=== PATIENT | male | born 1955 | race Caucasian/White ===

== ENCOUNTER 2018-02-06 21:30 | Inpatient (IN) | payer BC ==
[2018-02-06] MEDS ORDERED: DILTIAZEM 125 MG in SODIUM CHLORIDE 0.9% 100 ML IV ONE (21:57)
[2018-02-06] MEDS ORDERED: DILTIAZEM 5 MG/1 ML (25ML VIAL) IV STA (21:57)
[2018-02-06] MEDS ORDERED: SODIUM CHLORIDE 0.9% 500 ML IV ONE (21:58)
[2018-02-06] MEDS ORDERED: DILTIAZEM 50 MG in SODIUM CHLORIDE 0.9% 40 ML IV ONE (22:15)
[2018-02-06 22:17] LABS: Basophils # (A) 0.1 k/uL (0-0.2); Basophils % (A) 1 %; Eosinophils # (A) 0.1 k/uL (0-0.7); Eosinophils % (A) 2 %; HGB 15.5 gm/dL (13.0-17.5); Lymphocytes # (A) 2.7 k/uL (1.0-4.8); Lymphocytes % (A) 34 %; MCH 27.1 pg (25.0-35.0); MCHC 34.5 g/dL (31.0-37.0); MCV 78.5 fL (80.0-100.0); Mean Platelet Volume 7.6; Monocytes # (A) 0.4 k/uL (0-1.0); Monocytes % (A) 5 %; Neutrophils # (A) 4.6 k/uL (1.3-7.7); Neutrophils % (A) 57 %; Platelet Count 187 k/uL (150-450); RBC 5.73 m/uL (4.30-5.90); RDW 14.1 % (11.5-15.5); WBC 8.1 k/uL (3.8-10.6)
[2018-02-06 22:24] LABS: INR 0.9 (<1.2); Partial Thromboplastin Time 23.7 sec (22.0-30.0); Prothrombin Time 9.5 sec (9.0-12.0)
--- NOTE | 2018-02-06 22:25 | ED ---
General Adult HPI - General Chief complaint: Chest Pain Stated complaint: Chest pain Time Seen by Provider: 02/06/18 21:45 Source: patient, RN notes reviewed Mode of arrival: ambulatory Limitations: no limitations - History of Present Illness Initial comments: 62-year-old male presenting for evaluation of chest pain and palpitation. Patient states approximately one hour prior to arrival he was walking up the stairs to go to bed, he developed palpitations and checked his pulse, stated his heart was racing. At that time he had some upper chest tightness and right- sided neck and jaw pain. This was associated with some mild nausea. No vomiting. Symptoms have been persistent since that time. He has no history of coronary artery disease, no history of arrhythmia. Patient takes a daily aspirin, no other medications. Denies abdominal pain. Denies fever or chills. Denies cough or dyspnea. Denies rectal bleeding or melena. - Related Data Home Medications Medication Instructions Recorded Confirmed Aspirin [Adult Low Dose Aspirin EC] 81 mg PO DAILY 10/17/16 02/06/18 Allergies Allergy/AdvReac Type Severity Reaction Status Date / Time No Known Allergies Allergy Verified 02/06/18 22:11 Review of Systems ROS Statement: Those systems with pertinent positive or pertinent negative responses have been documented in the HPI. ROS Other: All systems not noted in ROS Statement are negative. Past Medical History Past Medical History: No Reported History Additional Past Medical History / Comment(s): HAS HAD THE HERNIA FOR ABOUT 2 YEARS. History of Any Multi-Drug Resistant Organisms: None Reported Past Surgical History: Hernia Repair, Tonsillectomy Additional Past Surgical History / Comment(s): DETACHED RETINAS, RIGHT EYE WORSE. VASECTOMY. Past Anesthesia/Blood Transfusion Reactions: No Reported Reaction Past Psychological History: No Psychological Hx Reported Smoking Status: Never smoker Past Alcohol Use History: Rare Past Drug Use History: None Reported - Past Family History Mother Family Medical History: Cancer Additional Family Medical History / Comment(s): BREAST General Exam Limitations: no limitations General appearance: alert, in no apparent distress Head exam: Present: atraumatic, normocephalic Eye exam: Present: normal appearance, PERRL, EOMI ENT exam: Present: normal exam Neck exam: Present: normal inspection. Absent: tenderness, meningismus Respiratory exam: Present: normal lung sounds bilaterally. Absent: respiratory distress, wheezes Cardiovascular Exam: Present: tachycardia, irregular rhythm, normal heart sounds GI/Abdominal exam: Present: soft. Absent: distended, tenderness, guarding Extremities exam: Present: normal inspection, normal capillary refill. Absent: pedal edema Neurological exam: Present: alert, oriented X3, CN II-XII intact. Absent: motor sensory deficit Psychiatric exam: Present: normal affect, normal mood Skin exam: Present: warm, dry, intact. Absent: cyanosis, diaphoretic Course Vital Signs 02/06/18 02/06/18 02/06/18 21:35 22:06 22:31 Temperature 98.5 F Pulse Rate 91 135 H Pulse Rate [ 135 H [employer] ] Respiratory 18 18 Rate Blood Pressure 167/93 123/90 O2 Sat by Pulse 98 96 Oximetry 02/06/18 23:14 Temperature Pulse Rate 62 Pulse Rate [ [employer] ] Respiratory 18 Rate Blood Pressure 147/81 O2 Sat by Pulse 97 Oximetry EKG Findings - EKG Comments: EKG Findings:: EKG obtained at 2147, A. fib with RVR, left axis deviation, nonspecific ST segment abnormality including ST segment depression in lead 2, no ST segment elevation rate of 140, QRS duration 100, QTC 506. EKG obtained at 20 30 to normal sinus rhythm, left axis deviation, ST segment elevation, ventricular rate 61, VA interval 178, QRS duration 90, due to see 394 Medical Decision Making - Medical Decision Making 62-year-old male presenting with chest pain and palpitations. Patient is found to be in A. fib with RVR, no history of A. fib. No significant past medical history. Patient is given Cardizem and converts to sinus rhythm. He does have nonspecific changes on EKG as well as he experienced chest pain with his palpitations. This is likely secondary to demand. Laboratory studies reveal normal hemoglobin, normal electrolytes including magnesium. Troponin is negative. Chest x-ray negative. Patient will be maintained on Cardizem and heparin. He will be admitted for cardiology consult, and telemetry. - Lab Data Result diagrams: 02/06/18 21:56 02/06/18 21:56 Lab Results 02/06/18 02/06/18 02/06/18 Range/Units 21:56 21:56 21:56 WBC 8.1 (3.8-10.6) k/uL RBC 5.73 (4.30-5.90) m/uL Hgb 15.5 (13.0-17.5) gm/dL Hct 45.0 (39.0-53.0) % MCV 78.5 L (80.0-100.0) fL MCH 27.1 (25.0-35.0) pg MCHC 34.5 (31.0-37.0) g/dL RDW 14.1 (11.5-15.5) % Plt Count 187 (150-450) k/uL Neutrophils % 57 % Lymphocytes % 34 % Monocytes % 5 % Eosinophils % 2 % Basophils % 1 % Neutrophils # 4.6 (1.3-7.7) k/uL Lymphocytes # 2.7 (1.0-4.8) k/uL Monocytes # 0.4 (0-1.0) k/uL Eosinophils # 0.1 (0-0.7) k/uL Basophils # 0.1 (0-0.2) k/uL PT (9.0-12.0) sec INR (<1.2) APTT (22.0-30.0) sec Sodium 145 (137-145) mmol/L Potassium 4.0 (3.5-5.1) mmol/L Chloride 105 (98-107) mmol/L Carbon Dioxide 25 (22-30) mmol/L Anion Gap 15 mmol/L BUN 19 (9-20) mg/dL Creatinine 0.90 (0.66-1.25) mg/dL Est GFR (CKD-EPI)AfAm >90 (>60 ml/min/1.73 sqM) Est GFR (CKD-EPI)NonAf 90 (>60 ml/min/1.73 sqM) Glucose 178 H (74-99) mg/dL Calcium 9.8 (8.4-10.2) mg/dL Magnesium 2.1 (1.6-2.3) mg/dL Total Bilirubin 0.4 (0.2-1.3) mg/dL AST 32 (17-59) U/L ALT 45 (21-72) U/L Alkaline Phosphatase 81 (38-126) U/L Total Creatine Kinase 156 (55-170) U/L CK-MB (CK-2) 2.0 (0.0-2.4) ng/mL CK-MB (CK-2) Rel Index 1.3 Troponin I <0.012 (0.000-0.034) ng/mL NT-Pro-B Natriuret Pep pg/mL Total Protein 7.2 (6.3-8.2) g/dL Albumin 4.4 (3.5-5.0) g/dL 02/06/18 02/06/18 Range/Units 21:56 21:56 WBC (3.8-10.6) k/uL RBC (4.30-5.90) m/uL Hgb (13.0-17.5) gm/dL Hct (39.0-53.0) % MCV (80.0-100.0) fL MCH (25.0-35.0) pg MCHC (31.0-37.0) g/dL RDW (11.5-15.5) % Plt Count (150-450) k/uL Neutrophils % % Lymphocytes % % Monocytes % % Eosinophils % % Basophils % % Neutrophils # (1.3-7.7) k/uL Lymphocytes # (1.0-4.8) k/uL Monocytes # (0-1.0) k/uL Eosinophils # (0-0.7) k/uL Basophils # (0-0.2) k/uL PT 9.5 (9.0-12.0) sec INR 0.9 (<1.2) APTT 23.7 (22.0-30.0) sec Sodium (137-145) mmol/L Potassium (3.5-5.1) mmol/L Chloride (98-107) mmol/L Carbon Dioxide (22-30) mmol/L Anion Gap mmol/L BUN (9-20) mg/dL Creatinine (0.66-1.25) mg/dL Est GFR (CKD-EPI)AfAm (>60 ml/min/1.73 sqM) Est GFR (CKD-EPI)NonAf (>60 ml/min/1.73 sqM) Glucose (74-99) mg/dL Calcium (8.4-10.2) mg/dL Magnesium (1.6-2.3) mg/dL Total Bilirubin (0.2-1.3) mg/dL AST (17-59) U/L ALT (21-72) U/L Alkaline Phosphatase (38-126) U/L Total Creatine Kinase (55-170) U/L CK-MB (CK-2) (0.0-2.4) ng/mL CK-MB (CK-2) Rel Index Troponin I (0.000-0.034) ng/mL NT-Pro-B Natriuret Pep 86 pg/mL Total Protein (6.3-8.2) g/dL Albumin (3.5-5.0) g/dL Critical Care Time Critical Care Time: Yes Total Critical Care Time: 35 Disposition Clinical Impression: Unstable angina pectoris, Atrial fibrillation with RVR Disposition: ADMITTED IP TO THIS [facility] Condition: Stable Referrals: Jonny Iglesias MD [Primary Care Provider] - 1-2 days Decision to Admit Reason: Admit from EC Decision Date: 02/06/18 Decision Time: 23:37
[2018-02-06 22:28] LABS: ALT 45 U/L (21-72); AST 32 U/L (17-59); Albumin 4.4 g/dL (3.5-5.0); Alkaline Phosphatase 81 U/L (38-126); Anion Gap 15 mmol/L; Blood Urea Nitrogen 19 mg/dL (9-20); Calcium 9.8 mg/dL (8.4-10.2); Carbon Dioxide 25 mmol/L (22-30); Chloride 105 mmol/L (98-107); Glucose 178 mg/dL (74-99); Magnesium 2.1 mg/dL (1.6-2.3); Sodium 145 mmol/L (137-145); Total Bilirubin 0.4 mg/dL (0.2-1.3); Total Protein 7.2 g/dL (6.3-8.2)
[2018-02-06 22:36] LABS: Creatine Kinase 156 U/L (55-170)
[2018-02-06 22:48] LABS: Troponin I <0.012 ng/mL (0.000-0.034)
--- NOTE | 2018-02-06 22:53 | XR ---
EXAMINATION: XR chest 2V DATE AND TIME: 02/06/2018 10:26 PM ORDERING PROVIDER: Chuck Martins MD CLINICAL INDICATION: Chest Pain TECHNIQUE: PA and lateral COMPARISON: None. DESCRIPTION: The lungs are clear. The pleural spaces are negative. The cardiac silhouette is not enlarged. The mediastinal and pleural silhouettes are unremarkable. The skeletal structures are intact without focal findings. The soft tissues are unremarkable. IMPRESSION: NO ACUTE PROCESS.
[2018-02-06] MEDS ORDERED: ASPIRIN 325 MG TAB PO STA (23:06)
[2018-02-06] MEDS ORDERED: NALOXONE 0.4 MG/ML 1 ML VIAL IV PRN (23:32)
[2018-02-06] MEDS ORDERED: HEPARIN SODIUM,PORCINE 5,000 UNIT/ML 1 ML VIAL IV PRN (23:34)
[2018-02-06] MEDS ORDERED: HEPARIN SODIUM,PORCINE 5,000 UNIT/ML 1 ML VIAL IV ONE (23:34)
[2018-02-06] MEDS ORDERED: HEPARIN SOD,PORK IN 0.45% NACL 25,000 UNIT in 0.45% NACL 1 500ML.BAG IV SCH (23:45)
[2018-02-07 01:08] VITALS: BMI 28.1
[2018-02-07 04:41] LABS: Creatine Kinase MB 1.8 ng/mL (0.0-2.4)
[2018-02-07 04:52] LABS: Troponin I 0.05 ng/mL (0.000-0.034)
[2018-02-07 07:28] LABS: Basophils % (A) 1 %; Eosinophils # (A) 0.1 k/uL (0-0.7); Eosinophils % (A) 1 %; HCT 41.7 % (39.0-53.0); HGB 13.7 gm/dL (13.0-17.5); Lymphocytes # (A) 2.1 k/uL (1.0-4.8); Lymphocytes % (A) 30 %; MCH 25.8 pg (25.0-35.0); MCHC 32.7 g/dL (31.0-37.0); MCV 78.8 fL (80.0-100.0); Mean Platelet Volume 7.8; Monocytes # (A) 0.4 k/uL (0-1.0); Monocytes % (A) 5 %; Neutrophils # (A) 4.4 k/uL (1.3-7.7); Neutrophils % (A) 61 %; Platelet Count 170 k/uL (150-450); RDW 14.3 % (11.5-15.5); WBC 7.2 k/uL (3.8-10.6)
[2018-02-07] MEDS: ASPIRIN 325 MG TAB PO SCH (08:15)
[2018-02-07] MEDS ORDERED: ASPIRIN 325 MG TAB PO STA (08:55)
[2018-02-07] MEDS ORDERED: ALPRAZolam 0.25 MG TAB PO PRN (08:55)
[2018-02-07] MEDS ORDERED: ALPRAZolam 0.5 MG TAB PO PRN (08:55)
[2018-02-07] MEDS ORDERED: SODIUM CHLORIDE 0.9% 1,000 ML in EMPTY BAG 1 BAG IV ONE (08:55)
[2018-02-07] MEDS ORDERED: ATORVASTATIN 80 MG TAB PO STA (08:55)
[2018-02-07] MEDS ORDERED: NITROGLYCERIN SL TABS 0.4 MG TAB SUBLINGUAL PRN (08:55)
--- NOTE | 2018-02-07 09:37 | CONS ---
CONSULTATION CHIEF COMPLAINT: Chest pain. Christian is a 62-year-old gentleman with no significant past medical history, who around 9 o'clock yesterday felt somewhat fatigued and tired and went to bed early, then started having sustained palpitations. There are moderate to severe intensity came on at rest without clear-cut relieving or exacerbating factors. Then he says that he developed chest discomfort that was 5 to 10/10 intensity that radiated to him in his neck and jaw area. He was concerned, came to the ER where he was found to be in atrial fibrillation with poorly with controlled ventricular rate. Subsequently, he converted back to sinus rhythm on his own. The patient was in atrial fibrillation for about 2 hours before he converted on his own. He is on IV heparin and remained symptom free through night. His 1st set of troponin was normal, but the 2nd one came back elevated at 0.050. The rest of his lab workup is normal. EKG does not reveal acute ischemic changes. Given his symptomatology and elevated troponin, I advised the patient to undergo cardiac catheterization to evaluate his coronary anatomy and streamline his management. I will obtain a 2D echo to evaluate his LV function. If the coronaries are normal, we can treat him with aspirin and start him on a beta lizbeth and discharge him home. He does not need an anticoagulant at this time. If he has coronary artery disease, then he will undergo revascularization. PAST MEDICAL HISTORY: Negative for hypertension, diabetes, dyslipidemia. MEDICATIONS: Aspirin. ALLERGIES: No known drug allergies. FAMILY HISTORY: Negative for premature coronary artery disease. SOCIAL HISTORY: Negative for current smoking, EtOH abuse, or drug abuse. REVIEW OF SYSTEMS: HEENT is unremarkable. Cardiac as described above. Respiratory negative. GI negative. Genitourinary negative. Allergy none. Skin negative. Musculoskeletal negative. Endocrine negative. Constitutional negative. Oncological negative. Rest of the system review is not relevant. PHYSICAL EXAM: Comfortable at rest. Vital signs are stable. There is no jugular venous distention. Carotid upstroke is normal. There is no bruit. Chest exam reveals good air entry bilaterally. Heart exam reveals first and second heart sounds. No gallop. No murmur. No rub. Abdomen is soft, nontender. Exam of extremities did not reveal edema. Peripheral pulses are felt. LABS: Show that the hemoglobin is 13.7, potassium is 4. Creatinine is 0.9. Troponin is elevated. ASSESSMENT: 1. Non ST-segment elevation myocardial infarction. 2. Paroxysmal atrial fibrillation. PLAN: I advised the patient to undergo cardiac catheterization. We will decide on further course of action based on his angiographic data. ALEX / BARRY: [id number] /
[2018-02-07] MEDS ORDERED: IV FLUID CONTINUATION 150 ML IV ONE (11:30)
[2018-02-07 11:33] LABS: Creatine Kinase MB 1.5 ng/mL (0.0-2.4); Troponin I 0.021 ng/mL (0.000-0.034)
[2018-02-07] MEDS ORDERED: MIDAZOLAM 2 MG/2 ML VIAL ONE (11:41)
[2018-02-07] MEDS ORDERED: fentaNYL (PF) 50 MCG/ML 2 ML AMP ONE (11:41)
--- NOTE | 2018-02-07 11:43 | ECHOF ---
Referral Reason:chest pain. afib MEASUREMENTS -------- HEIGHT: 185.4 cm WEIGHT: 104.8 kg BP: 163/72 IVSd: 1.2 cm (0.6 - 1.1) LVIDd: 4.2 cm (3.9 - 5.3) LVPWd: 1.4 cm (0.6 - 1.1) IVSs: 1.8 cm LVIDs: 2.2 cm LVPWs: 2.3 cm LAESV Index (A-L): 20.50 ml/m Ao Diam: 3.8 cm (2.0 - 3.7) AV Cusp: 2.0 cm (1.5 - 2.6) LA Diam: 3.3 cm (2.7 - 3.8) MV EXCURSION: 8.330 mm (> 18.000) MV EF SLOPE: 51 mm/s (70 - 150) EPSS: 2.3 cm MV E Carter: 1.05 m/s MV DecT: 271 ms MV A Carter: 0.83 m/s MV E/A Ratio: 1.27 AR PHT: 731 ms RAP: 5.00 mmHg RVSP: 15.39 mmHg FINDINGS -------- Sinus rhythm. This was a technically good study. The left ventricular size is normal. There is mild concentric left ventricular hypertrophy. Overa ll left ventricular systolic function is normal with, an EF between 55 - 60 %. The right ventricle is normal in size and function. The left atrium is normal in size. The right atrium is normal in size. There is mild aortic regurgitation. There is trace mitral regurgitation. Trace tricuspid regurgitation present. The right ventricular systolic pressure, as measured by Dopp ler, is 15.39mmHg. Pulmonic valve appears structurally normal. The aortic root is mildy dilated measuring 3.8 cm The pericardium is normal. CONCLUSIONS -------- 1. Sinus rhythm. 2. This was a technically good study. 3. The left ventricular size is normal. 4. There is mild concentric left ventricular hypertrophy. 5. Overall left ventricular systolic function is normal with, an EF between 55 - 60 %. 6. The right ventricle is normal in size and function. 7. The left atrium is normal in size. 8. The right atrium is normal in size. 9. There is mild aortic regurgitation. 10. There is trace mitral regurgitation. 11. Trace tricuspid regurgitation present. 12. The right ventricular systolic pressure, as measured by Doppler, is 15.39mmHg. 13. Pulmonic valve appears structurally normal. 14. The aortic root is mildy dilated measuring 3.8 cm 15. The pericardium is normal. HOME SUPERVISOR: Cecile Maidson RDCS
[2018-02-07] MEDS ORDERED: SODIUM CHLORIDE 0.9% 500 ML IV ONE (11:49)
[2018-02-07] MEDS ORDERED: MIDAZOLAM 2 MG/2 ML VIAL IV ONE (11:49)
[2018-02-07] MEDS ORDERED: LIDOCAINE 2% INJ 20 MG/ML SQ ONE (11:53)
[2018-02-07] MEDS ORDERED: fentaNYL (PF) 50 MCG/ML 2 ML AMP IV ONE (11:54)
[2018-02-07] MEDS ORDERED: IOPAMIDOL-370 125ML BTL INJ ONE (12:05)
[2018-02-07] MEDS ORDERED: RX INFO: IV CONTRAST WAS GIVEN 1 EACH MISC MISCELLANE PRN (12:14)
--- NOTE | 2018-02-07 12:28 | CC ---
CARDIAC CATHETERIZATION REPORT INDICATION: Non ST-segment elevation WI. PROCEDURE NOTE: After obtaining informed consent, left heart catheterization and coronary angiogram are performed via the right femoral artery using standard Dick catheters. The patient tolerated the procedure well without any obvious immediate complications. A femoral angiogram was performed and Angio-Seal was deployed for hemostasis. Patient received moderate conscious sedation. Total sedation time was 13 minutes. FINDINGS: 1. HEMODYNAMICS: Left ventricular end-diastolic pressure is 12 mm. There is no significant gradient across aortic valve. 2. LEFT VENTRICULOGRAM: Left ventriculogram is not performed. 3. ANGIOGRAPHIC DATA: 4. Left main coronary artery: Left main coronary artery is a normal-sized vessel and is free of stenosis. Divides into left anterior descending coronary artery and circumflex coronary artery. LAD and its branches, circumflex coronary artery and its branches are free of significant stenosis. Right coronary artery is a large dominant vessel and is free of significant disease. CONCLUSIONS: 1. Normal coronary arteries. 2. Normal left ventricular end-diastolic pressure. PLAN: The exact etiology for elevated troponin is unclear, could be related to supply-demand mismatch from the new onset atrial fibrillation. I certainly would like to rule out pulmonary embolism. I am going to obtain a D-dimer on him and if this is elevated, we will obtain a CT scan of the chest. MMODL / IJN: [id number] /
--- NOTE | 2018-02-07 14:04 | HP ---
HISTORY AND PHYSICAL DATE OF ADMISSION: 02/06/2018 PRESENTING COMPLAINT: Chest pain. HISTORY OF PRESENTING COMPLAINT: This is a very pleasant 62-year-old patient of Dr. Iglesias. Rather in good shape and health. 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 Patient has to climb quite a few stairs. Yesterday when he was climbing stairs, his legs really felt tired, he felt really fatigued. When he came home, he told his he just wants to lie down and get some rest, felt exhausted, felt also his heart racing, then developed a pressure across the chest, going up to the neck. Patient started sweating, started feeling more run down. This lasted for quite a while and decided to come down to the ER. Patient is found to be in atrial fibrillation rapid ventricular rate, put on IV Cardizem. Patient subsequently converted to sinus rhythm. Patient's troponin did bump up to 0.050 and seen by Cardiology this morning. Patient is now scheduled for a cardiac catheterization. Otherwise, patient is in great health. REVIEW OF SYSTEMS: CONSTITUTIONAL: Tired. HEENT: None. RESPIRATORY: As above. CARDIOVASCULAR: As above. GASTROINTESTINAL: None. GENITOURINARY: None. MUSCULOSKELETAL: None. DERMATOLOGICAL: None. HEMATOLOGICAL: None. LYMPHATIC: None. PSYCHIATRY: None. NEUROLOGICAL: None. PAST MEDICAL HISTORY: Hernia. PAST SURGICAL HISTORY: Hernia repair, tonsillectomy, detached retina on the right eye, vasectomy. SOCIAL HISTORY: Never smoked. Alcohol rarely. . 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 FAMILY HISTORY: Breast cancer. HOME MEDICATIONS: Aspirin 81 mg a day. ALLERGIES: None. PHYSICAL EXAMINATION: Vital signs on presentation, temperature 98.5, pulse up to 135, respiratory rate 18, blood pressure 167/93, pulse ox 98% on room air, repeat blood pressure down to 123/90. GENERAL APPEARANCE: Average build, lying in bed, comfortable. EYES: Pupils equal, conjunctivae normal. HEENT: External appearance of nose and ears oral, oral cavity normal. NECK: JVD not raised. Mass not palpable. Respiratory effort normal. Lungs are clear. CARDIOVASCULAR: First and second sounds are normal. No edema. ABDOMEN: Soft, nontender. Liver and spleen not palpable. LYMPHATIC: No lymph nodes palpable in neck or axillae. PSYCHIATRY: Alert and oriented x3. Mood and affect normal. NEUROLOGICAL: Pupils equal, cranial nerves grossly intact. Power and sensation grossly intact. INVESTIGATIONS: White count 8.1, hemoglobin 15.5 potassium 4.0, BUN and creatinine is normal, troponin less than 0.012, 0.050, 0.021. EKG shows atrial fib with rapid ventricular rate. Repeat EKG normal. LDL 104. ASSESSMENT: 1. Possible acute non-Q-wave myocardial infarction. 2. Paroxysmal atrial fibrillation, probably manifesting as a sign of cardiac ischemia. 3. IV heparin monitoring. PLAN: Patient will be going for a cardiac catheterization, already on aspirin, beta lizbeth, and IV heparin. Dr. Gunn from Cardiology saw the patient. Care was discussed with the patient and . Questions were answered. ALEX / LEONORN: [id number] /
[2018-02-07] MEDS: SODIUM CHLORIDE 0.9% 1,000 ML IV SCH (15:26)
[2018-02-07] MEDS: METOPROLOL TARTRATE 25 MG TAB PO SCH (16:50)
[2018-02-08] MEDS: SODIUM CHLORIDE 0.9% 1,000 ML IV SCH ×2 (01:32→16:09)
[2018-02-08] MEDS: METOPROLOL TARTRATE 25 MG TAB PO SCH (04:20)
[2018-02-08 06:40] LABS: Basophils % (A) 1 %; Eosinophils # (A) 0.1 k/uL (0-0.7); Eosinophils % (A) 1 %; HCT 40.3 % (39.0-53.0); HGB 13.6 gm/dL (13.0-17.5); Lymphocytes # (A) 1.7 k/uL (1.0-4.8); Lymphocytes % (A) 25 %; MCH 26.6 pg (25.0-35.0); MCHC 33.8 g/dL (31.0-37.0); MCV 78.6 fL (80.0-100.0); Mean Platelet Volume 7.5; Monocytes # (A) 0.4 k/uL (0-1.0); Monocytes % (A) 6 %; Neutrophils # (A) 4.5 k/uL (1.3-7.7); Neutrophils % (A) 66 %; Platelet Count 160 k/uL (150-450); RBC 5.12 m/uL (4.30-5.90); RDW 14.1 % (11.5-15.5); WBC 6.8 k/uL (3.8-10.6)
[2018-02-08] MEDS: ASPIRIN 325 MG TAB PO SCH (08:46)
[2018-02-08] MEDS ORDERED: METOPROLOL TARTRATE 25 MG TAB PO SCH (09:00)
[2018-02-08 10:31] VITALS: TEMP 96.7
--- NOTE | 2018-02-08 11:19 | P.PN ---
Subjective Progress Note Date: 02/08/18 Principal diagnosis: Atrial fibrillation His is a pleasant 62-year-old gentleman with no significant past medical history who presented to the hospital with new onset atrial fibrillation. He subsequently converted to normal sinus rhythm within a two-hour period and has remained in normal sinus rhythm. He was also noted to have abnormality in his troponin and for this reason was taken to the cardiac catheterization lab by Dr. Gunn. Cardiac catheterization revealed normal coronary arteries. Patient was seen and examined this morning, denied any palpitations, no dizziness or lightheadedness, no chest discomfort. Blood pressure 140/70 with a heart rate in the 50s. Objective - Vital Signs Vital signs: Vital Signs Temp 96.7 F L 02/08/18 08:40 Pulse 59 L 02/08/18 08:40 Resp 16 02/08/18 08:40 BP 145/74 02/08/18 08:40 Pulse Ox 97 02/08/18 08:40 Intake & Output 02/07/18 02/08/18 02/08/18 18:59 06:59 18:59 Intake Total 718.573 2962 240 Output Total 700 350 Balance -435.333 725 240 Weight 103.1 kg Intake: IV 100 Intake, IV Titration 164.667 675 Amount Heparin Sod,Pork in 0.45% 164.667 NaCl 25,000 unit In 0.45 % NaCl 1 500ml.bag @ 9.8 UNITS/KG/HR 20 mls/hr IV .Q24H LING Rx#:[id number] Sodium Chloride 0.9% 1, 675 000 ml @ 75 mls/hr IV . [id number] LING Rx#:[id number] Oral 0 400 240 Output: Urine 700 350 Other: Voiding Method Urinal Urinal # Voids 1 - Exam PHYSICAL EXAMINATION: HEENT: Head is atraumatic, normocephalic. Pupils equal, round. Neck is supple. There is no elevated jugular venous pressure. HEART EXAMINATION: Heart S1, S2 normal. No murmur or gallop heard. CHEST EXAMINATION: Lungs are clear to auscultation and precussion. No chest wall tenderness is noted on palpation or with deep breathing. ABDOMEN: Soft, nontender. Bowel sounds are heard. No organomegaly noted. Right groin soft, no evidence of any hematoma. EXTREMITIES: 2+ peripheral pulses with no evidence of peripheral edema and no calf tenderness noted. NEUROLOGIC patient is awake, alert and oriented -3. . - Labs CBC & Chem 7: 02/08/18 06:07 02/06/18 21:56 Labs: Abnormal Lab Results - Last 24 Hours (Table) 02/07/18 02/08/18 Range/Units 10:18 06:07 MCV 78.6 L (80.0-100.0) fL LDL Cholesterol, Calc 104 H (0-99) mg/dL Assessment and Plan Plan: Assessment and plan #1 paroxysmal atrial fibrillation, duration of approximately 2 hours. Patient remaining in normal sinus rhythm. #2 abnormality in troponin, likely secondary to atrial fibrillation, status post cardiac catheterization which revealed normal coronary arteries Plan From cardiology's perspective, patient may be able to be discharged home today on Lopressor along with a full aspirin 325 mg, CHADS VASC score 0. follow-up appointment with Dr. Gunn in the office post discharge. DNP note has been reviewed, I agree with a documented findings and plan of care. Patient was seen and examined.
[2018-02-08 16:11] VITALS: RESP 18
[2018-02-08 16:13] VITALS: BP 127/72; PULSE 54
--- NOTE | 2018-02-08 21:31 | DS ---
DISCHARGE SUMMARY DATE OF ADMISSION: 02/06/2018. DATE OF DISCHARGE: 02/08/2018 FINAL DIAGNOSES: 1. Paroxysmal atrial fibrillation. 2. Acute troponin leak due to atrial fibrillation, not acute myocardial infarction. 3. IV heparin monitoring. 4. Essential hypertension. HOSPITAL COURSE: This patient presented with atrial fibrillation, reverted to sinus rhythm. There is some troponin leak initially suspected to be ND, now felt to be a troponin leak due to atrial fibrillation stress. Did have a cardiac catheterization that came back to be normal. The patient is having no more symptoms. 2D echo was unremarkable. CONSULTATION: Dr. Frederic Gunn. PROCEDURE: Cardiac catheterization. DISCHARGE MEDICATIONS: 1. Aspirin 325 mg a day. 2. Zestoretic uretic 30/10.5 one tab p.o. daily. Follow up with Dr. Iglesias in [address] Frederic Gunn in 1 week. EXAM: Lungs are clear. CARDIOVASCULAR: First and second sounds are normal. MMODL / IJN: [id number] /
--- NOTE | 2018-02-08 21:31 | DS ---
DISCHARGE SUMMARY ADDENDUM: The patient is being discharged home on atenolol 25 mg a day, and not the Zestoretic. MMODL / IJN: [id number] /
== END 2018-02-08 17:34 | disposition home or self-care (01) | DRG 287 ==
LOC: EC 21:30 → 6SEL 23:32
PROVIDERS: ADMIT Hospitalist; ATTEND Hospitalist
PROC: B2111ZZ Fluoroscopy of Multiple Coronary Arteries using Low Osmolar Contrast (ICD-10-PCS; principal; 2018-02-06)
PROC: 4A023N7 Measurement of Cardiac Sampling and Pressure, Left Heart, Percutaneous Approach (ICD-10-PCS; principal; 2018-02-06)
DX: I48.0 Paroxysmal atrial fibrillation (principal); I10 Essential (primary) hypertension; R89.0 Abnormal level of enzymes in specimens from other organs, systems and tissues; Z79.82 Long term (current) use of aspirin; Z98.890 Other specified postprocedural states; Z80.3 Family history of malignant neoplasm of breast
CPT/HCPCS: 36415; 71046; 80053; 80061; 82550; 82553; 83735; 83880; 84443; 84484; 85025; 85379; 85610; 85730; 93005; 93306; 93458; 96365; 96366; 96368; 96376; 99291

== ENCOUNTER 2024-07-07 07:06 | Day surgery (SDC) | payer MEDICARE ==
[~2024-07-07 07:06] MED LIST: ALPRAZolam 0.25 MG TAB PO PRN; ALPRAZolam 0.5 MG TAB PO PRN; HEPARIN SODIUM,PORCINE (1 ML) 2,500 UNIT in SODIUM CHLORIDE 0.9% 250 ML IRRIGATION PRN; HEPARIN SODIUM,PORCINE 10,000 UNIT in SODIUM CHLORIDE 0.9% 1,000 ML IRRIGATION PRN; NITROGLYCERIN SL TABS 0.4 MG TAB SUBLINGUAL PRN
[2024-07-07] MEDS: SODIUM CHLORIDE 0.9% 1,000 ML IV ONE (07:24)
[2024-07-07] MEDS: SODIUM CHLORIDE 0.9% 1,000 ML in EMPTY BAG 1 BAG IV SCH (07:29)
[2024-07-07 07:33] LABS: Basophils # (A) 0.1 k/uL (0-0.2); Basophils % (A) 1 %; Eosinophils # (A) 0.2 k/uL (0-0.7); Eosinophils % (A) 3 %; HCT 44.2 % (39.0-53.0); HGB 14.7 gm/dL (13.0-17.5); Lymphocytes % (A) 25 %; MCH 27.2 pg (25.0-35.0); MCHC 33.3 g/dL (31.0-37.0); MCV 81.7 fL (80.0-100.0); Mean Platelet Volume 7.9; Monocytes # (A) 0.4 k/uL (0-1.0); Monocytes % (A) 5 %; Neutrophils # (A) 4.9 k/uL (1.3-7.7); Neutrophils % (A) 64 %; Platelet Count 185 k/uL (150-450); RBC 5.41 m/uL (4.30-5.90); RDW 14.1 % (11.5-15.5); WBC 7.7 k/uL (3.8-10.6)
[2024-07-07 07:50] LABS: Sodium 133 mmol/L (137-145)
[2024-07-07 07:52] LABS: African American GFR (CKD) 75 (>60 ml/min/1.73 sqM); Anion Gap 0 mmol/L; Blood Urea Nitrogen 18 mg/dL (9-20); Calcium 9.3 mg/dL (8.4-10.2); Carbon Dioxide 25 mmol/L (22-30); Chloride 108 mmol/L (98-107); Glucose 118 mg/dL (74-99); Non-African American GFR(CKD) 65 (>60 ml/min/1.73 sqM); Potassium 3.9 mmol/L (3.5-5.1)
[2024-07-07] MEDS ORDERED: VERAPAMIL 2.5 MG/ML 2 ML AMP ONE (08:11)
[2024-07-07] MEDS ORDERED: LIDOCAINE 1% INJ 10MG/ML (20 ML MDV) ONE (08:11)
[2024-07-07] MEDS ORDERED: fentaNYL (PF) 50 MCG/ML 2 ML AMP ONE (08:54)
[2024-07-07] MEDS ORDERED: HEPARIN SODIUM 1,000 UN/ML (10ML VL) ONE (08:54)
[2024-07-07] MEDS: BENZOCAINE SPRAY 1 CAN TOPICAL ONE (09:00)
[2024-07-07] MEDS: MIDAZOLAM 2 MG/2 ML VIAL IVP ONE (09:04)
[2024-07-07] MEDS: fentaNYL (PF) 50 MCG/ML 2 ML AMP IVP ONE ×2 (09:05)
[2024-07-07] MEDS: IV FLUID CONTINUATION 1,000 ML IV ONE (09:05)
--- NOTE | 2024-07-07 09:19 | P.TEE ---
Date of Procedure: 07/07/24 Preoperative Diagnosis: Aortic regurgitation Postoperative Diagnosis: Aortic regurgitation Description of Procedure(s): Transesophageal echocardiogram was performed in left lateral position using an Omni plane from. Local and IV sedation were obtained using Xylocaine spray Versed and fentanyl. Tolerated the procedure well without any obvious immediate complications. Total sedation time was 10 minutes. Findings: Aortic valve is a 3 leaflet valve. There is poor coaptation of the aortic valve leaflets with severe eccentric jet of aortic regurgitation. Aortic root appears mildly dilated measuring 3.9 cm. Mitral valve is anatomically normal there is mild mitral regurgitation noted tricuspid valve shows mild tricuspid regurgitation. Left atrium appears mildly enlarged right atrium right ventricle send within normal limits. Left ventricular is mildly dilated with mild global hypokinesis with an ejection fraction of 50%. Interatrial septum there is no evidence of [id number] shunt by color-flow Doppler right [id number] shunt by agitated saline contrast study Conclusions: Severe aortic regurgitation involving 3 leaflet aortic valve. Dilated aortic root Plan patient will undergo cardiac catheterization and I will refer him to her cardiac thoracic surgery for evaluation for aortic valve replacement.
[2024-07-07] MEDS: LIDOCAINE 1% INJ 10MG/ML (20 ML MDV) SQ ONE (09:22)
[2024-07-07] MEDS: VERAPAMIL SYRINGE (5 MG/10 ML) INTRAARTER ONE (09:24)
[2024-07-07] MEDS: HEPARIN SODIUM 1,000 UN/ML (10ML VL) IVP ONE (09:26)
[2024-07-07] MEDS: IOPAMIDOL-370 200ML BTL INJ ONE (09:45)
[2024-07-07 10:18] LABS: ALT 18 U/L (4-49); AST 24 U/L (17-59)
[2024-07-07] MEDS ORDERED: RX INFO: IV CONTRAST WAS GIVEN 1 EACH MISC MISCELLANE PRN (10:59)
--- NOTE | 2024-07-07 14:24 | XR ---
EXAMINATION TYPE: XR chest 2V DATE OF EXAM: 07/07/2024 2:18 PM COMPARISON: Chest radiographs from 02/06/2018, CT chest 07/07/2024 TECHNIQUE: XR chest 2V Frontal and lateral views of the chest. CLINICAL INDICATION:Male, 68 years old with history of PreOp Cardiac Surgery; FINDINGS: Lungs/Pleura: There is no evidence of pleural effusion, focal consolidation, or pneumothorax. Pulmonary vascularity: Unremarkable. Heart/mediastinum: Cardiomediastinal silhouette is unremarkable. Musculoskeletal: No acute osseous pathology. IMPRESSION: No acute cardiopulmonary disease/process.
--- NOTE | 2024-07-07 14:32 | CT ---
EXAMINATION TYPE: CT chest wo con CT DLP: 729 mGycm, Automated exposure control for dose reduction was used. DATE OF EXAM: 07/07/2024 2:18 PM COMPARISON: Chest radiograph from same day. CLINICAL INDICATION:Male, 68 years old with history of preop Cardiac surgery, evaluate aorta; [facility], [place] EOP CARDIAC SURGERY, EVALUATE AORTA TECHNIQUE: Multiple axial images were obtained through the chest without IV contrast. Lack of IV or o ral contrast limits evaluation of solid and hollow organ viscera. . Coronal and sagittal reformats re viewed. FINDINGS: LUNGS/ PLEURA: No pleural effusion, pneumothorax, focal consolidation. Peripheral right lower lobe 5 mm pulmonary nodule (series 4, image 40). Posterior left lower lobe peripheral tree-in-bud nodular op acities (series 4, image 52). AIRWAY: Patent and unremarkable.. HEART: Size within normal limits. Trace pericardial effusion. Small coronary artery calcifications. MEDIASTINUM: No gross evidence of adenopathy greater than 1 cm short axis. VASCULATURE: No aortic aneurysm. Conventional three-vessel aortic arch. No calcified plaque involvin g the thoracic aorta identified. MUSCULOSKELETAL: No acute osseous abnormalities SOFT TISSUES/LYMPH NODES: Unremarkable. LOWER NECK: No significant findings. UPPER ABDOMEN: Left hepatic lobe 3.5 cm cyst. Bilateral nonobstructive renal calculi versus recent co ntrast administration. Partial visualization of left lateral renal 2.7 cm lesion are not consistent w ith a simple cyst. IMPRESSION: 1. Left lower lobe tree-in-bud opacities likely representing an infectious/inflammatory bronchiolitis . Additional right lower lobe 5 mm pulmonary nodule. In a low risk patient, no follow-up is recommend ed. In a high-risk patient consider optional CT chest in 12 months. 2. Indeterminate left renal 2.7 cm lesion not consistent with a simple cyst. Further evaluation with CT abdomen and pelvis renal mass protocol is recommended. 3. Bilateral nonobstructive renal calculi versus recent contrast administration. 4. Trace pericardial effusion.
[2024-07-07] MEDS: ASPIRIN 325 MG TAB PO ONE (14:33)
[2024-07-07] MEDS: SODIUM CHLORIDE 0.9% 1,000 ML IV SCH (14:33)
--- NOTE | 2024-07-07 15:00 | P.GSCN ---
History of Present Illness Consult date: 07/07/24 Reason for Consult: Aortic valve insufficiency and coronary artery disease Requesting physician: Speedy Gunn History of present illness: This is a 68-year-old gentleman who follows on an outpatient basis with Dr. Olaf Iglesias for his primary care and with Dr. Frederic Gunn for his cardiology care. He has a past medical history significant for aortic valve insufficiency followed by Dr. Gunn with serial echocardiograms, hypertension, paroxysmal atrial fibrillation, bradycardia with current heart rate 52 bpm, is a lifetime non-smoker, and frequent constipation. Recently, the patient has had episodes of shortness of breath with activity, feeling dizzy, slow heart rate in the 30s to 50s and episodes of chest discomfort. He denies any recent fever, chills, nausea, vomiting, headache, visual disturbances, palpitations, presyncope or syncope. The patient reports that due to the symptoms of shortness of breath he underwent a Lexiscan Cardiolite myocardial perfusion scan and rest study on June 01, 2024, and showed a negative stress test by EKG criteria and normal myocardial perfusion and function. For further evaluation the patient underwent a transthoracic 2D echocardiogram on June 29, 2024 which demonstrated a left ventricular ejection fraction of 50 to 55%, mild concentric left ventricular h ypertrophy, mild mitral valve regurgitation, mild mitral annular calcification, a trileaflet aortic valve with severe aortic valve regurgitation, mild tricuspid valve regurgitation and pulmonic valve regurgitation. Subsequently, due to the patient's symptoms and findings on the transthoracic 2D echocardiogram he was recommended to undergo a transesophageal echocardiogram and cardiac catheterization which were completed today by Dr. Gunn. The cardiac catheterization revealed a 90% stenosis to his proximal left anterior descending coronary artery and aortic valve regurgitation. The transesophageal echocardiogram revealed severe aortic valve regurgitation involving a 3 leaflet aortic valve, and a dilated aortic root measuring 3.9 cm. It also demonstrated mild mitral valve regurgitation, mild tricuspid valve regurgitation and mild global hypokinesis with an ejection fraction of 50%. Due to the findings on the cardiac catheterization, transesophageal echocardiogram and the patient's sy mptoms a consult was placed to Dr. Art Shafer from cardiothoracic surgery for further evaluation and treatment recommendations including my cardiovascular disease and surgery and aortic valve replacement. Review of Systems A review of systems was completed was negative except as mentioned in the HPI. Past Medical History Past Medical History: Atrial Fibrillation (Paroxysmal), Hypertension Additional Past Medical History / Comment(s): History of umbilical hernia which was repaired in 2017. History of Any Multi-Drug Resistant Organisms: None Reported Past Surgical History: Hernia Repair (Umbilical), Tonsillectomy Additional Past Surgical History / Comment(s): Bilateral DETACHED RETINAS, RIGHT EYE WORSE. VASECTOMY. Past Anesthesia/Blood Transfusion Reactions: No Reported Reaction Past Psychological History: No Psychological Hx Reported Smoking Status: Never smoker Past Alcohol Use History: Rare Past Drug Use History: None Reported - Past Family History Mother Family Medical History: Cancer, Congestive Heart Failure (CHF) Additional Family Medical History / Comment(s): BREAST Father Family Medical History: Congestive Heart Failure (CHF) Medications and Allergies Home Medications Medication Instructions Recorded Confirmed Type Aspirin 325 mg PO DAILY tab 02/08/18 07/07/24 Rx amLODIPine [Norvasc] 5 mg PO DAILY 07/07/24 07/07/24 History Allergies Allergy/AdvReac Type Severity Reaction Status Date / Time No Known Allergies Allergy Verified 07/07/24 07:17 Surgical - Exam Vital Signs Pulse Resp BP Pulse Ox 52 L 18 135/74 97 07/07/24 07:20 07/07/24 07:20 07/07/24 07:20 07/07/24 07:20 - General well developed, well nourished, no distress, no pain - Eyes PERRL, normal ocular movement, no pale, no icteric - ENT normal pinna, normal nares, normal mucosa, no hearing loss, no congestion - Neck Neck is supple, no lymphadenopathy. no masses, no bruits, trachea midline, no venous distension - Respiratory Lung sounds essentially clear throughout. Respirations are symmetrical and nonlabored. No wheezes, rhonchi or crackles. - Cardiovascular Regular rhythm and bradycardic rate. Bedside telemetry is showing sinus bradycardia heart rate 52 bpm. S1 and S2 present, negative for S3, gallop or murmur. - Abdomen Abdomen is soft, nontender and nondistended. Active bowel sounds present all 4 abdominal quadrants. No guarding or rigidity. No organomegaly appreciated. - Genitourinary Deferred - Rectum Deferred - Integumentary Skin is warm and dry. No clubbing or cyanosis is present. no rash, no growths, no abnormal pigmentation - Neurologic Cranial nerves II through XII intact. No focal deficits. normal coordination, normal sensation - Musculoskeletal Moves all 4 extremities with equal strength bilateral. normal gait, normal posture - Psychiatric oriented to time, oriented to person, oriented to place, speech is normal, memory intact Results - Labs 07/07/24 07:20 07/07/24 07:20 Abnormal Lab Results - Last 24 Hours (Table) 07/07/24 Range/Units 07:20 Sodium 133 L (137-145) mmol/L Chloride 108 H (98-107) mmol/L Glucose 118 H (74-99) mg/dL Diabetes panel 07/07/24 07/07/24 Range/Units 07:20 07:20 Sodium 133 L (137-145) mmol/L Potassium 3.9 (3.5-5.1) mmol/L Chloride 108 H (98-107) mmol/L Carbon Dioxide 25 (22-30) mmol/L BUN 18 (9-20) mg/dL Creatinine 1.14 (0.66-1.25) mg/dL Glucose 118 H (74-99) mg/dL Calcium 9.3 (8.4-10.2) mg/dL AST 24 (17-59) U/L ALT 18 (4-49) U/L Calcium panel 07/07/24 Range/Units 07:20 Calcium 9.3 (8.4-10.2) mg/dL Pituitary panel 07/07/24 Range/Units 07:20 Sodium 133 L (137-145) mmol/L Potassium 3.9 (3.5-5.1) mmol/L Chloride 108 H (98-107) mmol/L Carbon Dioxide 25 (22-30) mmol/L BUN 18 (9-20) mg/dL Creatinine 1.14 (0.66-1.25) mg/dL Glucose 118 H (74-99) mg/dL Calcium 9.3 (8.4-10.2) mg/dL Adrenal panel 07/07/24 07/07/24 Range/Units 07:20 07:20 Sodium 133 L (137-145) mmol/L Potassium 3.9 (3.5-5.1) mmol/L Chloride 108 H (98-107) mmol/L Carbon Dioxide 25 (22-30) mmol/L BUN 18 (9-20) mg/dL Creatinine 1.14 (0.66-1.25) mg/dL Glucose 118 H (74-99) mg/dL Calcium 9.3 (8.4-10.2) mg/dL AST 24 (17-59) U/L ALT 18 (4-49) U/L - Imaging Additional studies: Dr. Shafer reviewed the cardiac catheterization films and transesophageal echocardiogram films Assessment and Plan Assessment: Severe aortic valve insufficiency, trileaflet aortic valve Coronary artery disease Hypertension Bradycardia, heart rate currently 52 bpm Paroxysmal atrial fibrillation diagnosed in 2018 Episodes of constipation Lifetime non-smoker Plan: The patient was seen and examined at his bedside in the extended stay unit in conjunction with Dr. Art Shafer. His chart and diagnostics reviewed. Dr. Shafer discussed the findings on the cardiac catheterization films and FARA with the patient and the patient's present at his bedside. Treatment options were discussed including aortic valve replacement and myocardial revascularization surgery. Risks and benefits of surgery were discussed with the patient in detail by Dr. Shafer. Knowing and understanding the risks the patient wishes to proceed with the surgical option. Preoperative teaching and preoperative testing has been initiated. The patient will scheduled for a carotid duplex study in Dr. Gunn's office as an outpatient as part of his preoperative workup. A clinical frailty score was calculated which equals 2. A 5 m walk test was completed with the patient time 1: 2.93 seconds, time 2: 2.80 seconds, and time 3: 3.03 seconds. Once the patients preoperative testing has been completed an STS risk score will be calculated and discussed with the patient. He will be tentatively scheduled for myocardial revascularization surgery with left internal mammary artery, possible endoscopic vein harvest, possible left radial artery harvest, aortic valve replacement, exclusion of left atrial appendage, and intraoperative transesophageal echocardiogram on August 05, 2024 to be completed by Dr. Art Shafer. Continue to maximize medical management with aspirin, and statin. Medical management and other comorbidities per primary care service and cardiology service. More recommendations to follow based on patient's clinical course. Thank you Dr Gunn for this consult and we look forward to working with you in the care of this patient. I have personally seen and examined the patient, performed the documentation and the assessment and plan as written. Number of minutes spent on the visit: 30. SARBJIT Mendez
--- NOTE | 2024-07-07 15:18 | US ---
EXAMINATION TYPE: Pre-Operative Non-Invasive Evaluation of the hand for Potential Radial Artery Nigel , Measurements only DATE OF EXAM: 07/07/2024 3:09 PM CLINICAL INDICATION: Male, 68 years old with history of Pre-Op Cardiac Surgery; SIDE PERFORMED: Left TECHNIQUE: Radial artery is measured utilizing real time linear array sonography. Dominant hand: Right Duplex Findings: Radial Artery: Color flow seen Measurements in mm, transverse view: Left Radial: 3.7 x 3.6 mm Proximal: 3.2 x 3.7 mm Mid: 3.1 x 3.8 mm Distal: 3.4 x 4.3 mm IMPRESSION: 1. Left radial artery measurements listed above. 2. Performing surgeon to determine viability as conduit.
--- NOTE | 2024-07-07 15:18 | US ---
EXAMINATION TYPE: US arterial LE single level DATE OF EXAM: 07/07/2024 3:11 PM CLINICAL INDICATION: Male, 68 years old with history of Ankle Brachial Index (NELSON) ; PreOP History of: Smoker: No Hypertension: Yes Diabetic: No Previous Vascular Surgery: No CAD: Yes Vascular Ulcers: No Claudication: no Gangrene: no Doppler Waveforms: Right: Biphasic waveforms involving the right femoral, popliteal, posterior to arteries. Monophasic w aveforms involving the dorsalis pedis. Left: Biphasic Right Brachial Pressure: deferred due to same day heart cath Left Brachial Pressure: 172 Ankle-Brachial Indices: Right: 1.3 Left: 1.4 (Vessel hardening > 1.4; Normal 0.9 - 1.4, Moderate 0.7 - 0.9, Severe 0.5-0.7) IMPRESSION: Normal ankle-brachial indices bilaterally.
--- NOTE | 2024-07-07 15:19 | US ---
EXAMINATION TYPE: US vein mapping BIL DATE OF EXAM: 07/07/2024 3:09 PM COMPARISON: NONE CLINICAL INDICATION: Male, 68 years old with history of PreOp Cardiac Surgery; SIDE PERFORMED: Left TECHNIQUE: Lower extremity saphenous vein is examined and measured utilizing real time linear array sonography. Patient History: Smoker: No Heart Disease: 90% Blockage Previous DVT: No Vascular Surgery: No Discoloration: No Hypertension: Yes Diabetes: No Paralysis: No Varicosities: No Edema: No DUPLEX FINDINGS: Greater Saphenous: Color flow seen Lesser Saphenous: Color flow seen Measurements in mm: Right Greater Saphenous: Groin: 7.3 x 7.4 mm High Thigh: 5.6 x 6.7 mm Mid Thigh: 4.3 x 3.9 mm Above Knee: 5.3 x 5.8 mm Knee: 4.3 x 4.2 mm Below Knee: 3.9 x 4.8 mm Mid Calf: 2.0 x 2.8 mm At Ankle: 1.7 x 1.7 mm Left Greater Saphenous: Groin: 7.9 x 8.2 mm High Thigh: 4.8 x 6.7 mm Mid Thigh: 3.7 x 4.3 mm Above Knee: 3.2 x 4.2 mm Knee: 2.6 x 3.6 mm Below Knee: 2.5 x 2.8 mm Mid Calf: 1.9 x 2.0 mm At Ankle: 1.5 x 1.0 mm IMPRESSION: 1. Bilateral GSV measurements listed above. 2. Performing surgeon to determine viability as conduit.
[2024-07-07 19:15] LABS: Appearance,Urine Clear (Clear); Bilirubin,Urine Negative (Negative); Blood,Urine Negative (Negative); Color,Urine Light Yellow; Glucose,Urine (UA) Negative (Negative); Ketones,Urine Negative (Negative); Leukocyte Esterase,Urine Negative (Negative); Nitrite,Urine Negative (Negative); Protein,Urine Negative (Negative); Specific Gravity,Urine 1.033 (1.001-1.035)
[2024-07-07] MEDS: ATORVASTATIN 40 MG TAB PO SCH (20:49)
[2024-07-07 22:27] LABS: Chol/HDL Ratio 5.63 Ratio; LDL Cholesterol,Calculated 142.2 mg/dL (0.0-131.0)
[2024-07-08 08:09] VITALS: BP 133/57; PULSE 50; RESP 17; TEMP 98.2
[2024-07-08] MEDS: amLODIPine 5 MG TAB PO SCH (08:55)
[2024-07-08] MEDS: ASPIRIN 325 MG TAB PO SCH (08:55)
[2024-07-08] MEDS: ISOSORBIDE MONONITRATE ER 30 MG TAB.ER.24H PO SCH (08:55)
[2024-07-08 10:04] LABS: Basophils # (A) 0.1 k/uL (0-0.2); Basophils % (A) 1 %; Eosinophils # (A) 0.2 k/uL (0-0.7); Eosinophils % (A) 2 %; HCT 44.7 % (39.0-53.0); HGB 14.4 gm/dL (13.0-17.5); Lymphocytes # (A) 1.2 k/uL (1.0-4.8); Lymphocytes % (A) 17 %; MCH 26.5 pg (25.0-35.0); MCHC 32.3 g/dL (31.0-37.0); MCV 82.2 fL (80.0-100.0); Mean Platelet Volume 8.2; Monocytes # (A) 0.3 k/uL (0-1.0); Monocytes % (A) 4 %; Neutrophils # (A) 5.4 k/uL (1.3-7.7); Neutrophils % (A) 76 %; Platelet Count 167 k/uL (150-450); RBC 5.43 m/uL (4.30-5.90); WBC 7.2 k/uL (3.8-10.6)
[2024-07-08 10:20] LABS: ALT 16 U/L (4-49); AST 21 U/L (17-59); African American GFR (CKD) 82 (>60 ml/min/1.73 sqM); Albumin 3.9 g/dL (3.5-5.0); Alkaline Phosphatase 74 U/L (38-126); Anion Gap 1 mmol/L; Blood Urea Nitrogen 19 mg/dL (9-20); Calcium 9.3 mg/dL (8.4-10.2); Carbon Dioxide 25 mmol/L (22-30); Chloride 108 mmol/L (98-107); Glucose 134 mg/dL (74-99); Magnesium 2.1 mg/dL (1.6-2.3); Non-African American GFR(CKD) 71 (>60 ml/min/1.73 sqM); Potassium 4.1 mmol/L (3.5-5.1); Sodium 134 mmol/L (137-145); Total Protein 6.3 g/dL (6.3-8.2)
[2024-07-08 10:25] LABS: INR 0.9 (<1.2); Partial Thromboplastin Time 25.4 sec (22.0-30.0); Prothrombin Time 10.5 sec (10.0-12.5)
--- NOTE | 2024-07-08 10:34 | P.GSCN ---
History of Present Illness Consult date: 07/08/24 Reason for Consult: Left renal mass Requesting physician: Allan Hugo History of present illness: The patient is a 68-year-old white male hospitalized with severe aortic valve insufficiency and coronary artery disease. He has been advised to undergo aortic valve replacement with coronary artery revascularization. CT scan of the chest that showed a 2.7 cm left upper pole indeterminate renal lesion. I am consulted for this reason. The patient denies any prior history of UTIs or urolithiasis. He denies hematuria and flank pain. Review of Systems - Cardiovascular Reports high blood pressure - Genitourinary Reports as per HPI Past Medical History Past Medical History: Atrial Fibrillation (Paroxysmal), Hypertension Additional Past Medical History / Comment(s): History of umbilical hernia which was repaired in 2017. History of Any Multi-Drug Resistant Organisms: None Reported Past Surgical History: Hernia Repair (Umbilical), Tonsillectomy Additional Past Surgical History / Comment(s): Bilateral DETACHED RETINAS, RIGHT EYE WORSE. VASECTOMY. Past Anesthesia/Blood Transfusion Reactions: No Reported Reaction Past Psychological History: No Psychological Hx Reported Smoking Status: Never smoker Past Alcohol Use History: Rare Past Drug Use History: None Reported - Past Family History Mother Family Medical History: Cancer, Congestive Heart Failure (CHF) Additional Family Medical History / Comment(s): BREAST Father Family Medical History: Congestive Heart Failure (CHF) Medications and Allergies Home Medications Medication Instructions Recorded Confirmed Type amLODIPine [Norvasc] 5 mg PO DAILY 07/07/24 07/07/24 History Aspirin EC [Ecotrin Low Dose] 81 mg PO DAILY #90 tab 07/08/24 Rx Atorvastatin [Lipitor] 40 mg PO HS #90 tab 07/08/24 Rx Isosorbide Mononitrate ER [Imdur] 30 mg PO DAILY #90 tab 07/08/24 Rx Nitroglycerin Sl Tabs [Nitrostat] 0.4 mg SUBLINGUAL Q5M PRN #25 tab 07/08/24 Rx Allergies Allergy/AdvReac Type Severity Reaction Status Date / Time No Known Allergies Allergy Verified 07/07/24 07:17 Surgical - Exam Vital Signs Pulse Resp BP Pulse Ox 52 L 18 135/74 97 07/07/24 07:20 07/07/24 07:20 07/07/24 07:20 07/07/24 07:20 - General well developed, well nourished, no distress - Respiratory normal respiratory effort - Abdomen Abdomen: soft, non tender, no guarding, no rigid, no rebound - Psychiatric oriented to time, oriented to person, oriented to place, speech is normal, memory intact Results - Labs 07/08/24 09:18 07/08/24 09:18 Abnormal Lab Results - Last 24 Hours (Table) 07/07/24 07/07/24 Range/Units 07:20 07:20 Sodium 133 L (137-145) mmol/L Chloride 108 H (98-107) mmol/L Glucose 118 H (74-99) mg/dL Cholesterol 205.00 H (0.00-200.00) mg/dL LDL Cholesterol, Calc 142.2 H (0.0-131.0) mg/dL HDL Cholesterol 36.40 L (40.00-60.00) mg/dL Diabetes panel 07/07/24 07/07/24 Range/Units 07:20 07:20 Sodium 133 L (137-145) mmol/L Potassium 3.9 (3.5-5.1) mmol/L Chloride 108 H (98-107) mmol/L Carbon Dioxide 25 (22-30) mmol/L BUN 18 (9-20) mg/dL Creatinine 1.14 (0.66-1.25) mg/dL Glucose 118 H (74-99) mg/dL Calcium 9.3 (8.4-10.2) mg/dL AST 24 (17-59) U/L ALT 18 (4-49) U/L Triglycerides 132.00 (0.00-149.00) mg/dL HDL Cholesterol 36.40 L (40.00-60.00) mg/dL Calcium panel 07/07/24 Range/Units 07:20 Calcium 9.3 (8.4-10.2) mg/dL Pituitary panel 07/07/24 Range/Units 07:20 Sodium 133 L (137-145) mmol/L Potassium 3.9 (3.5-5.1) mmol/L Chloride 108 H (98-107) mmol/L Carbon Dioxide 25 (22-30) mmol/L BUN 18 (9-20) mg/dL Creatinine 1.14 (0.66-1.25) mg/dL Glucose 118 H (74-99) mg/dL Calcium 9.3 (8.4-10.2) mg/dL Adrenal panel 07/07/24 07/07/24 Range/Units 07:20 07:20 Sodium 133 L (137-145) mmol/L Potassium 3.9 (3.5-5.1) mmol/L Chloride 108 H (98-107) mmol/L Carbon Dioxide 25 (22-30) mmol/L BUN 18 (9-20) mg/dL Creatinine 1.14 (0.66-1.25) mg/dL Glucose 118 H (74-99) mg/dL Calcium 9.3 (8.4-10.2) mg/dL AST 24 (17-59) U/L ALT 18 (4-49) U/L - Imaging CT scan - chest: report reviewed, image reviewed Assessment and Plan Assessment: The CT scan of the chest does allow the upper pole of the kidneys to be visualized. A 2.7 cm left upper pole indeterminate lesion is seen. There also appear to be renal calculi. 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 Burgos regarding his incidentally detected 2.7 cm left upper pole renal lesion. I explained to him that this is clearly not a simple cyst, and that it may be a small malignant tumor. The neck step in his evaluation would consist of a CT scan of the abdomen without and with IV contrast. Pending the results, next steps could be observation, needle biopsy, or partial nephrectomy if the lesion is highly suspicious for malignancy. However, the lesion is small and he is asymptomatic. I have advised him to proceed with the planned cardiac surgery and follow-up with me as an outpatient once he has sufficiently recovered, at which time the CT scan will be scheduled. The patient expressed an understanding to all of this. Please notify me if I can be of any further assistance. Time with Patient: Greater than 30
--- NOTE | 2024-07-08 11:10 | P.DS ---
Providers Date of admission: 07/07/2024 Expected date of discharge: 07/08/24 Attending physician: Speedy Gunn Consults: 07/07/24 10:57 Consult Physician Routine Consulting Provider: Art Shafer Consult Reason/Comments: CABG Do you want consulting provider notified?: Already Contacted 07/07/24 15:16 Consult Physician Routine Consulting Provider: Philip Villavicencio Consult Reason/Comments: left renal lesion 2.7 cm Do you want consulting provider notified?: Yes Primary care physician: [facility] Course: Patient underwent transesophageal echo and cardiac catheterization. He has severe aortic regurgitation and severe stenosis involving proximal LAD. He was evaluated by Dr. Shafer the cardiothoracic surgeon who is going to perform aortic valve replacement with single-vessel bypass surgery. The CAT scan that was done following the CT surgery evaluation showed a nodule within the kidney and he had been evaluated by the urologist. Patient will undergo biopsy and if necessary resection after his cardiac issues have resolved. He is going to undergo a carotid duplex study through my office Condition at the time of discharge patient is hemodynamically stable and is free of symptoms on exam vital signs are stable there is no jugular venous distention carotid upstroke is normal there is no bruit there is an early diastolic murmur in the right parasternal border abdomen is soft exam extremities did not reveal any edema peripheral pulses are felt right radial artery access site appears normal Patient had been seen by cardiothoracic surgery and they have scheduled him for an elective surgery. He will follow-up with me in 2 weeks time. Patient will see a dentist and his oral issues will be addressed prior to surgery Pertinent Studies: Patient underwent left heart catheterization and transesophageal echo along with CT scan of the chest Patient Condition at Discharge: Good Plan - Discharge Summary Discharge Rx Participant: No New Discharge Prescriptions: New Aspirin EC [Ecotrin Low Dose] 81 mg PO DAILY #90 tab Atorvastatin [Lipitor] 40 mg PO HS #90 tab Isosorbide Mononitrate ER [Imdur] 30 mg PO DAILY #90 tab Nitroglycerin Sl Tabs [Nitrostat] 0.4 mg SUBLINGUAL Q5M PRN #25 tab PRN Reason: Chest Pain Continue amLODIPine [Norvasc] 5 mg PO DAILY Discontinued Aspirin 325 mg PO DAILY tab Discharge Medication List amLODIPine [Norvasc] 5 mg PO DAILY 07/07/24 [History] Aspirin EC [Ecotrin Low Dose] 81 mg PO DAILY #90 tab 07/08/24 [Rx] Atorvastatin [Lipitor] 40 mg PO HS #90 tab 07/08/24 [Rx] Isosorbide Mononitrate ER [Imdur] 30 mg PO DAILY #90 tab 07/08/24 [Rx] Nitroglycerin Sl Tabs [Nitrostat] 0.4 mg SUBLINGUAL Q5M PRN #25 tab 07/08/24 [Rx] Follow up Appointment(s)/Referral(s): Speedy Gunn MD [STAFF PHYSICIAN] - 07/22/24 8:15 am (Saturday) Patient Instructions/Handouts: After Radial Heart Catheterization (GEN) Activity/Diet/Wound Care/Special Instructions: *NO LIFTING, PUSHING, OR PULLING ANYTHING OVER 5 POUNDS FOR 5 DAYS *NO DRIVING FOR 3 DAYS *YOU CAN REMOVE YOUR DRESSING TOMORROW BUT DO NOT SUBMERSE YOUR PUNCTURE SITE IN WATER FOR A FEW DAYS TO PREVENT INFECTION - SO NO TUB BATHS, POOLS, HOT TUBS, DISHES...ETC *ANY SIGNS OF BLEEDING (HARDNESS, SWELLING OR EXCESSIVE BRUISING) HOLD DIRECT PRESSURE ON YOUR PUNCTURE SITE AND COME TO THE NEAREST EMERGENCY ROOM - DO NOT DRIVE YOURSELF! EITHER CALL EMS OR HAVE SOMEONE DRIVE YOU! Discharge Disposition: HOME SELF-CARE
[2024-07-08 16:13] LABS: Hepatitis A Antibody IgM Nonreactive (Nonreactive); Hepatitis B Core IgM Nonreactive (Nonreactive); Hepatitis B Surface Antigen Nonreactive (Nonreactive); Hepatitis C IgG Antibody Nonreactive (Nonreactive)
== END 2024-07-08 10:34 | disposition home or self-care (01) ==
LOC: CATHCVL 07:06 → 3SCARD 09:39 → CATHCVL 07-08 10:34
PROVIDERS: ATTEND Internal Medicine Cardiovascular Disease
DX: I35.1 Nonrheumatic aortic (valve) insufficiency (principal); I10 Essential (primary) hypertension; I25.10 Atherosclerotic heart disease of native coronary artery without angina pectoris; I48.0 Paroxysmal atrial fibrillation; Z79.82 Long term (current) use of aspirin; Z82.49 Family history of ischemic heart disease and other diseases of the circulatory system

== ENCOUNTER 2024-07-21 23:15 | Inpatient (IN) | payer MEDICARE ==
--- NOTE | 2024-07-21 23:24 | ED ---
General Adult HPI - General Stated complaint: Chest Pain Time Seen by Provider: 07/21/24 23:20 - History of Present Illness Initial comments: This patient is a 69-year-old man who presents to have evaluation for chest pain. The patient notes that he has not been feeling like his usual self since the evening of the . He started having a little bit of congestion and sore throat. He states that he was feeling a little worse this morning, having mild cough and he took a home COVID test that was positive. Tonight the patient had an episode of chest pain that did resolve. He later had a second episode that did not resolve until after taking third nitroglycerin. He states that he is now not having any pain. No associated dyspnea, diaphoresis, nausea or vomiting. Patient does relate that he had a heart catheterization showing a 90% blockage and states that the firewall security engineer recommended he have bypass as he was going to be having valvuloplasty in the near future anyways. He states he is scheduled for surgery on August 19. -: hour(s) Location: chest Radiation: non-radiation Quality: other (Tightness) Consistency: now resolved Improves with: none Worsens with: none Associated Symptoms: denies other symptoms Treatments Prior to Arrival: Aspirin, other (Nitroglycerin) - Related Data Previous Rx's Medication Instructions Recorded Aspirin EC [Ecotrin Low Dose] 81 mg PO DAILY #90 tab 07/08/24 Isosorbide Mononitrate ER [Imdur] 30 mg PO DAILY #90 tab 07/08/24 Nitroglycerin Sl Tabs [Nitrostat] 0.4 mg SUBLINGUAL Q5M PRN #25 tab 07/08/24 Atorvastatin [Lipitor] 80 mg PO HS 60 Days #60 tab 07/25/24 Ticagrelor [Brilinta] 90 mg PO BID 60 Days #120 tab 07/25/24 amLODIPine [Norvasc] 10 mg PO DAILY 60 Days #60 tab 07/25/24 Allergies Allergy/AdvReac Type Severity Reaction Status Date / Time No Known Allergies Allergy Verified 07/22/24 07:40 Review of Systems ROS Statement: Those systems with pertinent positive or pertinent negative responses have been documented in the HPI. ROS Other: All systems not noted in ROS Statement are negative. Constitutional: Reports: fever, weakness. Denies: chills ENT: Reports: congestion Respiratory: Reports: cough. Denies: dyspnea Cardiovascular: Reports: chest pain. Denies: palpitations, orthopnea, edema, sy ncope Gastrointestinal: Denies: abdominal pain, nausea, vomiting, diarrhea Genitourinary: Denies: dysuria, hematuria Musculoskeletal: Denies: back pain Skin: Denies: rash Neurological: Denies: headache, weakness Past Medical History Past Medical History: Atrial Fibrillation (Paroxysmal), Hypertension Additional Past Medical History / Comment(s): History of umbilical hernia which was repaired in 2017. History of Any Multi-Drug Resistant Organisms: None Reported Past Surgical History: Hernia Repair (Umbilical), Tonsillectomy Additional Past Surgical History / Comment(s): Bilateral DETACHED RETINAS, RIGHT EYE WORSE. VASECTOMY. Past Anesthesia/Blood Transfusion Reactions: No Reported Reaction Past Psychological History: No Psychological Hx Reported Smoking Status: Never smoker Past Alcohol Use History: Rare Past Drug Use History: None Reported - Past Family History Mother Family Medical History: Cancer, Congestive Heart Failure (CHF) Additional Family Medical History / Comment(s): BREAST Father Family Medical History: Congestive Heart Failure (CHF) General Exam General appearance: alert, in no apparent distress Head exam: Present: atraumatic, normocephalic Eye exam: Present: normal appearance. Absent: scleral icterus, conjunctival injection Neck exam: Present: normal inspection Respiratory exam: Present: normal lung sounds bilaterally. Absent: respiratory distress, wheezes, rales, rhonchi, stridor, accessory muscle use Cardiovascular Exam: Present: regular rate, normal rhythm, systolic murmur. Absent: diastolic murmur, rubs, gallop GI/Abdominal exam: Present: soft. Absent: distended, tenderness, guarding, rebound, mass Extremities exam: Present: normal inspection, normal capillary refill. Absent: pedal edema, calf tenderness Back exam: Present: normal inspection Neurological exam: Present: alert Skin exam: Present: warm, dry, intact, normal color. Absent: rash Course Vital Signs 07/21/24 07/22/24 07/22/24 23:20 00:05 01:17 Temperature 100.1 F H 99.6 F 99.3 F Pulse Rate 72 66 63 Pulse Rate [ Historiographer ] Respiratory 18 18 18 Rate Blood Pressure 178/78 138/70 146/69 Blood Pressure [Left Arm] O2 Sat by Pulse 98 95 96 Oximetry 07/22/24 07/22/24 07/22/24 02:39 04:00 04:14 Temperature 100.0 F H 100.4 F H Pulse Rate 64 72 62 Pulse Rate [ Historiographer ] Respiratory 18 17 18 Rate Blood Pressure 147/75 125/57 138/82 Blood Pressure [Left Arm] O2 Sat by Pulse 99 95 96 Oximetry 07/22/24 07/22/24 07/22/24 06:00 07:21 07:49 Temperature 99.2 F Pulse Rate 68 63 Pulse Rate [ Historiographer ] Respiratory 16 18 Rate Blood Pressure 145/62 158/71 Blood Pressure [Left Arm] O2 Sat by Pulse 96 98 Oximetry 07/22/24 07/22/24 07/22/24 07:58 10:05 14:00 Temperature Pulse Rate 76 55 L Pulse Rate [ 68 52 L Historiographer ] Respiratory 18 18 18 Rate Blood Pressure 166/76 166/89 Blood Pressure [Left Arm] O2 Sat by Pulse 97 97 Oximetry 07/22/24 07/22/24 07/22/24 17:00 20:27 20:45 Temperature 100.0 F H Pulse Rate 60 66 Pulse Rate [ 65 Historiographer ] Respiratory 18 18 18 Rate Blood Pressure 156/69 156/69 Blood Pressure 155/71 [Left Arm] O2 Sat by Pulse 97 96 97 Oximetry EKG Findings - EKG Results: EKG: interpreted by NICHOLAS, sinus rhythm (With occasional supraventricular complex, rate 77 bpm), normal axis, normal QRS, normal ST/T Medical Decision Making - Medical Decision Making Was pt. sent in by a medical professional or institution (, PA, PAINTER AND PAPERHANGER APPRENTICE, urgent care, hospital, or usp...) When possible be specific @ -[No] Did you speak to anyone other than the patient for history (EMS, parent, family, police, friend...)? What history was obtained from this source @ -[No] Did you review nursing and triage notes (agree or disagree)? Why? @ -[I reviewed and agree with nursing and triage notes] Were old charts reviewed (outside hosp., previous admission, EMS record, old EKG, old radiological studies, urgent care reports/EKG's, usp records)? Report findings @ -[No old charts were reviewed] Differential Diagnosis (chest pain, altered mental status, abdominal pain women, abdominal pain men, vaginal bleeding, weakness, fever, dyspnea, syncope, headache, dizziness, GI bleed, back pain, seizure, CVA, palpatations, mental health, musculoskeletal)? @ -[Differential Chest Pain: Stable Angina, Unstable Angina, STEMI, NSTEMI Aortic Dissection, Pneumothorax, Musculoskeletal, Esophageal Spasm GERD, Cholecystitis, Pancreatitis, Zoster, this is not meant to be an all-inclusive list. EKG interpreted by me (3pts min.). @ -[I interpreted as above] X-rays interpreted by me (1pt min.). @ -[None done] CT interpreted by me (1pt min.). @ -[None done] U/S interpreted by me (1pt. min.). @ -[None done] What testing was considered but not performed or refused? (CT, X-rays, U/S, labs)? Why? @ -[None] What meds were considered but not given or refused? Why? @ -[None] Did you discuss the management of the patient with other professionals (professionals i.e. , PA, PAINTER AND PAPERHANGER APPRENTICE, lab, RT, psych nurse, elementary school social worker, hospital administrator, teacher, earth science technical officer, correctional casework specialist)? Give summary @ -[No] Was smoking cessation discussed for >3mins.? @ -[No] Was critical care preformed (if so, how long)? @ -[Yes, 30 minutes Were there social determinants of health that impacted care today? How? (Homelessness, low income, unemployed, alcoholism, drug addiction, transportation, low edu. Level, literacy, decrease access to med. care, custodial, rehab)? @ -[No] Was there de-escalation of care discussed even if they declined (Discuss DNR or withdrawal of care, Hospice)? DNR status @ -[No] What co-morbidities impacted this encounter? (DM, HTN, Smoking, COPD, CAD, Cancer, CVA, ARF, Chemo, Hep., AIDS, mental health diagnosis, sleep apnea, morbid obesity)? @ -[Underlying CAD Was patient admitted / discharged? Hospital course, mention meds given and route, prescriptions, significant lab abnormalities, going to OR and other pertinent info. @ -[Patient is a 69-year-old man here with chest pain that did resolve with nitroglycerin. He does have mild elevation in troponin will be admitted to have cardiology consultation. Patient also had recently tested COVID-positive. The patient does have adequate pulse oximetry numbers Undiagnosed new problem with uncertain prognosis? @ -[No] Drug Therapy requiring intensive monitoring for toxicity (Heparin, Nitro, Insulin, Cardizem)? @ -[Heparin Were any procedures done? @ -[No] Diagnosis/symptom? @ -[COVID-19 infection Acute angina Acute, or Chronic, or Acute on Chronic? @ -[Acute Uncomplicated (without systemic symptoms) or Complicated (systemic symptoms)? @ -[Complicated by chest pain Side effects of treatment? @ -[No] Exacerbation, Progression, or Severe Exacerbation? @ -[No] Poses a threat to life or bodily function? How? (Chest pain, [place], OR, pneumonia, PE, COPD, DKA, ARF, appy, cholecystitis, CVA, Diverticulitis, Homicidal, Suicidal, threat to staff... and all critical care pts) @ -Yes - Lab Data Result diagrams: 07/23/24 04:39 07/25/24 06:44 Lab Results 07/21/24 07/21/24 07/21/24 Range/Units 23:41 23:41 23:41 WBC 8.1 (3.8-10.6) k/uL RBC 5.03 (4.30-5.90) m/uL Hgb 13.4 (13.0-17.5) gm/dL Hct 41.0 (39.0-53.0) % MCV 81.6 (80.0-100.0) fL MCH 26.6 (25.0-35.0) pg MCHC 32.6 (31.0-37.0) g/dL RDW 14.0 (11.5-15.5) % Plt Count 149 L (150-450) k/uL MPV 8.2 Neutrophils % 83 % Lymphocytes % 7 % Monocytes % 7 % Eosinophils % 2 % Basophils % 0 % Neutrophils # 6.8 (1.3-7.7) k/uL Lymphocytes # 0.5 L (1.0-4.8) k/uL Monocytes # 0.5 (0-1.0) k/uL Eosinophils # 0.2 (0-0.7) k/uL Basophils # 0.0 (0-0.2) k/uL PT 10.6 (10.0-12.5) sec INR 1.0 (<1.2) APTT 25.4 (22.0-30.0) sec Sodium 137 (137-145) mmol/L Potassium 4.0 (3.5-5.1) mmol/L Chloride 106 (98-107) mmol/L Carbon Dioxide 25 (22-30) mmol/L Anion Gap 6 mmol/L BUN 17 (9-20) mg/dL Creatinine 1.18 (0.66-1.25) mg/dL Est GFR (CKD-EPI)AfAm 71 (>60 ml/min/1.73 sqM) Est GFR (CKD-EPI)NonAf 62 (>60 ml/min/1.73 sqM) Glucose 120 H (74-99) mg/dL Calcium 8.9 (8.4-10.2) mg/dL Magnesium 2.0 (1.6-2.3) mg/dL Total Bilirubin 0.8 (0.2-1.3) mg/dL AST 23 (17-59) U/L ALT 17 (4-49) U/L Alkaline Phosphatase 78 (38-126) U/L Troponin I (0.000-0.034) ng/mL Total Protein 6.2 L (6.3-8.2) g/dL Albumin 3.8 (3.5-5.0) g/dL Triglycerides (0.00-149.00) mg/dL Cholesterol (0.00-200.00) mg/dL LDL Cholesterol, Calc (0.0-131.0) mg/dL VLDL Cholesterol, Calc (5.00-40.00) mg/dL HDL Cholesterol (40.00-60.00) mg/dL Cholesterol/HDL Ratio Ratio 07/21/24 07/22/24 07/22/24 Range/Units 23:41 01:13 05:48 WBC (3.8-10.6) k/uL RBC (4.30-5.90) m/uL Hgb (13.0-17.5) gm/dL Hct (39.0-53.0) % MCV (80.0-100.0) fL MCH (25.0-35.0) pg MCHC (31.0-37.0) g/dL RDW (11.5-15.5) % Plt Count (150-450) k/uL MPV Neutrophils % % Lymphocytes % % Monocytes % % Eosinophils % % Basophils % % Neutrophils # (1.3-7.7) k/uL Lymphocytes # (1.0-4.8) k/uL Monocytes # (0-1.0) k/uL Eosinophils # (0-0.7) k/uL Basophils # (0-0.2) k/uL PT (10.0-12.5) sec INR (<1.2) APTT 60.3 H (22.0-30.0) sec Sodium (137-145) mmol/L Potassium (3.5-5.1) mmol/L Chloride (98-107) mmol/L Carbon Dioxide (22-30) mmol/L Anion Gap mmol/L BUN (9-20) mg/dL Creatinine (0.66-1.25) mg/dL Est GFR (CKD-EPI)AfAm (>60 ml/min/1.73 sqM) Est GFR (CKD-EPI)NonAf (>60 ml/min/1.73 sqM) Glucose (74-99) mg/dL Calcium (8.4-10.2) mg/dL Magnesium (1.6-2.3) mg/dL Total Bilirubin (0.2-1.3) mg/dL AST (17-59) U/L ALT (4-49) U/L Alkaline Phosphatase (38-126) U/L Troponin I 0.083 H* 0.233 H* (0.000-0.034) ng/mL Total Protein (6.3-8.2) g/dL Albumin (3.5-5.0) g/dL Triglycerides (0.00-149.00) mg/dL Cholesterol (0.00-200.00) mg/dL LDL Cholesterol, Calc (0.0-131.0) mg/dL VLDL Cholesterol, Calc (5.00-40.00) mg/dL HDL Cholesterol (40.00-60.00) mg/dL Cholesterol/HDL Ratio Ratio 07/22/24 07/22/24 07/22/24 Range/Units 05:48 08:56 08:56 WBC 5.6 (3.8-10.6) k/uL RBC 5.00 (4.30-5.90) m/uL Hgb 13.7 (13.0-17.5) gm/dL Hct 40.4 (39.0-53.0) % MCV 80.9 (80.0-100.0) fL MCH 27.4 (25.0-35.0) pg MCHC 33.9 (31.0-37.0) g/dL RDW 14.3 (11.5-15.5) % Plt Count 137 L (150-450) k/uL MPV 8.8 Neutrophils % 78 % Lymphocytes % 10 % Monocytes % 9 % Eosinophils % 2 % Basophils % 1 % Neutrophils # 4.3 (1.3-7.7) k/uL Lymphocytes # 0.6 L (1.0-4.8) k/uL Monocytes # 0.5 (0-1.0) k/uL Eosinophils # 0.1 (0-0.7) k/uL Basophils # 0.0 (0-0.2) k/uL PT (10.0-12.5) sec INR (<1.2) APTT (22.0-30.0) sec Sodium (137-145) mmol/L Potassium (3.5-5.1) mmol/L Chloride (98-107) mmol/L Carbon Dioxide (22-30) mmol/L Anion Gap mmol/L BUN (9-20) mg/dL Creatinine (0.66-1.25) mg/dL Est GFR (CKD-EPI)AfAm (>60 ml/min/1.73 sqM) Est GFR (CKD-EPI)NonAf (>60 ml/min/1.73 sqM) Glucose (74-99) mg/dL Calcium (8.4-10.2) mg/dL Magnesium (1.6-2.3) mg/dL Total Bilirubin (0.2-1.3) mg/dL AST (17-59) U/L ALT (4-49) U/L Alkaline Phosphatase (38-126) U/L Troponin I 0.305 H* (0.000-0.034) ng/mL Total Protein (6.3-8.2) g/dL Albumin (3.5-5.0) g/dL Triglycerides 60.90 (0.00-149.00) mg/dL Cholesterol 101.00 (0.00-200.00) mg/dL LDL Cholesterol, Calc 50.0 (0.0-131.0) mg/dL VLDL Cholesterol, Calc 12.18 (5.00-40.00) mg/dL HDL Cholesterol 38.80 L (40.00-60.00) mg/dL Cholesterol/HDL Ratio 2.60 Ratio Disposition Clinical Impression: Chest pain, COVID-19 Disposition: ADMITTED IP TO THIS HOSP Condition: Fair Is patient prescribed a controlled substance at d/c from ED?: No
[2024-07-21 23:47] LABS: Basophils % (A) 0 %; Eosinophils # (A) 0.2 k/uL (0-0.7); Eosinophils % (A) 2 %; HGB 13.4 gm/dL (13.0-17.5); Lymphocytes # (A) 0.5 k/uL (1.0-4.8); Lymphocytes % (A) 7 %; MCH 26.6 pg (25.0-35.0); MCHC 32.6 g/dL (31.0-37.0); MCV 81.6 fL (80.0-100.0); Mean Platelet Volume 8.2; Monocytes # (A) 0.5 k/uL (0-1.0); Monocytes % (A) 7 %; Neutrophils # (A) 6.8 k/uL (1.3-7.7); Neutrophils % (A) 83 %; Platelet Count 149 k/uL (150-450); RBC 5.03 m/uL (4.30-5.90); WBC 8.1 k/uL (3.8-10.6)
[2024-07-22 00:01] LABS: ALT 17 U/L (4-49); AST 23 U/L (17-59); African American GFR (CKD) 71 (>60 ml/min/1.73 sqM); Albumin 3.8 g/dL (3.5-5.0); Alkaline Phosphatase 78 U/L (38-126); Anion Gap 6 mmol/L; Blood Urea Nitrogen 17 mg/dL (9-20); Calcium 8.9 mg/dL (8.4-10.2); Carbon Dioxide 25 mmol/L (22-30); Chloride 106 mmol/L (98-107); Glucose 120 mg/dL (74-99); Non-African American GFR(CKD) 62 (>60 ml/min/1.73 sqM); Sodium 137 mmol/L (137-145); Total Bilirubin 0.8 mg/dL (0.2-1.3); Total Protein 6.2 g/dL (6.3-8.2)
[2024-07-22 00:05] LABS: Partial Thromboplastin Time 25.4 sec (22.0-30.0); Prothrombin Time 10.6 sec (10.0-12.5)
[2024-07-22] MEDS ORDERED: HEPARIN SODIUM 1,000 UN/ML (10ML VL) IV PRN (01:00)
[2024-07-22] MEDS ORDERED: NITROGLYCERIN SL TABS 0.4 MG TAB SUBLINGUAL PRN (01:01)
[2024-07-22] MEDS: HEPARIN SODIUM 1,000 UN/ML (10ML VL) IV ONE (01:20)
[2024-07-22] MEDS: HEPARIN SOD,PORK IN 0.45% NACL 25,000 UNIT in 0.45% NACL 1 250ML.BAG IV SCH (01:22)
[2024-07-22] MEDS: NITROGLYCERIN OINT 1 INCH/GM PACKET TOPICAL STA (01:24)
[2024-07-22] MEDS: ASPIRIN 81 MG PO STA (01:25)
[2024-07-22] MEDS: ACETAMINOPHEN TAB 325 MG TAB PO PRN (03:11)
--- NOTE | 2024-07-22 03:11 | P.HPIM ---
History of Present Illness H&P Date: 07/22/24 Patient is a 69-year-old male with a PMH of paroxysmal atrial fibrillation (not on anticoagulation), CAD, hypertension, severe aortic regurgitation presents to the ED with chest pain. He states chest pain started this afternoon around 4 pm while he was sitting and watching TV. He describes as a heavy pressure that radiates to the back. Patient took nitroglycerin and said the pain went away, but came back 45 minutes later and took another nitroglycerin tab and decided to call EMS. The patient was given aspirin en-route to the hospital and the pain resolved upon arrival to the ED. Patient admits he had a fever, chills, and diffuse body aches along with a dry cough that he noticed this morning. Patient reports he used a home COVID-19 test and tested positive for it. Patient also notes he felt nauseous and short of breath, but denies any vomiting, abdominal pain. Patient states he is scheduled for aortic valve replacement along with coronary bypass for Aug 19, 2024. He is awaiting a dental clearance prior to undergoing valvular replacement. Reports being chest pain free at the time of interview. EKG independently interpreted shows a sinus rhythm with dropped p-waves with an apparent inconsistent pattern concerning for Second Degree Mobitz Type 1 vs 2 heart block at 77 bpm with QTc 399 ms. CXR independently interpreted showed no acute intrapulmonary process Troponin 0.083, 0.233, INR 1.0, glucose 120, BUN 17, creatinine 1.18 T90 9.3 F, UT 63, BP 146/69, O2 sat 96% on room air ED documentation reviewed. Review of systems: Pertinent positives and negatives as discussed in HPI, a complete review of systems was performed and all other systems are negative. Social history: Tobacco: Never smoker Alcohol: Occasional alcohol use Recreational drugs: Denies illicit drug use Travel: No recent travel Occupation: Retired Physical examination: Vital signs reviewed General: non toxic, no distress, appears at stated age, normal weight Derm: no unusual rashes/lesions, warm Head: atraumatic, normocephalic, symmetric Eyes: EOMI, no lid lag, anicteric sclera, pupils equal round reactive to light ENT: Nose and ears atraumatic Neck: No cervical lymphadenopathy, trachea midline, supple Mouth: no lip lesion, mucus membranes moist Cardiovascular: S1S2 reg, grade 3 diastolic murmur, positive dorsalis pedis pulse bilateral, no edema Lungs: CTA bilateral, no rhonchi, no rales, no accessory muscle use Abdominal: soft, nontender to palpation, no guarding Ext: muscle strength 5 out of 5 in all 4 extremities grossly, no gross muscle atrophy, no contractures, Neuro: CN II-XI grossly intact, no gross focal neuro deficits Psych: Alert, oriented, appropriate affect Assessment/Plan: Patient is a 69-year-old male with a PMH of paroxysmal atrial fibrillation, severe aortic regurg, hypertension, CAD, presents to the ED with chest pain. #. N-STEMI #. Second degree heart-block Troponin 0.083 --> 0.233 EKG independently interpreted shows a sinus rhythm with dropped p-waves with an apparent inconsistent pattern concerning for Second Degree Mobitz Type 1 vs 2 heart block at 77 bpm with QTc 399 ms. Continue to trend troponin Continue with aspirin 81 mg p.o. daily Continue with atorvastatin 80 mg p.o. at bedtime Currently on IV heparin infusion low dose Nitroglycerin 0.4 mg sublingual Q5M PRN and Nitro-Bid Patient NPO Cardiac monitoring Cardiology consulted #. Severe aortic regurgitation, scheduled for replacement 08/19/24 - Patient awaiting dental clearance for procedure - Cardiology consulted #. COVID-19 positive (at home) - Patient not currently requiring supplemental oxygen - Supportive measures with lozenges for now #. Paroxysmal atrial fibrillation, not on anticoagulation (unknown reason) Keep K > 4.0, Mg > 2.0 Cardiac monitoring Cardiology consulted #. Thrombocytopenia - Monitor CBC #. Hypertension Hold current home anti-hypertensive medication #. Hyperglycemia Elevated glucose most likely reactive A1c 6.4% Continue to monitor glucose DVT prophylaxis: IV heparin drip The patient is admitted with an anticipated greater than 2 midnight stay for evaluation of chest pain secondary to NSTEMI. CODE STATUS: Full code Discussed with: Patient Anticipated discharge place: Home Past Medical History Past Medical History: Atrial Fibrillation (Paroxysmal), Hypertension Additional Past Medical History / Comment(s): History of umbilical hernia which was repaired in 2017. History of Any Multi-Drug Resistant Organisms: None Reported Past Surgical History: Hernia Repair (Umbilical), Tonsillectomy Additional Past Surgical History / Comment(s): Bilateral DETACHED RETINAS, RIGHT EYE WORSE. VASECTOMY. Past Anesthesia/Blood Transfusion Reactions: No Reported Reaction Past Psychological History: No Psychological Hx Reported Smoking Status: Never smoker Past Alcohol Use History: Rare Past Drug Use History: None Reported - Past Family History Mother Family Medical History: Cancer, Congestive Heart Failure (CHF) Additional Family Medical History / Comment(s): BREAST Father Family Medical History: Congestive Heart Failure (CHF) Medications and Allergies Home Medications Medication Instructions Recorded Confirmed Type amLODIPine [Norvasc] 5 mg PO DAILY 07/07/24 07/07/24 History Aspirin EC [Ecotrin Low Dose] 81 mg PO DAILY #90 tab 07/08/24 Rx Atorvastatin [Lipitor] 40 mg PO HS #90 tab 07/08/24 Rx Isosorbide Mononitrate ER [Imdur] 30 mg PO DAILY #90 tab 07/08/24 Rx Nitroglycerin Sl Tabs [Nitrostat] 0.4 mg SUBLINGUAL Q5M PRN #25 tab 07/08/24 Rx Allergies Allergy/AdvReac Type Severity Reaction Status Date / Time No Known Allergies Allergy Verified 07/07/24 07:17 Physical Exam Vitals: Vital Signs Temp Pulse Resp BP Pulse Ox 07/22/24 01:17 99.3 F 63 18 146/69 96 07/22/24 00:05 99.6 F 66 18 138/70 95 07/21/24 23:20 100.1 F H 72 18 178/78 98 Intake and Output 07/21/24 07/21/24 07/22/24 14:59 22:59 06:59 Other: Weight 99.79 kg Results CBC & Chem 7: 07/21/24 23:41 07/21/24 23:41 Labs: Abnormal Lab Results - Last 24 Hours (Table) 07/21/24 07/21/24 07/21/24 Range/Units 23:41 23:41 23:41 Plt Count 149 L (150-450) k/uL Lymphocytes # 0.5 L (1.0-4.8) k/uL Glucose 120 H (74-99) mg/dL Troponin I 0.083 H* (0.000-0.034) ng/mL Total Protein 6.2 L (6.3-8.2) g/dL 07/22/24 Range/Units 01:13 Plt Count (150-450) k/uL Lymphocytes # (1.0-4.8) k/uL Glucose (74-99) mg/dL Troponin I 0.233 H* (0.000-0.034) ng/mL Total Protein (6.3-8.2) g/dL
--- NOTE | 2024-07-22 04:01 | XR ---
EXAM: XR Chest, 1 View CLINICAL HISTORY: ITS.REASON XR Reason: chest pain TECHNIQUE: Frontal view of the chest. COMPARISON: No relevant prior studies available. FINDINGS: Lungs: No consolidation or mass. Pleural space: No acute findings. Heart: Mild cardiomegaly. Bones/joints: No acute findings. IMPRESSION: No acute cardiopulmonary process.
[2024-07-22] MEDS: ATORVASTATIN 80 MG TAB PO STA (04:11)
[2024-07-22] MEDS: ASPIRIN 81 MG PO SCH (08:34)
[2024-07-22 09:26] LABS: Basophils % (A) 1 %; Eosinophils # (A) 0.1 k/uL (0-0.7); Eosinophils % (A) 2 %; HCT 40.4 % (39.0-53.0); HGB 13.7 gm/dL (13.0-17.5); Lymphocytes # (A) 0.6 k/uL (1.0-4.8); Lymphocytes % (A) 10 %; MCH 27.4 pg (25.0-35.0); MCHC 33.9 g/dL (31.0-37.0); MCV 80.9 fL (80.0-100.0); Mean Platelet Volume 8.8; Monocytes # (A) 0.5 k/uL (0-1.0); Monocytes % (A) 9 %; Neutrophils # (A) 4.3 k/uL (1.3-7.7); Neutrophils % (A) 78 %; Platelet Count 137 k/uL (150-450); RDW 14.3 % (11.5-15.5); WBC 5.6 k/uL (3.8-10.6)
--- NOTE | 2024-07-22 09:41 | P.CRDCN ---
History of Present Illness Consult date: 07/22/24 Consult reason: chest pain History of present illness: This is a 69-year-old male patient of Dr. Frederic Gunn with past medical history of known coronary artery disease, aortic regurgitation, hypertension, bradycardia. We have been asked to evaluate the patient for chest pain. Patient gives history that he developed chest tightness that felt very uncomfortable and he took 1 nitroglycerin which seemed to help. The pain came back and about 45 mi nutes and he took a second nitroglycerin he told his he needed to go to the hospital. Yesterday evening, he also developed sore throat, lack of energy, fever and chills and decided to take a COVID test which came back positive. Patient has been started on a heparin drip. Patient is scheduled for CABG 1 vessel LAD and AV replacement on 08/[address] Shafer. This was initially scheduled and July but was delayed due to dental work that needed to be done which patient states has been completed. Patient does have a follow-up appointment with the dentist on 08/17. Blood pressure 158/71, heart rate 68, pulse ox 90% on room air. EKG: Sinus rhythm no acute ST-T wave changes Chest x-ray: No acute process Laboratory studies: Platelet count 149. BUN 17, creatinine 1.18. Troponins 0.083, 0.233, 0.305. Home cardiac medications: Amlodipine 5 mg daily, aspirin 81 mg daily, atorvastatin 40 mg at bedtime, Imdur 30 mg daily, Nitrostat as needed Cardiac catheterization 07/07/2024 revealed severe focal stenosis involving the LAD, 3+ aortic regurgitation. FARA performed 07/07/2024 revealed severe aortic regurgitation involving 3 leaflet aortic valve, dilated aortic root. Echocardiogram performed in the office on 06/29/2024 revealed EF of 50 to 55%, mild concentric left ventricular hypertrophy, severe aortic regurgitation, mild mitral regurgitation, mild tricuspid regurgitation, normal PASP. Trace to mild pulmonary regurgitation. Review Of Systems: At the time of my exam: CONSTITUTIONAL: Denies fever or chills. HEENT: Denies blurred vision, vision changes, or eye pain. Denies hemoptysis CARDIOVASCULAR: Denies chest pain. Denies orthopnea. Denies PND. Denies palpitations RESPIRATORY: Denies shortness of breath. GASTROINTESTINAL: Denies abdominal pain. Denies nausea or vomiting. HEMATOLOGIC: Denies bleeding disorders. GENITOURINARY: Denies any blood in urine. SKIN: Denies puritis. Denies rash. Physical examination: Gen: This is a 69-year-old male resting in bed and appears to be in no acute distress VS: reviewed HEENT: Head is atraumatic, normocephalic. Pupils equal, round. Sclerae is anicteric. Physical exam deferred due to COVID-19 Assessment: Non-ST elevated myocardial infarction COVID-19 Known coronary artery disease of the LAD Severe aortic valve regurgitation Hypertension Bradycardia Plan: Resume patient's home cardiac medications Continue heparin drip Add consult for Dr. Shafer regarding moving up surgical intervention scheduled for 08/19 Further recommendations to follow based upon clinical course Thank you kindly for this consultation. Nurse practitioner note has been reviewed, I agree with documented findings and plan of care. Patient was seen and examined. Past Medical History Past Medical History: Atrial Fibrillation (Paroxysmal), Hypertension Additional Past Medical History / Comment(s): History of umbilical hernia which was repaired in 2017. History of Any Multi-Drug Resistant Organisms: None Reported Past Surgical History: Hernia Repair (Umbilical), Tonsillectomy Additional Past Surgical History / Comment(s): Bilateral DETACHED RETINAS, RIGHT EYE WORSE. VASECTOMY. Past Anesthesia/Blood Transfusion Reactions: No Reported Reaction Past Psychological History: No Psychological Hx Reported Smoking Status: Never smoker Past Alcohol Use History: Rare Past Drug Use History: None Reported - Past Family History Mother Family Medical History: Cancer, Congestive Heart Failure (CHF) Additional Family Medical History / Comment(s): BREAST Father Family Medical History: Congestive Heart Failure (CHF) Medications and Allergies Home Medications Medication Instructions Recorded Confirmed Type amLODIPine [Norvasc] 5 mg PO DAILY 07/07/24 07/22/24 History Aspirin EC [Ecotrin Low Dose] 81 mg PO DAILY #90 tab 07/08/24 07/22/24 Rx Atorvastatin [Lipitor] 40 mg PO HS #90 tab 07/08/24 07/22/24 Rx Isosorbide Mononitrate ER [Imdur] 30 mg PO DAILY #90 tab 07/08/24 07/22/24 Rx Nitroglycerin Sl Tabs [Nitrostat] 0.4 mg SUBLINGUAL Q5M PRN #25 tab 07/08/24 07/22/24 Rx Allergies Allergy/AdvReac Type Severity Reaction Status Date / Time No Known Allergies Allergy Verified 07/22/24 07:40 Physical Exam Vitals: Vital Signs Temp Pulse Pulse Resp BP Pulse Ox 07/22/24 07:58 68 18 07/22/24 07:49 99.2 F 07/22/24 07:21 63 18 158/71 98 07/22/24 06:00 68 16 145/62 96 07/22/24 04:14 100.4 F H 62 18 138/82 96 07/22/24 04:00 72 17 125/57 95 07/22/24 02:39 100.0 F H 64 18 147/75 99 07/22/24 01:17 99.3 F 63 18 146/69 96 07/22/24 00:05 99.6 F 66 18 138/70 95 07/21/24 23:20 100.1 F H 72 18 178/78 98 Intake and Output 07/21/24 07/22/24 07/22/24 22:59 06:59 14:59 Intake Total 58.876 Balance 58.876 Intake: Intake, IV Titration 58.876 Amount Heparin Sod,Pork in 0.45% 58.876 NaCl 25,000 unit In 0.45 % NaCl 1 250ml.bag @ 10 UNITS/KG/HR 9.979 mls/hr IV .Q24H [facility] Rx#: [id number] Other: Voiding Method Toilet Weight 99.79 kg Results 07/22/24 08:56 07/21/24 23:41 Cardiac Enzymes 07/21/24 07/21/24 07/22/24 Range/Units 23:41 23:41 01:13 AST 23 (17-59) U/L Troponin I 0.083 H* 0.233 H* (0.000-0.034) ng/mL 07/22/24 Range/Units 05:48 AST (17-59) U/L Troponin I 0.305 H* (0.000-0.034) ng/mL Coagulation 07/21/24 07/22/24 Range/Units 23:41 05:48 PT 10.6 (10.0-12.5) sec APTT 25.4 60.3 H (22.0-30.0) sec CBC 07/21/24 Range/Units 23:41 WBC 8.1 (3.8-10.6) k/uL RBC 5.03 (4.30-5.90) m/uL Hgb 13.4 (13.0-17.5) gm/dL Hct 41.0 (39.0-53.0) % Plt Count 149 L (150-450) k/uL Comprehensive Metabolic Panel 07/21/24 Range/Units 23:41 Sodium 137 (137-145) mmol/L Potassium 4.0 (3.5-5.1) mmol/L Chloride 106 (98-107) mmol/L Carbon Dioxide 25 (22-30) mmol/L BUN 17 (9-20) mg/dL Creatinine 1.18 (0.66-1.25) mg/dL Glucose 120 H (74-99) mg/dL Calcium 8.9 (8.4-10.2) mg/dL AST 23 (17-59) U/L ALT 17 (4-49) U/L Alkaline Phosphatase 78 (38-126) U/L Total Protein 6.2 L (6.3-8.2) g/dL Albumin 3.8 (3.5-5.0) g/dL Current Medications Generic Name Dose Route Start Last Admin Trade Name Freq PRN Reason Stop Dose Admin Acetaminophen 650 mg 07/22/24 02:43 07/22/24 03:11 Acetaminophen Tab 325 Mg Tab PO 650 mg Q4H PRN Administration Fever Aspirin 81 mg 07/22/24 09:00 Aspirin 81 Mg PO DAILY [facility] Atorvastatin Calcium 80 mg 07/22/24 21:00 Atorvastatin 80 Mg Tab PO HS [facility] Benzocaine/Menthol 1 each 07/22/24 03:54 Benzocaine/Menthol Lozeng 1 Each Lozenge MUCOUS MEM Q6HR PRN Sore Throat Heparin Sodium (Porcine) 0 unit 07/22/24 01:00 Heparin Sodium 1,000 Un/Ml (10ml Vl) IV PER PROTOCOL PRN Low PTT Protocol Heparin Sodium/Sodium Chloride 250 mls @ 9.979 mls/hr 07/22/24 01:00 07/22/24 07:16 25,000 unit/ Sodium Chloride IV 10 units/kg/hr .Q24H [facility] 9.979 mls/hr Titration Protocol 10 UNITS/KG/HR Nitroglycerin 0.4 mg 07/22/24 01:01 Nitroglycerin Sl Tabs 0.4 Mg Tab SUBLINGUAL Q5M PRN Chest Pain Intake and Output 07/21/24 07/22/24 07/22/24 22:59 06:59 14:59 Intake Total 58.876 Balance 58.876 Intake: Intake, IV Titration 58.876 Amount Heparin Sod,Pork in 0.45% 58.876 NaCl 25,000 unit In 0.45 % NaCl 1 250ml.bag @ 10 UNITS/KG/HR 9.979 mls/hr IV .Q24H [facility] Rx#: [id number] Other: Voiding Method Toilet Weight 99.79 kg 07/21/24 23:41 07/21/24 23:41
[2024-07-22] MEDS: amLODIPine 5 MG TAB PO SCH (09:59)
[2024-07-22] MEDS: ISOSORBIDE MONONITRATE ER 30 MG TAB.ER.24H PO SCH (09:59)
--- NOTE | 2024-07-22 12:42 | P.PN ---
Subjective Progress Note Date: 07/22/24 Hospital course: Patient is a very pleasant 69-year-old male with a past medical history of known coronary artery disease scheduled to undergo CABG x 1 vessel of LAD and AV replacement on 08/19/2024, paroxysmal atrial fibrillation (not on anticoagulation), CAD, hypertension, and severe aortic regurgitation. He presented to the emergency department overnight with a chief complaint of chest pain. Upon arrival to our facility, patient underwent evaluation in the emergency department. Vital signs upon arrival show blood pressure 178/78, heart rate 72, respiratory rate 18, temp 100.1 F, and SpO2 of 98% on room air. EKG showing sinus mechanism with occasional PACs at 77 bpm, no significant T wave or ST abnormalities showing no signs of acute ischemia upon personal review and interpretation. Chest x-ray was negative for acute cardiopulmonary process. Labs completed and reviewed. CBC showing thrombocytopenia with platelet count of 149 otherwise normal findings. Coagulation profile normal findings. BMP unremarkable. Blood glucose 120. Magnesium 2.0. Liver profile normal findings. Troponin was elevated at 0.083. Patient was admitted under our services for NSTEMI and consult was placed to cardiology for evaluation. Troponins trended overnight resulting at 0.083, 0.233, and 0.305. Patient did report a positive home COVID test yesterday and repeat this morning was also positive. Patient was evaluated by insulation applicator recommending continuation of low intensity heparin infusion with consult to Dr. Shafer to evaluate and possibly move up scheduled CABG and aortic valve replacement. Physical exam: Patient seen and fully evaluated at bedside this morning. He reports initial strong pressure-like sensation to his chest improved with nitro but continues to have a feeling of tightness across to his back. He denies currently experiencing any headache, lightheadedness, dizziness, nausea, vomiting, palpitations, shortness of breath, or experiencing any numbness/tingling/weakness in his extremities. Vital signs reviewed and stable. General: Nontoxic, no distress and appears stated age. Derm: Skin warm and dry, normal coloration for ethnicity. Head: Atraumatic, normocephalic and symmetric. Eyes: EOM's intact, no lid lag, and anicteric sclera Mouth: no lip lesions, mucus membranes moist Cardiovascular: regular rate and rhythm with normal S1S2, systolic murmur, positive posterior tibial pulses bilaterally, and cap refill < 2 seconds. Lungs: Respirations even, regular, and unlabored on room air. Lungs CTA bilaterally, no rhonchi, no rales, no wheezing, and no accessory muscle usage. Abdominal: soft, nontender to palpation, no guarding, no appreciable organomegaly Ext: ROM intact. No gross muscle atrophy, no edema, no contractures Neuro: Speech clear, face symmetrical and CN II-XII grossly intact with no noted focal neuro deficits Psych: Alert and oriented to person, place, time, and situation. Appropriate and pleasant affect. Assessment and Plan of Care: NSTEMI Known coronary artery disease with reported blockage of 90% to LAD awaiting scheduled CABG x 1 and AV placement on 08/19/2024 Paroxysmal atrial fibrillation Hypertension Severe aortic regurgitation Thrombocytopenia -Cardiology consulted, discussed plan of care with cardiac DIESEL SERVICE TECHNICIAN consult placed to Dr. Shafer for evaluation and possibly moving up scheduling of CABG and aortic valve replacement. -Patient to remain on continuous telemetry monitoring -Continue low intensity heparin infusion with close monitoring of PTT to obtain therapeutic range of 44-79 seconds. PTT currently therapeutic at 60.3. -Continue aspirin 81 mg daily, amlodipine 5 mg daily, atorvastatin 80 mg nightly, isosorbide mononitrate 30 mg daily, and sublingual nitro 0.4 mg tablets every 5 minutes as needed for reports of chest pain. -Cardiothoracic surgery team was consulted, appreciate recommendations. COVID-19 positive -Patient not currently requiring supplemental oxygen -Supportive measures with lozenges for now Data and imaging reviewed: Labs completed and reviewed. COVID PCR positive.Troponins trended overnight resulting at 0.083, 0.233, and 0.305. PTT therapeutic at 60.3. CBC showing slightly worsening thrombocytopenia with platelet count of 137. Vital signs reviewed and stable. Blood pressure 158/71, heart rate 63, respiratory rate 18, temp 99.2 F, and SpO2 of 98% on room air. CODE STATUS: Full code DVT prophylaxis: Heparin Anticipated discharge date: Pending clinical course Anticipated discharge place: Home Patient was seen independently by Nurse Pracitioner. This document was prepared using [employer] dictation software. Please allow for errors in route process administrator, while rare they do occur. .I reviewed the documentation as provided by the SUNNY above, who is the original author of this note. I agree with the documented assessment and plan, with the following changes: none Objective - Vital Signs Vital signs: Vital Signs Temp 99.2 F 07/22/24 07:49 Pulse 68 07/22/24 07:58 Resp 18 07/22/24 07:58 BP 158/71 07/22/24 07:21 Pulse Ox 98 07/22/24 07:21 FiO2 Intake & Output 07/21/24 07/22/24 07/22/24 18:59 06:59 18:59 Intake Total 58.876 Balance 58.876 Weight 99.79 kg Intake: Intake, IV Titration 58.876 Amount Heparin Sod,Pork in 0.45% 58.876 NaCl 25,000 unit In 0.45 % NaCl 1 250ml.bag @ 10 UNITS/KG/HR 9.979 mls/hr IV .Q24H [facility] Rx#: [id number] Other: Voiding Method Toilet - Labs CBC & Chem 7: 07/23/24 04:39 07/25/24 06:44 Labs: Abnormal Lab Results - Last 24 Hours (Table) 07/21/24 07/21/24 07/21/24 Range/Units 23:41 23:41 23:41 Plt Count 149 L (150-450) k/uL Lymphocytes # 0.5 L (1.0-4.8) k/uL APTT (22.0-30.0) sec Glucose 120 H (74-99) mg/dL Troponin I 0.083 H* (0.000-0.034) ng/mL Total Protein 6.2 L (6.3-8.2) g/dL 07/22/24 07/22/24 07/22/24 Range/Units 01:13 05:48 05:48 Plt Count (150-450) k/uL Lymphocytes # (1.0-4.8) k/uL APTT 60.3 H (22.0-30.0) sec Glucose (74-99) mg/dL Troponin I 0.233 H* 0.305 H* (0.000-0.034) ng/mL Total Protein (6.3-8.2) g/dL
[2024-07-22 17:26] LABS: VLDL Calculation 12.18 mg/dL (5.00-40.00)
--- NOTE | 2024-07-22 17:49 | P.GSCN ---
History of Present Illness Consult date: 07/22/24 Reason for Consult: Known coronary artery disease in aortic insufficiency scheduled for aortic valve replacement and my cardiovascular station on August 19, 2024 to be completed by Dr. Art Shafer. Requesting physician: Onelia Calderon History of present illness: This is a 69-year-old gentleman who follows on an outpatient basis with Dr. Karthikeyan Iglesias for his primary care and with Dr. Frederic Gunn for his cardiolog y care. He has a past medical history significant for aortic valve insufficiency followed by Dr. Jones with serial echocardiograms, hypertension, paroxysmal atrial fibrillation, bradycardia with current heart rate 55 bpm, is a lifetime non-smoker, and has frequent constipation. The patient presented to the emergency department here at [facility] last evening with complaints of chest pressure which was relieved with nitroglycerin x 2 and he also had some complaints of nausea during the chest pressure. He denies any recent headache, emesis, visual disturbances, hemoptysis, orthopnea, palpitations, abdominal pain, presyncope or syncope. The patient does report that he has been having fevers, a sore throat and chills for the last 24 to 48 hours prior to his presentation to the emergency department and tested positive at home for COVID. The COVID test was confirmed here which showed detected. The patient also underwent a recent cardiac catheterization which revealed a 90% stenosis to his proximal left anterior descending coronary artery and severe aortic valve regurgitation. The patient also underwent a recent transesophageal echocardiogram which revealed severe aortic valve regurgitation involving a 3 leaflet aortic valve, and a dilated aortic root measuring 3.9 cm. The FARA also demonstrated mild mitral valve regurgitation, mild tricuspid valve regurgitation and mild global hypokinesis with an ejection fraction of 50%. Due to the findings on the cardiac catheterization and transesophageal echocardiogram he was seen by Dr. Art Shafer from cardiothoracic surgery who discussed the findings with the patient and treatment options including aortic valve rep lacement and coronary artery bypass grafting surgery. The patient has been recently undergoing dental treatment to obtain dental clearance for his surgery which is currently scheduled for August 19, 2024. In the emergency department a twelve-lead EKG was completed which showed normal sinus rhythm with no acute STT wave changes, his chest x-ray showed no acute process, and his laboratory results showed a platelet count of 149, BUN 17, creatinine 1.18, and positive serial troponins as high as 0.305 ruling him in for a non-ST elevated myocardial infarction. Subsequently due to the patient's presenting symptoms and known history of coronary artery disease and severe aortic valve insufficiency a consult was placed to Dr. Art Shafer from cardiothoracic surgery for further evaluation and treatment recommendations. Review of Systems A review of systems was completed and was negative except as mentioned in the HPI. 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 History of Any Multi-Drug Resistant Organisms: None Reported Past Surgical History: Hernia Repair (Umbilical), Tonsillectomy Additional Past Surgical History / Comment(s): Bilateral DETACHED RETINAS, RIGHT EYE WORSE. VASECTOMY. Past Anesthesia/Blood Transfusion Reactions: No Reported Reaction Past Psychological History: No Psychological Hx Reported Smoking Status: Never smoker Past Alcohol Use History: Rare Past Drug Use History: None Reported - Past Family History Mother Family Medical History: Cancer, Congestive Heart Failure (CHF) Additional Family Medical History / Comment(s): BREAST Father Family Medical History: Congestive Heart Failure (CHF) Medications and Allergies Home Medications Medication Instructions Recorded Confirmed Type amLODIPine [Norvasc] 5 mg PO DAILY 07/07/24 07/22/24 History Aspirin EC [Ecotrin Low Dose] 81 mg PO DAILY #90 tab 07/08/24 07/22/24 Rx Atorvastatin [Lipitor] 40 mg PO HS #90 tab 07/08/24 07/22/24 Rx Isosorbide Mononitrate ER [Imdur] 30 mg PO DAILY #90 tab 07/08/24 07/22/24 Rx Nitroglycerin Sl Tabs [Nitrostat] 0.4 mg SUBLINGUAL Q5M PRN #25 tab 07/08/24 07/22/24 Rx Allergies Allergy/AdvReac Type Severity Reaction Status Date / Time No Known Allergies Allergy Verified 07/22/24 07:40 Surgical - Exam Vital Signs Temp Pulse Resp BP Pulse Ox 100.1 F H 72 18 178/78 98 07/21/24 23:20 07/21/24 23:20 07/21/24 23:20 07/21/24 23:20 07/21/24 23:20 - General 69-year-old gentleman resting in bed in the emergency department, is cooperative, and is in no acute apparent distress. Full physical exam was deferred due to positive COVID-19 Results - Labs 07/22/24 08:56 07/21/24 23:41 Abnormal Lab Results - Last 24 Hours (Table) 07/21/24 07/21/24 07/21/24 Range/Units 23:41 23:41 23:41 Plt Count 149 L (150-450) k/uL Lymphocytes # 0.5 L (1.0-4.8) k/uL APTT (22.0-30.0) sec Glucose 120 H (74-99) mg/dL Troponin I 0.083 H* (0.000-0.034) ng/mL Total Protein 6.2 L (6.3-8.2) g/dL SARS-CoV-2 (PCR) (Not Detectd) 07/22/24 07/22/24 07/22/24 Range/Units 01:13 05:48 05:48 Plt Count (150-450) k/uL Lymphocytes # (1.0-4.8) k/uL APTT 60.3 H (22.0-30.0) sec Glucose (74-99) mg/dL Troponin I 0.233 H* 0.305 H* (0.000-0.034) ng/mL Total Protein (6.3-8.2) g/dL SARS-CoV-2 (PCR) (Not Detectd) 07/22/24 07/22/24 Range/Units 08:56 10:09 Plt Count 137 L (150-450) k/uL Lymphocytes # 0.6 L (1.0-4.8) k/uL APTT (22.0-30.0) sec Glucose (74-99) mg/dL Troponin I (0.000-0.034) ng/mL Total Protein (6.3-8.2) g/dL SARS-CoV-2 (PCR) Detected A (Not Detectd) Diabetes panel 07/21/24 Range/Units 23:41 Sodium 137 (137-145) mmol/L Potassium 4.0 (3.5-5.1) mmol/L Chloride 106 (98-107) mmol/L Carbon Dioxide 25 (22-30) mmol/L BUN 17 (9-20) mg/dL Creatinine 1.18 (0.66-1.25) mg/dL Glucose 120 H (74-99) mg/dL Calcium 8.9 (8.4-10.2) mg/dL AST 23 (17-59) U/L ALT 17 (4-49) U/L Alkaline Phosphatase 78 (38-126) U/L Total Protein 6.2 L (6.3-8.2) g/dL Albumin 3.8 (3.5-5.0) g/dL Calcium panel 07/21/24 Range/Units 23:41 Calcium 8.9 (8.4-10.2) mg/dL Albumin 3.8 (3.5-5.0) g/dL Pituitary panel 07/21/24 Range/Units 23:41 Sodium 137 (137-145) mmol/L Potassium 4.0 (3.5-5.1) mmol/L Chloride 106 (98-107) mmol/L Carbon Dioxide 25 (22-30) mmol/L BUN 17 (9-20) mg/dL Creatinine 1.18 (0.66-1.25) mg/dL Glucose 120 H (74-99) mg/dL Calcium 8.9 (8.4-10.2) mg/dL Adrenal panel 07/21/24 Range/Units 23:41 Sodium 137 (137-145) mmol/L Potassium 4.0 (3.5-5.1) mmol/L Chloride 106 (98-107) mmol/L Carbon Dioxide 25 (22-30) mmol/L BUN 17 (9-20) mg/dL Creatinine 1.18 (0.66-1.25) mg/dL Glucose 120 H (74-99) mg/dL Calcium 8.9 (8.4-10.2) mg/dL Total Bilirubin 0.8 (0.2-1.3) mg/dL AST 23 (17-59) U/L ALT 17 (4-49) U/L Alkaline Phosphatase 78 (38-126) U/L Total Protein 6.2 L (6.3-8.2) g/dL Albumin 3.8 (3.5-5.0) g/dL - Imaging Chest x-ray: report reviewed, image reviewed EKG: image reviewed Assessment and Plan Assessment: Non-ST elevated myocardial infarction this admission, elevated troponins as high as 0.305 Severe aortic valve insufficiency, trileaflet aortic valve Coronary artery disease Positive COVID 19 infection 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 His chart and diagnostics reviewed. His case was discussed with Dr. Christian Silva from cardiothoracic surgery. The patient is pending dental clearance prior to his myocardial revascularization surgery and aortic valve replacement surgery currently scheduled for August 19, 2024. The patient reports he should be cleared by the dentist on August 17, 2024. Dr. Silva discussed with Dr. Marley from cardiology that if the patient's symptoms are persistent that he may need to proceed with PCI and once he has recovered from his COVID-19 infection and has obtained dental clearance undergo a surgical aortic valve replacement versus TAVR. At this time the patient denies any chest pain/chest pressure. Continue to maximize medical management with aspirin, and statin. Heparin drip recommendations per cardiology. More recommendations to follow based on patient's clinical course. Thank you for this consult and we look forward to working with you in the care of this patient. I have personally seen and examined the patient, performed the documentation and the assessment and plan as written. Number of minutes spent on the visit: 30. SARBJIT Mendez
[2024-07-22] MEDS: ATORVASTATIN 80 MG TAB PO SCH (20:25)
[2024-07-22] MEDS: BENZOCAINE/MENTHOL LOZENG 1 EACH LOZENGE MUCOUS MEM PRN (21:22)
[2024-07-23 04:54] LABS: HCT 37.1 % (39.0-53.0); HGB 13.1 gm/dL (13.0-17.5); MCH 28.2 pg (25.0-35.0); MCHC 35.2 g/dL (31.0-37.0); MCV 80.1 fL (80.0-100.0); Mean Platelet Volume 8.5; Platelet Count 127 k/uL (150-450); RBC 4.63 m/uL (4.30-5.90); RDW 14.3 % (11.5-15.5); WBC 5.3 k/uL (3.8-10.6)
[2024-07-23 05:50] LABS: ALT 16 U/L (4-49); AST 25 U/L (17-59); African American GFR (CKD) 83 (>60 ml/min/1.73 sqM); Albumin 3.4 g/dL (3.5-5.0); Alkaline Phosphatase 66 U/L (38-126); Anion Gap 6 mmol/L; Blood Urea Nitrogen 16 mg/dL (9-20); Calcium 8.5 mg/dL (8.4-10.2); Carbon Dioxide 25 mmol/L (22-30); Chloride 105 mmol/L (98-107); Glucose 117 mg/dL (74-99); Non-African American GFR(CKD) 72 (>60 ml/min/1.73 sqM); Potassium 4.2 mmol/L (3.5-5.1); Sodium 136 mmol/L (137-145); Total Protein 5.8 g/dL (6.3-8.2)
--- NOTE | 2024-07-23 11:23 | P.PN ---
Subjective Progress Note Date: 07/23/24 Hospital course: Patient is a very pleasant 69-year-old male with a past medical history of known coronary artery disease scheduled to undergo CABG x 1 vessel of LAD and AV replacement on 08/19/2024, paroxysmal atrial fibrillation (not on anticoagulation), CAD, hypertension, and severe aortic regurgitation. He presented to the emergency department overnight with a chief complaint of chest pain. Upon arrival to our facility, patient underwent evaluation in the emergency department. Vital signs upon arrival show blood pressure 178/78, heart rate 72, respiratory rate 18, temp 100.1 F, and SpO2 of 98% on room air. EKG showing sinus mechanism with occasional PACs at 77 bpm, no significant T wave or ST abnormalities showing no signs of acute ischemia upon personal review and interpretation. Chest x-ray was negative for acute cardiopulmonary process. Labs completed and reviewed. CBC showing thrombocytopenia with platelet count of 149 otherwise normal findings. Coagulation profile normal findings. BMP unremarkable. Blood glucose 120. Magnesium 2.0. Liver profile normal findings. Troponin was elevated at 0.083. Patient was admitted under our services for NSTEMI and consult was placed to cardiology for evaluation. Troponins trended overnight resulting at 0.083, 0.233, and 0.305. Patient did report a positive home COVID test yesterday and repeat this morning was also positive. Patient was evaluated by accelerator operator recommending continuation of low intensity heparin infusion with consult to Dr. Shafer to evaluate and possibly move up scheduled CABG and aortic valve replacement.Cardiothoracic surgery evaluated stating that if patient symptoms of chest and back tightness continue, He recommends proceeding with PCI and once he has recovered from COVID-19 infection and obtain dental clearance to undergo a surgical aortic valve replacement vs TAVR Physical exam: Patient seen and fully evaluated at bedside this morning. He reports resolution of chest pressure but continues to have tightness across his back this morning. Nitro patch in place and patient remains on heparin infusion. Patient denies having any other complaints at this time including headache, lightheadedness, dizziness, palpitations, shortness of breath, nausea, vomiting, or experiencing any numbness/tingling/weakness/swelling in his extremities. Vital signs reviewed and stable. General: Nontoxic, no distress and appears stated age. Derm: Skin warm and dry, normal coloration for ethnicity. Head: Atraumatic, normocephalic and symmetric. Eyes: EOM's intact, no lid lag, and anicteric sclera Mouth: no lip lesions, mucus membranes moist Cardiovascular: regular rate and rhythm with normal S1S2, systolic murmur, positive posterior tibial pulses bilaterally, and cap refill < 2 seconds. Lungs: Respirations even, regular, and unlabored on room air. Lungs CTA bilaterally, no rhonchi, no rales, no wheezing, and no accessory muscle usage. Abdominal: soft, nontender to palpation, no guarding, no appreciable organomegaly Ext: ROM intact. No gross muscle atrophy, no edema, no contractures Neuro: Speech clear, face symmetrical and CN II-XII grossly intact with no noted focal neuro deficits Psych: Alert and oriented to person, place, time, and situation. Appropriate and pleasant affect. Assessment and Plan of Care: NSTEMI Known coronary artery disease with reported blockage of 90% to LAD awaiting scheduled CABG x 1 and AV placement on 08/19/2024 Paroxysmal atrial fibrillation Hypertension Severe aortic regurgitation Thrombocytopenia -Cardiology consulted, Recommended consult to cardiothoracic surgery, Dr. Shafer, for evaluation and possibly moving up scheduling of CABG and aortic valve replacement. -Cardiothoracic surgery evaluated, stating that if patient symptoms of chest and back tightness continue, He recommends proceeding with PCI and once he has recovered from COVID-19 infection and obtain dental clearance to undergo a manuel gical aortic valve replacement vs TAVR -Patient to remain on continuous telemetry monitoring -Continue low intensity heparin infusion with close monitoring of PTT to obtain therapeutic range of 44-79 seconds. PTT currently therapeutic at 68.0 -Continue aspirin 81 mg daily, amlodipine 5 mg daily, atorvastatin 80 mg nightly, isosorbide mononitrate 30 mg daily, and sublingual nitro 0.4 mg tablets every 5 minutes as needed for reports of chest pain. COVID-19 positive -Patient not currently requiring supplemental oxygen -Continue supportive measures with lozenges for now Data and imaging reviewed: Labs completed and reviewed. CBC showing thrombocytopenia with platelet count of 127 otherwise normal findings. Coagulation profile showing therapeutic PTT 68.0. BMP unremarkable with sodium 136, potassium 4.2, chloride 105, bicarb 25, anion gap of 6, BUN of 16, creatinine 1.05, GFR 72. Blood glucose 117. Magnesium 2.0. Liver profile unremarkable with the exception of hypoalbuminemia with albumin of 3.4. Lipid profile unremarkable with the exception of low HDL of 38.80. Vital signs reviewed and stable. Blood pressure 148/69, heart rate 60, respiratory rate 16, temp 98.5F, SpO2 of 96% on room air. CODE STATUS: Full code DVT prophylaxis: Heparin infusion Anticipated discharge date: Pending clinical course Anticipated discharge place: Home Patient was seen independently by Nurse Pracitioner. This document was prepared using [email or web address] dictation software. Please allow for errors in picked edge sewing machine operator, while rare they do occur. .I reviewed the documentation as provided by the SUNNY above, who is the original author of this note. I agree with the documented assessment and plan, with the following changes: none Objective - Vital Signs Vital signs: Vital Signs Temp 99.6 F 07/23/24 04:00 Pulse 66 07/23/24 04:00 Resp 16 07/23/24 04:00 BP 139/67 07/23/24 04:00 Pulse Ox 97 07/23/24 04:00 FiO2 Intake & Output 07/22/24 07/23/24 07/23/24 18:59 06:59 18:59 Intake Total 58.876 191.124 Output Total 700 Balance 58.876 -508.876 Weight 103.5 kg Intake: Intake, IV Titration 58.876 191.124 Amount Heparin Sod,Pork in 0.45% 58.876 191.124 NaCl 25,000 unit In 0.45 % NaCl 1 250ml.bag @ 10 UNITS/KG/HR 9.979 mls/hr IV .Q24H [facility] Rx#: [id number] Output: Urine 700 Other: Voiding Method Toilet Urinal - Labs CBC & Chem 7: 07/23/24 04:39 07/25/24 06:44 Labs: Abnormal Lab Results - Last 24 Hours (Table) 07/22/24 07/22/24 07/22/24 Range/Units 08:56 08:56 10:09 Hct (39.0-53.0) % Plt Count 137 L (150-450) k/uL Lymphocytes # 0.6 L (1.0-4.8) k/uL APTT (22.0-30.0) sec Sodium (137-145) mmol/L Glucose (74-99) mg/dL Total Protein (6.3-8.2) g/dL Albumin (3.5-5.0) g/dL HDL Cholesterol 38.80 L (40.00-60.00) mg/dL SARS-CoV-2 (PCR) Detected A (Not Detectd) 07/23/24 07/23/24 07/23/24 Range/Units 04:39 04:39 04:39 Hct 37.1 L (39.0-53.0) % Plt Count 127 L (150-450) k/uL Lymphocytes # (1.0-4.8) k/uL APTT 68.0 H (22.0-30.0) sec Sodium 136 L (137-145) mmol/L Glucose 117 H (74-99) mg/dL Total Protein 5.8 L (6.3-8.2) g/dL Albumin 3.4 L (3.5-5.0) g/dL HDL Cholesterol (40.00-60.00) mg/dL SARS-CoV-2 (PCR) (Not Detectd)
[2024-07-23] MEDS ORDERED: ALPRAZolam 0.5 MG TAB PO PRN (12:11)
[2024-07-23] MEDS ORDERED: NITROGLYCERIN SL TABS 0.4 MG TAB SUBLINGUAL PRN (12:11)
[2024-07-23] MEDS ORDERED: ALPRAZolam 0.25 MG TAB PO PRN (12:11)
--- NOTE | 2024-07-23 17:46 | P.PN ---
Subjective Progress Note Date: 07/23/24 Consult reason: chest pain History of present illness: This is a 69-year-old male patient of Dr. Frederic Gunn with past medical history of known coronary artery disease, aortic regurgitation, hypertension, bradycardia. We have been asked to evaluate the patient for chest pain. Patient gives history that he developed chest tightness that felt very uncomfortable and he took 1 nitroglycerin which seemed to help. The pain came back and about 45 minutes and he took a second nitroglycerin he told his he needed to go to the hospital. Yesterday evening, he also developed sore throat, lack of energy, fever and chills and decided to take a COVID test which came back positive. Patient has been started on a heparin drip. Patient is scheduled for CABG 1 vessel LAD and AV replacement on 08/[address] Shafer. This was initially scheduled and July but was delayed due to dental work that needed to be done which patient states has been completed. Patient does have a follow-up appointment with the dentist on 08/17. Blood pressure 158/71, heart rate 68, pulse ox 90% on room air. EKG: Sinus rhythm no acute ST-T wave changes Chest x-ray: No acute process Laboratory studies: Platelet count 149. BUN 17, creatinine 1.18. Troponins 0.083, 0.233, 0.305. Home cardiac medications: Amlodipine 5 mg daily, aspirin 81 mg daily, atorvastatin 40 mg at bedtime, Imdur 30 mg daily, Nitrostat as needed Cardiac catheterization 07/07/2024 revealed severe focal stenosis involving the LAD, 3+ aortic regurgitation. FARA performed 07/07/2024 revealed severe aortic regurgitation involving 3 leaflet aortic valve, dilated aortic root. Echocardiogram performed in the office on 06/29/2024 revealed EF of 50 to 55%, mild concentric left ventricular hypertrophy, severe aortic regurgitation, mild mitral regurgitation, mild tricuspid regurgitation, normal PASP. Trace to mild pulmonary regurgitation. 07/23 Patient is seen today on the cardiac stepdown unit. Case discussed with cardiothoracic surgery. No CABG for at least 2 weeks after COVID. Next plan is for cardiac catheterization and intervention and later patient can have valve done. Blood pressure 148/69, heart rate is in the 60s, pulse ox 95% on room air. Hemoglobin 13.1. Sodium 136, potassium 4.2, BUN 16 creatinine 1.05. Physical examination: Gen: This is a 69-year-old male resting in bed and appears to be in no acute distress VS: reviewed HEENT: Head is atraumatic, normocephalic. Pupils equal, round. Sclerae is anicteric. LUNGS: Clear to auscultation. No wheezes or rhonchi. No intercostal retractions. HEART: Regular rate and rhythm. No murmur. ABDOMEN: Soft. Bowel sounds are present. No masses. No tenderness. EXTREMITIES: No pedal edema. No calf tenderness. NEUROLOGICAL: Patient is awake, alert and oriented x3. Cranial nerves 2 through 12 are grossly intact. Assessment: Non-ST elevated myocardial infarction COVID-19 Known coronary artery disease of the LAD Severe aortic valve regurgitation Hypertension Bradycardia Plan: Continue patient's home cardiac medications Continue heparin drip Consult with cardiothoracic surgery appreciated Schedule patient for cardiac catheterization/PCI tomorrow Nurse practitioner note has been reviewed, I agree with documented findings and plan of care. Patient was seen and examined. Objective - Vital Signs Vital signs: Vital Signs Temp 99.6 F 07/23/24 04:00 Pulse 66 07/23/24 04:00 Resp 16 07/23/24 04:00 BP 139/67 07/23/24 04:00 Pulse Ox 97 07/23/24 04:00 FiO2 Intake & Output 07/22/24 07/23/24 07/23/24 18:59 06:59 18:59 Intake Total 58.876 191.124 658 Output Total 700 Balance 58.876 -508.876 658 Weight 103.5 kg Intake: Intake, IV Titration 58.876 191.124 Amount Heparin Sod,Pork in 0.45% 58.876 191.124 NaCl 25,000 unit In 0.45 % NaCl 1 250ml.bag @ 10 UNITS/KG/HR 9.979 mls/hr IV .Q24H [facility] Rx#: [id number] Oral 658 Output: Urine 700 Other: Voiding Method Toilet Urinal - Labs CBC & Chem 7: 07/23/24 04:39 07/23/24 04:39 Labs: Abnormal Lab Results - Last 24 Hours (Table) 07/22/24 07/22/24 07/23/24 Range/Units 08:56 10:09 04:39 Hct (39.0-53.0) % Plt Count (150-450) k/uL APTT 68.0 H (22.0-30.0) sec Sodium (137-145) mmol/L Glucose (74-99) mg/dL Total Protein (6.3-8.2) g/dL Albumin (3.5-5.0) g/dL HDL Cholesterol 38.80 L (40.00-60.00) mg/dL SARS-CoV-2 (PCR) Detected A (Not Detectd) 07/23/24 07/23/24 Range/Units 04:39 04:39 Hct 37.1 L (39.0-53.0) % Plt Count 127 L (150-450) k/uL APTT (22.0-30.0) sec Sodium 136 L (137-145) mmol/L Glucose 117 H (74-99) mg/dL Total Protein 5.8 L (6.3-8.2) g/dL Albumin 3.4 L (3.5-5.0) g/dL HDL Cholesterol (40.00-60.00) mg/dL SARS-CoV-2 (PCR) (Not Detectd)
[2024-07-24] MEDS ORDERED: HEPARIN SODIUM,PORCINE (1 ML) 2,500 UNIT in SODIUM CHLORIDE 0.9% 250 ML IRRIGATION PRN (07:00)
[2024-07-24] MEDS ORDERED: HEPARIN SODIUM,PORCINE 10,000 UNIT in SODIUM CHLORIDE 0.9% 1,000 ML IRRIGATION PRN (07:00)
[2024-07-24] MEDS: ATORVASTATIN 80 MG TAB PO STA (10:04)
[2024-07-24] MEDS: ASPIRIN 81 MG PO STA (10:04)
[2024-07-24] MEDS: IV FLUID CONTINUATION 200 ML IV ONE (10:45)
[2024-07-24] MEDS: MIDAZOLAM 2 MG/2 ML VIAL IVP ONE (10:47)
[2024-07-24] MEDS: LIDOCAINE 1% INJ 10MG/ML (20 ML MDV) SQ ONE (10:48)
[2024-07-24] MEDS: VERAPAMIL SYRINGE (5 MG/10 ML) INTRAARTER ONE (10:50)
[2024-07-24] MEDS: HEPARIN SODIUM 1,000 UN/ML (10ML VL) IVP ONE (10:53)
[2024-07-24] MEDS: TICAGRELOR 90 MG TAB PO ONE (10:56)
[2024-07-24] MEDS: SODIUM CHLORIDE 0.9% 1,000 ML IV ONE (10:59)
[2024-07-24] MEDS: IOPAMIDOL-370 200ML BTL INJ ONE (11:18)
[2024-07-24] MEDS ORDERED: ZOLPIDEM 5 MG TAB PO PRN (11:24)
[2024-07-24] MEDS ORDERED: ATROPINE SULFATE 0.1 MG/ML 10ML SYRINGE IV PRN (11:24)
[2024-07-24] MEDS ORDERED: RX INFO: IV CONTRAST WAS GIVEN 1 EACH MISC MISCELLANE PRN (11:24)
[2024-07-24] MEDS ORDERED: MAG HYDROX/AL HYDROX/SIMETH 30 ML CUP PO PRN (11:24)
[2024-07-24] MEDS ORDERED: NITROGLYCERIN SL TABS 0.4 MG TAB SUBLINGUAL PRN (11:24)
--- NOTE | 2024-07-24 11:28 | P.PCN ---
Date of Procedure: 07/24/24 Operative Findings: CARDIAC CATHETERIZATION AND PERCUTANEOUS CORONARY INTERVENTION PERFORMING PHYSICIAN: Martin Marley MD, RPVI PROCEDURE PERFORMED: 1. Selective right and left coronary angiogram 2. Successful stenting of proximal LAD using 4.0 x 15 mm Xience LAURA with an excellent angiographic results with adjunctive use of IVUS 3. Ultrasound-guided access of the right radial artery INDICATION: Acute non-ST elevation myocardial infarction. Please refer to prior heart catheterization was performed before COMPLICATION: None APPROACH: Right radial artery LEVEL OF SEDATION: Moderate with the sedation time off 30 minutes PROCEDURE DESCRIPTION: After obtaining informed consent the patient was brought to the cardiac Activated Sludge Attendant. The right radial artery was cannulated using micropuncture technique under ultrasound guidance a micropuncture wire passed easily and placed a 6 Kosovan 11 cm sheath at the right radial artery and subsequently the patient was given 2 mg of verapamil intra-arterial and anticoagulation was initiated with heparin with continuous ACT monitoring. Subsequently I did selective right coronary angiogram using JR4 diagnostic catheter and selective left coronary angiogram using JL 4 guiding catheter. After that I decided to intervene on the LAD. The LAD was wired using a whisper wire. Subsequently I did intravascular ultrasound which showed a diameter around 4 mm. Predilatation was performed using 3.5 mm score flex balloon before I deployed 4.0 x 15 mm stent where the stent was positioned under fluoroscopy guidance and deployed under fluoroscopy guidance. Postdilatation was performed using 4.5 mm noncompliant balloon after IVUS was performed. The procedure was completed with no complication SELECTIVE CORONARY ANGIOGRAM: The right coronary artery: Large-caliber vessel and a dominant vessel with mild disease only. Left main: Is angiographically normal. The left circumflex: Large-caliber vessel nondominant vessel with mild disease only The left anterior descending artery: Has critical lesion in the proximal portion appears to be in the range of 99.9%. The mid LAD has only mild disease only POSTPROCEDURE MANAGEMENT: 1. Dual antiplatelet therapy using aspirin and Brilinta for 12 month 2. Aggressive cholesterol control 3. Follow-up with the patient
--- NOTE | 2024-07-24 13:10 | P.PN ---
Subjective Progress Note Date: 07/24/24 Consult reason: chest pain History of present illness: This is a 69-year-old male patient of Dr. Frederic Gunn with past medical history of known coronary artery disease, aortic regurgitation, hypertension, bradycardia. We have been asked to evaluate the patient for chest pain. Patient gives history that he developed chest tightness that felt very uncomfortable and he took 1 nitroglycerin which seemed to help. The pain came back and about 45 minutes and he took a second nitroglycerin he told his he needed to go to the hospital. Yesterday evening, he also developed sore throat, lack of energy, fever and chills and decided to take a COVID test which came back positive. Patient has been started on a heparin drip. Patient is scheduled for CABG 1 vessel LAD and AV replacement on 08/[address] Shafer. This was initially scheduled and July but was delayed due to dental work that needed to be done which patient states has been completed. Patient does have a follow-up appointment with the dentist on 08/17. Blood pressure 158/71, heart rate 68, pulse ox 90% on room air. EKG: Sinus rhythm no acute ST-T wave changes Chest x-ray: No acute process Laboratory studies: Platelet count 149. BUN 17, creatinine 1.18. Troponins 0.083, 0.233, 0.305. Home cardiac medications: Amlodipine 5 mg daily, aspirin 81 mg daily, atorvastatin 40 mg at bedtime, Imdur 30 mg daily, Nitrostat as needed Cardiac catheterization 07/07/2024 revealed severe focal stenosis involving the LAD, 3+ aortic regurgitation. FARA performed 07/07/2024 revealed severe aortic regurgitation involving 3 leaflet aortic valve, dilated aortic root. Echocardiogram performed in the office on 06/29/2024 revealed EF of 50 to 55%, mild concentric left ventricular hypertrophy, severe aortic regurgitation, mild mitral regurgitation, mild tricuspid regurgitation, normal PASP. Trace to mild pulmonary regurgitation. 07/23 Patient is seen today on the cardiac stepdown unit. Case discussed with cardiothoracic surgery. No CABG for at least 2 weeks after COVID. Next plan is for cardiac catheterization and intervention and later patient can have valve done. Blood pressure 148/69, heart rate is in the 60s, pulse ox 95% on room air. Hemoglobin 13.1. Sodium 136, potassium 4.2, BUN 16 creatinine 1.05. 07/24 Patient is scheduled for cardiac catheterization/PCI today with Dr. Marley. Patient denies any chest pain at this time. Blood pressure 134/63, heart rate 54, pulse ox 96% on room air. Patient has been continued on heparin drip. Physical examination: Gen: This is a 69-year-old male resting in bed and appears to be in no acute distress VS: reviewed HEENT: Head is atraumatic, normocephalic. Pupils equal, round. Sclerae is anicteric. LUNGS: Clear to auscultation. No wheezes or rhonchi. No intercostal retractions. HEART: Regular rate and rhythm. No murmur. ABDOMEN: Soft. Bowel sounds are present. No masses. No tenderness. EXTREMITIES: No pedal edema. No calf tenderness. NEUROLOGICAL: Patient is awake, alert and oriented x3. Cranial nerves 2 through 12 are grossly intact. Assessment: Non-ST elevated myocardial infarction COVID-19 Known coronary artery disease of the LAD Severe aortic valve regurgitation Hypertension Bradycardia Plan: Continue patient's home cardiac medications Continue heparin drip Consult with cardiothoracic surgery appreciated Schedule patient for cardiac catheterization/PCI today Nurse practitioner note has been reviewed, I agree with documented findings and plan of care. Patient was seen and examined. Objective - Vital Signs Vital signs: Vital Signs Temp 98.0 F 07/24/24 04:00 Pulse 60 07/24/24 04:00 Resp 15 07/24/24 04:00 BP 154/72 07/24/24 04:00 Pulse Ox 96 07/24/24 04:00 FiO2 Intake & Output 07/23/24 07/24/24 07/24/24 18:59 06:59 18:59 Intake Total 894 250 Balance 894 250 Weight 97.3 kg Intake: Intake, IV Titration 250 Amount Heparin Sod,Pork in 0.45% 250 NaCl 25,000 unit In 0.45 % NaCl 1 250ml.bag @ 10 UNITS/KG/HR 9.979 mls/hr IV .Q24H [facility] Rx#: [id number] Oral 894 Other: Voiding Method Toilet # Voids 2 - Labs CBC & Chem 7: 07/23/24 04:39 07/23/24 04:39 Labs: Abnormal Lab Results - Last 24 Hours (Table) 07/24/24 Range/Units 05:31 APTT 66.4 H (22.0-30.0) sec
--- NOTE | 2024-07-24 14:53 | P.PN ---
Subjective Progress Note Date: 07/24/24 Principal diagnosis: chest pain 69-year-old male with a past medical history of known coronary artery disease scheduled to undergo CABG x 1 vessel of LAD and AV replacement on 08/19/2024, paroxysmal atrial fibrillation (not on anticoagulation), CAD, hypertension, and severe aortic regurgitation. He presented to the emergency department overnight with a chief complaint of chest pain. Upon arrival to our facility, patient underwent evaluation in the emergency department. Vital signs upon arrival show blood pressure 178/78, heart rate 72, respiratory rate 18, temp 100.1 F, and SpO2 of 98% on room air. EKG showing sinus mechanism with occasional PACs at 77 bpm, no significant T wave or ST abnormalities showing no signs of acute ischemia upon personal review and interpretation. Chest x-ray was negative for acute cardiopulmonary process. Labs completed and reviewed. CBC showing thrombocytopenia with platelet count of 149 otherwise normal findings. Coagulation profile normal findings. BMP unremarkable. Blood glucose 120. Magnesium 2.0. Liver profile normal findings. Troponin was elevated at 0.083. Patient was admitted under our services for NSTEMI and consult was placed to cardiology for evaluation. Troponins trended overnight resulting at 0.083, 0.23 3, and 0.305. Patient did report a positive home COVID test yesterday and repeat this morning was also positive. Patient was evaluated by product applications scientist recommending continuation of low intensity heparin infusion with consult to Dr. Shafer to evaluate and possibly move up scheduled CABG and aortic valve replacement. Cardiothoracic surgery evaluated stating that if patient symptoms of chest and back tightness continue, He recommends proceeding with PCI and once he has recovered from COVID-19 infection and obtain dental clearance to undergo a surgical aortic valve replacement vs TAVR 07/24 Denies chest pain or sob. No dizziness. No fevers or chills. Objective - Vital Signs Vital signs: Vital Signs Temp 98.2 F 07/24/24 08:00 Pulse 54 L 07/24/24 14:00 Resp 16 07/24/24 14:00 BP 138/64 07/24/24 12:10 Pulse Ox 96 07/24/24 08:00 FiO2 Intake & Output 07/23/24 07/24/24 07/24/24 18:59 06:59 18:59 Intake Total 894 250 170 Balance 894 250 170 Weight 97.3 kg Intake: IV 50 Intake, IV Titration 250 Amount Heparin Sod,Pork in 0.45% 250 NaCl 25,000 unit In 0.45 % NaCl 1 250ml.bag @ 10 UNITS/KG/HR 9.979 mls/hr IV .Q24H [facility] Rx#: [id number] Oral 894 120 Other: Voiding Method Toilet # Voids 2 - Exam Constitutional: No acute distress, conversant, pleasant Eyes:Anicteric sclerae, moist conjunctiva, no lid-lag, PERRLA, ENMT: Oropharynx clear, no erythema, exudates Neck: Supple, FROM, no masses, or JVD, No carotid bruits, No thyromegaly Lungs: Clear to auscultation, Clear to percussion, Normal respiratory effort, no accessory muscle use Cardiovascular: Heart regular in rate and rhythm, No murmurs, gallops, or rubs, No peripheral edema Abdominal: Soft, Nontender, no guarding, rebound or rigidity, Normoactive bowel sounds, No hepatomegaly, No splenomegaly, No palpable mass Skin: Normal temperature, tone, texture, turgor, no induration, No subcutaneous nodules, No rash, lesions, No ulcers Extremities: No digital cyanosis, No clubbing, Pedal pulses intact and symmetrical, Radial pulses intact and symmetrical, No calf tenderness Psychiatric: Alert and oriented to person, place and time, appropriate affect, intact judgement Neuro: Muscles Strength 5/5 in all 4 extremities, Sensation to light touch grossly present throughout, Cranial nerves II-XII grossly intact, no focal sensory deficits - Labs CBC & Chem 7: 07/23/24 04:39 07/23/24 04:39 Labs: Abnormal Lab Results - Last 24 Hours (Table) 07/24/24 Range/Units 05:31 APTT 66.4 H (22.0-30.0) sec Assessment and Plan Plan: NSTEMI Known coronary artery disease with reported blockage of 90% to LAD awaiting scheduled CABG x 1 and AV placement on 08/19/2024 Paroxysmal atrial fibrillation Hypertension Severe aortic regurgitation Thrombocytopenia -Cardiology consulted, Recommended consult to cardiothoracic surgery, Dr. Shafer, for evaluation and possibly moving up scheduling of CABG and aortic valve replacement. -Cardiothoracic surgery evaluated, stating that if patient symptoms of chest and back tightness continue, He recommends proceeding with PCI and once he has recovered from COVID-19 infection and obtain dental clearance to undergo a surgical aortic valve replacement vs TAVR -Cath today with LAD stenting. Continue low intensity heparin infusion with close monitoring of PTT to obtain therapeutic range of 44-79 seconds. PTT curre ntly therapeutic at 68.0 -Continue aspirin 81 mg daily, amlodipine 5 mg daily, atorvastatin 80 mg ni ghtly, isosorbide mononitrate 30 mg daily, and sublingual nitro 0.4 mg tablets every 5 minutes as needed for reports of chest pain. COVID-19 positive -Patient not currently requiring supplemental oxygen -Continue supportive measures with lozenges for now Data and imaging reviewed: CODE STATUS: Full code DVT prophylaxis: Heparin infusion Anticipated discharge date: Pending clinical course Anticipated discharge place: Home
[2024-07-24] MEDS: SODIUM CHLORIDE 0.9% 1,000 ML in EMPTY BAG 1 BAG IV SCH (18:36)
[2024-07-24 19:45] VITALS: RESP 16
[2024-07-24] MEDS: TICAGRELOR 90 MG TAB PO SCH (20:18)
[2024-07-25 08:08] LABS: African American GFR (CKD) >90 (>60 ml/min/1.73 sqM); Non-African American GFR(CKD) 87 (>60 ml/min/1.73 sqM)
--- NOTE | 2024-07-25 08:54 | P.PN ---
Subjective Progress Note Date: 07/25/24 The patient was seen and evaluated this morning with he is asymptomatic with he still having some cough secondary to COVID. Otherwise the chest discomfort has resolved completely. No dizziness or lightheadedness and no heart racing or fluttering. He is on dual antiplatelet therapy along with a statin. The pressure is elevated and with that being said I am going to increase the dose of amlodipine. The physical examination is remarkable for regular rhythm with diminished breathing sounds bilaterally and no edema was noted in the lower extremities Assessment Critical LAD disease status post PCI with an excellent angiographic results Aortic stenosis severe patient need TAVR down the line COVID-19 infection Hypertension Plan Increase the dose of amlodipine Continue dual antiplatelet therapy The patient potentially can be discharged home later on today Objective - Vital Signs Vital signs: Vital Signs Temp 97.8 F 07/25/24 04:25 Pulse 53 L 07/25/24 04:25 Resp 16 07/25/24 04:25 BP 160/69 07/25/24 04:25 Pulse Ox 97 07/25/24 04:25 FiO2 Intake & Output 07/24/24 07/25/24 07/25/24 18:59 06:59 18:59 Intake Total 195.779 Balance 195.779 Weight 99.7 kg Intake: IV 50 Intake, IV Titration 25.779 Amount Heparin Sod,Pork in 0.45% 25.779 NaCl 25,000 unit In 0.45 % NaCl 1 250ml.bag @ 10 UNITS/KG/HR 9.979 mls/hr IV .Q24H [facility]ING Rx#: [id number] Oral 120 Other: # Voids 0 1 # Bowel Movements 0 - Labs CBC & Chem 7: 07/23/24 04:39 07/25/24 06:44
[2024-07-25 09:39] VITALS: BP 152/70; PULSE 58; TEMP 97.6
[2024-07-25] MEDS: amLODIPine 10 MG TAB PO SCH (09:40)
[2024-07-25 10:52] VITALS: BMI 27.4
--- NOTE | 2024-07-25 12:12 | P.DS ---
Providers Date of admission: 07/22/24 09:18 Expected date of discharge: 07/25/24 Attending physician: Jerica Christianson MD Consults: 07/22/24 01:01 Consult Physician Routine Consulting Provider: Martin Marley Consult Reason/Comments: chest pain Do you want consulting provider notified?: Yes 07/22/24 08:22 Consult Physician Routine Consulting Provider: Art Shafer Consult Reason/Comments: scheduled for CABG and AVR 08/19, eval to move gaurav ner, +COVID Do you want consulting provider notified?: Yes 07/24/24 11:25 Consult Physician Routine Consulting Provider: [facility] Consult Reason/Comments: Post Interventional Patient Do you want consulting provider notified?: Already Contacted [facility] Course: 69-year-old male with a PMH of paroxysmal atrial fibrillation (not on anticoagulation), CAD, hypertension, severe aortic regurgitation presents to the ED with chest pain. He states chest pain started this afternoon around 4 pm while he was sitting and watching TV. He describes as a heavy pressure that radiates to the back. Patient took nitroglycerin and said the pain went away, but came back 45 minutes later and took another nitroglycerin tab and decided to call EMS. The patient was given aspirin en-route to the hospital and the pain resolved upon arrival to the ED. Patient admits he had a fever, chills, and d iffuse body aches along with a dry cough that he noticed this morning. Patient reports he used a home COVID-19 test and tested positive for it. Patient also notes he felt nauseous and short of breath, but denies any vomiting, abdominal pain. Patient states he is scheduled for aortic valve replacement along with coronary bypass for Aug 19, 2024. He is awaiting a dental clearance prior to undergoing valvular replacement. Reports being chest pain free at the time of interview. EKG independently interpreted shows a sinus rhythm with dropped p-waves with an apparent inconsistent pattern concerning for Second Degree Mobitz Type 1 vs 2 heart block at 77 bpm with QTc 399 ms. CXR independently interpreted showed no acute intrapulmonary process. Troponin 0.083, 0.233, INR 1.0, glucose 120, BUN 17, creatinine 1.18 Patient was found to have NSTEMI, trops peaked at 0.3. He is Known to have coronary artery disease with reported blockage of 90% to LAD awaiting scheduled CABG x 1 and AV placement on 08/19/2024. He was seen by CT surgery here in the hospital. Recommedned to have a cath by cardio. Cardio did a heart cath which resulted in LAD stenting. Norvasc was increased to 10mg daily. Brilinta was added. Post cath he is doing well. No chest pain or sob. Tested positive for covid but was not very symptomatic from that. cleared today by cardio to discharge. Will be discharged in a stable condition. Time for discharge 35 min He was seen and examined on the day of discharge 07/25 Plan - Discharge Summary Discharge Rx Participant: No New Discharge Prescriptions: New Atorvastatin [Lipitor] 80 mg PO HS 60 Days #60 tab Ticagrelor [Brilinta] 90 mg PO BID 60 Days #120 tab amLODIPine [Norvasc] 10 mg PO DAILY 60 Days #60 tab Continue Aspirin EC [Ecotrin Low Dose] 81 mg PO DAILY #90 tab Isosorbide Mononitrate ER [Imdur] 30 mg PO DAILY #90 tab Nitroglycerin Sl Tabs [Nitrostat] 0.4 mg SUBLINGUAL Q5M PRN #25 tab PRN Reason: Chest Pain Discontinued Atorvastatin [Lipitor] 40 mg PO HS #90 tab amLODIPine [Norvasc] 5 mg PO DAILY Discharge Medication List Aspirin EC [Ecotrin Low Dose] 81 mg PO DAILY #90 tab 07/08/24 [Rx] Isosorbide Mononitrate ER [Imdur] 30 mg PO DAILY #90 tab 07/08/24 [Rx] Nitroglycerin Sl Tabs [Nitrostat] 0.4 mg SUBLINGUAL Q5M PRN #25 tab 07/08/24 [Rx] Atorvastatin [Lipitor] 80 mg PO HS 60 Days #60 tab 07/25/24 [Rx] Ticagrelor [Brilinta] 90 mg PO BID 60 Days #120 tab 07/25/24 [Rx] amLODIPine [Norvasc] 10 mg PO DAILY 60 Days #60 tab 07/25/24 [Rx] Follow up Appointment(s)/Referral(s): Jonny Iglesias MD [Primary Care Provider] - 1-2 days
== END 2024-07-25 13:46 | disposition home or self-care (01) | DRG 321 ==
LOC: EC 23:15 → 3SCARD 07-22 01:03 → OBSVTOIN 07-22 09:18 → 3SCARD 07-22 19:40
PROVIDERS: ADMIT Internal Medicine; ATTEND Internal Medicine
PROC: 8E0ZXY6 Isolation (ICD-10-PCS; 2024-07-21)
PROC: 027034Z Dilation of Coronary Artery, One Artery with Drug-eluting Intraluminal Device, Percutaneous Approach (ICD-10-PCS; principal; 2024-07-24 07:30)
PROC: B2111ZZ Fluoroscopy of Multiple Coronary Arteries using Low Osmolar Contrast (ICD-10-PCS; principal; 2024-07-24 07:30)
PROC: B240ZZ3 Ultrasonography of Single Coronary Artery, Intravascular (ICD-10-PCS; principal; 2024-07-24 07:30)
PROC: 4A023N7 Measurement of Cardiac Sampling and Pressure, Left Heart, Percutaneous Approach (ICD-10-PCS; principal; 2024-07-24 07:30)
DX: I21.4 Non-ST elevation (NSTEMI) myocardial infarction (principal); U07.1 COVID-19; I48.0 Paroxysmal atrial fibrillation; I10 Essential (primary) hypertension; K59.00 Constipation, unspecified; I35.2 Nonrheumatic aortic (valve) stenosis with insufficiency; I25.10 Atherosclerotic heart disease of native coronary artery without angina pectoris; D69.6 Thrombocytopenia, unspecified; D41.02 Neoplasm of uncertain behavior of left kidney; I44.1 Atrioventricular block, second degree; R00.1 Bradycardia, unspecified; R73.9 Hyperglycemia, unspecified; Z71.3 Dietary counseling and surveillance; Z79.899 Other long term (current) drug therapy; Z79.82 Long term (current) use of aspirin; Z79.02 Long term (current) use of antithrombotics/antiplatelets; Z82.49 Family history of ischemic heart disease and other diseases of the circulatory system
CPT/HCPCS: 36415; 37252; 71045; 80053; 80061; 82565; 83735; 84484; 85025; 85027; 85610; 85730; 87636; 93005; 93454; 96365; 96366; 99291

== ENCOUNTER → 2024-08-06 | Outpatient (CLI) | payer MEDICARE ==
[2024-08-06 09:43] LABS: Appearance,Urine Clear (Clear); Bilirubin,Urine Negative (Negative); Blood,Urine Negative (Negative); Color,Urine Yellow; Glucose,Urine (UA) Negative (Negative); Ketones,Urine Negative (Negative); Leukocyte Esterase,Urine Negative (Negative); Nitrite,Urine Negative (Negative); Protein,Urine Trace (Negative); Specific Gravity,Urine 1.023 (1.001-1.035)
[2024-08-06 09:47] LABS: Prothrombin Time 11.1 sec (10.0-12.5)
[2024-08-06 10:06] LABS: ALT 22 U/L (4-49); AST 28 U/L (17-59); African American GFR (CKD) 87 (>60 ml/min/1.73 sqM); Albumin 4.1 g/dL (3.5-5.0); Albumin/Globulin Ratio 1.4; Alkaline Phosphatase 77 U/L (38-126); Anion Gap 8 mmol/L; Blood Urea Nitrogen 18 mg/dL (9-20); Calcium 9.4 mg/dL (8.4-10.2); Carbon Dioxide 26 mmol/L (22-30); Chloride 107 mmol/L (98-107); Globulin 2.9 g/dL; Glucose 122 mg/dL (74-99); Non-African American GFR(CKD) 75 (>60 ml/min/1.73 sqM); Potassium 4.1 mmol/L (3.5-5.1); Sodium 141 mmol/L (137-145); Total Bilirubin 0.9 mg/dL (0.2-1.3)
--- NOTE | 2024-08-06 11:49 | CT ---
EXAMINATION TYPE: CT TAVR Planning include CT neck, chest, abdomen and pelvis. DATE OF EXAM: 08/06/2024 HISTORY: pre op CT DLP: 1841.8 mGycm Automated Exposure Control for Dose Reduction was Utilized. CONTRAST: CT scan of the chest, abdomen and pelvis is performed with IV Contrast, patient injected with 125 mL of Isovue 370. COMPARISON: 07/07/2024 TECHNIQUE: Helical imaging obtained through the chest, abdomen and pelvis during arterial phase anaid arian administration of radiographic contrast intravenously. FINDINGS: See report from [employer] regarding preprocedural planning CT chest: As on the prior study, there is a focal area of tree-in-bud density in the left lower lobe posteriorl y. There is a 7.3 mm nodule in the subpleural parenchymal right lower lobe laterally. There is no airspace consolidation. There is no pleural effusion or pneumothorax. The great vessels the chest are normal and no pulmonary embolism or thoracic aortic aneurysm. There i s no atherosclerotic calcification of the thoracic aorta. Heart size is normal. There is a small pericardial effusion. There is a mildly enlarged subcarinal lymph node which measures 1.6 cm and there is a 1.8 cm enlarged right hilar lymph node. CT abdomen and pelvis: There is a 3.6 cm well-circumscribed low-density mass in the left liver consistent with a simple hepa tic cyst. The gallbladder is unremarkable. There is no focal mass or organomegaly involving the pancreas, spleen or adrenal glands. As noted on the prior study there is a 2.4 cm mass in the anterolateral left kidney with heterogeneou s enhancement. It is highly suspicious for neoplasm and further workup is warranted. The bowel loops are normal in caliber and is no obstruction or inflammation. There is no free intraperitoneal air-fluid There is no pelvic mass or adenopathy. No focal osseous lesions are seen. CT NECK: There is no air-fluid level in the right maxillary sinus consistent with acute sinusitis. There are no supraclavicular lymph nodes. There is no thyroid mass or gross enlargement. The larynx including the cricoid, arytenoid and thyroid cartilages as well as the vocal cords are nor mal and symmetric. The tongue base, epiglottis, aryepiglottic folds, piriform sinuses and vallecula are normal and symme tric. The parotid and submandibular glands are normal and symmetric without focal mass or gross enlargement . There is no pharyngeal or parapharyngeal soft tissue mass or enhancement The great vessels of the neck are normal. There is no soft tissue swelling, inflammation or abscess. IMPRESSION: 1. CT chest: Stable tree-in-bud density in the left lower lobe, mediastinal and right hilar lymphade nopathy as described above, small pericardial effusion, unremarkable thoracic aorta. 2. CT abdomen and pelvis: 2.5 cm left renal mass suspicious for neoplasm and further workup is all tsai, 3.6 cm hepatic cyst. 3. CT neck: Acute inflammation right maxillary sinus otherwise no significant abnormality within the neck.. [facility], , 08/06/2024 11:47 AM
[2024-08-06 15:33] LABS: NT-Pro-B-Type Natriuretic Pept 70 pg/mL (0-125)
[2024-08-06 15:47] LABS: Blood Urea Nitrogen 17.8 mg/dL (9.0-27.0); Carbon Dioxide 22.7 mmol/L (21.6-31.8); Chloride 106 mmol/L (96-109); Glucose 124 mg/dL (70-110); Magnesium 2.4 mg/dL (1.5-2.4); Potassium 4.3 mmol/L (3.5-5.5); Sodium 142 mmol/L (135-145)
[2024-08-06 15:48] LABS: ALT 24 U/L (10-49); AST 18 U/L (14-35); Albumin 4.2 g/dL (3.8-4.9); Albumin/Globulin Ratio 1.83 Ratio (1.60-3.17); Alkaline Phosphatase 99 U/L (41-126); Calcium 9.3 mg/dL (8.7-10.3); Globulin 2.3 g/dL (1.6-3.3); Total Bilirubin 0.6 mg/dL (0.3-1.2); Total Protein 6.5 g/dL (6.2-8.2)
[2024-08-06 16:38] LABS: Basophils # (A) 0.05 X 10*3/uL (0.00-0.10); Basophils % (A) 0.5 %; Eosinophils # (A) 0.16 X 10*3/uL (0.04-0.35); Eosinophils % (A) 1.6 %; HCT 42.4 % (39.6-50.0); HGB 13.8 g/dL (13.0-17.0); Lymphocytes # (A) 1.49 X 10*3/uL (0.90-5.00); Lymphocytes % (A) 15.3 %; MCH 26.7 pg (27.0-32.0); MCHC 32.5 g/dL (32.0-37.0); MCV 82.2 FL (80.0-97.0); Mean Platelet Volume 11.2 FL (9.5-12.2); Monocytes # (A) 0.52 X 10*3/uL (0.20-1.00); Monocytes % (A) 5.3 %; NRBC Per 100 WBC 0 X 10*3/uL (0.00-0.01); Neutrophils # (A) 7.49 X 10*3/uL (1.80-7.70); Neutrophils % (A) 76.9 %; Platelet Count 256 X 10*3/uL (140-440); RBC 5.16 X 10*6/uL (4.40-5.60); RDW 13.9 % (11.5-14.5); WBC 9.75 X 10*3/uL (4.50-10.00)
== END | disposition home or self-care (01) ==
LOC: LABWHC1 08:49
PROVIDERS: ATTEND Thoracic Surgery (Cardiothoracic Vascular Surgery)
DX: Z01.818 Encounter for other preprocedural examination (principal); I35.0 Nonrheumatic aortic (valve) stenosis; E87.8 Other disorders of electrolyte and fluid balance, not elsewhere classified; R58 Hemorrhage, not elsewhere classified; E07.9 Disorder of thyroid, unspecified; R35.0 Frequency of micturition; E11.9 Type 2 diabetes mellitus without complications; N28.9 Disorder of kidney and ureter, unspecified; E78.5 Hyperlipidemia, unspecified; H59.0 Disorders of the eye following cataract surgery; Z79.01 Long term (current) use of anticoagulants; Z79.899 Other long term (current) drug therapy
CPT/HCPCS: 83880; 80053; 84443; 83735; 85025; 85610; 85730; 81003; 87086; 83036; 71275; 36415 ×2; 74174; Q9967

== ENCOUNTER → 2024-08-27 | Outpatient (CLI) | payer MEDICARE ==
--- NOTE | 2024-08-29 18:13 | PE ---
EXAMINATION TYPE: PET CT fusion skull to thigh DATE OF EXAM: 08/27/2024 CLINICAL INDICATION:Male, 69 years old with history of R59.0 LYMPHADENOPATHY; left renal mass. TECHNIQUE: Following the intravenous administration of 9.06 mCi of F-18 FDG, whole body images are performed from the skull base to the midthigh. Images are reviewed on the computer in the coronal, a xial, and sagittal planes. Reconstructed rotating images are created on independent workstation and reviewed on the computer. A non-contrast CT is performed in conjunction with the PET scan. Glucose level 103 mg/dL CT DLP: 887 mGycm, Automated exposure control for dose reduction was used. COMPARISON: CT 08/06/2024, PET/CT None, MRI: None FINDINGS: Mediastinal SUV mean is 2.3. Hepatic parenchyma SUV mean is 3.2 . SKULL BASE AND NECK: * FDG avid lymph node in the right deep parotid gland measuring 7 mm in short axis max SUV 15.1. * Left deep parotid gland FDG avid lesion measuring 6 mm Max SUV 7.2. * Base of the tongue demonstrates increased FDG activity max SUV on the left 6.7 and on the right 4. 8. CHEST, MEDIASTINUM, AND HILAR REGION: * No suspicious radiotracer activity. * Subcarinal soft tissue possibly lymph node max SUV 2.3. ABDOMEN AND PELVIS: * 3.2 cm left renal mass max SUV 6.2. * Patchy uptake within the left prostate gland peripheral zone posteriorly max SUV 4.1. MUSCULOSKELETAL STRUCTURES: No suspicious radiotracer activity. OTHER CT: Postsurgical changes to the globes bilaterally. Bilaterally aphakia. Atherosclerosis of the coronary arteries. Trace pericardial effusion. Left hepatic lobe simple appearing cyst. Right renal exophytic cyst.r IMPRESSION: 1. Left renal mass most compatible with renal cell carcinoma with mild uptake. No evidence for metas tatic disease at this time. 2. Bilateral deep parotid gland lesions with increased metabolic activity correlate for Warthin glan d tumors versus pleomorphic adenomas. 3. Patchy uptake within the prostate gland on the left. Correlate with serum PSA. Consider MRI prost ate gland. [facility], Workstation: [id number], 08/29/2024 6:11 PM
== END ==
LOC: RADPETMAIN 13:29
PROVIDERS: ATTEND Internal Medicine
CPT/HCPCS: 78815

== ENCOUNTER → 2025-02-04 | Day surgery (SDC) | payer MEDICARE, OTHER ==
[2025-02-01 12:10] VITALS: BMI 28.7
[~2025-02-04] MED LIST changes: +ASPIRIN 325 MG TAB PO ONE; +ATORVASTATIN 80 MG TAB PO ONE; -HEPARIN SODIUM,PORCINE (1 ML) 2,500 UNIT in SODIUM CHLORIDE 0.9% 250 ML IRRIGATION PRN; -HEPARIN SODIUM,PORCINE 10,000 UNIT in SODIUM CHLORIDE 0.9% 1,000 ML IRRIGATION PRN
[2025-02-04] MEDS: SODIUM CHLORIDE 0.9% 1,000 ML in EMPTY BAG 1 BAG IV SCH (10:50)
[2025-02-04] MEDS: HEPARIN SODIUM,PORCINE 10,000 UNIT in SODIUM CHLORIDE 0.9% 1,000 ML IRRIGATION PRN (10:55)
[2025-02-04] MEDS: HEPARIN SODIUM,PORCINE (1 ML) 2,500 UNIT in SODIUM CHLORIDE 0.9% 250 ML IRRIGATION PRN (10:55)
[2025-02-04] MEDS: IV FLUID CONTINUATION 1,000 ML IV ONE (11:03)
[2025-02-04 11:08] VITALS: RESP 14; TEMP 97.1
[2025-02-04] MEDS: fentaNYL (PF) 50 MCG/1 ML VIAL IVP ONE (11:15)
[2025-02-04] MEDS: MIDAZOLAM 2 MG/2 ML VIAL IVP ONE (11:15)
[2025-02-04] MEDS: LIDOCAINE 1% INJ 10MG/ML (20 ML MDV) SQ ONE (11:16)
[2025-02-04] MEDS: VERAPAMIL SYRINGE (5 MG/10 ML) INTRAARTER ONE (11:18)
[2025-02-04] MEDS: HEPARIN SODIUM 1,000 UN/ML (10ML VL) IVP ONE (11:22)
[2025-02-04 11:25] LABS: Basophils % (A) 0 %; Eosinophils # (A) 0.1 k/uL (0-0.7); Eosinophils % (A) 2 %; HCT 42.9 % (39.0-53.0); HGB 13.5 gm/dL (13.0-17.5); Lymphocytes # (A) 1.6 k/uL (1.0-4.8); Lymphocytes % (A) 22 %; MCH 25.4 pg (25.0-35.0); MCHC 31.3 g/dL (31.0-37.0); Mean Platelet Volume 8.5; Monocytes # (A) 0.4 k/uL (0-1.0); Monocytes % (A) 5 %; Neutrophils % (A) 69 %; Platelet Count 172 k/uL (150-450); RDW 14.6 % (11.5-15.5); WBC 7.2 k/uL (3.8-10.6)
[2025-02-04] MEDS: IOPAMIDOL-370 100ML BTL INJ ONE (11:29)
[2025-02-04 11:31] LABS: African American GFR (CKD) >90 (>60 ml/min/1.73 sqM); Anion Gap 8 mmol/L; Blood Urea Nitrogen 20 mg/dL (9-20); Calcium 9.1 mg/dL (8.4-10.2); Carbon Dioxide 27 mmol/L (22-30); Chloride 102 mmol/L (98-107); Glucose 121 mg/dL (74-99); Non-African American GFR(CKD) 81 (>60 ml/min/1.73 sqM); Potassium 4.2 mmol/L (3.5-5.1); Sodium 137 mmol/L (137-145)
--- NOTE | 2025-02-04 12:00 | CC ---
CARDIAC CATHETERIZATION REPORT INDICATION: Aortic regurgitation. PROCEDURE NOTE: After obtaining informed consent, left heart catheterization and coronary angiogram were performed via the right radial artery using standard Dick catheters. The patient tolerated the procedure well without any obvious immediate complications. A TR band will be used for hemostasis. Right radial artery access was obtained using Seldinger technique, 6-Nepali sheath was placed. Catheters and wires were floated in the ascending aorta under fluoroscopic guidance. The patient received verapamil and heparin per protocol. FINDINGS: 1. HEMODYNAMICS: Left ventricular end-diastolic pressure is 8 to 10 mm. There is no significant gradient across the aortic valve. 2. LEFT VENTRICULOGRAM: Left ventriculogram is not performed. 3. ANGIOGRAPHIC DATA: a.Right coronary artery: Right coronary artery is a large dominant vessel and is free of significant stenosis. b.Left coronary artery appears normal-sized vessel and is free of disease. Proximal LAD which was previously stented, the stent appears patent. Diagonal branches are normal. c.Circumflex coronary artery and its branches are free of stenosis. CONCLUSIONS: 1. Patent stent within the left anterior descending coronary artery. 2. Severe aortic regurgitation based on 2D echo done recently. PLAN: The patient will undergo aortic valve replacement by Dr. Shafer and does not need any surgical revascularization as the LAD stent appears patent. MMODL / IJN: [id number] /
[2025-02-04 19:48] VITALS: PULSE 44
[2025-02-04 19:50] VITALS: BP 124/57
== END ==
LOC: CATHCVL 09:55
PROVIDERS: ATTEND Internal Medicine Cardiovascular Disease
DX: I25.10 Atherosclerotic heart disease of native coronary artery without angina pectoris (principal); I35.1 Nonrheumatic aortic (valve) insufficiency; I48.0 Paroxysmal atrial fibrillation; I10 Essential (primary) hypertension; Z95.5 Presence of coronary angioplasty implant and graft; Z79.82 Long term (current) use of aspirin; Z79.02 Long term (current) use of antithrombotics/antiplatelets; Z79.899 Other long term (current) drug therapy
CPT/HCPCS: 93458; 80048; 85025; C1894; J2250; J1644 ×3; J2003; Q9967; J3010

== ENCOUNTER → 2025-02-15 | Outpatient (CLI) | payer MEDICARE, OTHER ==
--- NOTE | 2025-02-15 11:58 | XR ---
EXAMINATION TYPE: XR chest 2V DATE OF EXAM: 02/15/2025 11:55 AM COMPARISON: 07/21/2024 CLINICAL INDICATION: Male, 69 years old with history of OPEN HEART, TECHNIQUE: XR chest 2V view(s) obtained. FINDINGS: The heart size is normal. The pulmonary vasculature is normal. The lungs are clear. IMPRESSION: 1. No acute pulmonary process. [facility], , 02/15/2025 11:56 AM
[2025-02-15 12:44] LABS: Partial Thromboplastin Time 23.9 sec (22.0-30.0); Prothrombin Time 10.7 sec (10.0-12.5)
[2025-02-15 15:13] LABS: Appearance,Urine Clear (Clear); Bilirubin,Urine Negative (Negative); Blood,Urine Negative (Negative); Color,Urine Dark Yellow (Yellow); Ketones,Urine Trace (Negative); Nitrite,Urine Negative (Negative); PH, Urine 6.5; Specific Gravity,Urine 1.022 (1.001-1.030)
[2025-02-15 15:24] LABS: HCT 43.5 % (39.6-50.0); HGB 14.1 g/dL (13.0-17.0); MCH 26.3 pg (27.0-32.0); MCHC 32.4 g/dL (32.0-37.0); Mean Platelet Volume 11.6 FL (9.5-12.2); NRBC Per 100 WBC 0 X 10*3/uL (0.00-0.01); Platelet Count 198 X 10*3/uL (140-440); RBC 5.37 X 10*6/uL (4.40-5.60); RDW 14.5 % (11.5-14.5); WBC 7.06 X 10*3/uL (4.50-10.00)
[2025-02-15 15:28] LABS: ALT 33 U/L (10-49); AST 26 U/L (14-35); Albumin 4.2 g/dL (3.8-4.9); Albumin/Globulin Ratio 1.83 Ratio (1.60-3.17); Alkaline Phosphatase 113 U/L (41-126); Blood Urea Nitrogen 15.7 mg/dL (9.0-27.0); Calcium 9.3 mg/dL (8.7-10.3); Carbon Dioxide 24.1 mmol/L (21.6-31.8); Chloride 106 mmol/L (96-109); Chol/HDL Ratio 3.06 Ratio; Globulin 2.3 g/dL (1.6-3.3); Glucose 119 mg/dL (70-110); Magnesium 2.2 mg/dL (1.5-2.4); Potassium 4.5 mmol/L (3.5-5.5); Sodium 142 mmol/L (135-145); Total Bilirubin 0.6 mg/dL (0.3-1.2); Total Protein 6.5 g/dL (6.2-8.2)
[2025-02-15 15:57] LABS: Bacteria,Urine None Seen (None Seen); Calcium Oxalate Crystals,Urine Present (None Seen)
[2025-02-17 09:34] LABS: Hepatitis A Antibody IgM Nonreactive (Nonreactive); Hepatitis B Core IgM Nonreactive (Nonreactive); Hepatitis B Surface Antigen Nonreactive (Nonreactive); Hepatitis C IgG Antibody Nonreactive (Nonreactive)
== END ==
LOC: LABWHC1 10:14
PROVIDERS: ATTEND Surgery
DX: Z01.810 Encounter for preprocedural cardiovascular examination (principal); I49.1 Atrial premature depolarization; R00.1 Bradycardia, unspecified
CPT/HCPCS: 36415; 71046; 80053; 80061; 80074; 81001; 83036; 83735; 84443; 85027; 85610; 85730; 86850; 86900; 86901; 86920; 87070; 87086; 93005

== ENCOUNTER 2025-02-18 05:34 | Inpatient (IN) | payer MEDICARE, OTHER ==
--- NOTE | 2025-02-15 11:48 | P.PN ---
Progress Note - Text Progress Note Date: 02/15/25 Updated 5 meter walk test: #1 4.25 sec #2 4.35 sec #3 4.33 sec Patient tolerated well, CFS=3
[~2025-02-18 05:34] MED LIST changes: +ALBUMIN HUMAN 25% 50 ML IV ONE; +ALBUMIN HUMAN 5% 500 ML IVPB ONE; -ALPRAZolam 0.25 MG TAB PO PRN; -ALPRAZolam 0.5 MG TAB PO PRN; -ATORVASTATIN 80 MG TAB PO ONE; +CALCIUM CHLORIDE 100 MG/ML 10 ML SYRINGE IV ONE; +CHLORHEXIDINE GLUCONATE 15 ML CUP MUCOUS MEM ONE; +CLEVIDIPINE BUTYRATE 25 MG in EMPTY BAG 1 BAG IV ONE; +ELECTROLYTE-A SOLUTION 1,000 ML with POTASSIUM CHLORIDE 100 MEQ, MAGNESIUM SULFATE 16 M... IV ONE; +ELECTROLYTE-A SOLUTION 1,000 ML with POTASSIUM CHLORIDE 40 MEQ, MAGNESIUM SULFATE 16 ME... IV ONE; +HEPARIN SODIUM 1,000 UN/ML (10ML VL) IV ONE; +HEPARIN SODIUM,PORCINE (1 ML) 5,000 UNIT in SODIUM CHLORIDE 0.9% 500 ML 500 ML IV ONE; +INSULIN REGULAR 100 UNIT in SODIUM CHLORIDE 0.9% 100 ML IV ONE; +LACTATED RINGERS 1,000 ML IV SCH; +LIDOCAINE 1% (10MG/ML) FOR IV START INTRADERMA PRN; +MAGNESIUM SULFATE 16.24 MEQ in EMPTY SYRINGE 1 SYR IV ONE; +MANNITOL 25% 12.5 GM/50 ML VIAL IV ONE; +NITROGLYCERIN SL TABS 0.4 MG TAB SUBLINGUAL ONE; -NITROGLYCERIN SL TABS 0.4 MG TAB SUBLINGUAL PRN; +NITROGLYCERIN-D5W PMX 25 MG/250 ML BTL IV ONE; +NITROGLYCERIN-D5W PMX 50 MG in DEXTROSE/WATER 1 250ML.BAG IV ONE; +NOREPINEPHRINE 4 MG in SODIUM CHLORIDE 0.9% 250 ML IV ONE; +PHENYLEPHRINE 10 MG/ML VIAL IV ONE; +PHENYLEPHRINE 40 MG in SODIUM CHLORIDE 0.9% 250 ML IV ONE; +PROTAMINE SULFATE 10 MG/ML 25 ML VIAL IV ONE; +PROTAMINE SULFATE 250 MG in EMPTY BAG 1 BAG IV ONE; +SODIUM BICARB 8.4% 50 ML SYR (1 MEQ/ML) IV ONE; +SODIUM CHLORIDE 0.9% 1,000 ML IV ONE; +TRANEXAMIC ACID 2,000 MG in SODIUM CHLORIDE 0.9% 80 ML IV ONE; +ceFAZolin 1,000 MG in SODIUM CHLORIDE 0.9% IRRIGATIO 1,000 ML IRRIGATION ONE; +ceFAZolin 2 GM in DEXTROSE 5% IN WATER 50 ML IVPB ONE; +propofoL 1,000 MG/100 ML VIAL IV ONE
[2025-02-18] MEDS ORDERED: MUPIROCIN 2% OINT 22 GM TUBE NASAL ONE (06:00)
[2025-02-18 06:20] LABS: Glucose,Whole Blood 125 mg/dL (70-110)
[2025-02-18] MEDS: IV FLUID CONTINUATION 1,000 ML IV ONE (06:26)
[2025-02-18] MEDS: LACTATED RINGERS 1,000 ML IV ONE (06:30)
[2025-02-18] MEDS: METOPROLOL TARTRATE 12.5 MG TAB PO ONE (06:36)
[2025-02-18] MEDS: ATORVASTATIN 10 MG TAB PO ONE (06:36)
[2025-02-18] MEDS ORDERED: VECURONIUM 10 MG VIAL IV ONE (07:39)
[2025-02-18] MEDS ORDERED: WATER FOR INJECTION, STERILE 10 ML VIAL IV ONE (07:39)
[2025-02-18] MEDS ORDERED: PROTAMINE SULFATE 10 MG/ML 25 ML VIAL IV ONE (07:39)
[2025-02-18] MEDS ORDERED: MIDAZOLAM HCL 10 MG/10 ML VIAL ONE ×2 (07:39)
[2025-02-18] MEDS ORDERED: PROPOFOL 10 MG/ML 20 ML VIAL IV ONE (07:39)
[2025-02-18] MEDS ORDERED: ePHEDrine 50 MG/ML 1 ML VIAL ONE (07:39)
[2025-02-18] MEDS ORDERED: fentaNYL (PF) 50 MCG/ML 50 ML VIAL ONE (07:39)
[2025-02-18] MEDS ORDERED: HEPARIN SODIUM,PORCINE 10,000 UNIT/ML 1 ML VIAL ONE (07:39)
[2025-02-18 08:35] LABS: ABG Base Excess -0.3 mmol/L; ABG Glucose Whole Blood 122 mg/dL (75-99); ABG HCO3 24 mmol/L (21-25); ABG Hematocrit 36 % (34.0-46.0); ABG Ionized Calcium 4.7 mg/dL (4.5-5.3); ABG Lactic Acid Whole Blood 1.2 mmol/L (0.5-1.6); ABG Oxygen Saturation 98.8 % (94-97); ABG PCO2 37 mmHg (35-45); ABG PH 7.42 (7.35-7.45); ABG PO2 204 mmHg (83-108); ABG Potassium Whole Blood 3.7 mmol/L (3.4-4.5); ABG Sodium Whole Blood 141 mmol/L (135-146); ABG TCO2 22 mmol/L (19-24); Allen Test Performed? Yes
[2025-02-18 09:12] LABS: ABG Base Excess -0.6 mmol/L; ABG Glucose Whole Blood 131 mg/dL (75-99); ABG HCO3 24 mmol/L (21-25); ABG Hematocrit 35 % (34.0-46.0); ABG Ionized Calcium 4.6 mg/dL (4.5-5.3); ABG Lactic Acid Whole Blood 1.1 mmol/L (0.5-1.6); ABG PCO2 39 mmHg (35-45); ABG PO2 228 mmHg (83-108); ABG Potassium Whole Blood 3.9 mmol/L (3.4-4.5); ABG Sodium Whole Blood 141 mmol/L (135-146); ABG TCO2 22 mmol/L (19-24); Allen Test Performed? Yes
[2025-02-18] MEDS: SODIUM CHLORIDE 0.9% 500 ML 500 ML with HEPARIN SODIUM,PORCINE (1 ML) 5,000 UNIT IV ONE (09:57)
[2025-02-18] MEDS: ceFAZolin 1,000 MG in SODIUM CHLORIDE 0.9% 1,000 ML IRRIGATION ONE (09:58)
[2025-02-18 10:04] LABS: ABG Base Excess -1.4 mmol/L; ABG Glucose Whole Blood 136 mg/dL (75-99); ABG HCO3 24 mmol/L (21-25); ABG Hematocrit 31 % (34.0-46.0); ABG Ionized Calcium 4.3 mg/dL (4.5-5.3); ABG Lactic Acid Whole Blood 1.2 mmol/L (0.5-1.6); ABG Oxygen Saturation 99.2 % (94-97); ABG PCO2 44 mmHg (35-45); ABG PH 7.35 (7.35-7.45); ABG PO2 402 mmHg (83-108); ABG Potassium Whole Blood 4.7 mmol/L (3.4-4.5); ABG Sodium Whole Blood 140 mmol/L (135-146); ABG TCO2 23 mmol/L (19-24); Allen Test Performed? Yes
[2025-02-18 10:33] LABS: ABG Glucose Whole Blood 158 mg/dL (75-99); ABG HCO3 25 mmol/L (21-25); ABG Hematocrit 29 % (34.0-46.0); ABG Ionized Calcium 4.3 mg/dL (4.5-5.3); ABG Lactic Acid Whole Blood 1.2 mmol/L (0.5-1.6); ABG Oxygen Saturation 99.2 % (94-97); ABG PCO2 43 mmHg (35-45); ABG PH 7.36 (7.35-7.45); ABG PO2 399 mmHg (83-108); ABG Potassium Whole Blood 4.7 mmol/L (3.4-4.5); ABG Sodium Whole Blood 140 mmol/L (135-146); ABG TCO2 23 mmol/L (19-24); Allen Test Performed? Yes
[2025-02-18 11:11] LABS: ABG Base Excess -1.9 mmol/L; ABG Glucose Whole Blood 150 mg/dL (75-99); ABG HCO3 24 mmol/L (21-25); ABG Hematocrit 28 % (34.0-46.0); ABG Ionized Calcium 4.4 mg/dL (4.5-5.3); ABG Lactic Acid Whole Blood 1.9 mmol/L (0.5-1.6); ABG Oxygen Saturation 99.1 % (94-97); ABG PCO2 42 mmHg (35-45); ABG PH 7.36 (7.35-7.45); ABG PO2 310 mmHg (83-108); ABG Potassium Whole Blood 4.7 mmol/L (3.4-4.5); ABG Sodium Whole Blood 140 mmol/L (135-146); ABG TCO2 22 mmol/L (19-24); Allen Test Performed? Yes
[2025-02-18 11:50] LABS: ABG Base Excess -1.4 mmol/L; ABG Glucose Whole Blood 154 mg/dL (75-99); ABG HCO3 24 mmol/L (21-25); ABG Hematocrit 30 % (34.0-46.0); ABG Ionized Calcium 4.2 mg/dL (4.5-5.3); ABG Lactic Acid Whole Blood 1.6 mmol/L (0.5-1.6); ABG PCO2 40 mmHg (35-45); ABG PH 7.38 (7.35-7.45); ABG PO2 211 mmHg (83-108); ABG Potassium Whole Blood 3.9 mmol/L (3.4-4.5); ABG Sodium Whole Blood 141 mmol/L (135-146); ABG TCO2 22 mmol/L (19-24); Allen Test Performed? Yes
[2025-02-18] MEDS ORDERED: Potassium Replacement Protocol 1 EACH MISC MISCELLANE PRN ×2 (11:55→22:33)
[2025-02-18] MEDS ORDERED: CALCIUM GLUCONATE IN NACL 2 GM in SALINE 1 100ML.BAG IVPB PRN (11:55)
[2025-02-18] MEDS ORDERED: hydrALAZINE HCL 20 MG/ML 1 ML VIAL IVP PRN (11:55)
[2025-02-18] MEDS ORDERED: Magnesium Replacement Protocol 1 EACH MISC MISCELLANE PRN (11:55)
[2025-02-18] MEDS ORDERED: CLEVIDIPINE BUTYRATE 25 MG in EMPTY BAG 1 BAG IV PRN (11:55)
[2025-02-18] MEDS ORDERED: BENZOCAINE/MENTHOL LOZENG 1 EACH LOZENGE MUCOUS MEM PRN (11:55)
[2025-02-18] MEDS ORDERED: IPRATROPIUM-ALBUTEROL 3 ML NEB INHALATION PRN (11:55)
[2025-02-18] MEDS ORDERED: DEXMEDETOMIDINE/0.9% NACL(PMX) 400 MCG in EMPTY BAG 1 BAG IV SCH (11:55)
[2025-02-18] MEDS ORDERED: DEXTROSE 50% SYRINGE 50 ML IVP PRN ×2 (11:55)
[2025-02-18 12:56] LABS: Glucose,Whole Blood 128 mg/dL (70-110)
[2025-02-18] MEDS: IPRATROPIUM-ALBUTEROL 3 ML NEB INHALATION SCH ×2 (12:56→21:01)
[2025-02-18] MEDS: AMIODARONE 360 MG in DEXTROSE 5% IN WATER 200 ML IV ONE (13:12)
[2025-02-18] MEDS: INSULIN REGULAR 100 UNIT in SODIUM CHLORIDE 0.9% 100 ML IV SCH (13:17)
[2025-02-18 13:20] LABS: ABG Base Excess -0.3 mmol/L; ABG HCO3 25 mmol/L (21-25); ABG Oxygen Saturation >100.0 % (94-97); ABG PCO2 42 mmHg (35-45); ABG PH 7.38 (7.35-7.45); ABG PO2 401 mmHg (83-108); ABG TCO2 26 mmol/L (19-24)
[2025-02-18] MEDS: ALBUMIN HUMAN 5% 250 ML in EMPTY BAG 1 BAG IVPB PRN (13:20)
--- NOTE | 2025-02-18 13:24 | XR ---
EXAMINATION TYPE: XR chest 1V portable DATE OF EXAM: 02/18/2025 1:19 PM COMPARISON: None. CLINICAL INDICATION: Male, 69 years old with history of Post Operative Cardiac Surgery, TECHNIQUE: XR chest 1V portable view(s) obtained. FINDINGS: The heart size is normal. Post cardiac valve surgery is evident The pulmonary vasculature is normal. Bibasilar infiltrates are present. Correlate for atelectasis. Endotracheal tube tip is 2.9 cm above the jason. Mediastinal tube is present. Nasogastric tube trans verses the thorax. [place] catheter tip is in the right main pulmonary artery region. Left-sided ch est tube is present. No pneumothorax is evident IMPRESSION: 1. Mild bibasilar infiltrates. Correlate for atelectasis. 2. Multiple lines and catheters discussed above [facility], , 02/18/2025 1:22 PM
[2025-02-18 13:25] LABS: Basophils # (A) 0.06 10*3/uL (0.00-0.10); Basophils % (A) 0.4 %; Eosinophils # (A) 0.07 10*3/uL (0.04-0.35); Eosinophils % (A) 0.4 %; HCT 35.8 % (39.6-50.0); Lymphocytes # (A) 1.15 10*3/uL (0.90-5.00); Lymphocytes % (A) 7.1 %; MCH 26.5 pg (27.0-32.0); MCHC 33.5 g/dL (32.0-37.0); MCV 79.2 fL (80.0-97.0); Mean Platelet Volume 10.6 fL (9.5-12.2); Monocytes # (A) 1.06 10*3/uL (0.20-1.00); Monocytes % (A) 6.5 %; Neutrophils # (A) 13.84 10*3/uL (1.80-7.70); Platelet Count 112 10*3/uL (140-440); RBC 4.52 10*6/uL (4.40-5.60); RDW 14.4 % (11.5-14.5); WBC 16.27 10*3/uL (4.50-10.00)
[2025-02-18 13:38] LABS: INR 1.2 (<1.2); Partial Thromboplastin Time 26.5 sec (22.0-30.0); Prothrombin Time 12.6 sec (10.0-12.5)
[2025-02-18 13:41] LABS: Ionized Calcium 4.9 mg/dL (4.5-5.3)
[2025-02-18] MEDS: SODIUM CHLORIDE 0.9% 1,000 ML IV SCH (13:49)
[2025-02-18 13:50] LABS: ALT 24 U/L (4-49); AST 43 U/L (17-59); African American GFR (CKD) >90 (>60 ml/min/1.73 sqM); Albumin 2.8 g/dL (3.5-5.0); Alkaline Phosphatase 65 U/L (38-126); Anion Gap 6 mmol/L; Blood Urea Nitrogen 22 mg/dL (9-20); Calcium 8.7 mg/dL (8.4-10.2); Carbon Dioxide 24 mmol/L (22-30); Chloride 108 mmol/L (98-107); Glucose 119 mg/dL (74-99); Magnesium 2.6 mg/dL (1.6-2.3); Non-African American GFR(CKD) 88 (>60 ml/min/1.73 sqM); Sodium 138 mmol/L (137-145); Total Protein 4.8 g/dL (6.3-8.2)
[2025-02-18 13:59] LABS: Glucose,Whole Blood 108 mg/dL (70-110)
[2025-02-18] MEDS: ACETAMINOPHEN IV (For NPO) 1,000 MG in EMPTY BAG 1 BAG IVPB SCH (14:05)
[2025-02-18 15:02] LABS: Glucose,Whole Blood 111 mg/dL (70-110)
--- NOTE | 2025-02-18 15:44 | P.CNPUL ---
History of Present Illness Consult date: 02/18/25 Requesting physician: Art Shafer Chief complaint: ICU management History of present illness: This is a 69-year-old white male, primarily patient with Dr. Munoz, patient was recently evaluated for aortic valve insufficiency, seen back previously by cardiothoracic surgery in July of 2024. Since then the patient had extensive cardiac workup, today the patient underwent aortic valve replacement by Dr. Shafer, postoperatively patient was admitted to the ICU, and we were asked to see him in consultation. Patient is intubated, mechanically ventilated, he is on assist-control rate of 12, tidal volume of 600, FiO2 brought down to 40% from 100% initially after his ABG, and PEEP was 5. Patient is not requiring any pressors, not requiring any inotropes, is mostly on IV fluid, and on propofol at 25 mcg/kg/min. Cardiac output is 4.6, cardiac index is 2.0, chest x-ray showed no evidence of active disease, postoperative changes mostly. Review of Systems ROS unobtainable: due to endotracheal tube Past Medical History Past Medical History: Atrial Fibrillation, Coronary Artery Disease (CAD), Cancer, Chest Pain / Angina, GERD/Reflux, Hyperlipidemia, Hypertension, Myocardial Infarction (OR) Additional Past Medical History / Comment(s): . Kidney tumor that is being removed after heart procedure. A1C 6.5, will be considering sleep apnea testing Last Myocardial Infarction Date:: 07/24/2024 History of Any Multi-Drug Resistant Organisms: None Reported Past Surgical History: Heart Catheterization With Stent, Hernia Repair, Tonsill ectomy Additional Past Surgical History / Comment(s): Bilateral DETACHED RETINAS, RIGHT EYE WORSE. VASECTOMY. Past Anesthesia/Blood Transfusion Reactions: No Reported Reaction Date of Last Stent Placement:: 07/24/2024 Smoking Status: Never smoker - Past Family History Mother Family Medical History: Cancer, Congestive Heart Failure (CHF) Additional Family Medical History / Comment(s): BREAST Father Family Medical History: Congestive Heart Failure (CHF) Medications and Allergies Home Medications Medication Instructions Recorded Confirmed Type Nitroglycerin Sl Tabs [Nitrostat] 0.4 mg SUBLINGUAL Q5M PRN #25 tab 07/08/24 02/18/25 Rx Atorvastatin [Lipitor] 80 mg PO HS 60 Days #60 tab 07/25/24 02/18/25 Rx amLODIPine [Norvasc] 10 mg PO DAILY 60 Days #60 tab 07/25/24 02/18/25 Rx Aspirin EC [Ecotrin Low Dose] 81 mg PO [facility] 02/01/25 02/15/25 History Isosorbide Mononitrate ER [Imdur] 30 mg PO [facility] 02/01/25 02/18/25 History Clopidogrel [Plavix] 75 mg PO DAILY 02/04/25 02/15/25 History Allergies Allergy/AdvReac Type Severity Reaction Status Date / Time No Known Allergies Allergy Verified 02/18/25 05:48 Physical Exam Vitals: Vital Signs Temp Pulse Pulse Resp BP BP Pulse Ox 02/18/25 14:45 58 L 13 100 02/18/25 14:30 54 L 12 99 02/18/25 14:15 56 L 12 98 02/18/25 14:00 65 18 100 02/18/25 13:45 59 L 12 99 02/18/25 13:30 56 L 12 100 02/18/25 13:23 02/18/25 13:15 66 12 100 02/18/25 13:05 62 12 02/18/25 13:00 69 12 100 02/18/25 12:57 68 14 02/18/25 12:52 02/18/25 12:47 60 9 L 100 02/18/25 12:45 02/18/25 06:07 97.0 F L 52 L 16 183/81 168/74 100 FiO2 02/18/25 14:45 02/18/25 14:30 02/18/25 14:15 02/18/25 14:00 40 02/18/25 13:45 02/18/25 13:30 02/18/25 13:23 40 02/18/25 13:15 02/18/25 13:05 02/18/25 13:00 60 02/18/25 12:57 02/18/25 12:52 100 02/18/25 12:47 02/18/25 12:45 100 02/18/25 06:07 Intake and Output 02/18/25 02/18/25 02/18/25 06:59 14:59 22:59 Intake Total 100 24.242 6.192 Output Total 950 Balance 100 -925.758 6.192 Intake: IV 100 1 Intake, IV Titration 23.242 6.192 Amount Insulin Regular 100 unit 3.737 In Sodium Chloride 0.9% 100 ml @ Per Protocol IV .Q0M [facility]ING Rx#:[id number] propofoL 1,000 mg In 19.505 6.192 Empty Bag 1 bag @ Titrate IV .Q0M LING Rx#: [id number] Output: Urine 600 Estimated Blood Loss 350 Other: Weight 103.2 kg ABP, PAP, CO, CI - Last 8 Hours Arterial Blood Pressure 109/56 Arterial Blood Pressure 99/52 Arterial Blood Pressure 92/51 Arterial Blood Pressure 114/60 Arterial Blood Pressure 94/51 Arterial Blood Pressure 94/53 Arterial Blood Pressure 113/64 Arterial Blood Pressure 108/61 Pulmonary Artery Pressure 37/18 Pulmonary Artery Pressure 37/18 Pulmonary Artery Pressure 38/18 Pulmonary Artery Pressure 26/12 Pulmonary Artery Pressure 24/10 Pulmonary Artery Pressure 24/10 Cardiac Output 5.1 Cardiac Output 5.1 Cardiac Output 5.6 Cardiac Output 4.7 Cardiac Output 4.7 Cardiac Output 5.2 Cardiac Output 4.6 Cardiac Output 4.6 Cardiac Index 2.2 Cardiac Index 2.2 Cardiac Index 2.4 Cardiac Index 2 Cardiac Index 2 Cardiac Index 2.2 Cardiac Index 2 Cardiac Index 2 Physical exam revealed a 69-year-old white male intubated mechanically ventilated, sedated, on propofol. Head: Atraumatic, normocephalic EENT: PERRLA, EOMI, nonicteric, neck masses, endotracheal tube and orogastric tube are intact. Cardiac: Distant S1-S2, 2/6 systolic murmur throughout the precordium. Positive pericardial rub. Abdomen: Obese soft nontender no MAG no rebound no guarding Extremities: No clubbing edema or cyanosis. Good distal pulses bilaterally Neurologic: Could not be assessed, patient is intubated sedated Psychiatric: Could not be assessed Skin: No rashes. Results - Laboratory Findings CBC and BMP: 02/18/25 12:56 02/18/25 12:56 ABG ABG pH 7.38 (7.35-7.45) 02/18/25 13:18 ABG pCO2 42 mmHg (35-45) 02/18/25 13:18 ABG pO2 401 mmHg (83-108) H 02/18/25 13:18 ABG O2 Saturation >100.0 % (94-97) H 02/18/25 13:18 PT/INR, D-dimer PT 12.6 sec (10.0-12.5) H 02/18/25 12:56 INR 1.2 (<1.2) H 02/18/25 12:56 Abnormal lab findings: Abnormal Labs 02/15/25 02/18/25 02/18/25 10:27 06:17 08:37 WBC Hgb Hct MCV MCH Plt Count Immature Gran # Neutrophils # Monocytes # PT INR ABG pO2 204 H ABG Total CO2 ABG O2 Saturation 98.8 H ABG Hematocrit ABG Potassium ABG Ionized Calcium ABG Glucose 122 H ABG Lactic Acid Hemoglobin 11.7 L Chloride BUN Glucose POC Glucose (mg/dL) 125 H Magnesium Total Protein Albumin Arterial Blood Potassium Arterial Blood Glucose 122 H Crossmatch See Detail 02/18/25 02/18/25 02/18/25 09:12 10:03 10:33 WBC Hgb Hct MCV MCH Plt Count Immature Gran # Neutrophils # Monocytes # PT INR ABG pO2 228 H 402 H 399 H ABG Total CO2 ABG O2 Saturation 99.0 H 99.2 H 99.2 H ABG Hematocrit 31 L 29 L ABG Potassium 4.7 H 4.7 H ABG Ionized Calcium 4.3 L 4.3 L ABG Glucose 131 H 136 H 158 H ABG Lactic Acid Hemoglobin 11.5 L 10.2 L 9.5 L Chloride BUN Glucose POC Glucose (mg/dL) Magnesium Total Protein Albumin Arterial Blood Potassium 4.7 H 4.7 H Arterial Blood Glucose 131 H 136 H 158 H Crossmatch 02/18/25 02/18/25 02/18/25 11:15 12:54 12:56 WBC 16.27 H Hgb 12.0 L Hct 35.8 L MCV 79.2 L MCH 26.5 L Plt Count 112 L Immature Gran # 0.09 H Neutrophils # 13.84 H Monocytes # 1.06 H PT INR ABG pO2 310 H ABG Total CO2 ABG O2 Saturation 99.1 H ABG Hematocrit 28 L ABG Potassium 4.7 H ABG Ionized Calcium 4.4 L ABG Glucose 150 H ABG Lactic Acid 1.9 H Hemoglobin 9.2 L Chloride BUN Glucose POC Glucose (mg/dL) 128 H Magnesium Total Protein Albumin Arterial Blood Potassium 4.7 H Arterial Blood Glucose 150 H Crossmatch 02/18/25 02/18/25 02/18/25 12:56 12:56 13:18 WBC Hgb Hct MCV MCH Plt Count Immature Gran # Neutrophils # Monocytes # PT 12.6 H INR 1.2 H ABG pO2 401 H ABG Total CO2 26 H ABG O2 Saturation >100.0 H ABG Hematocrit ABG Potassium ABG Ionized Calcium ABG Glucose ABG Lactic Acid Hemoglobin 11.9 L Chloride 108 H BUN 22 H Glucose 119 H POC Glucose (mg/dL) Magnesium 2.6 H Total Protein 4.8 L Albumin 2.8 L Arterial Blood Potassium Arterial Blood Glucose Crossmatch 02/18/25 15:00 WBC Hgb Hct MCV MCH Plt Count Immature Gran # Neutrophils # Monocytes # PT INR ABG pO2 ABG Total CO2 ABG O2 Saturation ABG Hematocrit ABG Potassium ABG Ionized Calcium ABG Glucose ABG Lactic Acid Hemoglobin Chloride BUN Glucose POC Glucose (mg/dL) 111 H Magnesium Total Protein Albumin Arterial Blood Potassium Arterial Blood Glucose Crossmatch - Diagnostic Findings Chest x-ray: image reviewed (As noted in HPI) Assessment and Plan Assessment: Impression: Status post aortic valve replacement, patient is on mechanical ventilation as expected postoperative day #0 History of coronary artery disease, critical LAD disease status post PCI, patient had previous history of non-ST elevation myocardial infarction History of aortic stenosis, severe aortic valve insufficiency, trileaflet aortic valve History of paroxysmal atrial fibrillation Lifetime non-smoker History of COVID-19 infection Benign essential hypertension Recommendation: Continue ventilatory support, ABG was reviewed and vent settings were changed accordingly Vent settings were addressed accordingly and the patient will likely be weaned and extubated the next couple of hours Chest x-ray was reviewed Maximal medical therapy for his underlying cardiac disease including history of coronary artery disease Resume home meds postextubation Will likely place on Precedex shortly and discontinue propofol and proceed to weaning and extubation. Will continue to follow Time with Patient: Greater than 30
[2025-02-18 15:57] LABS: Glucose,Whole Blood 159 mg/dL (70-110)
[2025-02-18] MEDS: ceFAZolin 2 GM in DEXTROSE 5% IN WATER 50 ML IVPB SCH (16:17)
[2025-02-18] MEDS: HEPARIN SODIUM,PORCINE 5,000 UNIT/ML 1 ML VIAL SQ SCH (16:21)
[2025-02-18 16:24] LABS: Basophils # (A) 0.06 10*3/uL (0.00-0.10); Basophils % (A) 0.4 %; Eosinophils # (A) 0.02 10*3/uL (0.04-0.35); Eosinophils % (A) 0.1 %; HCT 30.5 % (39.6-50.0); HGB 10.1 g/dL (13.0-17.0); Immature Platelet Fraction 3.8 % (1.1-6.1); Lymphocytes # (A) 1.01 10*3/uL (0.90-5.00); Lymphocytes % (A) 6.7 %; MCH 26.4 pg (27.0-32.0); MCHC 33.1 g/dL (32.0-37.0); MCV 79.8 fL (80.0-97.0); Mean Platelet Volume 11.2 fL (9.5-12.2); Monocytes # (A) 1.23 10*3/uL (0.20-1.00); Monocytes % (A) 8.2 %; Neutrophils # (A) 12.59 10*3/uL (1.80-7.70); Neutrophils % (A) 84.2 %; Platelet Count 110 10*3/uL (140-440); RBC 3.82 10*6/uL (4.40-5.60); RDW 14.5 % (11.5-14.5); WBC 14.97 10*3/uL (4.50-10.00)
--- NOTE | 2025-02-18 16:33 | P.CONS ---
History of Present Illness - Reason for Consult Consult date: 02/18/25 - History of Present Illness Patient is a 69-year-old male with history of aortic valve insufficiency, atrial fibrillation, CAD, GERD, dyslipidemia, hypertension presenting for elective aortic valve replacement. Admitted to medical ICU. [facility] physicians consulted for medical management. WBC 16.27, hemoglobin 12, bicarb 24, creatinine 0.84, blood sugars range between 108-128, magnesium 2.6, A1c 6.7. Patient currently intubated and sedated. Chest x-ray independently interpreted showed postoperative changes. EKG independently interpreted, shows normal sinus rhythm with poor R wave progression. Pertinent positives and negatives as discussed in HPI, a complete review of systems was performed and all other systems are negative. Patient seen and examined at bedside. Vital signs reviewed General: nontoxic, no distress, appears at stated age, intubated and sedated, Sparrow catheter in place Derm: warm, dry, heart hugger in place, chest tubes in place Head: atraumatic, normocephalic, symmetric Eyes: Anicteric sclera, pupils equal round reactive to light ENT: Nose and ears atraumatic Neck: No thyromegaly, supple Mouth: no lip lesion, mucus membranes moist Cardiovascular: S1S2 reg, no murmur, no edema Lungs: clear to auscultation bilateral, no rhonchi, no rales, no wheeze, no accessory muscle use, intubated Abdominal: soft, nontender to palpation, no guarding, no appreciable organomegaly Ext: no gross muscle atrophy, no contractures Neuro: Sedated Psych: Unable to assess Assessment/Plan: Active: Aortic valve insufficiency status post aortic valve replacement Paroxysmal atrial fibrillation Hypertension Dyslipidemia CAD - On aspirin 325 mg, atorvastatin 40 mg, Plavix 75 mg, metoprolol 12.5 twice daily, amiodarone drip - Cardiothoracic surgery following - Reviewed note from pulmonology - Pain control, DVT prophylaxis, GI prophylaxis per cardiothoracic surgery Type 2 diabetes, A1c 6.7 - Continue insulin drip, monitor blood sugars every hours, monitor for hypoglycemia - Transition to subcu insulin once patient is able to tolerate oral intake Thank you for allowing us to participate in the care of this pleasant patient. Do not hesitate to contact us with questions. Someone can be reached from the [facility] hospitalist group all hours of the day at [phone] or via [email or web address]. Past Medical History Past Medical History: Atrial Fibrillation, Coronary Artery Disease (CAD), Cancer, Chest Pain / Angina, GERD/Reflux, Hyperlipidemia, Hypertension, Myocardial Infarction ([place]) Additional Past Medical History / Comment(s): . Kidney tumor that is being removed after heart procedure. A1C 6.5, will be considering sleep apnea testing Last Myocardial Infarction Date:: 07/24/2024 History of Any Multi-Drug Resistant Organisms: None Reported Past Surgical History: Heart Catheterization With Stent, Hernia Repair, Tonsi llectomy Additional Past Surgical History / Comment(s): Bilateral DETACHED RETINAS, RIGHT EYE WORSE. VASECTOMY. Past Anesthesia/Blood Transfusion Reactions: No Reported Reaction Date of Last Stent Placement:: 07/24/2024 Smoking Status: Never smoker - Past Family History Mother Family Medical History: Cancer, Congestive Heart Failure (CHF) Additional Family Medical History / Comment(s): BREAST Father Family Medical History: Congestive Heart Failure (CHF) Medications and Allergies Home Medications Medication Instructions Recorded Confirmed Type Nitroglycerin Sl Tabs [Nitrostat] 0.4 mg SUBLINGUAL Q5M PRN #25 tab 07/08/24 02/18/25 Rx Atorvastatin [Lipitor] 80 mg PO HS 60 Days #60 tab 07/25/24 02/18/25 Rx amLODIPine [Norvasc] 10 mg PO DAILY 60 Days #60 tab 07/25/24 02/18/25 Rx Aspirin EC [Ecotrin Low Dose] 81 mg PO QA 02/01/25 02/15/25 History Isosorbide Mononitrate ER [Imdur] 30 mg PO [facility] 02/01/25 02/18/25 History Clopidogrel [Plavix] 75 mg PO DAILY 02/04/25 02/15/25 History Allergies Allergy/AdvReac Type Severity Reaction Status Date / Time No Known Allergies Allergy Verified 02/18/25 05:48 Physical Exam Vitals: Vital Signs Temp Pulse Pulse Resp BP BP Pulse Ox 02/18/25 14:45 58 L 13 100 02/18/25 14:30 54 L 12 99 02/18/25 14:15 56 L 12 98 02/18/25 14:00 65 18 100 02/18/25 13:45 59 L 12 99 02/18/25 13:30 56 L 12 100 02/18/25 13:23 02/18/25 13:15 66 12 100 02/18/25 13:05 62 12 02/18/25 13:00 69 12 100 02/18/25 12:57 68 14 02/18/25 12:52 02/18/25 12:47 60 9 L 100 02/18/25 12:45 02/18/25 06:07 97.0 F L 52 L 16 183/81 168/74 100 FiO2 02/18/25 14:45 02/18/25 14:30 02/18/25 14:15 02/18/25 14:00 40 02/18/25 13:45 02/18/25 13:30 02/18/25 13:23 40 02/18/25 13:15 02/18/25 13:05 02/18/25 13:00 60 02/18/25 12:57 02/18/25 12:52 100 02/18/25 12:47 02/18/25 12:45 100 02/18/25 06:07 Intake and Output 02/18/25 02/18/25 02/18/25 06:59 14:59 22:59 Intake Total 100 1262.242 225.192 Output Total 1440 155 Balance 100 -177.758 70.192 Intake: IV 100 1239 219 ACETAMINOPHEN IV (For NPO 100 ) 1,000 mg In Empty Bag 1 bag @ 400 mls/hr IVPB Q6HR [facility] Rx#:[id number] Albumin Human 5% 250 ml 1000 In Empty Bag 1 bag @ 250 mls/hr IVPB Q1HR PRN Rx#: [id number] Cardiac Output 120 60 Pressure Bag 18 9 Sodium Chloride 0.9% 1, 100 50 000 ml @ 50 mls/hr IV . Q20H [facility] Rx#:[id number] Intake, IV Titration 23.242 6.192 Amount Insulin Regular 100 unit 3.737 In Sodium Chloride 0.9% 100 ml @ Per Protocol IV .Q0M [facility] Rx#:[id number] propofoL 1,000 mg In 19.505 6.192 Empty Bag 1 bag @ Titrate IV .Q0M [facility] Rx#: [id number] Output: Chest Tube Drainage 220 80 Left Pleural 0 0 Mediastinal 200 60 Right Pleural 20 20 Urine 870 75 Estimated Blood Loss 350 Other: Weight 103.2 kg ABP, PAP, CO, CI - Last 8 Hours Arterial Blood Pressure 109/56 Arterial Blood Pressure 99/52 Arterial Blood Pressure 92/51 Arterial Blood Pressure 114/60 Arterial Blood Pressure 94/51 Arterial Blood Pressure 94/53 Arterial Blood Pressure 113/64 Arterial Blood Pressure 108/61 Pulmonary Artery Pressure 37/18 Pulmonary Artery Pressure 37/18 Pulmonary Artery Pressure 38/18 Pulmonary Artery Pressure 26/12 Pulmonary Artery Pressure 24/10 Pulmonary Artery Pressure 24/10 Cardiac Output 5.1 Cardiac Output 5.1 Cardiac Output 5.6 Cardiac Output 4.7 Cardiac Output 4.7 Cardiac Output 5.2 Cardiac Output 4.6 Cardiac Output 4.6 Cardiac Index 2.2 Cardiac Index 2.2 Cardiac Index 2.4 Cardiac Index 2 Cardiac Index 2 Cardiac Index 2.2 Cardiac Index 2 Cardiac Index 2 Results CBC & Chem 7: 02/18/25 16:01 02/18/25 12:56 Labs: Abnormal Lab Results - Last 24 Hours (Table) 02/15/25 02/18/25 02/18/25 Range/Units 10:27 06:17 08:37 WBC (4.50-10.00) 10*3/uL Hgb (13.0-17.0) g/dL Hct (39.6-50.0) % MCV (80.0-97.0) fL MCH (27.0-32.0) pg Plt Count (140-440) 10*3/uL Immature Gran # (0.00-0.04) 10*3/uL Neutrophils # (1.80-7.70) 10*3/uL Monocytes # (0.20-1.00) 10*3/uL PT (10.0-12.5) sec INR (<1.2) ABG pO2 204 H (83-108) mmHg ABG Total CO2 (19-24) mmol/L ABG O2 Saturation 98.8 H (94-97) % ABG Hematocrit (34.0-46.0) % ABG Potassium (3.4-4.5) mmol/L ABG Ionized Calcium (4.5-5.3) mg/dL ABG Glucose 122 H (75-99) mg/dL ABG Lactic Acid (0.5-1.6) mmol/L Hemoglobin 11.7 L (13.0-17.5) gm/dL Chloride (98-107) mmol/L BUN (9-20) mg/dL Glucose (74-99) mg/dL POC Glucose (mg/dL) 125 H (70-110) mg/dL Magnesium (1.6-2.3) mg/dL Total Protein (6.3-8.2) g/dL Albumin (3.5-5.0) g/dL Arterial Blood Potassium (3.4-4.5) mmol/L Arterial Blood Glucose 122 H (75-99) mg/dL Crossmatch See Detail 02/18/25 02/18/25 02/18/25 Range/Units 09:12 10:03 10:33 WBC (4.50-10.00) 10*3/uL Hgb (13.0-17.0) g/dL Hct (39.6-50.0) % MCV (80.0-97.0) fL MCH (27.0-32.0) pg Plt Count (140-440) 10*3/uL Immature Gran # (0.00-0.04) 10*3/uL Neutrophils # (1.80-7.70) 10*3/uL Monocytes # (0.20-1.00) 10*3/uL PT (10.0-12.5) sec INR (<1.2) ABG pO2 228 H 402 H 399 H (83-108) mmHg ABG Total CO2 (19-24) mmol/L ABG O2 Saturation 99.0 H 99.2 H 99.2 H (94-97) % ABG Hematocrit 31 L 29 L (34.0-46.0) % ABG Potassium 4.7 H 4.7 H (3.4-4.5) mmol/L ABG Ionized Calcium 4.3 L 4.3 L (4.5-5.3) mg/dL ABG Glucose 131 H 136 H 158 H (75-99) mg/dL ABG Lactic Acid (0.5-1.6) mmol/L Hemoglobin 11.5 L 10.2 L 9.5 L (13.0-17.5) gm/dL Chloride (98-107) mmol/L BUN (9-20) mg/dL Glucose (74-99) mg/dL POC Glucose (mg/dL) (70-110) mg/dL Magnesium (1.6-2.3) mg/dL Total Protein (6.3-8.2) g/dL Albumin (3.5-5.0) g/dL Arterial Blood Potassium 4.7 H 4.7 H (3.4-4.5) mmol/L Arterial Blood Glucose 131 H 136 H 158 H (75-99) mg/dL Crossmatch 02/18/25 02/18/25 02/18/25 Range/Units 11:15 12:54 12:56 WBC 16.27 H (4.50-10.00) 10*3/uL Hgb 12.0 L (13.0-17.0) g/dL Hct 35.8 L (39.6-50.0) % MCV 79.2 L (80.0-97.0) fL MCH 26.5 L (27.0-32.0) pg Plt Count 112 L (140-440) 10*3/uL Immature Gran # 0.09 H (0.00-0.04) 10*3/uL Neutrophils # 13.84 H (1.80-7.70) 10*3/uL Monocytes # 1.06 H (0.20-1.00) 10*3/uL PT (10.0-12.5) sec INR (<1.2) ABG pO2 310 H (83-108) mmHg ABG Total CO2 (19-24) mmol/L ABG O2 Saturation 99.1 H (94-97) % ABG Hematocrit 28 L (34.0-46.0) % ABG Potassium 4.7 H (3.4-4.5) mmol/L ABG Ionized Calcium 4.4 L (4.5-5.3) mg/dL ABG Glucose 150 H (75-99) mg/dL ABG Lactic Acid 1.9 H (0.5-1.6) mmol/L Hemoglobin 9.2 L (13.0-17.5) gm/dL Chloride (98-107) mmol/L BUN (9-20) mg/dL Glucose (74-99) mg/dL POC Glucose (mg/dL) 128 H (70-110) mg/dL Magnesium (1.6-2.3) mg/dL Total Protein (6.3-8.2) g/dL Albumin (3.5-5.0) g/dL Arterial Blood Potassium 4.7 H (3.4-4.5) mmol/L Arterial Blood Glucose 150 H (75-99) mg/dL Crossmatch 02/18/25 02/18/25 02/18/25 Range/Units 12:56 12:56 13:18 WBC (4.50-10.00) 10*3/uL Hgb (13.0-17.0) g/dL Hct (39.6-50.0) % MCV (80.0-97.0) fL MCH (27.0-32.0) pg Plt Count (140-440) 10*3/uL Immature Gran # (0.00-0.04) 10*3/uL Neutrophils # (1.80-7.70) 10*3/uL Monocytes # (0.20-1.00) 10*3/uL PT 12.6 H (10.0-12.5) sec INR 1.2 H (<1.2) ABG pO2 401 H (83-108) mmHg ABG Total CO2 26 H (19-24) mmol/L ABG O2 Saturation >100.0 H (94-97) % ABG Hematocrit (34.0-46.0) % ABG Potassium (3.4-4.5) mmol/L ABG Ionized Calcium (4.5-5.3) mg/dL ABG Glucose (75-99) mg/dL ABG Lactic Acid (0.5-1.6) mmol/L Hemoglobin 11.9 L (13.0-17.5) gm/dL Chloride 108 H (98-107) mmol/L BUN 22 H (9-20) mg/dL Glucose 119 H (74-99) mg/dL POC Glucose (mg/dL) (70-110) mg/dL Magnesium 2.6 H (1.6-2.3) mg/dL Total Protein 4.8 L (6.3-8.2) g/dL Albumin 2.8 L (3.5-5.0) g/dL Arterial Blood Potassium (3.4-4.5) mmol/L Arterial Blood Glucose (75-99) mg/dL Crossmatch 02/18/25 Range/Units 15:00 WBC (4.50-10.00) 10*3/uL Hgb (13.0-17.0) g/dL Hct (39.6-50.0) % MCV (80.0-97.0) fL MCH (27.0-32.0) pg Plt Count (140-440) 10*3/uL Immature Gran # (0.00-0.04) 10*3/uL Neutrophils # (1.80-7.70) 10*3/uL Monocytes # (0.20-1.00) 10*3/uL PT (10.0-12.5) sec INR (<1.2) ABG pO2 (83-108) mmHg ABG Total CO2 (19-24) mmol/L ABG O2 Saturation (94-97) % ABG Hematocrit (34.0-46.0) % ABG Potassium (3.4-4.5) mmol/L ABG Ionized Calcium (4.5-5.3) mg/dL ABG Glucose (75-99) mg/dL ABG Lactic Acid (0.5-1.6) mmol/L Hemoglobin (13.0-17.5) gm/dL Chloride (98-107) mmol/L BUN (9-20) mg/dL Glucose (74-99) mg/dL POC Glucose (mg/dL) 111 H (70-110) mg/dL Magnesium (1.6-2.3) mg/dL Total Protein (6.3-8.2) g/dL Albumin (3.5-5.0) g/dL Arterial Blood Potassium (3.4-4.5) mmol/L Arterial Blood Glucose (75-99) mg/dL Crossmatch
[2025-02-18 16:51] LABS: ABG Base Excess -1.8 mmol/L; ABG HCO3 23 mmol/L (21-25); ABG PCO2 39 mmHg (35-45); ABG PH 7.38 (7.35-7.45); ABG PO2 126 mmHg (83-108); ABG TCO2 24 mmol/L (19-24)
[2025-02-18 17:05] LABS: Glucose,Whole Blood 179 mg/dL (70-110)
[2025-02-18 18:00] LABS: Glucose,Whole Blood 183 mg/dL (70-110)
[2025-02-18] MEDS: AMIODARONE 450 MG in DEXTROSE 5% IN WATER 250 ML IV SCH (18:31)
[2025-02-18 19:02] LABS: Glucose,Whole Blood 181 mg/dL (70-110)
[2025-02-18 19:12] LABS: Basophils # (A) 0.03 10*3/uL (0.00-0.10); Basophils % (A) 0.3 %; HCT 27.9 % (39.6-50.0); HGB 9.4 g/dL (13.0-17.0); Lymphocytes # (A) 0.45 10*3/uL (0.90-5.00); Lymphocytes % (A) 3.9 %; MCH 26.7 pg (27.0-32.0); MCHC 33.7 g/dL (32.0-37.0); MCV 79.3 fL (80.0-97.0); Mean Platelet Volume 10.8 fL (9.5-12.2); Monocytes # (A) 0.63 10*3/uL (0.20-1.00); Monocytes % (A) 5.5 %; Neutrophils # (A) 10.37 10*3/uL (1.80-7.70); RBC 3.52 10*6/uL (4.40-5.60); RDW 14.3 % (11.5-14.5); WBC 11.51 10*3/uL (4.50-10.00)
[2025-02-18 19:49] LABS: Large Platelets Present
[2025-02-18 19:58] LABS: Platelet Count 92 10*3/uL (140-440)
[2025-02-18 19:59] LABS: Ovalocytes Present
--- NOTE | 2025-02-18 20:00 | OP ---
OPERATIVE REPORT DATE OF SERVICE : 02/18/2025 PREOPERATIVE DIAGNOSES: 1. Severe aortic insufficiency. 2. Paroxysmal atrial fibrillation. POSTOPERATIVE DIAGNOSES: 1. Severe aortic insufficiency. 2. Paroxysmal atrial fibrillation. PROCEDURES PERFORMED: 1. Aortic valve replacement with 25 mm García Inspiris bioprosthetic valve. 2. Ligation of left atrial appendage using 35 mm AtriClip. 3. Bilateral pulmonary vein isolation. 4. Epiaortic ultrasound. 5. Transesophageal echocardiogram. ASSISTANTS: 1. MACARENA Munoz. 2. Tony Hugo NP. ANESTHESIA: General. SPECIMEN: Aortic valve leaflets. COMPLICATIONS: None. INDICATION: The patient is a 69-year-old male with a past medical history significant for paroxysmal atrial fibrillation, obstructive sleep apnea, hypertension, myocardial infarction status post coronary artery stent placement in July 2024, and renal cell tumor, who was originally scheduled for aortic valve replacement/coronary artery bypass surgery during the summer. Unfortunately, while waiting for surgery, he developed acute chest pain and was diagnosed with a myocardial infarction. A drug-eluting stent was placed emergently in the left anterior descending artery. We let him recover from that procedure and let his coronary stent mature. He now presents for his aortic valve replacement. The risks, benefits, and alternatives of the procedure were discussed with the patient. All of his questions were answered. Consent was obtained. FINDINGS: The aortic valve was trileaflet in nature with minimal calcific disease noted. PROCEDURE IN DETAIL: The patient was taken to the operating room and placed supine on the operating table. After the induction of general anesthesia, he was prepped and draped in the usual sterile fashion. Preoperative transesophageal echocardiogram confirmed a preserved ejection fraction with severe aortic insufficiency. There was no clot noted within the left atrial appendage. A median sternotomy was performed. A pericardial cradle was created. Intravenous heparin was administered. The ascending aorta was palpated. There was no calcific plaque noted. Epiaortic ultrasound was then performed on the ascending aorta. Again no calcified plaque or atheromatous disease was identified. An arterial cannula was placed in the distal ascending aorta. A venous cannula was placed through the right atrial appendage and directed into the IVC. Both antegrade and retrograde catheters were placed as well. The patient was then placed on cardiopulmonary bypass with good decompression of the heart. At this point, attention was turned to the pulmonary vein isolation. The right-sided pulmonary veins were dissected free circumferentially. An AtriCure wand was passed around the right atrial cuff and RFA ablation was performed to produce a good burn. This was performed in 3 different locations with 2 huber each application. In a similar fashion, the left-sided pulmonary veins were encircled and an AtriCure wand was placed around the left atrial cuff. Radiofrequency ablation was applied. There was a good burn melvi noted at the conclusion of this procedure. The Ligament of Cesar was divided. The aortic cross-clamp was applied. Cold blood potassium cardioplegia was delivered in both antegrade and retrograde fashion to achieve arrest of the heart. Of note, cardioplegia was delivered every 15 to 20 minutes with the patient remained under cross-clamp. The left atrial appendage was identified. A 35 mm AtriClip was placed across its base to ensure ligation. Next, attention was turned to the aortic valve. CO2 was administered across the operative field. A standard hockey-stick incision was created in the proximal ascending aorta. The aortic valve was identified. It appeared to be trileaflet in nature. There was no significant calcific disease noted on the valves or the annulus itself. Both coronary ostia were easily identified and appeared to be well above the aortic annulus. The aortic valve leaflets were then carefully resected and sent to pathology. The aortic root was copiously irrigated with cold saline solution. Using a sizing device, a 25 mm García Inspiris bioprosthetic valve was chosen. Interrupted pledgeted sutures were placed circumferentially around the annulus. The sutures were then passed through the sewing ring and the valve was lowered into position. It appeared to seat nicely. The sutures were tied using core knots. Both coronary ostia were visualized and appeared to be well above the valve sewing ring. The valve leaflets also opened easily and appeared to be free from obstruction. The aortotomy was then closed in 2 layers using a running 4-0 Prolene suture. 1 L of warm blood was delivered in retrograde fashion. Both lidocaine and magnesium were administered as well. Standard de-airing maneuvers were performed. The aortic cross-clamp was removed. There was no evidence of intracardiac air. The patient was then slowly weaned off cardiopulmonary bypass. He without difficulty. Followup transesophageal echocardiogram confirmed a preserved ejection fraction. The bioprosthetic aortic valve was seated nicely without evidence of paravalvular leak. The leaflets opened and closed without obstruction. Protamine was administered. There were no adverse reactions. The remaining cannulas were then removed. The mediastinum was copiously irrigated with warm saline solution. Again, all surgical sites were inspected and appeared to be hemostatic. Soft tissues were reapproximated over the majority of the heart. Chest tubes were placed in both the left pleural space and mediastinum. A Sim drain was placed in the right pleural space. These were all secured to the skin using sutures. The sternum was then reapproximated using the [place] cable system. The cables were placed in a [id number] fashion. The wound was then closed in multiple layers. Sterile dressing was applied. The patient appeared to tolerate the procedure well. There were no immediate complications. He returned to the ICU in critical but stable condition. ALEX / BARRY: [id number] / MTDD
[2025-02-18 20:11] LABS: Glucose,Whole Blood 162 mg/dL (70-110)
[2025-02-18 20:48] LABS: Glucose,Whole Blood 154 mg/dL (70-110)
[2025-02-18] MEDS: SENNOSIDES-DOCUSATE SODIUM 1 EACH TAB PO SCH (21:35)
[2025-02-18 22:04] LABS: Glucose,Whole Blood 139 mg/dL (70-110)
[2025-02-18 22:27] LABS: African American GFR (CKD) >90 (>60 ml/min/1.73 sqM); Anion Gap 8 mmol/L; Blood Urea Nitrogen 21 mg/dL (9-20); Calcium 8.4 mg/dL (8.4-10.2); Carbon Dioxide 23 mmol/L (22-30); Chloride 107 mmol/L (98-107); Glucose 124 mg/dL (74-99); Magnesium 2.2 mg/dL (1.6-2.3); Non-African American GFR(CKD) >90 (>60 ml/min/1.73 sqM); Potassium 3.6 mmol/L (3.5-5.1); Sodium 138 mmol/L (137-145)
[2025-02-18] MEDS: ONDANSETRON 4 MG/2 ML VIAL IVP PRN (22:28)
[2025-02-18] MEDS: POTASSIUM CHLORIDE 10 MEQ in WATER FOR INJECTION 1 100ML.BAG IVPB SCH (22:46)
[2025-02-18 23:06] LABS: Glucose,Whole Blood 133 mg/dL (70-110)
[2025-02-19 00:05] LABS: Glucose,Whole Blood 127 mg/dL (70-110)
[2025-02-19 01:04] LABS: Glucose,Whole Blood 127 mg/dL (70-110)
[2025-02-19 01:51] LABS: Glucose,Whole Blood 124 mg/dL (70-110)
[2025-02-19 02:54] LABS: Glucose,Whole Blood 168 mg/dL (70-110)
[2025-02-19 04:18] LABS: Glucose,Whole Blood 149 mg/dL (70-110)
[2025-02-19 04:26] LABS: Basophils # (A) 0.03 10*3/uL (0.00-0.10); Basophils % (A) 0.2 %; HCT 28.1 % (39.6-50.0); HGB 9.5 g/dL (13.0-17.0); Immature Platelet Fraction 5.2 % (1.1-6.1); Lymphocytes # (A) 0.44 10*3/uL (0.90-5.00); Lymphocytes % (A) 3.4 %; MCH 26.8 pg (27.0-32.0); MCHC 33.8 g/dL (32.0-37.0); MCV 79.2 fL (80.0-97.0); Mean Platelet Volume 11.4 fL (9.5-12.2); Neutrophils # (A) 11.36 10*3/uL (1.80-7.70); Neutrophils % (A) 88.9 %; RBC 3.55 10*6/uL (4.40-5.60); RDW 14.2 % (11.5-14.5)
[2025-02-19 04:34] LABS: Ionized Calcium 4.5 mg/dL (4.5-5.3)
[2025-02-19 04:43] LABS: ALT 18 U/L (4-49); AST 38 U/L (17-59); African American GFR (CKD) >90 (>60 ml/min/1.73 sqM); Albumin 3.3 g/dL (3.5-5.0); Alkaline Phosphatase 43 U/L (38-126); Anion Gap 6 mmol/L; Blood Urea Nitrogen 21 mg/dL (9-20); Calcium 8.1 mg/dL (8.4-10.2); Carbon Dioxide 24 mmol/L (22-30); Chloride 107 mmol/L (98-107); Glucose 130 mg/dL (74-99); Magnesium 2.2 mg/dL (1.6-2.3); Non-African American GFR(CKD) >90 (>60 ml/min/1.73 sqM); Sodium 137 mmol/L (137-145)
[2025-02-19 05:34] LABS: Platelet Count 99 10*3/uL (140-440)
[2025-02-19 06:31] LABS: Ovalocytes Present
[2025-02-19 06:32] LABS: Poikilocytosis (M) Present
--- NOTE | 2025-02-19 07:10 | P.ANPRN ---
Procedure Note - Anesthesia - Invasive Line Right Central Line Time Out Performed: Yes Date of Procedure: 02/18/25 Time of Procedure: 07:32 Location of Patient: Phase I Preparation: Sterile Prep, Sterile Dressing Central Line Location: Internal Jugular Ultrasound Used: No Purpose - Visualization and Identification of Vasculature: No Image Stored and Saved: No Narrative: Invasive line placement per sterile protocol utilized.
--- NOTE | 2025-02-19 07:11 | P.ANPRN ---
Procedure Note - Anesthesia - Invasive Line Right [place] Migue Time Out Performed: Yes Date of Procedure: 02/18/25 Time of Procedure: 07:38 Location of Patient: Phase I Preparation: Sterile Prep, Sterile Dressing Central Line Location: Internal Jugular Ultrasound Used: No Purpose - Visualization and Identification of Vasculature: No Image Stored and Saved: No Narrative: Invasive line placement per sterile protocol utilized.
--- NOTE | 2025-02-19 07:48 | XR ---
"EXAMINATION TYPE: XR chest 1V portable DATE OF EXAM: 02/19/2025 5:29 AM COMPARISON: 02/18/2025 CLINICAL INDICATION: Male, 69 years old with history of Post Operative Cardiac Surgery, TECHNIQUE: XR chest 1V portable view(s) obtained. FINDINGS: The heart size is mildly prominent. The pulmonary vasculature is normal. Small bibasilar infiltrates are present likely on the basis of atelectasis. There is a left apical pneumothorax increasing from comparison. Left-sided chest tube remains present and this may have been pulled back somewhat from the comparison. [place] catheter tip is in the right main pulmonary artery region. Mediastinal tube is present. End otracheal tube and nasogastric tube have been removed. IMPRESSION: 1. Increasing small to moderate left apical pneumothorax. 2. Mild bibasilar atelectasis. 3. Mild cardiomegaly. 4. Lines and catheters discussed above [facility], , 02/19/2025 7:45 AM A [place] level critical message alert has been initiated for Cecile Esparza via the [employer] | Cri tical Results System on 02/19/2025 7:45 AM. This message alert has been sent to Cecile Esparza via the pr eferences provided by the clinician for the receipt of Radiology Critical Findings. Message ID [id number]."
[2025-02-19] MEDS: fentaNYL (PF) 50 MCG/ML 2 ML AMP IVP STA (07:52)
--- NOTE | 2025-02-19 08:02 | P.CRDCN ---
History of Present Illness Consult date: 02/19/25 History of present illness: History of Present Illness: The patient is a 69-year-old male with known history of aortic insufficiency, CAD status post stenting of the LAD in the setting of non-STEMI in July 2020 for who underwent aortic valve replacement with Inspiris valve, atrial fibrillation ablation and ligation of the left atrial appendage. He is extubated, sitting up in the chair, complaining of chest wall tenderness. He is in sinus mechanism and hemodynamically stable on no vasopressors. By echocardiogram in the past he had an ejection fraction of 50% with severe aortic regurgitation with a tricuspid aortic valve by FARA. According to him he has bee n complaining of continuous dyspnea on exertion. On repeat cardiac catheterization the LAD stent was patent. He has a reported history of paroxysmal atrial fibrillation. He has a history of hypertension and hyperlipidemia, he is nondiabetic, non-smoker. Medications: As outpatient amlodipine 10 mg daily, isosorbide mononitrate 30 mg daily, atorvastatin 80 mg daily, clopidogrel 75 mg daily, aspirin once a day Review of Systems: Respiratory: History of dyspnea on exertion GI: No nausea or vomiting . No history of peptic ulcer disease. No recent GI bleed. : No hematuria or dysuria. Nervous System: No stroke or seizure. Physical Examination: 69-year-old male, alert oriented complaining of chest wall tenderness,Blood pressure 130/50, Heart rate 60, pulmonary artery systolic pressure of 22 Head: Normocephalic. Eyes: Sclerae nonicteric. Neck: Good carotid upstroke, no bruit, no jugular venous distention. Broadbent-Migue catheter noted on the right side Lungs: Clear to auscultation. Heart: Regular rate and rhythm, S1-S2, no S3, no rub. Systolic ejection murmur. Rub noted Abdomen: Soft nontender, positive bowel sounds no organomegaly. Extremities: No edema, intact distal pulses. Labs: Hemoglobin 9.5, potassium 4.0, BUN 6, creatinine 21. Chest x-ray with small to moderate left apical pneumothorax. EKG: Junctional rhythm with nonspecific ST-T wave changes Impression: 1. Status post aortic valve placement with isolation of pulmonary vein and placement of left atrial appendage closure device 2. Status post stenting of the LAD, patent 3. Hypertension 4. Hyperlipidemia Plan: 1. Continue present therapy 2. Incentive spirometry 3. Increase physical activity 4. Continue dual antiplatelet treatment because of the stenting 5. Depending on his progress further recommendations will be made, thank you for this consult we will follow with you. Past Medical History Past Medical History: Atrial Fibrillation, Coronary Artery Disease (CAD), Cancer, Chest Pain / Angina, GERD/Reflux, Hyperlipidemia, Hypertension, Myocardial Infarction ([place]) Additional Past Medical History / Comment(s): . Kidney tumor that is being removed after heart procedure. A1C 6.5, will be considering sleep apnea testing Last Myocardial Infarction Date:: 07/24/2024 History of Any Multi-Drug Resistant Organisms: None Reported Past Surgical History: Heart Catheterization With Stent, Hernia Repair, Tonsillectomy Additional Past Surgical History / Comment(s): Bilateral DETACHED RETINAS, RIGHT EYE WORSE. VASECTOMY. Past Anesthesia/Blood Transfusion Reactions: No Reported Reaction Date of Last Stent Placement:: 07/24/2024 Smoking Status: Never smoker - Past Family History Mother Family Medical History: Cancer, Congestive Heart Failure (CHF) Additional Family Medical History / Comment(s): BREAST Father Family Medical History: Congestive Heart Failure (CHF) Medications and Allergies Home Medications Medication Instructions Recorded Confirmed Type Nitroglycerin Sl Tabs [Nitrostat] 0.4 mg SUBLINGUAL Q5M PRN #25 tab 07/08/24 02/18/25 Rx Atorvastatin [Lipitor] 80 mg PO HS 60 Days #60 tab 07/25/24 02/18/25 Rx amLODIPine [Norvasc] 10 mg PO DAILY 60 Days #60 tab 07/25/24 02/18/25 Rx Aspirin EC [Ecotrin Low Dose] 81 mg PO [facility] 02/01/25 02/15/25 History Isosorbide Mononitrate ER [Imdur] 30 mg PO M 02/01/25 02/18/25 History Clopidogrel [Plavix] 75 mg PO DAILY 02/04/25 02/15/25 History Allergies Allergy/AdvReac Type Severity Reaction Status Date / Time No Known Allergies Allergy Verified 02/18/25 05:48 Physical Exam Vitals: Vital Signs Temp Pulse Pulse Resp BP Pulse Ox FiO2 02/19/25 07:00 58 L 16 103/70 96 02/19/25 06:00 60 21 98 02/19/25 05:00 60 15 97 02/19/25 04:00 99.3 F 58 L 17 97 02/19/25 03:00 56 L 17 99 02/19/25 02:00 58 L 20 99 02/19/25 01:00 57 L 18 100 02/19/25 00:00 98.8 F 62 15 98 02/18/25 23:00 60 16 99 02/18/25 22:00 105 H 17 100 02/18/25 21:00 58 L 16 99 02/18/25 20:00 98.5 F 58 L 18 100 02/18/25 19:15 55 L 18 100 02/18/25 19:00 57 L 20 100 02/18/25 18:45 57 L 21 98 02/18/25 18:30 59 L 14 99 02/18/25 18:15 63 17 99 02/18/25 18:00 63 15 99 02/18/25 17:45 65 20 98 02/18/25 17:30 66 21 98 02/18/25 17:15 69 13 98 02/18/25 17:00 68 10 L 100 02/18/25 16:45 68 10 L 100 02/18/25 16:30 67 12 100 02/18/25 16:15 63 11 L 97 02/18/25 16:10 40 02/18/25 16:07 61 12 02/18/25 16:00 62 52 L 14 99 40 02/18/25 15:57 61 17 40 02/18/25 15:45 63 17 99 40 02/18/25 15:30 64 14 98 02/18/25 15:15 77 16 99 02/18/25 15:00 61 12 99 02/18/25 14:45 58 L 13 100 02/18/25 14:30 54 L 12 99 02/18/25 14:15 56 L 12 98 02/18/25 14:00 65 18 100 40 02/18/25 13:45 59 L 12 99 02/18/25 13:30 56 L 12 100 02/18/25 13:23 40 02/18/25 13:15 66 12 100 02/18/25 13:05 62 12 02/18/25 13:00 69 12 100 60 02/18/25 12:57 68 14 02/18/25 12:52 100 02/18/25 12:47 60 9 L 100 02/18/25 12:45 100 Intake and Output 02/18/25 02/19/25 02/19/25 22:59 06:59 14:59 Intake Total 1417.079 727.686 59 Output Total 1055 1195 55 Balance 362.079 -467.314 4 Intake: IV 1292 682 59 ACETAMINOPHEN IV (For NPO 100 ) 1,000 mg In Empty Bag 1 bag @ 400 mls/hr IVPB Q6HR [facility] Rx#:[id number] Albumin Human 5% 250 ml 500 In Empty Bag 1 bag @ 250 mls/hr IVPB Q1HR PRN Rx#: [id number] Cardiac Output 220 160 Pressure Bag 72 72 9 Sodium Chloride 0.9% 1, 400 400 50 000 ml @ 30 mls/hr IV . Q24H [facility] Rx#:[id number] ceFAZolin 2 gm In 50 Dextrose 5% in Water 50 ml @ 100 mls/hr IVPB Q8HR [facility] Rx#:[id number] Intake, IV Titration 125.079 45.686 Amount Insulin Regular 100 unit 18.887 45.686 In Sodium Chloride 0.9% 100 ml @ Per Protocol IV .Q0M [facility] Rx#:[id number] Potassium Chloride 10 meq 100 In Water For Injection 1 100ml.bag @ 100 mls/hr IVPB Q1H [facility] Rx#: [id number] propofoL 1,000 mg In 6.192 Empty Bag 1 bag @ Titrate IV .Q0M [facility] Rx#: [id number] Output: Chest Tube Drainage 500 620 20 Left Pleural 140 230 0 Mediastinal 250 230 20 Right Pleural 110 160 0 Urine 555 575 35 Other: Voiding Method Indwelling Catheter Indwelling Catheter Weight 104.4 kg ABP, PAP, CO, CI - Last 8 Hours Arterial Blood Pressure 130/49 Arterial Blood Pressure 125/57 Arterial Blood Pressure 125/50 Arterial Blood Pressure 129/50 Arterial Blood Pressure 131/48 Arterial Blood Pressure 105/45 Arterial Blood Pressure 125/47 Arterial Blood Pressure 115/49 Pulmonary Artery Pressure 22/6 Pulmonary Artery Pressure 25/9 Pulmonary Artery Pressure 26/8 Pulmonary Artery Pressure 30/9 Pulmonary Artery Pressure 33/10 Pulmonary Artery Pressure 26/5 Pulmonary Artery Pressure 25/6 Pulmonary Artery Pressure 27/7 Cardiac Output 6.3 Cardiac Output 5.1 Cardiac Output 7.4 Cardiac Output 4.6 Cardiac Index 2.8 Cardiac Index 2.3 Cardiac Index 3.4 Cardiac Index 2.1 Results 02/19/25 04:15 02/19/25 04:15 Cardiac Enzymes 02/18/25 02/19/25 Range/Units 12:56 04:15 AST 43 38 (17-59) U/L Coagulation 02/18/25 Range/Units 12:56 PT 12.6 H (10.0-12.5) sec APTT 26.5 (22.0-30.0) sec CBC 02/18/25 02/18/25 02/18/25 Range/Units 12:56 16:01 19:08 WBC 16.27 H 14.97 H 11.51 H (4.50-10.00) 10*3/uL RBC 4.52 3.82 L 3.52 L (4.40-5.60) 10*6/uL Hgb 12.0 L 10.1 L 9.4 L (13.0-17.0) g/dL Hct 35.8 L 30.5 L 27.9 L (39.6-50.0) % Plt Count 112 L 110 L 92 L (140-440) 10*3/uL 02/19/25 Range/Units 04:15 WBC 12.80 H (4.50-10.00) 10*3/uL RBC 3.55 L (4.40-5.60) 10*6/uL Hgb 9.5 L (13.0-17.0) g/dL Hct 28.1 L (39.6-50.0) % Plt Count 99 L (140-440) 10*3/uL Comprehensive Metabolic Panel 02/18/25 02/18/25 02/19/25 Range/Units 12:56 22:00 04:15 Sodium 138 138 137 (137-145) mmol/L Potassium 4.0 3.6 4.0 (3.5-5.1) mmol/L Chloride 108 H 107 107 (98-107) mmol/L Carbon Dioxide 24 23 24 (22-30) mmol/L BUN 22 H 21 H 21 H (9-20) mg/dL Creatinine 0.84 0.74 0.75 (0.66-1.25) mg/dL Glucose 119 H 124 H 130 H (74-99) mg/dL Calcium 8.7 8.4 8.1 L (8.4-10.2) mg/dL AST 43 38 (17-59) U/L ALT 24 18 (4-49) U/L Alkaline Phosphatase 65 43 (38-126) U/L Total Protein 4.8 L 5.0 L (6.3-8.2) g/dL Albumin 2.8 L 3.3 L (3.5-5.0) g/dL Current Medications Generic Name Dose Route Start Last Admin Trade Name Freq PRN Reason Stop Dose Admin Acetaminophen 650 mg 02/18/25 23:47 Acetaminophen Tab 325 Mg Tab PO Q4HR PRN Fever And/ Or Mild Pain (1-3) Albuterol/Ipratropium 3 ml 02/18/25 11:55 Ipratropium-Albuterol 3 Ml Neb INHALATION RT-Q2H PRN Shortness Of Breath Or Wheezing Albuterol/Ipratropium 3 ml 02/18/25 20:00 02/18/25 21:01 Ipratropium-Albuterol 3 Ml Neb INHALATION Not Given RT-QID [facility] Aspirin 325 mg 02/19/25 09:00 Aspirin 325 Mg Tab PO DAILY [facility] Atorvastatin Calcium 40 mg 02/19/25 09:00 Atorvastatin 40 Mg Tab PO DAILY [facility] Benzocaine/Menthol 1 each 02/18/25 11:55 Benzocaine/Menthol Lozeng 1 Each Lozenge MUCOUS MEM Q2H PRN Sore Throat Bisacodyl 10 mg 02/19/25 09:00 Bisacodyl 10 Mg Supp RECTAL DAILY PRN Constipation Clopidogrel Bisulfate 75 mg 02/19/25 09:00 Clopidogrel 75 Mg Tab PO DAILY [facility] Dextrose/Water 50 ml 02/18/25 11:55 Dextrose 50% Syringe 50 Ml IVP PER PROTOCOL PRN Hypoglycemia Protocol Dextrose/Water 25 ml 02/18/25 11:55 Dextrose 50% Syringe 50 Ml IVP PER PROTOCOL PRN Hypoglycemia Protocol Heparin Sodium (Porcine) 5,000 unit 02/18/25 16:00 02/18/25 22:33 Heparin Sodium,Porcine 5,000 Unit/Ml 1 Ml Vial SQ Not Given Q8HR [facility] Hydralazine HCl 10 mg 02/18/25 11:55 Hydralazine Hcl 20 Mg/Ml 1 Ml Vial IVP Q1H PRN Blood Pressure - High Clevidipine 25 mg/ IV Solution 50 mls @ 2 mls/hr 02/18/25 11:55 IV .Q24H PRN Hypertension Protocol 1 MG/HR Amiodarone HCl 450 mg/ 250 mls @ 16.667 mls/hr 02/18/25 18:30 02/18/25 18:31 Dextrose/Water IV 02/19/25 12:29 0.5 mg/min .Q15H [facility] 16.667 mls/hr Administration Protocol 0.5 MG/MIN Amiodarone HCl 150 mg/ 103 mls @ 618 mls/hr 02/18/25 12:20 Dextrose/Water IV .Q10M PRN A.FIB/FLUTTER Albumin Human 250 ml/ IV 250 mls @ 250 mls/hr 02/18/25 11:55 02/19/25 06:00 Solution IVPB 02/20/25 11:54 250 mls/hr Q1HR PRN Administration For Volume Protocol Cefazolin Sodium 2 gm/ 50 mls @ 100 mls/hr 02/18/25 16:00 02/19/25 00:08 Dextrose/Water IVPB 02/19/25 08:29 100 mls/hr Q8HR [facility] Administration Protocol Calcium Gluconate/Sodium 100 mls @ 100 mls/hr 02/18/25 11:55 Chloride 2 gm/ IV Solution IVPB 02/21/25 11:54 ONCE PRN Ionized Calcium less than 4.4 Insulin Human Regular 100 unit 101 mls @ 0 mls/hr 02/18/25 12:15 02/19/25 06:41 / Sodium Chloride IV 4 units/hr .Q0M [facility] 4.04 mls/hr Titration Protocol Per Protocol Sodium Chloride 1,000 mls @ 30 mls/hr 02/18/25 11:55 02/18/25 13:49 Saline 0.9% IV 50 mls/hr .Q24H [facility] Administration Ketorolac Tromethamine 15 mg 02/19/25 12:00 Ketorolac 15 Mg/Ml 1 Ml Vial IM 02/24/25 07:52 Q6HR [facility] Magnesium Hydroxide 2,400 mg 02/19/25 09:00 Magnesium Hydroxide 2,400 Mg/30 Ml Cup PO BID PRN Constipation Metoclopramide HCl 10 mg 02/18/25 11:55 Metoclopramide 5 Mg/Ml 2 Ml Vial IVP Q4H PRN Nausea And Vomiting Metoprolol Tartrate 12.5 mg 02/19/25 09:00 Metoprolol Tartrate 12.5 Mg Tab PO BID [facility] Miscellaneous Information 1 each 02/18/25 11:55 Magnesium Replacement Protocol 1 Each Misc MISCELLANE DAILY PRN Per Protocol Protocol Miscellaneous Information 1 each 02/18/25 22:33 Potassium Replacement Protocol 1 Each Misc MISCELLANE DAILY PRN Per Protocol Protocol Ondansetron HCl 4 mg 02/18/25 11:55 02/19/25 06:51 Ondansetron 4 Mg/2 Ml Vial IVP 4 mg Q6HR PRN Administration Nausea And Vomiting Oxycodone HCl 5 mg 02/18/25 11:55 02/18/25 18:53 Oxycodone Hcl 5 Mg Tab PO 5 mg Q4HR PRN Administration Moderate Pain (Scale 4 to 6) Oxycodone HCl 10 mg 02/18/25 11:55 02/19/25 05:14 Oxycodone Hcl 5 Mg Tab PO 10 mg Q4HR PRN Administration Severe Pain (Scale 7 to 10) Pantoprazole Sodium 40 mg 02/19/25 09:00 Pantoprazole 40 Mg/10 Ml Vial IVP 02/19/25 10:00 DAILY [facility] Pantoprazole Sodium 40 mg 02/20/25 07:30 Pantoprazole 40 Mg Tablet PO AC-[id number] [facility] Senna/Docusate Sodium 2 each 02/18/25 21:00 02/18/25 21:35 Sennosides-Docusate Sodium 1 Each Tab PO 2 each HS [facility] Administration Sodium Chloride 10 ml 02/18/25 21:00 02/18/25 21:35 Sodium Chloride 0.9% Flush 10 Ml Syringe IV 10 ml BID [facility] Administration Intake and Output 02/18/25 02/19/25 02/19/25 22:59 06:59 14:59 Intake Total 1417.079 727.686 59 Output Total 1055 1195 55 Balance 362.079 -467.314 4 Intake: IV 1292 682 59 ACETAMINOPHEN IV (For NPO 100 ) 1,000 mg In Empty Bag 1 bag @ 400 mls/hr IVPB Q6HR [facility] Rx#:[id number] Albumin Human 5% 250 ml 500 In Empty Bag 1 bag @ 250 mls/hr IVPB Q1HR PRN Rx#: [id number] Cardiac Output 220 160 Pressure Bag 72 72 9 Sodium Chloride 0.9% 1, 400 400 50 000 ml @ 30 mls/hr IV . Q24H [facility] Rx#:[id number] ceFAZolin 2 gm In 50 Dextrose 5% in Water 50 ml @ 100 mls/hr IVPB Q8HR [facility] Rx#:[id number] Intake, IV Titration 125.079 45.686 Amount Insulin Regular 100 unit 18.887 45.686 In Sodium Chloride 0.9% 100 ml @ Per Protocol IV .Q0M [facility] Rx#:[id number] Potassium Chloride 10 meq 100 In Water For Injection 1 100ml.bag @ 100 mls/hr IVPB Q1H [facility] Rx#: [id number] propofoL 1,000 mg In 6.192 Empty Bag 1 bag @ Titrate IV .Q0M [facility] Rx#: [id number] Output: Chest Tube Drainage 500 620 20 Left Pleural 140 230 0 Mediastinal 250 230 20 Right Pleural 110 160 0 Urine 555 575 35 Other: Voiding Method Indwelling Catheter Indwelling Catheter Weight 104.4 kg 02/19/25 04:15 02/19/25 04:15
[2025-02-19 08:03] LABS: Glucose,Whole Blood 144 mg/dL (70-110)
[2025-02-19] MEDS: PANTOPRAZOLE 40 MG/10 ML VIAL IVP SCH (08:04)
[2025-02-19] MEDS: ATORVASTATIN 40 MG TAB PO SCH (08:04)
[2025-02-19] MEDS: ASPIRIN 325 MG TAB PO SCH (08:06)
[2025-02-19] MEDS: CLOPIDOGREL 75 MG TAB PO SCH (08:06)
--- NOTE | 2025-02-19 08:22 | P.PN ---
Subjective Progress Note Date: 02/19/25 Principal diagnosis: Severe aortic insufficiency, paroxysmal atrial fibrillation. History of coronary artery disease with non-STEMI status post PCI to the LAD, bradycardia, hypertension, borderline diabetes with diet control, left renal lesion in need of partial nephrectomy in the future, questionable sleep apnea (patient never tested but exhibits symptoms), lifelong non-smoker, premature coronary artery disease in his father POD #1 aortic valve replacement with 25 mm García Inspiris bioprosthetic valve, ligation of the left atrial appendage using a 35mm AtriClip, bilateral pulmonary vein isolation, epiaortic ultrasound, intraoperative transesophageal echocardiogram Postoperative acute blood loss anemia, expected given hemodilution and cardiopulmonary bypass pump The patient was seen and examined this morning sitting up in a recliner in the intensive care unit in no acute distress. He was successfully extubated yesterday at 17:05. Currently sinus bradycardia with heart rate in the 50s, was in the 40s preoperative, hemodynamically stable on no inotropes or pressors. Remains on IV amiodarone for A-fib prophylaxis. States current pain medication regimen really only taking the edge off, does still have significant postoperative pain. Chest x-ray, labs reviewed, there is a small left apical pneumothorax along with bibasilar atelectasis and cardiomegaly reported on chest x-ray, all expected after open heart surgery. Right internal jugular [place]/Cordis, right radial arterial line, mediastinal/right/left pleural chest tubes all remain. No other new concerns. Objective - Vital Signs Vital signs: Vital Signs Temp 99.3 F 02/19/25 04:00 Pulse 58 L 02/19/25 07:00 Resp 16 02/19/25 07:00 BP 103/70 02/19/25 07:00 Pulse Ox 96 02/19/25 07:00 FiO2 40 02/18/25 16:10 Intake & Output 02/18/25 02/19/25 02/19/25 18:59 06:59 18:59 Intake Total 1999.023 1406.984 59 Output Total 5 1645 55 Balance -44.977 -238.016 4 Weight 104.4 kg Intake: IV 1965 1248 59 ACETAMINOPHEN IV (For NPO 100 ) 1,000 mg In Empty Bag 1 bag @ 400 mls/hr IVPB Q6HR [facility] Rx#:[id number] Albumin Human 5% 250 ml 1250 250 In Empty Bag 1 bag @ 250 mls/hr IVPB Q1HR [facility] Rx#: [id number] Cardiac Output 260 240 Pressure Bag 54 108 9 Sodium Chloride 0.9% 1, 300 600 50 000 ml @ 30 mls/hr IV . Q24H [facility] Rx#:[id number] ceFAZolin 2 gm In 50 Dextrose 5% in Water 50 ml @ 100 mls/hr IVPB Q8HR [facility] Rx#:[id number] Intake, IV Titration 35.023 158.984 Amount Insulin Regular 100 unit 9.326 58.984 In Sodium Chloride 0.9% 100 ml @ Per Protocol IV .Q0M [facility] Rx#:[id number] Potassium Chloride 10 meq 100 In Water For Injection 1 100ml.bag @ 100 mls/hr IVPB Q1H [facility] Rx#: [id number] propofoL 1,000 mg In 25.697 Empty Bag 1 bag @ Titrate IV .Q0M [facility] Rx#: [id number] Output: Chest Tube Drainage 500 840 20 Left Pleural 70 300 0 Mediastinal 350 330 20 Right Pleural 80 210 0 Urine 1195 805 35 Estimated Blood Loss 350 Other: Voiding Method Indwelling Catheter Indwelling Catheter ABP, PAP, CO, CI - Last Documented Arterial Blood Pressure 130/49 Pulmonary Artery Pressure 22/6 Cardiac Output 6.3 Cardiac Index 2.8 - Exam CONSTITUTIONAL: Appears mostly comfortable, cooperative, no acute distress RESPIRATORY: Lungs sounds diminished in the bases bilaterally. Respirations even, nonlabored. Currently on 2 L nasal cannula with oxygen saturation 97%. Able to achieve 750-1000 mL on incentive spirometry. Weak cough. CARDIOVASCULAR: S1, S2 present. Regular rate and rhythm, sinus bradycardia on telemetry. Sternum stable. Palpable peripheral pulses bilaterally. No edema present. No calf pain or tenderness noted. Heart hugger in place with patient demonstrating appropriate use. Antiembolism stockings, SCDs present. GASTROINTESTINAL: Abdomen soft, nontender, nondistended. Hypoactive bowel sounds present 4 quadrants. Tolerating minimal clear liquids. Denies flatus GENITOURINARY: Sparrow present draining clear, yellow urine. Output overnight 30-100 mL per hour INTEGUMENTARY: Skin is warm and dry with evidence of good perfusion. Anterior chest incision well approximated and covered with dry intact dressing NEUROLOGIC: Cranial nerves II through XII intact MUSKULOSKELETAL: Able to move all extremities, strength equal bilaterally, gait normal PSYCHIATRIC: Alert and oriented to person place and time, appropriate affect, intact judgment and insight INVASIVE LINES AND TUBES: Mediastinal/left/right pleural chest tubes present and connected to wall suction, no air leaks present. Mediastinal tube with 230 mL serosanguineous drainage overnight, 700 mL since surgery. Left pleural chest tube with 230 mL serosanguineous drainage overnight, 370 mL since surgery. Right pleural chest tube with 160 mL serosanguineous drainage overnight, 300 mL since surgery. A/V epicardial pacemaker wires present, connected to generator, backup rate 50 bpm. Right internal jugular [place]/Cordis, right radial arterial line present. Last CO/CI 6.3/2.8, PA 22/5, CVP 4. - Allied health notes Allied health notes reviewed: nursing - Labs CBC & Chem 7: 02/19/25 04:15 02/19/25 04:15 Labs: Abnormal Lab Results - Last 24 Hours (Table) 02/15/25 02/18/25 02/18/25 Range/Units 10:27 08:37 08:37 WBC (4.50-10.00) 10*3/uL RBC (4.40-5.60) 10*6/uL Hgb (13.0-17.0) g/dL Hct (39.6-50.0) % MCV (80.0-97.0) fL MCH (27.0-32.0) pg Plt Count (140-440) 10*3/uL Immature Gran # (0.00-0.04) 10*3/uL Neutrophils # (1.80-7.70) 10*3/uL Lymphocytes # (0.90-5.00) 10*3/uL Monocytes # (0.20-1.00) 10*3/uL Eosinophils # (0.04-0.35) 10*3/uL PT (10.0-12.5) sec INR (<1.2) ABG pO2 204 H 211 H (83-108) mmHg ABG Total CO2 (19-24) mmol/L ABG O2 Saturation 98.8 H 99.0 H (94-97) % ABG Hematocrit 30 L (34.0-46.0) % ABG Potassium (3.4-4.5) mmol/L ABG Ionized Calcium 4.2 L (4.5-5.3) mg/dL ABG Glucose 122 H 154 H (75-99) mg/dL ABG Lactic Acid (0.5-1.6) mmol/L Hemoglobin 11.7 L 9.7 L (13.0-17.5) gm/dL Chloride (98-107) mmol/L BUN (9-20) mg/dL Glucose (74-99) mg/dL POC Glucose (mg/dL) (70-110) mg/dL Calcium (8.4-10.2) mg/dL Magnesium (1.6-2.3) mg/dL Total Protein (6.3-8.2) g/dL Albumin (3.5-5.0) g/dL Arterial Blood Potassium (3.4-4.5) mmol/L Arterial Blood Glucose 122 H 154 H (75-99) mg/dL Crossmatch See Detail 02/18/25 02/18/25 02/18/25 Range/Units 09:12 10:03 10:33 WBC (4.50-10.00) 10*3/uL RBC (4.40-5.60) 10*6/uL Hgb (13.0-17.0) g/dL Hct (39.6-50.0) % MCV (80.0-97.0) fL MCH (27.0-32.0) pg Plt Count (140-440) 10*3/uL Immature Gran # (0.00-0.04) 10*3/uL Neutrophils # (1.80-7.70) 10*3/uL Lymphocytes # (0.90-5.00) 10*3/uL Monocytes # (0.20-1.00) 10*3/uL Eosinophils # (0.04-0.35) 10*3/uL PT (10.0-12.5) sec INR (<1.2) ABG pO2 228 H 402 H 399 H (83-108) mmHg ABG Total CO2 (19-24) mmol/L ABG O2 Saturation 99.0 H 99.2 H 99.2 H (94-97) % ABG Hematocrit 31 L 29 L (34.0-46.0) % ABG Potassium 4.7 H 4.7 H (3.4-4.5) mmol/L ABG Ionized Calcium 4.3 L 4.3 L (4.5-5.3) mg/dL ABG Glucose 131 H 136 H 158 H (75-99) mg/dL ABG Lactic Acid (0.5-1.6) mmol/L Hemoglobin 11.5 L 10.2 L 9.5 L (13.0-17.5) gm/dL Chloride (98-107) mmol/L BUN (9-20) mg/dL Glucose (74-99) mg/dL POC Glucose (mg/dL) (70-110) mg/dL Calcium (8.4-10.2) mg/dL Magnesium (1.6-2.3) mg/dL Total Protein (6.3-8.2) g/dL Albumin (3.5-5.0) g/dL Arterial Blood Potassium 4.7 H 4.7 H (3.4-4.5) mmol/L Arterial Blood Glucose 131 H 136 H 158 H (75-99) mg/dL Crossmatch 02/18/25 02/18/25 02/18/25 Range/Units 11:15 12:54 12:56 WBC 16.27 H (4.50-10.00) 10*3/uL RBC (4.40-5.60) 10*6/uL Hgb 12.0 L (13.0-17.0) g/dL Hct 35.8 L (39.6-50.0) % MCV 79.2 L (80.0-97.0) fL MCH 26.5 L (27.0-32.0) pg Plt Count 112 L (140-440) 10*3/uL Immature Gran # 0.09 H (0.00-0.04) 10*3/uL Neutrophils # 13.84 H (1.80-7.70) 10*3/uL Lymphocytes # (0.90-5.00) 10*3/uL Monocytes # 1.06 H (0.20-1.00) 10*3/uL Eosinophils # (0.04-0.35) 10*3/uL PT (10.0-12.5) sec INR (<1.2) ABG pO2 310 H (83-108) mmHg ABG Total CO2 (19-24) mmol/L ABG O2 Saturation 99.1 H (94-97) % ABG Hematocrit 28 L (34.0-46.0) % ABG Potassium 4.7 H (3.4-4.5) mmol/L ABG Ionized Calcium 4.4 L (4.5-5.3) mg/dL ABG Glucose 150 H (75-99) mg/dL ABG Lactic Acid 1.9 H (0.5-1.6) mmol/L Hemoglobin 9.2 L (13.0-17.5) gm/dL Chloride (98-107) mmol/L BUN (9-20) mg/dL Glucose (74-99) mg/dL POC Glucose (mg/dL) 128 H (70-110) mg/dL Calcium (8.4-10.2) mg/dL Magnesium (1.6-2.3) mg/dL Total Protein (6.3-8.2) g/dL Albumin (3.5-5.0) g/dL Arterial Blood Potassium 4.7 H (3.4-4.5) mmol/L Arterial Blood Glucose 150 H (75-99) mg/dL Crossmatch 02/18/25 02/18/25 02/18/25 Range/Units 12:56 12:56 13:18 WBC (4.50-10.00) 10*3/uL RBC (4.40-5.60) 10*6/uL Hgb (13.0-17.0) g/dL Hct (39.6-50.0) % MCV (80.0-97.0) fL MCH (27.0-32.0) pg Plt Count (140-440) 10*3/uL Immature Gran # (0.00-0.04) 10*3/uL Neutrophils # (1.80-7.70) 10*3/uL Lymphocytes # (0.90-5.00) 10*3/uL Monocytes # (0.20-1.00) 10*3/uL Eosinophils # (0.04-0.35) 10*3/uL PT 12.6 H (10.0-12.5) sec INR 1.2 H (<1.2) ABG pO2 401 H (83-108) mmHg ABG Total CO2 26 H (19-24) mmol/L ABG O2 Saturation >100.0 H (94-97) % ABG Hematocrit (34.0-46.0) % ABG Potassium (3.4-4.5) mmol/L ABG Ionized Calcium (4.5-5.3) mg/dL ABG Glucose (75-99) mg/dL ABG Lactic Acid (0.5-1.6) mmol/L Hemoglobin 11.9 L (13.0-17.5) gm/dL Chloride 108 H (98-107) mmol/L BUN 22 H (9-20) mg/dL Glucose 119 H (74-99) mg/dL POC Glucose (mg/dL) (70-110) mg/dL Calcium (8.4-10.2) mg/dL Magnesium 2.6 H (1.6-2.3) mg/dL Total Protein 4.8 L (6.3-8.2) g/dL Albumin 2.8 L (3.5-5.0) g/dL Arterial Blood Potassium (3.4-4.5) mmol/L Arterial Blood Glucose (75-99) mg/dL Crossmatch 02/18/25 02/18/25 02/18/25 Range/Units 15:00 15:56 16:01 WBC 14.97 H (4.50-10.00) 10*3/uL RBC 3.82 L (4.40-5.60) 10*6/uL Hgb 10.1 L (13.0-17.0) g/dL Hct 30.5 L (39.6-50.0) % MCV 79.8 L (80.0-97.0) fL MCH 26.4 L (27.0-32.0) pg Plt Count 110 L (140-440) 10*3/uL Immature Gran # 0.06 H (0.00-0.04) 10*3/uL Neutrophils # 12.59 H (1.80-7.70) 10*3/uL Lymphocytes # (0.90-5.00) 10*3/uL Monocytes # 1.23 H (0.20-1.00) 10*3/uL Eosinophils # 0.02 L (0.04-0.35) 10*3/uL PT (10.0-12.5) sec INR (<1.2) ABG pO2 (83-108) mmHg ABG Total CO2 (19-24) mmol/L ABG O2 Saturation (94-97) % ABG Hematocrit (34.0-46.0) % ABG Potassium (3.4-4.5) mmol/L ABG Ionized Calcium (4.5-5.3) mg/dL ABG Glucose (75-99) mg/dL ABG Lactic Acid (0.5-1.6) mmol/L Hemoglobin (13.0-17.5) gm/dL Chloride (98-107) mmol/L BUN (9-20) mg/dL Glucose (74-99) mg/dL POC Glucose (mg/dL) 111 H 159 H (70-110) mg/dL Calcium (8.4-10.2) mg/dL Magnesium (1.6-2.3) mg/dL Total Protein (6.3-8.2) g/dL Albumin (3.5-5.0) g/dL Arterial Blood Potassium (3.4-4.5) mmol/L Arterial Blood Glucose (75-99) mg/dL Crossmatch 02/18/25 02/18/25 02/18/25 Range/Units 16:49 17:04 17:59 WBC (4.50-10.00) 10*3/uL RBC (4.40-5.60) 10*6/uL Hgb (13.0-17.0) g/dL Hct (39.6-50.0) % MCV (80.0-97.0) fL MCH (27.0-32.0) pg Plt Count (140-440) 10*3/uL Immature Gran # (0.00-0.04) 10*3/uL Neutrophils # (1.80-7.70) 10*3/uL Lymphocytes # (0.90-5.00) 10*3/uL Monocytes # (0.20-1.00) 10*3/uL Eosinophils # (0.04-0.35) 10*3/uL PT (10.0-12.5) sec INR (<1.2) ABG pO2 126 H (83-108) mmHg ABG Total CO2 (19-24) mmol/L ABG O2 Saturation 99.0 H (94-97) % ABG Hematocrit (34.0-46.0) % ABG Potassium (3.4-4.5) mmol/L ABG Ionized Calcium (4.5-5.3) mg/dL ABG Glucose (75-99) mg/dL ABG Lactic Acid (0.5-1.6) mmol/L Hemoglobin 10.6 L (13.0-17.5) gm/dL Chloride (98-107) mmol/L BUN (9-20) mg/dL Glucose (74-99) mg/dL POC Glucose (mg/dL) 179 H 183 H (70-110) mg/dL Calcium (8.4-10.2) mg/dL Magnesium (1.6-2.3) mg/dL Total Protein (6.3-8.2) g/dL Albumin (3.5-5.0) g/dL Arterial Blood Potassium (3.4-4.5) mmol/L Arterial Blood Glucose (75-99) mg/dL Crossmatch 02/18/25 02/18/25 02/18/25 Range/Units 19:00 19:08 20:10 WBC 11.51 H (4.50-10.00) 10*3/uL RBC 3.52 L (4.40-5.60) 10*6/uL Hgb 9.4 L (13.0-17.0) g/dL Hct 27.9 L (39.6-50.0) % MCV 79.3 L (80.0-97.0) fL MCH 26.7 L (27.0-32.0) pg Plt Count 92 L (140-440) 10*3/uL Immature Gran # (0.00-0.04) 10*3/uL Neutrophils # 10.37 H (1.80-7.70) 10*3/uL Lymphocytes # 0.45 L (0.90-5.00) 10*3/uL Monocytes # (0.20-1.00) 10*3/uL Eosinophils # 0.00 L (0.04-0.35) 10*3/uL PT (10.0-12.5) sec INR (<1.2) ABG pO2 (83-108) mmHg ABG Total CO2 (19-24) mmol/L ABG O2 Saturation (94-97) % ABG Hematocrit (34.0-46.0) % ABG Potassium (3.4-4.5) mmol/L ABG Ionized Calcium (4.5-5.3) mg/dL ABG Glucose (75-99) mg/dL ABG Lactic Acid (0.5-1.6) mmol/L Hemoglobin (13.0-17.5) gm/dL Chloride (98-107) mmol/L BUN (9-20) mg/dL Glucose (74-99) mg/dL POC Glucose (mg/dL) 181 H 162 H (70-110) mg/dL Calcium (8.4-10.2) mg/dL Magnesium (1.6-2.3) mg/dL Total Protein (6.3-8.2) g/dL Albumin (3.5-5.0) g/dL Arterial Blood Potassium (3.4-4.5) mmol/L Arterial Blood Glucose (75-99) mg/dL Crossmatch 02/18/25 02/18/25 02/18/25 Range/Units 20:46 22:00 22:03 WBC (4.50-10.00) 10*3/uL RBC (4.40-5.60) 10*6/uL Hgb (13.0-17.0) g/dL Hct (39.6-50.0) % MCV (80.0-97.0) fL MCH (27.0-32.0) pg Plt Count (140-440) 10*3/uL Immature Gran # (0.00-0.04) 10*3/uL Neutrophils # (1.80-7.70) 10*3/uL Lymphocytes # (0.90-5.00) 10*3/uL Monocytes # (0.20-1.00) 10*3/uL Eosinophils # (0.04-0.35) 10*3/uL PT (10.0-12.5) sec INR (<1.2) ABG pO2 (83-108) mmHg ABG Total CO2 (19-24) mmol/L ABG O2 Saturation (94-97) % ABG Hematocrit (34.0-46.0) % ABG Potassium (3.4-4.5) mmol/L ABG Ionized Calcium (4.5-5.3) mg/dL ABG Glucose (75-99) mg/dL ABG Lactic Acid (0.5-1.6) mmol/L Hemoglobin (13.0-17.5) gm/dL Chloride (98-107) mmol/L BUN 21 H (9-20) mg/dL Glucose 124 H (74-99) mg/dL POC Glucose (mg/dL) 154 H 139 H (70-110) mg/dL Calcium (8.4-10.2) mg/dL Magnesium (1.6-2.3) mg/dL Total Protein (6.3-8.2) g/dL Albumin (3.5-5.0) g/dL Arterial Blood Potassium (3.4-4.5) mmol/L Arterial Blood Glucose (75-99) mg/dL Crossmatch 02/18/25 02/19/25 02/19/25 Range/Units 23:05 00:04 01:02 WBC (4.50-10.00) 10*3/uL RBC (4.40-5.60) 10*6/uL Hgb (13.0-17.0) g/dL Hct (39.6-50.0) % MCV (80.0-97.0) fL MCH (27.0-32.0) pg Plt Count (140-440) 10*3/uL Immature Gran # (0.00-0.04) 10*3/uL Neutrophils # (1.80-7.70) 10*3/uL Lymphocytes # (0.90-5.00) 10*3/uL Monocytes # (0.20-1.00) 10*3/uL Eosinophils # (0.04-0.35) 10*3/uL PT (10.0-12.5) sec INR (<1.2) ABG pO2 (83-108) mmHg ABG Total CO2 (19-24) mmol/L ABG O2 Saturation (94-97) % ABG Hematocrit (34.0-46.0) % ABG Potassium (3.4-4.5) mmol/L ABG Ionized Calcium (4.5-5.3) mg/dL ABG Glucose (75-99) mg/dL ABG Lactic Acid (0.5-1.6) mmol/L Hemoglobin (13.0-17.5) gm/dL Chloride (98-107) mmol/L BUN (9-20) mg/dL Glucose (74-99) mg/dL POC Glucose (mg/dL) 133 H 127 H 127 H (70-110) mg/dL Calcium (8.4-10.2) mg/dL Magnesium (1.6-2.3) mg/dL Total Protein (6.3-8.2) g/dL Albumin (3.5-5.0) g/dL Arterial Blood Potassium (3.4-4.5) mmol/L Arterial Blood Glucose (75-99) mg/dL Crossmatch 02/19/25 02/19/25 02/19/25 Range/Units 01:50 02:53 04:14 WBC (4.50-10.00) 10*3/uL RBC (4.40-5.60) 10*6/uL Hgb (13.0-17.0) g/dL Hct (39.6-50.0) % MCV (80.0-97.0) fL MCH (27.0-32.0) pg Plt Count (140-440) 10*3/uL Immature Gran # (0.00-0.04) 10*3/uL Neutrophils # (1.80-7.70) 10*3/uL Lymphocytes # (0.90-5.00) 10*3/uL Monocytes # (0.20-1.00) 10*3/uL Eosinophils # (0.04-0.35) 10*3/uL PT (10.0-12.5) sec INR (<1.2) ABG pO2 (83-108) mmHg ABG Total CO2 (19-24) mmol/L ABG O2 Saturation (94-97) % ABG Hematocrit (34.0-46.0) % ABG Potassium (3.4-4.5) mmol/L ABG Ionized Calcium (4.5-5.3) mg/dL ABG Glucose (75-99) mg/dL ABG Lactic Acid (0.5-1.6) mmol/L Hemoglobin (13.0-17.5) gm/dL Chloride (98-107) mmol/L BUN (9-20) mg/dL Glucose (74-99) mg/dL POC Glucose (mg/dL) 124 H 168 H 149 H (70-110) mg/dL Calcium (8.4-10.2) mg/dL Magnesium (1.6-2.3) mg/dL Total Protein (6.3-8.2) g/dL Albumin (3.5-5.0) g/dL Arterial Blood Potassium (3.4-4.5) mmol/L Arterial Blood Glucose (75-99) mg/dL Crossmatch 02/19/25 02/19/25 Range/Units 04:15 04:15 WBC 12.80 H (4.50-10.00) 10*3/uL RBC 3.55 L (4.40-5.60) 10*6/uL Hgb 9.5 L (13.0-17.0) g/dL Hct 28.1 L (39.6-50.0) % MCV 79.2 L (80.0-97.0) fL MCH 26.8 L (27.0-32.0) pg Plt Count 99 L (140-440) 10*3/uL Immature Gran # 0.07 H (0.00-0.04) 10*3/uL Neutrophils # 11.36 H (1.80-7.70) 10*3/uL Lymphocytes # 0.44 L (0.90-5.00) 10*3/uL Monocytes # (0.20-1.00) 10*3/uL Eosinophils # 0.00 L (0.04-0.35) 10*3/uL PT (10.0-12.5) sec INR (<1.2) ABG pO2 (83-108) mmHg ABG Total CO2 (19-24) mmol/L ABG O2 Saturation (94-97) % ABG Hematocrit (34.0-46.0) % ABG Potassium (3.4-4.5) mmol/L ABG Ionized Calcium (4.5-5.3) mg/dL ABG Glucose (75-99) mg/dL ABG Lactic Acid (0.5-1.6) mmol/L Hemoglobin (13.0-17.5) gm/dL Chloride (98-107) mmol/L BUN 21 H (9-20) mg/dL Glucose 130 H (74-99) mg/dL POC Glucose (mg/dL) (70-110) mg/dL Calcium 8.1 L (8.4-10.2) mg/dL Magnesium (1.6-2.3) mg/dL Total Protein 5.0 L (6.3-8.2) g/dL Albumin 3.3 L (3.5-5.0) g/dL Arterial Blood Potassium (3.4-4.5) mmol/L Arterial Blood Glucose (75-99) mg/dL Crossmatch - Imaging and Cardiology Chest x-ray: report reviewed, image reviewed Assessment and Plan Assessment: Severe aortic insufficiency, status post aortic valve replacement Paroxysmal atrial fibrillation, status post ligation of the left atrial appendage, bilateral pulmonary vein isolation Postoperative acute blood loss anemia, expected given hemodilution and cardiopulmonary bypass pump History of coronary artery disease with non-STEMI status post PCI to the LAD Bradycardia Hypertension Borderline diabetes with diet control, hemoglobin A1c 6.7% Left renal lesion in need of partial nephrectomy in the future Questionable sleep apnea (patient never tested but exhibits symptoms) Lifelong non-smoker, preoperative FEV1 103% of predicted Premature coronary artery disease in his father Plan: Continue to maximize medical therapy with aspirin, statin, Plavix, beta-lizbeth. Will increase beta-lizbeth therapy as tolerated Will continue IV amiodarone for its full 24 hours for A-fib prophylaxis. Will start oral amiodarone tomorrow, no anticoagulation necessary Wean oxygen as tolerated. Encourage incentive spirometry use 10 times every hour while awake. Bronchodilators per pulmonology Increase activity, ambulate as tolerated. PT/OT/cardiac rehab consulted Will monitor daily labs and x-rays, electrolyte replacement per protocol GI/DVT prophylaxis Pain control per current medication regimen, will add Toradol for 24 hours for better pain control Insulin management per internal medicine, patient should remain on continuous IV insulin for 48 hours then may transition to subcutaneous per protocol Daily weights Discontinue [place]. Connect Cordis to continuous CVP monitoring Continue chest tubes for another 24 hours, monitor and record output Continue Sparrow catheter for another 24 hours, continue to monitor strict accurate intake and output More recommendations to follow
[2025-02-19] MEDS ORDERED: MAGNESIUM HYDROXIDE 2,400 MG/30 ML CUP PO PRN (09:00)
[2025-02-19] MEDS ORDERED: bisacodyL 10 MG SUPP RECTAL PRN (09:00)
[2025-02-19 09:15] LABS: Glucose,Whole Blood 160 mg/dL (70-110)
--- NOTE | 2025-02-19 11:32 | P.PN ---
Subjective Progress Note Date: 02/19/25 Subjective: Patient seen and examined at bedside. No acute events overnight. Claims that he has some nausea and surgical site pain. Pertinent positives and negatives as discussed above, a complete review of systems was performed and all other systems are negative. Vitals Signs Reviewed. General: Nontoxic, no distress, appears at stated age, Sparrow catheter in place Derm: Warm, dry heart hugger in place, chest tubes in place Head: Atraumatic, normocephalic, symmetric Eyes: EOMI, no lid lag, anicteric sclera Mouth: No lip lesion, mucus membranes moist Cardiovascular: S1S2 reg, no murmur Lungs: CTA bilateral, no rhonchi, no rales, no accessory muscle use Abdominal: Soft, nontender to palpation, no guarding, no appreciable organomegaly Ext: No gross muscle atrophy, no edema, no contractures Neuro: CN II-XI grossly intact, no focal neuro deficits Psych: Alert, oriented, appropriate affect Data Reviewed Today: Pertinent Labs: WBC 12.8, hemoglobin 9.5, platelet 99, creatinine 0.75, blood sugars range between 130-160, magnesium 2.2 Imaging: Chest x-ray independently interpreted, shows postoperative changes, small left apical pneumothorax Assessment and Plan: Aortic valve insufficiency status post aortic valve replacement Acute blood loss anemia, anticipated outcome of surgery Thrombocytopenia, anticipated outcome of surgery Leukocytosis, anticipated, surgery Small left apical pneumothorax Paroxysmal atrial fibrillation Hypertension Dyslipidemia CAD - On aspirin 325 mg, atorvastatin 40 mg, Plavix 75 mg, metoprolol 12.5 twice daily, amiodarone drip - Cardiothoracic surgery note reviewed, continue chest tubes and Sparrow catheter for another 24 hours, - Pulmonology and cardiology following - Pain control, DVT prophylaxis, GI prophylaxis per cardiothoracic surgery Type 2 diabetes, A1c 6.7 - Continue insulin drip, monitor blood sugars every hours, monitor for hypogl ycemia - Transition to subcu insulin once patient is able to tolerate oral intake, likely tomorrow Thank you for allowing us to participate in the care of this pleasant patient. Do not hesitate to contact us with questions. Someone can be reached from the [facility] hospitalist group all hours of the day at [phone] or via perfect serve. Objective - Vital Signs Vital signs: Vital Signs Temp 98.1 F 02/19/25 08:00 Pulse 61 02/19/25 10:00 Resp 20 02/19/25 10:00 BP 103/70 02/19/25 09:00 Pulse Ox 97 02/19/25 10:00 FiO2 40 02/18/25 16:10 Intake & Output 02/18/25 02/19/25 02/19/25 18:59 06:59 18:59 Intake Total 2000.023 1406.984 535.053 Output Total 2045 1645 255 Balance -44.977 -238.016 280.053 Weight 104.4 kg Intake: IV 1965 1248 273 ACETAMINOPHEN IV (For NPO 100 ) 1,000 mg In Empty Bag 1 bag @ 400 mls/hr IVPB Q6HR [facility] Rx#:[id number] Albumin Human 5% 250 ml 1250 250 In Empty Bag 1 bag @ 250 mls/hr IVPB Q1HR PRN Rx#: [id number] Cardiac Output 260 240 Pressure Bag 54 108 33 Sodium Chloride 0.9% 1, 300 600 190 000 ml @ 30 mls/hr IV . Q24H [facility] Rx#:[id number] ceFAZolin 2 gm In 50 50 Dextrose 5% in Water 50 ml @ 100 mls/hr IVPB Q8HR [facility] Rx#:[id number] Intake, IV Titration 35.023 158.984 262.053 Amount Amiodarone 450 mg In 250 Dextrose 5% in Water 250 ml @ 0.5 MG/MIN 16.667 mls/hr IV .Q15H [facility] Rx#: [id number] Insulin Regular 100 unit 9.326 58.984 12.053 In Sodium Chloride 0.9% 100 ml @ Per Protocol IV .Q0M [facility] Rx#:[id number] Potassium Chloride 10 meq 100 In Water For Injection 1 100ml.bag @ 100 mls/hr IVPB Q1H [facility] Rx#: [id number] propofoL 1,000 mg In 25.697 Empty Bag 1 bag @ Titrate IV .Q0M [facility] Rx#: [id number] Output: Chest Tube Drainage 500 840 120 Left Pleural 70 300 0 Mediastinal 350 330 50 Right Pleural 80 210 70 Urine 1195 805 135 Estimated Blood Loss 350 Other: Voiding Method Indwelling Catheter Indwelling Catheter Indwelling Catheter ABP, PAP, CO, CI - Last Documented Arterial Blood Pressure 123/50 Pulmonary Artery Pressure 26/7 Cardiac Output 6.3 Cardiac Index 2.8 - Labs CBC & Chem 7: 02/19/25 04:15 02/19/25 04:15 Labs: Abnormal Lab Results - Last 24 Hours (Table) 02/15/25 02/18/25 02/18/25 Range/Units 10:27 08:37 12:54 WBC (4.50-10.00) 10*3/uL RBC (4.40-5.60) 10*6/uL Hgb (13.0-17.0) g/dL Hct (39.6-50.0) % MCV (80.0-97.0) fL MCH (27.0-32.0) pg Plt Count (140-440) 10*3/uL Immature Gran # (0.00-0.04) 10*3/uL Neutrophils # (1.80-7.70) 10*3/uL Lymphocytes # (0.90-5.00) 10*3/uL Monocytes # (0.20-1.00) 10*3/uL Eosinophils # (0.04-0.35) 10*3/uL PT (10.0-12.5) sec INR (<1.2) ABG pO2 211 H (83-108) mmHg ABG Total CO2 (19-24) mmol/L ABG O2 Saturation 99.0 H (94-97) % ABG Hematocrit 30 L (34.0-46.0) % ABG Ionized Calcium 4.2 L (4.5-5.3) mg/dL ABG Glucose 154 H (75-99) mg/dL Hemoglobin 9.7 L (13.0-17.5) gm/dL Chloride (98-107) mmol/L BUN (9-20) mg/dL Glucose (74-99) mg/dL POC Glucose (mg/dL) 128 H (70-110) mg/dL Calcium (8.4-10.2) mg/dL Magnesium (1.6-2.3) mg/dL Total Protein (6.3-8.2) g/dL Albumin (3.5-5.0) g/dL Arterial Blood Glucose 154 H (75-99) mg/dL Crossmatch See Detail 02/18/25 02/18/25 02/18/25 Range/Units 12:56 12:56 12:56 WBC 16.27 H (4.50-10.00) 10*3/uL RBC (4.40-5.60) 10*6/uL Hgb 12.0 L (13.0-17.0) g/dL Hct 35.8 L (39.6-50.0) % MCV 79.2 L (80.0-97.0) fL MCH 26.5 L (27.0-32.0) pg Plt Count 112 L (140-440) 10*3/uL Immature Gran # 0.09 H (0.00-0.04) 10*3/uL Neutrophils # 13.84 H (1.80-7.70) 10*3/uL Lymphocytes # (0.90-5.00) 10*3/uL Monocytes # 1.06 H (0.20-1.00) 10*3/uL Eosinophils # (0.04-0.35) 10*3/uL PT 12.6 H (10.0-12.5) sec INR 1.2 H (<1.2) ABG pO2 (83-108) mmHg ABG Total CO2 (19-24) mmol/L ABG O2 Saturation (94-97) % ABG Hematocrit (34.0-46.0) % ABG Ionized Calcium (4.5-5.3) mg/dL ABG Glucose (75-99) mg/dL Hemoglobin (13.0-17.5) gm/dL Chloride 108 H (98-107) mmol/L BUN 22 H (9-20) mg/dL Glucose 119 H (74-99) mg/dL POC Glucose (mg/dL) (70-110) mg/dL Calcium (8.4-10.2) mg/dL Magnesium 2.6 H (1.6-2.3) mg/dL Total Protein 4.8 L (6.3-8.2) g/dL Albumin 2.8 L (3.5-5.0) g/dL Arterial Blood Glucose (75-99) mg/dL Crossmatch 02/18/25 02/18/25 02/18/25 Range/Units 13:18 15:00 15:56 WBC (4.50-10.00) 10*3/uL RBC (4.40-5.60) 10*6/uL Hgb (13.0-17.0) g/dL Hct (39.6-50.0) % MCV (80.0-97.0) fL MCH (27.0-32.0) pg Plt Count (140-440) 10*3/uL Immature Gran # (0.00-0.04) 10*3/uL Neutrophils # (1.80-7.70) 10*3/uL Lymphocytes # (0.90-5.00) 10*3/uL Monocytes # (0.20-1.00) 10*3/uL Eosinophils # (0.04-0.35) 10*3/uL PT (10.0-12.5) sec INR (<1.2) ABG pO2 401 H (83-108) mmHg ABG Total CO2 26 H (19-24) mmol/L ABG O2 Saturation >100.0 H (94-97) % ABG Hematocrit (34.0-46.0) % ABG Ionized Calcium (4.5-5.3) mg/dL ABG Glucose (75-99) mg/dL Hemoglobin 11.9 L (13.0-17.5) gm/dL Chloride (98-107) mmol/L BUN (9-20) mg/dL Glucose (74-99) mg/dL POC Glucose (mg/dL) 111 H 159 H (70-110) mg/dL Calcium (8.4-10.2) mg/dL Magnesium (1.6-2.3) mg/dL Total Protein (6.3-8.2) g/dL Albumin (3.5-5.0) g/dL Arterial Blood Glucose (75-99) mg/dL Crossmatch 02/18/25 02/18/25 02/18/25 Range/Units 16:01 16:49 17:04 WBC 14.97 H (4.50-10.00) 10*3/uL RBC 3.82 L (4.40-5.60) 10*6/uL Hgb 10.1 L (13.0-17.0) g/dL Hct 30.5 L (39.6-50.0) % MCV 79.8 L (80.0-97.0) fL MCH 26.4 L (27.0-32.0) pg Plt Count 110 L (140-440) 10*3/uL Immature Gran # 0.06 H (0.00-0.04) 10*3/uL Neutrophils # 12.59 H (1.80-7.70) 10*3/uL Lymphocytes # (0.90-5.00) 10*3/uL Monocytes # 1.23 H (0.20-1.00) 10*3/uL Eosinophils # 0.02 L (0.04-0.35) 10*3/uL PT (10.0-12.5) sec INR (<1.2) ABG pO2 126 H (83-108) mmHg ABG Total CO2 (19-24) mmol/L ABG O2 Saturation 99.0 H (94-97) % ABG Hematocrit (34.0-46.0) % ABG Ionized Calcium (4.5-5.3) mg/dL ABG Glucose (75-99) mg/dL Hemoglobin 10.6 L (13.0-17.5) gm/dL Chloride (98-107) mmol/L BUN (9-20) mg/dL Glucose (74-99) mg/dL POC Glucose (mg/dL) 179 H (70-110) mg/dL Calcium (8.4-10.2) mg/dL Magnesium (1.6-2.3) mg/dL Total Protein (6.3-8.2) g/dL Albumin (3.5-5.0) g/dL Arterial Blood Glucose (75-99) mg/dL Crossmatch 02/18/25 02/18/25 02/18/25 Range/Units 17:59 19:00 19:08 WBC 11.51 H (4.50-10.00) 10*3/uL RBC 3.52 L (4.40-5.60) 10*6/uL Hgb 9.4 L (13.0-17.0) g/dL Hct 27.9 L (39.6-50.0) % MCV 79.3 L (80.0-97.0) fL MCH 26.7 L (27.0-32.0) pg Plt Count 92 L (140-440) 10*3/uL Immature Gran # (0.00-0.04) 10*3/uL Neutrophils # 10.37 H (1.80-7.70) 10*3/uL Lymphocytes # 0.45 L (0.90-5.00) 10*3/uL Monocytes # (0.20-1.00) 10*3/uL Eosinophils # 0.00 L (0.04-0.35) 10*3/uL PT (10.0-12.5) sec INR (<1.2) ABG pO2 (83-108) mmHg ABG Total CO2 (19-24) mmol/L ABG O2 Saturation (94-97) % ABG Hematocrit (34.0-46.0) % ABG Ionized Calcium (4.5-5.3) mg/dL ABG Glucose (75-99) mg/dL Hemoglobin (13.0-17.5) gm/dL Chloride (98-107) mmol/L BUN (9-20) mg/dL Glucose (74-99) mg/dL POC Glucose (mg/dL) 183 H 181 H (70-110) mg/dL Calcium (8.4-10.2) mg/dL Magnesium (1.6-2.3) mg/dL Total Protein (6.3-8.2) g/dL Albumin (3.5-5.0) g/dL Arterial Blood Glucose (75-99) mg/dL Crossmatch 02/18/25 02/18/25 02/18/25 Range/Units 20:10 20:46 22:00 WBC (4.50-10.00) 10*3/uL RBC (4.40-5.60) 10*6/uL Hgb (13.0-17.0) g/dL Hct (39.6-50.0) % MCV (80.0-97.0) fL MCH (27.0-32.0) pg Plt Count (140-440) 10*3/uL Immature Gran # (0.00-0.04) 10*3/uL Neutrophils # (1.80-7.70) 10*3/uL Lymphocytes # (0.90-5.00) 10*3/uL Monocytes # (0.20-1.00) 10*3/uL Eosinophils # (0.04-0.35) 10*3/uL PT (10.0-12.5) sec INR (<1.2) ABG pO2 (83-108) mmHg ABG Total CO2 (19-24) mmol/L ABG O2 Saturation (94-97) % ABG Hematocrit (34.0-46.0) % ABG Ionized Calcium (4.5-5.3) mg/dL ABG Glucose (75-99) mg/dL Hemoglobin (13.0-17.5) gm/dL Chloride (98-107) mmol/L BUN 21 H (9-20) mg/dL Glucose 124 H (74-99) mg/dL POC Glucose (mg/dL) 162 H 154 H (70-110) mg/dL Calcium (8.4-10.2) mg/dL Magnesium (1.6-2.3) mg/dL Total Protein (6.3-8.2) g/dL Albumin (3.5-5.0) g/dL Arterial Blood Glucose (75-99) mg/dL Crossmatch 02/18/25 02/18/25 02/19/25 Range/Units 22:03 23:05 00:04 WBC (4.50-10.00) 10*3/uL RBC (4.40-5.60) 10*6/uL Hgb (13.0-17.0) g/dL Hct (39.6-50.0) % MCV (80.0-97.0) fL MCH (27.0-32.0) pg Plt Count (140-440) 10*3/uL Immature Gran # (0.00-0.04) 10*3/uL Neutrophils # (1.80-7.70) 10*3/uL Lymphocytes # (0.90-5.00) 10*3/uL Monocytes # (0.20-1.00) 10*3/uL Eosinophils # (0.04-0.35) 10*3/uL PT (10.0-12.5) sec INR (<1.2) ABG pO2 (83-108) mmHg ABG Total CO2 (19-24) mmol/L ABG O2 Saturation (94-97) % ABG Hematocrit (34.0-46.0) % ABG Ionized Calcium (4.5-5.3) mg/dL ABG Glucose (75-99) mg/dL Hemoglobin (13.0-17.5) gm/dL Chloride (98-107) mmol/L BUN (9-20) mg/dL Glucose (74-99) mg/dL POC Glucose (mg/dL) 139 H 133 H 127 H (70-110) mg/dL Calcium (8.4-10.2) mg/dL Magnesium (1.6-2.3) mg/dL Total Protein (6.3-8.2) g/dL Albumin (3.5-5.0) g/dL Arterial Blood Glucose (75-99) mg/dL Crossmatch 02/19/25 02/19/25 02/19/25 Range/Units 01:02 01:50 02:53 WBC (4.50-10.00) 10*3/uL RBC (4.40-5.60) 10*6/uL Hgb (13.0-17.0) g/dL Hct (39.6-50.0) % MCV (80.0-97.0) fL MCH (27.0-32.0) pg Plt Count (140-440) 10*3/uL Immature Gran # (0.00-0.04) 10*3/uL Neutrophils # (1.80-7.70) 10*3/uL Lymphocytes # (0.90-5.00) 10*3/uL Monocytes # (0.20-1.00) 10*3/uL Eosinophils # (0.04-0.35) 10*3/uL PT (10.0-12.5) sec INR (<1.2) ABG pO2 (83-108) mmHg ABG Total CO2 (19-24) mmol/L ABG O2 Saturation (94-97) % ABG Hematocrit (34.0-46.0) % ABG Ionized Calcium (4.5-5.3) mg/dL ABG Glucose (75-99) mg/dL Hemoglobin (13.0-17.5) gm/dL Chloride (98-107) mmol/L BUN (9-20) mg/dL Glucose (74-99) mg/dL POC Glucose (mg/dL) 127 H 124 H 168 H (70-110) mg/dL Calcium (8.4-10.2) mg/dL Magnesium (1.6-2.3) mg/dL Total Protein (6.3-8.2) g/dL Albumin (3.5-5.0) g/dL Arterial Blood Glucose (75-99) mg/dL Crossmatch 02/19/25 02/19/25 02/19/25 Range/Units 04:14 04:15 04:15 WBC 12.80 H (4.50-10.00) 10*3/uL RBC 3.55 L (4.40-5.60) 10*6/uL Hgb 9.5 L (13.0-17.0) g/dL Hct 28.1 L (39.6-50.0) % MCV 79.2 L (80.0-97.0) fL MCH 26.8 L (27.0-32.0) pg Plt Count 99 L (140-440) 10*3/uL Immature Gran # 0.07 H (0.00-0.04) 10*3/uL Neutrophils # 11.36 H (1.80-7.70) 10*3/uL Lymphocytes # 0.44 L (0.90-5.00) 10*3/uL Monocytes # (0.20-1.00) 10*3/uL Eosinophils # 0.00 L (0.04-0.35) 10*3/uL PT (10.0-12.5) sec INR (<1.2) ABG pO2 (83-108) mmHg ABG Total CO2 (19-24) mmol/L ABG O2 Saturation (94-97) % ABG Hematocrit (34.0-46.0) % ABG Ionized Calcium (4.5-5.3) mg/dL ABG Glucose (75-99) mg/dL Hemoglobin (13.0-17.5) gm/dL Chloride (98-107) mmol/L BUN 21 H (9-20) mg/dL Glucose 130 H (74-99) mg/dL POC Glucose (mg/dL) 149 H (70-110) mg/dL Calcium 8.1 L (8.4-10.2) mg/dL Magnesium (1.6-2.3) mg/dL Total Protein 5.0 L (6.3-8.2) g/dL Albumin 3.3 L (3.5-5.0) g/dL Arterial Blood Glucose (75-99) mg/dL Crossmatch 02/19/25 02/19/25 Range/Units 08:01 09:13 WBC (4.50-10.00) 10*3/uL RBC (4.40-5.60) 10*6/uL Hgb (13.0-17.0) g/dL Hct (39.6-50.0) % MCV (80.0-97.0) fL MCH (27.0-32.0) pg Plt Count (140-440) 10*3/uL Immature Gran # (0.00-0.04) 10*3/uL Neutrophils # (1.80-7.70) 10*3/uL Lymphocytes # (0.90-5.00) 10*3/uL Monocytes # (0.20-1.00) 10*3/uL Eosinophils # (0.04-0.35) 10*3/uL PT (10.0-12.5) sec INR (<1.2) ABG pO2 (83-108) mmHg ABG Total CO2 (19-24) mmol/L ABG O2 Saturation (94-97) % ABG Hematocrit (34.0-46.0) % ABG Ionized Calcium (4.5-5.3) mg/dL ABG Glucose (75-99) mg/dL Hemoglobin (13.0-17.5) gm/dL Chloride (98-107) mmol/L BUN (9-20) mg/dL Glucose (74-99) mg/dL POC Glucose (mg/dL) 144 H 160 H (70-110) mg/dL Calcium (8.4-10.2) mg/dL Magnesium (1.6-2.3) mg/dL Total Protein (6.3-8.2) g/dL Albumin (3.5-5.0) g/dL Arterial Blood Glucose (75-99) mg/dL Crossmatch
[2025-02-19 11:46] LABS: Glucose,Whole Blood 132 mg/dL (70-110)
[2025-02-19 11:49] VITALS: BMI 28.8
[2025-02-19] MEDS ORDERED: KETOROLAC 15 MG/ML 1 ML VIAL IM SCH (12:00)
[2025-02-19] MEDS: METOPROLOL TARTRATE 12.5 MG TAB PO SCH (12:03)
[2025-02-19] MEDS: KETOROLAC 15 MG/ML 1 ML VIAL IVP SCH (12:34)
[2025-02-19 13:39] LABS: Glucose,Whole Blood 127 mg/dL (70-110)
--- NOTE | 2025-02-19 13:55 | P.PN ---
Subjective Progress Note Date: 02/19/25 Principal diagnosis: POD #1 aortic valve replacement with 25 mm García Inspiris bioprosthetic valve, ligation of the left atrial appendage using a 35mm AtriClip, bilateral pulmonary vein isolation, epiaortic ultrasound, intraoperative transesophageal echocardiogram This is a 69-year-old white male, primarily patient with Dr. Munoz, patient was recently evaluated for aortic valve insufficiency, seen back previously by cardiothoracic surgery in July of 2024. Since then the patient had extensive cardiac workup, today the patient underwent aortic valve replacement b jennifer Shafer, postoperatively patient was admitted to the ICU, and we were asked to see him in consultation. Patient is intubated, mechanically ventilated, he is on assist-control rate of 12, tidal volume of 600, FiO2 brought down to 40% from 100% initially after his ABG, and PEEP was 5. Patient is not requiring any pressors, not requiring any inotropes, is mostly on IV fluid, and on propofol at 25 mcg/kg/min. Cardiac output is 4.6, cardiac index is 2.0, chest x-ray showed no evidence of active disease, postoperative changes mostly. Patient was seen today on 02/19/2025, patient is sitting in the recliner, does not seem to be in any distress, he was extubated at 1705 last night, not requiri ng any pressors or any inotropes, he is on IV amiodarone for atrial fibrillation prophylaxis. Complaining of postsurgical pain, chest x-ray showed small left apical pneumothorax, expected, patient does have some minimal atelectasis at the bases. Continues to have mediastinal right and left pleural chest tubes in place, overall the patient is asymptomatic except for pain. WBC count is 12.8 hemoglobin 9.5 electrolytes are normal bicarb is normal renal profile is normal Objective - Vital Signs Vital signs: Vital Signs Temp 98.1 F 02/19/25 08:00 Pulse 61 02/19/25 10:00 Resp 20 02/19/25 10:00 BP 103/70 02/19/25 09:00 Pulse Ox 97 02/19/25 10:00 FiO2 40 02/18/25 16:10 Intake & Output 02/18/25 02/19/25 02/19/25 18:59 06:59 18:59 Intake Total 2000.023 1406.984 557.425 Output Total 2044 1645 255 Balance -44.977 -238.016 302.425 Weight 104.4 kg 104.4 kg Intake: IV 1965 1248 273 ACETAMINOPHEN IV (For NPO 100 ) 1,000 mg In Empty Bag 1 bag @ 400 mls/hr IVPB Q6HR [facility] Rx#:[id number] Albumin Human 5% 250 ml 1250 250 In Empty Bag 1 bag @ 250 mls/hr IVPB Q1HR [facility] Rx#: [id number] Cardiac Output 260 240 Pressure Bag 54 108 33 Sodium Chloride 0.9% 1, 300 600 190 000 ml @ 30 mls/hr IV . Q24H [facility] Rx#:[id number] ceFAZolin 2 gm In 50 50 Dextrose 5% in Water 50 ml @ 100 mls/hr IVPB Q8HR [facility] Rx#:[id number] Intake, IV Titration 35.023 158.984 284.425 Amount Amiodarone 450 mg In 250 Dextrose 5% in Water 250 ml @ 0.5 MG/MIN 16.667 mls/hr IV .Q15H [facility] Rx#: [id number] Insulin Regular 100 unit 9.326 58.984 34.425 In Sodium Chloride 0.9% 100 ml @ Per Protocol IV .Q0M [facility] Rx#:[id number] Potassium Chloride 10 meq 100 In Water For Injection 1 100ml.bag @ 100 mls/hr IVPB Q1H [facility] Rx#: [id number] propofoL 1,000 mg In 25.697 Empty Bag 1 bag @ Titrate IV .Q0M [facility] Rx#: [id number] Output: Chest Tube Drainage 500 840 120 Left Pleural 70 300 0 Mediastinal 350 330 50 Right Pleural 80 210 70 Urine 1195 805 135 Estimated Blood Loss 350 Other: Voiding Method Indwelling Catheter Indwelling Catheter Indwelling Catheter ABP, PAP, CO, CI - Last Documented Arterial Blood Pressure 123/50 Pulmonary Artery Pressure 26/7 Cardiac Output 6.3 Cardiac Index 2.8 - Exam CONSTITUTIONAL: Revealed 69-year-old white male in no distress, on 2 L nasal cannula RESPIRATORY: Diminished breath sounds at the bases no crackles rhonchi or wheezes CARDIOVASCULAR: Distant S1-S2, no S3 gallop, 2/6 systolic murmur GASTROINTESTINAL: Soft nontender no masses no rebound no guarding INTEGUMENTARY: No rashes NEUROLOGIC: Alert oriented x 3 no gross focal deficit MUSKULOSKELETAL: No deformities and no limitation range of motion PSYCHIATRIC: Normal mood affect and no mental status examination INVASIVE LINES AND TUBES: Mediastinal/left/right pleural chest tubes present and connected to wall suction, no air leaks present. A/V epicardial pacemaker wires present, connected to generator, backup rate 50 bpm. Right internal jugular [place], right radial arterial line present. Last CO/CI 6.3/2.8, PA 22/5, CVP 4. - Labs CBC & Chem 7: 02/19/25 04:15 02/19/25 04:15 Labs: Abnormal Lab Results - Last 24 Hours (Table) 02/15/25 02/18/25 02/18/25 Range/Units 10:27 08:37 12:56 WBC (4.50-10.00) 10*3/uL RBC (4.40-5.60) 10*6/uL Hgb (13.0-17.0) g/dL Hct (39.6-50.0) % MCV (80.0-97.0) fL MCH (27.0-32.0) pg Plt Count (140-440) 10*3/uL Immature Gran # (0.00-0.04) 10*3/uL Neutrophils # (1.80-7.70) 10*3/uL Lymphocytes # (0.90-5.00) 10*3/uL Monocytes # (0.20-1.00) 10*3/uL Eosinophils # (0.04-0.35) 10*3/uL ABG pO2 211 H (83-108) mmHg ABG O2 Saturation 99.0 H (94-97) % ABG Hematocrit 30 L (34.0-46.0) % ABG Ionized Calcium 4.2 L (4.5-5.3) mg/dL ABG Glucose 154 H (75-99) mg/dL Hemoglobin 9.7 L (13.0-17.5) gm/dL Chloride 108 H (98-107) mmol/L BUN 22 H (9-20) mg/dL Glucose 119 H (74-99) mg/dL POC Glucose (mg/dL) (70-110) mg/dL Calcium (8.4-10.2) mg/dL Magnesium 2.6 H (1.6-2.3) mg/dL Total Protein 4.8 L (6.3-8.2) g/dL Albumin 2.8 L (3.5-5.0) g/dL Arterial Blood Glucose 154 H (75-99) mg/dL Crossmatch See Detail 02/18/25 02/18/25 02/18/25 Range/Units 15:00 15:56 16:01 WBC 14.97 H (4.50-10.00) 10*3/uL RBC 3.82 L (4.40-5.60) 10*6/uL Hgb 10.1 L (13.0-17.0) g/dL Hct 30.5 L (39.6-50.0) % MCV 79.8 L (80.0-97.0) fL MCH 26.4 L (27.0-32.0) pg Plt Count 110 L (140-440) 10*3/uL Immature Gran # 0.06 H (0.00-0.04) 10*3/uL Neutrophils # 12.59 H (1.80-7.70) 10*3/uL Lymphocytes # (0.90-5.00) 10*3/uL Monocytes # 1.23 H (0.20-1.00) 10*3/uL Eosinophils # 0.02 L (0.04-0.35) 10*3/uL ABG pO2 (83-108) mmHg ABG O2 Saturation (94-97) % ABG Hematocrit (34.0-46.0) % ABG Ionized Calcium (4.5-5.3) mg/dL ABG Glucose (75-99) mg/dL Hemoglobin (13.0-17.5) gm/dL Chloride (98-107) mmol/L BUN (9-20) mg/dL Glucose (74-99) mg/dL POC Glucose (mg/dL) 111 H 159 H (70-110) mg/dL Calcium (8.4-10.2) mg/dL Magnesium (1.6-2.3) mg/dL Total Protein (6.3-8.2) g/dL Albumin (3.5-5.0) g/dL Arterial Blood Glucose (75-99) mg/dL Crossmatch 02/18/25 02/18/25 02/18/25 Range/Units 16:49 17:04 17:59 WBC (4.50-10.00) 10*3/uL RBC (4.40-5.60) 10*6/uL Hgb (13.0-17.0) g/dL Hct (39.6-50.0) % MCV (80.0-97.0) fL MCH (27.0-32.0) pg Plt Count (140-440) 10*3/uL Immature Gran # (0.00-0.04) 10*3/uL Neutrophils # (1.80-7.70) 10*3/uL Lymphocytes # (0.90-5.00) 10*3/uL Monocytes # (0.20-1.00) 10*3/uL Eosinophils # (0.04-0.35) 10*3/uL ABG pO2 126 H (83-108) mmHg ABG O2 Saturation 99.0 H (94-97) % ABG Hematocrit (34.0-46.0) % ABG Ionized Calcium (4.5-5.3) mg/dL ABG Glucose (75-99) mg/dL Hemoglobin 10.6 L (13.0-17.5) gm/dL Chloride (98-107) mmol/L BUN (9-20) mg/dL Glucose (74-99) mg/dL POC Glucose (mg/dL) 179 H 183 H (70-110) mg/dL Calcium (8.4-10.2) mg/dL Magnesium (1.6-2.3) mg/dL Total Protein (6.3-8.2) g/dL Albumin (3.5-5.0) g/dL Arterial Blood Glucose (75-99) mg/dL Crossmatch 02/18/25 02/18/25 02/18/25 Range/Units 19:00 19:08 20:10 WBC 11.51 H (4.50-10.00) 10*3/uL RBC 3.52 L (4.40-5.60) 10*6/uL Hgb 9.4 L (13.0-17.0) g/dL Hct 27.9 L (39.6-50.0) % MCV 79.3 L (80.0-97.0) fL MCH 26.7 L (27.0-32.0) pg Plt Count 92 L (140-440) 10*3/uL Immature Gran # (0.00-0.04) 10*3/uL Neutrophils # 10.37 H (1.80-7.70) 10*3/uL Lymphocytes # 0.45 L (0.90-5.00) 10*3/uL Monocytes # (0.20-1.00) 10*3/uL Eosinophils # 0.00 L (0.04-0.35) 10*3/uL ABG pO2 (83-108) mmHg ABG O2 Saturation (94-97) % ABG Hematocrit (34.0-46.0) % ABG Ionized Calcium (4.5-5.3) mg/dL ABG Glucose (75-99) mg/dL Hemoglobin (13.0-17.5) gm/dL Chloride (98-107) mmol/L BUN (9-20) mg/dL Glucose (74-99) mg/dL POC Glucose (mg/dL) 181 H 162 H (70-110) mg/dL Calcium (8.4-10.2) mg/dL Magnesium (1.6-2.3) mg/dL Total Protein (6.3-8.2) g/dL Albumin (3.5-5.0) g/dL Arterial Blood Glucose (75-99) mg/dL Crossmatch 02/18/25 02/18/25 02/18/25 Range/Units 20:46 22:00 22:03 WBC (4.50-10.00) 10*3/uL RBC (4.40-5.60) 10*6/uL Hgb (13.0-17.0) g/dL Hct (39.6-50.0) % MCV (80.0-97.0) fL MCH (27.0-32.0) pg Plt Count (140-440) 10*3/uL Immature Gran # (0.00-0.04) 10*3/uL Neutrophils # (1.80-7.70) 10*3/uL Lymphocytes # (0.90-5.00) 10*3/uL Monocytes # (0.20-1.00) 10*3/uL Eosinophils # (0.04-0.35) 10*3/uL ABG pO2 (83-108) mmHg ABG O2 Saturation (94-97) % ABG Hematocrit (34.0-46.0) % ABG Ionized Calcium (4.5-5.3) mg/dL ABG Glucose (75-99) mg/dL Hemoglobin (13.0-17.5) gm/dL Chloride (98-107) mmol/L BUN 21 H (9-20) mg/dL Glucose 124 H (74-99) mg/dL POC Glucose (mg/dL) 154 H 139 H (70-110) mg/dL Calcium (8.4-10.2) mg/dL Magnesium (1.6-2.3) mg/dL Total Protein (6.3-8.2) g/dL Albumin (3.5-5.0) g/dL Arterial Blood Glucose (75-99) mg/dL Crossmatch 02/18/25 02/19/25 02/19/25 Range/Units 23:05 00:04 01:02 WBC (4.50-10.00) 10*3/uL RBC (4.40-5.60) 10*6/uL Hgb (13.0-17.0) g/dL Hct (39.6-50.0) % MCV (80.0-97.0) fL MCH (27.0-32.0) pg Plt Count (140-440) 10*3/uL Immature Gran # (0.00-0.04) 10*3/uL Neutrophils # (1.80-7.70) 10*3/uL Lymphocytes # (0.90-5.00) 10*3/uL Monocytes # (0.20-1.00) 10*3/uL Eosinophils # (0.04-0.35) 10*3/uL ABG pO2 (83-108) mmHg ABG O2 Saturation (94-97) % ABG Hematocrit (34.0-46.0) % ABG Ionized Calcium (4.5-5.3) mg/dL ABG Glucose (75-99) mg/dL Hemoglobin (13.0-17.5) gm/dL Chloride (98-107) mmol/L BUN (9-20) mg/dL Glucose (74-99) mg/dL POC Glucose (mg/dL) 133 H 127 H 127 H (70-110) mg/dL Calcium (8.4-10.2) mg/dL Magnesium (1.6-2.3) mg/dL Total Protein (6.3-8.2) g/dL Albumin (3.5-5.0) g/dL Arterial Blood Glucose (75-99) mg/dL Crossmatch 02/19/25 02/19/25 02/19/25 Range/Units 01:50 02:53 04:14 WBC (4.50-10.00) 10*3/uL RBC (4.40-5.60) 10*6/uL Hgb (13.0-17.0) g/dL Hct (39.6-50.0) % MCV (80.0-97.0) fL MCH (27.0-32.0) pg Plt Count (140-440) 10*3/uL Immature Gran # (0.00-0.04) 10*3/uL Neutrophils # (1.80-7.70) 10*3/uL Lymphocytes # (0.90-5.00) 10*3/uL Monocytes # (0.20-1.00) 10*3/uL Eosinophils # (0.04-0.35) 10*3/uL ABG pO2 (83-108) mmHg ABG O2 Saturation (94-97) % ABG Hematocrit (34.0-46.0) % ABG Ionized Calcium (4.5-5.3) mg/dL ABG Glucose (75-99) mg/dL Hemoglobin (13.0-17.5) gm/dL Chloride (98-107) mmol/L BUN (9-20) mg/dL Glucose (74-99) mg/dL POC Glucose (mg/dL) 124 H 168 H 149 H (70-110) mg/dL Calcium (8.4-10.2) mg/dL Magnesium (1.6-2.3) mg/dL Total Protein (6.3-8.2) g/dL Albumin (3.5-5.0) g/dL Arterial Blood Glucose (75-99) mg/dL Crossmatch 02/19/25 02/19/25 02/19/25 Range/Units 04:15 04:15 08:01 WBC 12.80 H (4.50-10.00) 10*3/uL RBC 3.55 L (4.40-5.60) 10*6/uL Hgb 9.5 L (13.0-17.0) g/dL Hct 28.1 L (39.6-50.0) % MCV 79.2 L (80.0-97.0) fL MCH 26.8 L (27.0-32.0) pg Plt Count 99 L (140-440) 10*3/uL Immature Gran # 0.07 H (0.00-0.04) 10*3/uL Neutrophils # 11.36 H (1.80-7.70) 10*3/uL Lymphocytes # 0.44 L (0.90-5.00) 10*3/uL Monocytes # (0.20-1.00) 10*3/uL Eosinophils # 0.00 L (0.04-0.35) 10*3/uL ABG pO2 (83-108) mmHg ABG O2 Saturation (94-97) % ABG Hematocrit (34.0-46.0) % ABG Ionized Calcium (4.5-5.3) mg/dL ABG Glucose (75-99) mg/dL Hemoglobin (13.0-17.5) gm/dL Chloride (98-107) mmol/L BUN 21 H (9-20) mg/dL Glucose 130 H (74-99) mg/dL POC Glucose (mg/dL) 144 H (70-110) mg/dL Calcium 8.1 L (8.4-10.2) mg/dL Magnesium (1.6-2.3) mg/dL Total Protein 5.0 L (6.3-8.2) g/dL Albumin 3.3 L (3.5-5.0) g/dL Arterial Blood Glucose (75-99) mg/dL Crossmatch 02/19/25 02/19/25 02/19/25 Range/Units 09:13 11:44 13:20 WBC (4.50-10.00) 10*3/uL RBC (4.40-5.60) 10*6/uL Hgb (13.0-17.0) g/dL Hct (39.6-50.0) % MCV (80.0-97.0) fL MCH (27.0-32.0) pg Plt Count (140-440) 10*3/uL Immature Gran # (0.00-0.04) 10*3/uL Neutrophils # (1.80-7.70) 10*3/uL Lymphocytes # (0.90-5.00) 10*3/uL Monocytes # (0.20-1.00) 10*3/uL Eosinophils # (0.04-0.35) 10*3/uL ABG pO2 (83-108) mmHg ABG O2 Saturation (94-97) % ABG Hematocrit (34.0-46.0) % ABG Ionized Calcium (4.5-5.3) mg/dL ABG Glucose (75-99) mg/dL Hemoglobin (13.0-17.5) gm/dL Chloride (98-107) mmol/L BUN (9-20) mg/dL Glucose (74-99) mg/dL POC Glucose (mg/dL) 160 H 132 H 127 H (70-110) mg/dL Calcium (8.4-10.2) mg/dL Magnesium (1.6-2.3) mg/dL Total Protein (6.3-8.2) g/dL Albumin (3.5-5.0) g/dL Arterial Blood Glucose (75-99) mg/dL Crossmatch Assessment and Plan Assessment: Impression: Status post aortic valve replacement, patient is on mechanical ventilation as expected postoperative day #1 History of coronary artery disease, critical LAD disease status post PCI, patient had previous history of non-ST elevation myocardial infarction History of aortic stenosis, severe aortic valve insufficiency, trileaflet aortic valve History of paroxysmal atrial fibrillation Lifetime non-smoker History of COVID-19 infection Benign essential hypertension Left apical pneumothorax, expected Recommendation: Continue incentive spirometry Maximal medical therapy including Plavix beta-blockers aspirin and statins Continue IV amiodarone for atrial fibrillation prophylaxis Chest x-ray was reviewed, continues to have chest tube in place, patient has a small tiny apical left-sided pneumothorax Early ambulation Incentive spirometry [place] to be removed today Continue Sparrow catheter Will continue to follow Time with Patient: Less than 30
[2025-02-19 14:16] LABS: Glucose,Whole Blood 128 mg/dL (70-110)
[2025-02-19] MEDS: METOCLOPRAMIDE 5 MG/ML 2 ML VIAL IVP PRN (14:21)
[2025-02-19 15:59] LABS: Glucose,Whole Blood 126 mg/dL (70-110)
[2025-02-19 18:04] LABS: Glucose,Whole Blood 144 mg/dL (70-110)
[2025-02-19 19:03] LABS: Glucose,Whole Blood 144 mg/dL (70-110)
[2025-02-19 20:09] LABS: Glucose,Whole Blood 147 mg/dL (70-110)
[2025-02-19] MEDS: ACETAMINOPHEN TAB 325 MG TAB PO PRN (20:17)
[2025-02-19 22:18] LABS: Glucose,Whole Blood 110 mg/dL (70-110)
[2025-02-20 00:12] LABS: Glucose,Whole Blood 142 mg/dL (70-110)
[2025-02-20 01:59] LABS: Glucose,Whole Blood 128 mg/dL (70-110)
[2025-02-20 03:54] LABS: Glucose,Whole Blood 97 mg/dL (70-110)
[2025-02-20 04:36] LABS: Basophils # (A) 0.03 10*3/uL (0.00-0.10); Basophils % (A) 0.2 %; Eosinophils # (A) 0.01 10*3/uL (0.04-0.35); Eosinophils % (A) 0.1 %; HCT 25.5 % (39.6-50.0); HGB 8.5 g/dL (13.0-17.0); Lymphocytes % (A) 7.4 %; MCH 26.9 pg (27.0-32.0); MCHC 33.3 g/dL (32.0-37.0); MCV 80.7 fL (80.0-97.0); Mean Platelet Volume 11.6 fL (9.5-12.2); Monocytes # (A) 1.26 10*3/uL (0.20-1.00); Monocytes % (A) 8.5 %; Neutrophils # (A) 12.35 10*3/uL (1.80-7.70); Neutrophils % (A) 83.3 %; RBC 3.16 10*6/uL (4.40-5.60); WBC 14.82 10*3/uL (4.50-10.00)
[2025-02-20 04:44] LABS: Platelet Count 90 10*3/uL (140-440)
[2025-02-20 05:00] LABS: Ionized Calcium 4.8 mg/dL (4.5-5.3)
[2025-02-20 05:08] LABS: ALT 14 U/L (4-49); AST 30 U/L (17-59); African American GFR (CKD) 83 (>60 ml/min/1.73 sqM); Albumin 3.1 g/dL (3.5-5.0); Alkaline Phosphatase 46 U/L (38-126); Anion Gap 4 mmol/L; Blood Urea Nitrogen 29 mg/dL (9-20); Calcium 8.4 mg/dL (8.4-10.2); Carbon Dioxide 27 mmol/L (22-30); Chloride 104 mmol/L (98-107); Glucose 83 mg/dL (74-99); Non-African American GFR(CKD) 72 (>60 ml/min/1.73 sqM); Potassium 4.2 mmol/L (3.5-5.1); Sodium 135 mmol/L (137-145); Total Bilirubin 0.9 mg/dL (0.2-1.3); Total Protein 4.9 g/dL (6.3-8.2)
[2025-02-20] MEDS: PANTOPRAZOLE 40 MG TABLET PO SCH (05:39)
[2025-02-20 06:13] LABS: Glucose,Whole Blood 148 mg/dL (70-110)
--- NOTE | 2025-02-20 08:00 | P.PN ---
Subjective Progress Note Date: 02/20/25 Principal diagnosis: Severe aortic insufficiency, paroxysmal atrial fibrillation. History of coronary artery disease with non-STEMI status post PCI to the LAD, bradycardia, hypertension, borderline diabetes with diet control, left renal lesion in need of partial nephrectomy in the future, questionable sleep apnea (patient never tested but exhibits symptoms), lifelong non-smoker, premature coronary artery disease in his father POD #2 aortic valve replacement with 25 mm García Inspiris bioprosthetic valve, ligation of the left atrial appendage using a 35mm AtriClip, bilateral pulmonary vein isolation, epiaortic ultrasound, intraoperative transesophageal echocardiogram Postoperative acute blood loss anemia, expected given hemodilution and cardiopulmonary bypass pump The patient was seen and examined this morning sitting up in a recliner in the intensive care unit in no acute distress. Currently sinus rhythm with heart rate in the 70s, hemodynamically stable on no inotropes or pressors. States pain controlled with current medication regimen. Remains on 2 L nasal cannula with oxygen saturation in the mid 90s, able to achieve 1500 mL on incentive spirometry. Chest x-ray, labs reviewed. Right internal jugular cordis, right radial arterial line, mediastinal/right/left pleural chest tubes all remain. Patient did ambulate in the hallway this morning and tolerated well. Does state he feels a bit better than yesterday. No other new concerns. Objective - Vital Signs Vital signs: Vital Signs Temp 98.5 F 02/20/25 04:00 Pulse 75 02/20/25 07:00 Resp 12 02/20/25 07:00 BP 113/65 02/20/25 07:00 Pulse Ox 96 02/20/25 07:00 FiO2 40 02/18/25 16:10 Intake & Output 02/19/25 02/20/25 02/20/25 18:59 06:59 18:59 Intake Total 1425.425 556.857 Output Total 785 870 Balance 640.425 -313.143 Weight 104.4 kg 106.2 kg Intake: IV 641 488 Pressure Bag 81 78 Sodium Chloride 0.9% 1, 510 410 000 ml @ 30 mls/hr IV . Q24H [facility] Rx#:[id number] ceFAZolin 2 gm In 50 Dextrose 5% in Water 50 ml @ 100 mls/hr IVPB Q8HR [facility] Rx#:[id number] Intake, IV Titration 284.425 68.857 Amount Amiodarone 450 mg In 250 Dextrose 5% in Water 250 ml @ 0.5 MG/MIN 16.667 mls/hr IV .Q15H [facility] Rx#: [id number] Insulin Regular 100 unit 34.425 68.857 In Sodium Chloride 0.9% 100 ml @ Per Protocol IV .Q0M [facility] Rx#:[id number] Oral 500 Output: Chest Tube Drainage 400 365 Left Pleural 110 133 Mediastinal 120 125 Right Pleural 170 107 Urine 385 505 Other: Voiding Method Indwelling Catheter Indwelling Catheter ABP, PAP, CO, CI - Last Documented Arterial Blood Pressure 143/53 Pulmonary Artery Pressure 26/7 Cardiac Output 6.3 Cardiac Index 2.8 - Exam CONSTITUTIONAL: Appears mostly comfortable, cooperative, no acute distress RESPIRATORY: Lungs sounds diminished in the bases bilaterally. Respirations even, nonlabored. Currently on 2 L nasal cannula with oxygen saturation 95%. Able to achieve 1500 mL on incentive spirometry. Strong cough. CARDIOVASCULAR: S1, S2 present. Regular rate and rhythm, sinus rhythm on tele metry. Sternum stable. Palpable peripheral pulses bilaterally. No edema present. No calf pain or tenderness noted. Heart hugger in place with patient demonstrating appropriate use. Antiembolism stockings, SCDs present. GASTROINTESTINAL: Abdomen soft, nontender, nondistended. Active bowel sounds present 4 quadrants. Tolerating clear liquids. Positive flatus GENITOURINARY: Sparrow present draining clear, yellow urine. Output overnight 30-50 mL per hour, 890 mL in the last 24 hours INTEGUMENTARY: Skin is warm and dry with evidence of good perfusion. Anterior chest incision well approximated and covered with dry intact dressing NEUROLOGIC: Cranial nerves II through XII intact MUSKULOSKELETAL: Able to move all extremities, strength equal bilaterally, gait normal PSYCHIATRIC: Alert and oriented to person place and time, appropriate affect, intact judgment and insight INVASIVE LINES AND TUBES: Mediastinal/left/right pleural chest tubes present and connected to wall suction, single tiny air leak present in left chest tube with coughing. Mediastinal tube with 70 mL serosanguineous drainage overnight, 200 mL last 24 hours. Left pleural chest tube with 75 mL serosanguineous drainage overnight, 220 mL in the last 24 hours. Right pleural chest tube with 60 mL serosanguineous drainage overnight, 250 mL in the last 24 hours. A/V epicardial pacemaker wires present, connected to generator, backup rate 50 bpm. Right internal jugular cordis, right radial arterial line present. Last CVP 8. - Allied health notes Allied health notes reviewed: nursing - Labs CBC & Chem 7: 02/20/25 03:56 02/20/25 03:56 Labs: Abnormal Lab Results - Last 24 Hours (Table) 02/19/25 02/19/25 02/19/25 Range/Units 08:01 09:13 11:44 WBC (4.50-10.00) 10*3/uL RBC (4.40-5.60) 10*6/uL Hgb (13.0-17.0) g/dL Hct (39.6-50.0) % MCH (27.0-32.0) pg Plt Count (140-440) 10*3/uL Immature Gran # (0.00-0.04) 10*3/uL Neutrophils # (1.80-7.70) 10*3/uL Monocytes # (0.20-1.00) 10*3/uL Eosinophils # (0.04-0.35) 10*3/uL Sodium (137-145) mmol/L BUN (9-20) mg/dL POC Glucose (mg/dL) 144 H 160 H 132 H (70-110) mg/dL Total Protein (6.3-8.2) g/dL Albumin (3.5-5.0) g/dL 02/19/25 02/19/25 02/19/25 Range/Units 13:20 14:14 15:57 WBC (4.50-10.00) 10*3/uL RBC (4.40-5.60) 10*6/uL Hgb (13.0-17.0) g/dL Hct (39.6-50.0) % MCH (27.0-32.0) pg Plt Count (140-440) 10*3/uL Immature Gran # (0.00-0.04) 10*3/uL Neutrophils # (1.80-7.70) 10*3/uL Monocytes # (0.20-1.00) 10*3/uL Eosinophils # (0.04-0.35) 10*3/uL Sodium (137-145) mmol/L BUN (9-20) mg/dL POC Glucose (mg/dL) 127 H 128 H 126 H (70-110) mg/dL Total Protein (6.3-8.2) g/dL Albumin (3.5-5.0) g/dL 02/19/25 02/19/25 02/19/25 Range/Units 18:02 19:01 20:07 WBC (4.50-10.00) 10*3/uL RBC (4.40-5.60) 10*6/uL Hgb (13.0-17.0) g/dL Hct (39.6-50.0) % MCH (27.0-32.0) pg Plt Count (140-440) 10*3/uL Immature Gran # (0.00-0.04) 10*3/uL Neutrophils # (1.80-7.70) 10*3/uL Monocytes # (0.20-1.00) 10*3/uL Eosinophils # (0.04-0.35) 10*3/uL Sodium (137-145) mmol/L BUN (9-20) mg/dL POC Glucose (mg/dL) 144 H 144 H 147 H (70-110) mg/dL Total Protein (6.3-8.2) g/dL Albumin (3.5-5.0) g/dL 02/20/25 02/20/25 02/20/25 Range/Units 00:10 01:57 03:56 WBC 14.82 H (4.50-10.00) 10*3/uL RBC 3.16 L (4.40-5.60) 10*6/uL Hgb 8.5 L (13.0-17.0) g/dL Hct 25.5 L (39.6-50.0) % MCH 26.9 L (27.0-32.0) pg Plt Count 90 L (140-440) 10*3/uL Immature Gran # 0.07 H (0.00-0.04) 10*3/uL Neutrophils # 12.35 H (1.80-7.70) 10*3/uL Monocytes # 1.26 H (0.20-1.00) 10*3/uL Eosinophils # 0.01 L (0.04-0.35) 10*3/uL Sodium (137-145) mmol/L BUN (9-20) mg/dL POC Glucose (mg/dL) 142 H 128 H (70-110) mg/dL Total Protein (6.3-8.2) g/dL Albumin (3.5-5.0) g/dL 02/20/25 02/20/25 Range/Units 03:56 06:12 WBC (4.50-10.00) 10*3/uL RBC (4.40-5.60) 10*6/uL Hgb (13.0-17.0) g/dL Hct (39.6-50.0) % MCH (27.0-32.0) pg Plt Count (140-440) 10*3/uL Immature Gran # (0.00-0.04) 10*3/uL Neutrophils # (1.80-7.70) 10*3/uL Monocytes # (0.20-1.00) 10*3/uL Eosinophils # (0.04-0.35) 10*3/uL Sodium 135 L (137-145) mmol/L BUN 29 H (9-20) mg/dL POC Glucose (mg/dL) 148 H (70-110) mg/dL Total Protein 4.9 L (6.3-8.2) g/dL Albumin 3.1 L (3.5-5.0) g/dL - Imaging and Cardiology Chest x-ray: image reviewed Assessment and Plan Assessment: Severe aortic insufficiency, status post aortic valve replacement Paroxysmal atrial fibrillation, status post ligation of the left atrial appendage, bilateral pulmonary vein isolation Postoperative acute blood loss anemia, expected given hemodilution and cardiopulmonary bypass pump History of coronary artery disease with non-STEMI status post PCI to the LAD Bradycardia Hypertension Borderline diabetes with diet control, hemoglobin A1c 6.7% Left renal lesion in need of partial nephrectomy in the future Questionable sleep apnea (patient never tested but exhibits symptoms) Lifelong non-smoker, preoperative FEV1 103% of predicted Premature coronary artery disease in his father Plan: Continue to maximize medical therapy with aspirin, statin, Plavix, beta-lizbeth. Will increase beta-lizbeth therapy as tolerated Will start oral amiodarone today, no anticoagulation necessary Wean oxygen as tolerated. Encourage incentive spirometry use 10 times every hour while awake. Bronchodilators per pulmonology Increase activity, ambulate as tolerated. PT/OT/cardiac rehab consulted Will monitor daily labs and x-rays, electrolyte replacement per protocol GI/DVT prophylaxis Pain control per current medication regimen Insulin management per internal medicine Daily weights Discontinue cordis, keep arterial line until patient has a bed on 3 S. Will discontinue mediastinal chest tube, continue pleural chest tubes for anoth er 24 hours, monitor and record output Discontinue Sparrow catheter, may bladder scan and straight cath for greater than 300 mL residual Continue to monitor strict accurate intake and output Will place transfer orders for 3 S. cardiac stepdown unit, may transfer when bed available More recommendations to follow
[2025-02-20 08:04] LABS: Glucose,Whole Blood 165 mg/dL (70-110)
[2025-02-20] MEDS: AMIODARONE 200 MG TAB PO SCH (08:44)
[2025-02-20 09:03] LABS: Glucose,Whole Blood 167 mg/dL (70-110)
--- NOTE | 2025-02-20 09:08 | XR ---
EXAMINATION TYPE: XR chest 1V portable DATE OF EXAM: 02/20/2025 4:32 AM COMPARISON: 02/19/2025 CLINICAL INDICATION: Male, 69 years old with history of Post Operative Cardiac Surgery, TECHNIQUE: XR chest 1V portable view(s) obtained. FINDINGS: The heart size is enlarged. The pulmonary vasculature is normal. Mild infiltrates scattered within the mid to lower left lung field may be some atelectasis. There is a small left apical pneumothorax. This appears slightly diminished from comparison. Left-zena ed chest tube remains present. Mediastinal tube is present. Sternotomy wires from cardiac valve surge ry are evident. IMPRESSION: 1. Slightly diminished left apical pneumothorax. Left-sided chest tube remains present. [facility], , 02/20/2025 9:05 AM
[2025-02-20 10:01] LABS: Glucose,Whole Blood 135 mg/dL (70-110)
--- NOTE | 2025-02-20 10:17 | P.PN ---
Subjective Progress Note Date: 02/20/25 PROGRESS NOTE The patient is a 69-year-old male with known history of aortic insufficiency, CAD status post stenting of the LAD in the setting of non-STEMI in July 2020 for who underwent aortic valve replacement with Inspiris valve, atrial fibrillation ablation and ligation of the left atrial appendage. He is extubated, sitting up in the chair, complaining of chest wall tenderness. He is in sinus mechanism and hemodynamically stable on no vasopressors. By echocardiogram in the past he had an ejection fraction of 50% with severe aortic regurgitation with a tricuspid aortic valve by FARA. According to him he has been complaining of continuous dyspnea on exertion. On repeat cardiac catheteri zation the LAD stent was patent. He has a reported history of paroxysmal atrial fibrillation. He has a history of hypertension and hyperlipidemia, he is nondiabetic, non-smoker. February 20: The patient feels better today, he continues to have some soreness but improving. He continues to be in sinus mechanism, hemodynamically stable. His [place] catheter has been removed as well as mediastinal tube. He has ambulated yesterday. He continues to be in sinus mechanism. Medications: Aspirin, Lipitor 40 mg daily, Plavix 75 mg daily, metoprolol 12.5 mg twice a day PHYSICAL EXAMINATION: Blood pressure 139/50 heart rate 60 LUNGS: Few crackles at the bases HEART: Regular rate and rhythm, S1, S2. No S3. Systolic ejection murmur, rub noted ABDOMEN: Soft, nontender, no organomegaly EXTREMETIES: No edema LAB: Hemoglobin 8.5, BUN 29, creatinine 1.05 IMPRESSION: 1. Status post aortic valve replacement for severe aortic regurgitation 2. History of CAD status post stenting of the LAD 3. Hyperlipidemia 4. History of hypertension PLAN: 1. Continue present therapy 2. Increase physical activity 3. Adjust dose of beta-lizbeth depending on the blood pressure 4. Depending on his progress further recommendations will be made Objective - Vital Signs Vital signs: Vital Signs Temp 98.2 F 02/20/25 08:00 Pulse 68 02/20/25 09:00 Resp 15 02/20/25 09:00 BP 101/60 02/20/25 09:00 Pulse Ox 99 02/20/25 09:00 FiO2 40 02/18/25 16:10 Intake & Output 02/19/25 02/20/25 02/20/25 18:59 06:59 18:59 Intake Total 1425.425 556.857 72 Output Total 785 870 20 Balance 640.425 -313.143 52 Weight 104.4 kg 106.2 kg Intake: IV 641 488 72 Pressure Bag 81 78 12 Sodium Chloride 0.9% 1, 510 410 60 000 ml @ 30 mls/hr IV . Q24H [facility] Rx#:[id number] ceFAZolin 2 gm In 50 Dextrose 5% in Water 50 ml @ 100 mls/hr IVPB Q8HR [facility] Rx#:[id number] Intake, IV Titration 284.425 68.857 Amount Amiodarone 450 mg In 250 Dextrose 5% in Water 250 ml @ 0.5 MG/MIN 16.667 mls/hr IV .Q15H [facility] Rx#: [id number] Insulin Regular 100 unit 34.425 68.857 In Sodium Chloride 0.9% 100 ml @ Per Protocol IV .Q0M [facility] Rx#:[id number] Oral 500 Output: Chest Tube Drainage 400 365 20 Left Pleural 110 133 0 Mediastinal 120 125 0 Right Pleural 170 107 20 Urine 385 505 Other: Voiding Method Indwelling Catheter Indwelling Catheter Indwelling Catheter ABP, PAP, CO, CI - Last Documented Arterial Blood Pressure 139/49 Pulmonary Artery Pressure 26/7 Cardiac Output 6.3 Cardiac Index 2.8 - Labs CBC & Chem 7: 02/20/25 03:56 02/20/25 03:56 Labs: Abnormal Lab Results - Last 24 Hours (Table) 02/19/25 02/19/25 02/19/25 Range/Units 11:44 13:20 14:14 WBC (4.50-10.00) 10*3/uL RBC (4.40-5.60) 10*6/uL Hgb (13.0-17.0) g/dL Hct (39.6-50.0) % MCH (27.0-32.0) pg Plt Count (140-440) 10*3/uL Immature Gran # (0.00-0.04) 10*3/uL Neutrophils # (1.80-7.70) 10*3/uL Monocytes # (0.20-1.00) 10*3/uL Eosinophils # (0.04-0.35) 10*3/uL Sodium (137-145) mmol/L BUN (9-20) mg/dL POC Glucose (mg/dL) 132 H 127 H 128 H (70-110) mg/dL Total Protein (6.3-8.2) g/dL Albumin (3.5-5.0) g/dL 02/19/25 02/19/25 02/19/25 Range/Units 15:57 18:02 19:01 WBC (4.50-10.00) 10*3/uL RBC (4.40-5.60) 10*6/uL Hgb (13.0-17.0) g/dL Hct (39.6-50.0) % MCH (27.0-32.0) pg Plt Count (140-440) 10*3/uL Immature Gran # (0.00-0.04) 10*3/uL Neutrophils # (1.80-7.70) 10*3/uL Monocytes # (0.20-1.00) 10*3/uL Eosinophils # (0.04-0.35) 10*3/uL Sodium (137-145) mmol/L BUN (9-20) mg/dL POC Glucose (mg/dL) 126 H 144 H 144 H (70-110) mg/dL Total Protein (6.3-8.2) g/dL Albumin (3.5-5.0) g/dL 02/19/25 02/20/25 02/20/25 Range/Units 20:07 00:10 01:57 WBC (4.50-10.00) 10*3/uL RBC (4.40-5.60) 10*6/uL Hgb (13.0-17.0) g/dL Hct (39.6-50.0) % MCH (27.0-32.0) pg Plt Count (140-440) 10*3/uL Immature Gran # (0.00-0.04) 10*3/uL Neutrophils # (1.80-7.70) 10*3/uL Monocytes # (0.20-1.00) 10*3/uL Eosinophils # (0.04-0.35) 10*3/uL Sodium (137-145) mmol/L BUN (9-20) mg/dL POC Glucose (mg/dL) 147 H 142 H 128 H (70-110) mg/dL Total Protein (6.3-8.2) g/dL Albumin (3.5-5.0) g/dL 02/20/25 02/20/25 02/20/25 Range/Units 03:56 03:56 06:12 WBC 14.82 H (4.50-10.00) 10*3/uL RBC 3.16 L (4.40-5.60) 10*6/uL Hgb 8.5 L (13.0-17.0) g/dL Hct 25.5 L (39.6-50.0) % MCH 26.9 L (27.0-32.0) pg Plt Count 90 L (140-440) 10*3/uL Immature Gran # 0.07 H (0.00-0.04) 10*3/uL Neutrophils # 12.35 H (1.80-7.70) 10*3/uL Monocytes # 1.26 H (0.20-1.00) 10*3/uL Eosinophils # 0.01 L (0.04-0.35) 10*3/uL Sodium 135 L (137-145) mmol/L BUN 29 H (9-20) mg/dL POC Glucose (mg/dL) 148 H (70-110) mg/dL Total Protein 4.9 L (6.3-8.2) g/dL Albumin 3.1 L (3.5-5.0) g/dL 02/20/25 02/20/25 02/20/25 Range/Units 08:01 09:01 10:00 WBC (4.50-10.00) 10*3/uL RBC (4.40-5.60) 10*6/uL Hgb (13.0-17.0) g/dL Hct (39.6-50.0) % MCH (27.0-32.0) pg Plt Count (140-440) 10*3/uL Immature Gran # (0.00-0.04) 10*3/uL Neutrophils # (1.80-7.70) 10*3/uL Monocytes # (0.20-1.00) 10*3/uL Eosinophils # (0.04-0.35) 10*3/uL Sodium (137-145) mmol/L BUN (9-20) mg/dL POC Glucose (mg/dL) 165 H 167 H 135 H (70-110) mg/dL Total Protein (6.3-8.2) g/dL Albumin (3.5-5.0) g/dL
[2025-02-20] MEDS ORDERED: DEXTROSE 50% SYRINGE 50 ML IVP PRN ×2 (10:41)
[2025-02-20 11:10] LABS: Glucose,Whole Blood 113 mg/dL (70-110)
[2025-02-20] MEDS: INSULIN LISPRO (HumaLOG) 100 UNIT/ML 10 mL VL SQ SCH (11:53)
--- NOTE | 2025-02-20 12:17 | P.PN ---
Subjective Progress Note Date: 02/20/25 Subjective: Patient seen and examined at bedside. No acute events overnight. Pertinent positives and negatives as discussed above, a complete review of systems was performed and all other systems are negative. Vitals Signs Reviewed. General: Nontoxic, no distress, appears at stated age, Sparrow catheter in place Derm: Warm, dry heart hugger in place, chest tubes in place Head: Atraumatic, normocephalic, symmetric Eyes: EOMI, no lid lag, anicteric sclera Mouth: No lip lesion, mucus membranes moist Cardiovascular: S1S2 reg, no murmur Lungs: CTA bilateral, no rhonchi, no rales, no accessory muscle use Abdominal: Soft, nontender to palpation, no guarding, no appreciable organomegaly Ext: No gross muscle atrophy, no edema, no contractures Neuro: CN II-XI grossly intact, no focal neuro deficits Psych: Alert, oriented, appropriate affect Data Reviewed Today: Pertinent Labs: WBC 14.82, hemoglobin 8.5, platelet 90, creatinine 1.05, blood sugars range between 97-1 65 Imaging: Chest x-ray independently interpreted, shows postoperative changes, small left apical pneumothorax Assessment and Plan: Aortic valve insufficiency status post aortic valve replacement Acute blood loss anemia, anticipated outcome of surgery Thrombocytopenia, anticipated outcome of surgery Leukocytosis, anticipated, surgery Small left apical pneumothorax Paroxysmal atrial fibrillation Hypertension Dyslipidemia CAD - On aspirin 325 mg, atorvastatin 40 mg, Plavix 75 mg, metoprolol 12.5 twice daily, amiodarone 400 twice daily - Cardiothoracic surgery note reviewed, continue pleural chest tube for another 24 hours, DC Sparrow catheter - Pulmonology and cardiology following - Pain control, DVT prophylaxis, GI prophylaxis per cardiothoracic surgery Type 2 diabetes, A1c 6.7 - discontinued insulin drip - transitioned to SSI, monitor for hypoglycemia Thank you for allowing us to participate in the care of this pleasant patient. Do not hesitate to contact us with questions. Someone can be reached from the [facility] hospitalist group all hours of the day at [phone] or via perfect serve. Objective - Vital Signs Vital signs: Vital Signs Temp 98.2 F 02/20/25 12:00 Pulse 64 02/20/25 12:00 Resp 16 02/20/25 12:00 BP 96/58 02/20/25 12:00 Pulse Ox 96 02/20/25 12:00 FiO2 40 02/18/25 16:10 Intake & Output 02/19/25 02/20/25 02/20/25 18:59 06:59 18:59 Intake Total 1425.425 556.857 101.164 Output Total 785 870 20 Balance 640.425 -313.143 81.164 Weight 104.4 kg 106.2 kg Intake: IV 641 488 72 Pressure Bag 81 78 12 Sodium Chloride 0.9% 1, 510 410 60 000 ml @ 30 mls/hr IV . Q24H [facility] Rx#:[id number] ceFAZolin 2 gm In 50 Dextrose 5% in Water 50 ml @ 100 mls/hr IVPB Q8HR [facility] Rx#:[id number] Intake, IV Titration 284.425 68.857 29.164 Amount Amiodarone 450 mg In 250 Dextrose 5% in Water 250 ml @ 0.5 MG/MIN 16.667 mls/hr IV .Q15H [facility] Rx#: [id number] Insulin Regular 100 unit 34.425 68.857 29.164 In Sodium Chloride 0.9% 100 ml @ Per Protocol IV .Q0M [facility] Rx#:[id number] Oral 500 Output: Chest Tube Drainage 400 365 20 Left Pleural 110 133 0 Mediastinal 120 125 0 Right Pleural 170 107 20 Urine 385 505 Other: Voiding Method Indwelling Catheter Indwelling Catheter Indwelling Catheter ABP, PAP, CO, CI - Last Documented Arterial Blood Pressure 105/51 Pulmonary Artery Pressure 26/7 Cardiac Output 6.3 Cardiac Index 2.8 - Labs CBC & Chem 7: 02/20/25 03:56 02/20/25 03:56 Labs: Abnormal Lab Results - Last 24 Hours (Table) 02/19/25 02/19/25 02/19/25 Range/Units 13:20 14:14 15:57 WBC (4.50-10.00) 10*3/uL RBC (4.40-5.60) 10*6/uL Hgb (13.0-17.0) g/dL Hct (39.6-50.0) % MCH (27.0-32.0) pg Plt Count (140-440) 10*3/uL Immature Gran # (0.00-0.04) 10*3/uL Neutrophils # (1.80-7.70) 10*3/uL Monocytes # (0.20-1.00) 10*3/uL Eosinophils # (0.04-0.35) 10*3/uL Sodium (137-145) mmol/L BUN (9-20) mg/dL POC Glucose (mg/dL) 127 H 128 H 126 H (70-110) mg/dL Total Protein (6.3-8.2) g/dL Albumin (3.5-5.0) g/dL 02/19/25 02/19/25 02/19/25 Range/Units 18:02 19:01 20:07 WBC (4.50-10.00) 10*3/uL RBC (4.40-5.60) 10*6/uL Hgb (13.0-17.0) g/dL Hct (39.6-50.0) % MCH (27.0-32.0) pg Plt Count (140-440) 10*3/uL Immature Gran # (0.00-0.04) 10*3/uL Neutrophils # (1.80-7.70) 10*3/uL Monocytes # (0.20-1.00) 10*3/uL Eosinophils # (0.04-0.35) 10*3/uL Sodium (137-145) mmol/L BUN (9-20) mg/dL POC Glucose (mg/dL) 144 H 144 H 147 H (70-110) mg/dL Total Protein (6.3-8.2) g/dL Albumin (3.5-5.0) g/dL 02/20/25 02/20/25 02/20/25 Range/Units 00:10 01:57 03:56 WBC 14.82 H (4.50-10.00) 10*3/uL RBC 3.16 L (4.40-5.60) 10*6/uL Hgb 8.5 L (13.0-17.0) g/dL Hct 25.5 L (39.6-50.0) % MCH 26.9 L (27.0-32.0) pg Plt Count 90 L (140-440) 10*3/uL Immature Gran # 0.07 H (0.00-0.04) 10*3/uL Neutrophils # 12.35 H (1.80-7.70) 10*3/uL Monocytes # 1.26 H (0.20-1.00) 10*3/uL Eosinophils # 0.01 L (0.04-0.35) 10*3/uL Sodium (137-145) mmol/L BUN (9-20) mg/dL POC Glucose (mg/dL) 142 H 128 H (70-110) mg/dL Total Protein (6.3-8.2) g/dL Albumin (3.5-5.0) g/dL 02/20/25 02/20/25 02/20/25 Range/Units 03:56 06:12 08:01 WBC (4.50-10.00) 10*3/uL RBC (4.40-5.60) 10*6/uL Hgb (13.0-17.0) g/dL Hct (39.6-50.0) % MCH (27.0-32.0) pg Plt Count (140-440) 10*3/uL Immature Gran # (0.00-0.04) 10*3/uL Neutrophils # (1.80-7.70) 10*3/uL Monocytes # (0.20-1.00) 10*3/uL Eosinophils # (0.04-0.35) 10*3/uL Sodium 135 L (137-145) mmol/L BUN 29 H (9-20) mg/dL POC Glucose (mg/dL) 148 H 165 H (70-110) mg/dL Total Protein 4.9 L (6.3-8.2) g/dL Albumin 3.1 L (3.5-5.0) g/dL 02/20/25 02/20/25 02/20/25 Range/Units 09:01 10:00 11:09 WBC (4.50-10.00) 10*3/uL RBC (4.40-5.60) 10*6/uL Hgb (13.0-17.0) g/dL Hct (39.6-50.0) % MCH (27.0-32.0) pg Plt Count (140-440) 10*3/uL Immature Gran # (0.00-0.04) 10*3/uL Neutrophils # (1.80-7.70) 10*3/uL Monocytes # (0.20-1.00) 10*3/uL Eosinophils # (0.04-0.35) 10*3/uL Sodium (137-145) mmol/L BUN (9-20) mg/dL POC Glucose (mg/dL) 167 H 135 H 113 H (70-110) mg/dL Total Protein (6.3-8.2) g/dL Albumin (3.5-5.0) g/dL
--- NOTE | 2025-02-20 12:43 | P.PN ---
Subjective Progress Note Date: 02/20/25 Principal diagnosis: POD #2 aortic valve replacement with 25 mm García Inspiris bioprosthetic valve, ligation of the left atrial appendage using a 35mm AtriClip, bilateral pulmonary vein isolation, epiaortic ultrasound, intraoperative transesophageal echocardiogram This is a 69-year-old white male, primarily patient with Dr. Munoz, patient was recently evaluated for aortic valve insufficiency, seen back previously by cardiothoracic surgery in July of 2024. Since then the patient had extensive cardiac workup, today the patient underwent aortic valve replacement b jennifer Shafer, postoperatively patient was admitted to the ICU, and we were asked to see him in consultation. Patient is intubated, mechanically ventilated, he is on assist-control rate of 12, tidal volume of 600, FiO2 brought down to 40% from 100% initially after his ABG, and PEEP was 5. Patient is not requiring any pressors, not requiring any inotropes, is mostly on IV fluid, and on propofol at 25 mcg/kg/min. Cardiac output is 4.6, cardiac index is 2.0, chest x-ray showed no evidence of active disease, postoperative changes mostly. Patient was seen today on 02/19/2025, patient is sitting in the recliner, does not seem to be in any distress, he was extubated at 1705 last night, not requiri ng any pressors or any inotropes, he is on IV amiodarone for atrial fibrillation prophylaxis. Complaining of postsurgical pain, chest x-ray showed small left apical pneumothorax, expected, patient does have some minimal atelectasis at the bases. Continues to have mediastinal right and left pleural chest tubes in place, overall the patient is asymptomatic except for pain. WBC count is 12.8 hemoglobin 9.5 electrolytes are normal bicarb is normal renal profile is normal Patient was seen today on 02/20/2025, postoperative day #2aortic valve replacement with 25 mm García Inspiris bioprosthetic valve, ligation of the left atrial appendage using a 35mm AtriClip, bilateral pulmonary vein isolation, epiaortic ultrasound, intraoperative transesophageal echocardiogram patient is doing fairly well not in any distress, sitting at the bedside recliner, in sinus rhythm, hemodynamically stable, on 2 L nasal cannula, achieving 1500 mL with his incentive spirometry chest x-ray showed minimal basilar atelectasis and small tiny left apical left-sided pneumothorax. Patient has been ambulating in the hallway with assistance. WBC count is 14.8 hemoglobin 8.5, basic metabolic profile is normal renal profile is normal Objective - Vital Signs Vital signs: Vital Signs Temp 98.2 F 02/20/25 12:00 Pulse 64 02/20/25 12:00 Resp 16 02/20/25 12:00 BP 96/58 02/20/25 12:00 Pulse Ox 96 02/20/25 12:00 FiO2 40 02/18/25 16:10 Intake & Output 02/19/25 02/20/25 02/20/25 18:59 06:59 18:59 Intake Total 1425.425 556.857 101.164 Output Total 785 870 20 Balance 640.425 -313.143 81.164 Weight 104.4 kg 106.2 kg Intake: IV 641 488 72 Pressure Bag 81 78 12 Sodium Chloride 0.9% 1, 510 410 60 000 ml @ 30 mls/hr IV . Q24H [facility] Rx#:[id number] ceFAZolin 2 gm In 50 Dextrose 5% in Water 50 ml @ 100 mls/hr IVPB Q8HR [facility] Rx#:[id number] Intake, IV Titration 284.425 68.857 29.164 Amount Amiodarone 450 mg In 250 Dextrose 5% in Water 250 ml @ 0.5 MG/MIN 16.667 mls/hr IV .Q15H [facility] Rx#: [id number] Insulin Regular 100 unit 34.425 68.857 29.164 In Sodium Chloride 0.9% 100 ml @ Per Protocol IV .Q0M [facility] Rx#:[id number] Oral 500 Output: Chest Tube Drainage 400 365 20 Left Pleural 110 133 0 Mediastinal 120 125 0 Right Pleural 170 107 20 Urine 385 505 Other: Voiding Method Indwelling Catheter Indwelling Catheter Indwelling Catheter ABP, PAP, CO, CI - Last Documented Arterial Blood Pressure 105/51 Pulmonary Artery Pressure 26/7 Cardiac Output 6.3 Cardiac Index 2.8 - Exam CONSTITUTIONAL: Revealed 69-year-old white male in no distress, on 2 L nasal cannula RESPIRATORY: Diminished breath sounds at the bases no crackles rhonchi or wheezes CARDIOVASCULAR: Distant S1-S2, no S3 gallop, 2/6 systolic murmur GASTROINTESTINAL: Soft nontender no masses no rebound no guarding INTEGUMENTARY: No rashes NEUROLOGIC: Alert oriented x 3 no gross focal deficit MUSKULOSKELETAL: No deformities and no limitation range of motion PSYCHIATRIC: Normal mood affect and no mental status examination INVASIVE LINES AND TUBES: left/right pleural chest tubes present, mediastinal chest tube has been removed - Labs CBC & Chem 7: 02/20/25 03:56 02/20/25 03:56 Labs: Abnormal Lab Results - Last 24 Hours (Table) 02/19/25 02/19/25 02/19/25 Range/Units 13:20 14:14 15:57 WBC (4.50-10.00) 10*3/uL RBC (4.40-5.60) 10*6/uL Hgb (13.0-17.0) g/dL Hct (39.6-50.0) % MCH (27.0-32.0) pg Plt Count (140-440) 10*3/uL Immature Gran # (0.00-0.04) 10*3/uL Neutrophils # (1.80-7.70) 10*3/uL Monocytes # (0.20-1.00) 10*3/uL Eosinophils # (0.04-0.35) 10*3/uL Sodium (137-145) mmol/L BUN (9-20) mg/dL POC Glucose (mg/dL) 127 H 128 H 126 H (70-110) mg/dL Total Protein (6.3-8.2) g/dL Albumin (3.5-5.0) g/dL 02/19/25 02/19/25 02/19/25 Range/Units 18:02 19:01 20:07 WBC (4.50-10.00) 10*3/uL RBC (4.40-5.60) 10*6/uL Hgb (13.0-17.0) g/dL Hct (39.6-50.0) % MCH (27.0-32.0) pg Plt Count (140-440) 10*3/uL Immature Gran # (0.00-0.04) 10*3/uL Neutrophils # (1.80-7.70) 10*3/uL Monocytes # (0.20-1.00) 10*3/uL Eosinophils # (0.04-0.35) 10*3/uL Sodium (137-145) mmol/L BUN (9-20) mg/dL POC Glucose (mg/dL) 144 H 144 H 147 H (70-110) mg/dL Total Protein (6.3-8.2) g/dL Albumin (3.5-5.0) g/dL 02/20/25 02/20/25 02/20/25 Range/Units 00:10 01:57 03:56 WBC 14.82 H (4.50-10.00) 10*3/uL RBC 3.16 L (4.40-5.60) 10*6/uL Hgb 8.5 L (13.0-17.0) g/dL Hct 25.5 L (39.6-50.0) % MCH 26.9 L (27.0-32.0) pg Plt Count 90 L (140-440) 10*3/uL Immature Gran # 0.07 H (0.00-0.04) 10*3/uL Neutrophils # 12.35 H (1.80-7.70) 10*3/uL Monocytes # 1.26 H (0.20-1.00) 10*3/uL Eosinophils # 0.01 L (0.04-0.35) 10*3/uL Sodium (137-145) mmol/L BUN (9-20) mg/dL POC Glucose (mg/dL) 142 H 128 H (70-110) mg/dL Total Protein (6.3-8.2) g/dL Albumin (3.5-5.0) g/dL 02/20/25 02/20/25 02/20/25 Range/Units 03:56 06:12 08:01 WBC (4.50-10.00) 10*3/uL RBC (4.40-5.60) 10*6/uL Hgb (13.0-17.0) g/dL Hct (39.6-50.0) % MCH (27.0-32.0) pg Plt Count (140-440) 10*3/uL Immature Gran # (0.00-0.04) 10*3/uL Neutrophils # (1.80-7.70) 10*3/uL Monocytes # (0.20-1.00) 10*3/uL Eosinophils # (0.04-0.35) 10*3/uL Sodium 135 L (137-145) mmol/L BUN 29 H (9-20) mg/dL POC Glucose (mg/dL) 148 H 165 H (70-110) mg/dL Total Protein 4.9 L (6.3-8.2) g/dL Albumin 3.1 L (3.5-5.0) g/dL 02/20/25 02/20/25 02/20/25 Range/Units 09:01 10:00 11:09 WBC (4.50-10.00) 10*3/uL RBC (4.40-5.60) 10*6/uL Hgb (13.0-17.0) g/dL Hct (39.6-50.0) % MCH (27.0-32.0) pg Plt Count (140-440) 10*3/uL Immature Gran # (0.00-0.04) 10*3/uL Neutrophils # (1.80-7.70) 10*3/uL Monocytes # (0.20-1.00) 10*3/uL Eosinophils # (0.04-0.35) 10*3/uL Sodium (137-145) mmol/L BUN (9-20) mg/dL POC Glucose (mg/dL) 167 H 135 H 113 H (70-110) mg/dL Total Protein (6.3-8.2) g/dL Albumin (3.5-5.0) g/dL Assessment and Plan Assessment: Impression: Status post aortic valve replacement, patient is on mechanical ventilation as expected postoperative day #2 History of coronary artery disease, critical LAD disease status post PCI, arleth baum had previous history of non-ST elevation myocardial infarction History of aortic stenosis, severe aortic valve insufficiency, trileaflet aortic valve History of paroxysmal atrial fibrillation Lifetime non-smoker History of COVID-19 infection Benign essential hypertension Left apical pneumothorax, expected Recommendation: Continue incentive spirometry Continue Plavix beta-blockers aspirin and statins Chest x-ray was reviewed, left apical tiny pneumothorax is not clinically significant Continue to ambulate Continue incentive spirometry Mediastinal chest tube was removed today continues to have left and right pleural chest tubes Will continue to follow Time with Patient: Less than 30
[2025-02-20 16:19] LABS: Glucose,Whole Blood 159 mg/dL (70-110)
[2025-02-20 20:05] LABS: Glucose,Whole Blood 158 mg/dL (70-110)
[2025-02-21 03:39] LABS: Basophils # (A) 0.04 10*3/uL (0.00-0.10); Basophils % (A) 0.3 %; Eosinophils # (A) 0.03 10*3/uL (0.04-0.35); Eosinophils % (A) 0.2 %; HCT 26.7 % (39.6-50.0); HGB 8.8 g/dL (13.0-17.0); Immature Platelet Fraction 6.3 % (1.1-6.1); Lymphocytes # (A) 1.18 10*3/uL (0.90-5.00); Lymphocytes % (A) 8.1 %; MCH 27.1 pg (27.0-32.0); MCV 82.2 fL (80.0-97.0); Mean Platelet Volume 11.5 fL (9.5-12.2); Monocytes # (A) 1.29 10*3/uL (0.20-1.00); Monocytes % (A) 8.9 %; Neutrophils # (A) 11.88 10*3/uL (1.80-7.70); Neutrophils % (A) 81.7 %; Platelet Count 112 10*3/uL (140-440); RBC 3.25 10*6/uL (4.40-5.60); RDW 15.1 % (11.5-14.5); WBC 14.53 10*3/uL (4.50-10.00)
[2025-02-21 03:54] LABS: ALT 16 U/L (4-49); AST 27 U/L (17-59); African American GFR (CKD) 72 (>60 ml/min/1.73 sqM); Albumin 3.1 g/dL (3.5-5.0); Alkaline Phosphatase 59 U/L (38-126); Anion Gap 4 mmol/L; Blood Urea Nitrogen 38 mg/dL (9-20); Calcium 8.6 mg/dL (8.4-10.2); Carbon Dioxide 27 mmol/L (22-30); Chloride 102 mmol/L (98-107); Glucose 129 mg/dL (74-99); Non-African American GFR(CKD) 62 (>60 ml/min/1.73 sqM); Potassium 4.6 mmol/L (3.5-5.1); Sodium 133 mmol/L (137-145); Total Bilirubin 1.2 mg/dL (0.2-1.3); Total Protein 5.1 g/dL (6.3-8.2)
[2025-02-21] MEDS: DEXTROSE 5% IN WATER 100 ML with AMIODARONE 150 MG IV PRN (06:49)
[2025-02-21 07:04] LABS: Glucose,Whole Blood 155 mg/dL (70-110)
--- NOTE | 2025-02-21 07:17 | P.PN ---
Subjective Progress Note Date: 02/21/25 Principal diagnosis: Severe aortic insufficiency, paroxysmal atrial fibrillation. History of coronary artery disease with non-STEMI status post PCI to the LAD, bradycardia, hypertension, borderline diabetes with diet control, left renal lesion in need of partial nephrectomy in the future, questionable sleep apnea (patient never tested but exhibits symptoms), lifelong non-smoker, premature coronary artery disease in his father POD #3 aortic valve replacement with 25 mm García Inspiris bioprosthetic valve, ligation of the left atrial appendage using a 35mm AtriClip, bilateral pulmonary vein isolation, epiaortic ultrasound, intraoperative transesophageal echocardiogram Postoperative acute blood loss anemia, expected given hemodilution and cardiopulmonary bypass pump The patient was seen and examined this morning ambulating in the hallway in the intensive care unit in no acute distress. Patient was in sinus rhythm all night, but up with ambulation then returning to his chair was noted to be in A- fib RVR. Patient was started on oral amiodarone yesterday after complete 24 hours of IV amiodarone. Hemodynamically stable on no inotropes or pressors. States pain controlled with current medication regimen. Currently on room air with oxygen saturation in the mid 90s, able to achieve 1500 mL on incentive spirometry. Chest x-ray, labs reviewed. Right/left pleural chest tubes remain. Transfer orders were placed yesterday for 3 S. cardiac stepdown unit, no bed availability. No other new concerns. Objective - Vital Signs Vital signs: Vital Signs Temp 98.2 F 02/21/25 04:00 Pulse 71 02/21/25 05:00 Resp 16 02/21/25 05:00 BP 109/64 02/21/25 05:00 Pulse Ox 96 02/21/25 05:00 FiO2 40 02/18/25 16:10 Intake & Output 02/20/25 02/21/25 02/21/25 18:59 06:59 18:59 Intake Total 137.164 Output Total 280 740 Balance -142.836 -740 Weight 105.6 kg Intake: IV 108 Pressure Bag 18 Sodium Chloride 0.9% 1, 90 000 ml @ 30 mls/hr IV . Q24H [facility] Rx#:[id number] Intake, IV Titration 29.164 Amount Insulin Regular 100 unit 29.164 In Sodium Chloride 0.9% 100 ml @ Per Protocol IV .Q0M [facility] Rx#:[id number] Output: Chest Tube Drainage 130 140 Left Pleural 70 80 Mediastinal 0 Right Pleural 60 60 Urine 150 600 Other: Voiding Method Indwelling Catheter Urinal ABP, PAP, CO, CI - Last Documented Arterial Blood Pressure 105/51 Pulmonary Artery Pressure 26/7 Cardiac Output 6.3 Cardiac Index 2.8 - Exam CONSTITUTIONAL: Appears comfortable, cooperative, no acute distress RESPIRATORY: Lungs sounds diminished in the bases bilaterally. Respirations even, nonlabored. Currently on room air with oxygen saturation 96%. Able to achieve 1500 mL on incentive spirometry. Strong cough. CARDIOVASCULAR: S1, S2 present. Irregular rate and rhythm, atrial fibrillation on telemetry. Sternum stable. Palpable peripheral pulses bilaterally. No edema present. No calf pain or tenderness noted. Heart hugger in place with patient demonstrating appropriate use. Antiembolism stockings, SCDs present. GASTROINTESTINAL: Abdomen soft, nontender, nondistended. Active bowel sounds present 4 quadrants. Tolerating minimal diet due to taste. Positive flatus GENITOURINARY: Sparrow discontinued yesterday, patient continues to void, output 750 mL in the last 24 hours. INTEGUMENTARY: Skin is warm and dry with evidence of good perfusion. Anterior chest incision well approximated and covered with dry intact dressing NEUROLOGIC: Cranial nerves II through XII intact MUSKULOSKELETAL: Able to move all extremities, strength equal bilaterally, gait normal PSYCHIATRIC: Alert and oriented to person place and time, appropriate affect, intact judgment and insight INVASIVE LINES AND TUBES: Left/right pleural chest tubes present and connected to wall suction, no air leaks present this morning. Left pleural chest tube with 60 mL serosanguineous drainage overnight, 200 mL in the last 24 hours. Right pleural chest tube with 50 mL serosanguineous drainage overnight, 150 mL in the last 24 hours. A/V epicardial pacemaker wires present, grounded - Allied health notes Allied health notes reviewed: nursing - Labs CBC & Chem 7: 02/21/25 02:54 02/21/25 02:54 Labs: Abnormal Lab Results - Last 24 Hours (Table) 02/20/25 02/20/25 02/20/25 Range/Units 08:01 09:01 10:00 WBC (4.50-10.00) 10*3/uL RBC (4.40-5.60) 10*6/uL Hgb (13.0-17.0) g/dL Hct (39.6-50.0) % Plt Count (140-440) 10*3/uL Immature Gran # (0.00-0.04) 10*3/uL Neutrophils # (1.80-7.70) 10*3/uL Monocytes # (0.20-1.00) 10*3/uL Eosinophils # (0.04-0.35) 10*3/uL Immature Plt Fraction (1.1-6.1) % Sodium (137-145) mmol/L BUN (9-20) mg/dL Glucose (74-99) mg/dL POC Glucose (mg/dL) 165 H 167 H 135 H (70-110) mg/dL Total Protein (6.3-8.2) g/dL Albumin (3.5-5.0) g/dL 02/20/25 02/20/25 02/20/25 Range/Units 11:09 16:16 20:04 WBC (4.50-10.00) 10*3/uL RBC (4.40-5.60) 10*6/uL Hgb (13.0-17.0) g/dL Hct (39.6-50.0) % Plt Count (140-440) 10*3/uL Immature Gran # (0.00-0.04) 10*3/uL Neutrophils # (1.80-7.70) 10*3/uL Monocytes # (0.20-1.00) 10*3/uL Eosinophils # (0.04-0.35) 10*3/uL Immature Plt Fraction (1.1-6.1) % Sodium (137-145) mmol/L BUN (9-20) mg/dL Glucose (74-99) mg/dL POC Glucose (mg/dL) 113 H 159 H 158 H (70-110) mg/dL Total Protein (6.3-8.2) g/dL Albumin (3.5-5.0) g/dL 02/21/25 02/21/25 02/21/25 Range/Units 02:54 02:54 07:02 WBC 14.53 H (4.50-10.00) 10*3/uL RBC 3.25 L (4.40-5.60) 10*6/uL Hgb 8.8 L (13.0-17.0) g/dL Hct 26.7 L (39.6-50.0) % Plt Count 112 L (140-440) 10*3/uL Immature Gran # 0.11 H (0.00-0.04) 10*3/uL Neutrophils # 11.88 H (1.80-7.70) 10*3/uL Monocytes # 1.29 H (0.20-1.00) 10*3/uL Eosinophils # 0.03 L (0.04-0.35) 10*3/uL Immature Plt Fraction 6.3 H (1.1-6.1) % Sodium 133 L (137-145) mmol/L BUN 38 H (9-20) mg/dL Glucose 129 H (74-99) mg/dL POC Glucose (mg/dL) 155 H (70-110) mg/dL Total Protein 5.1 L (6.3-8.2) g/dL Albumin 3.1 L (3.5-5.0) g/dL - Imaging and Cardiology Chest x-ray: image reviewed Assessment and Plan Assessment: Severe aortic insufficiency, status post aortic valve replacement Paroxysmal atrial fibrillation, status post ligation of the left atrial appendage, bilateral pulmonary vein isolation Postoperative acute blood loss anemia, expected given hemodilution and cardiopulmonary bypass pump History of coronary artery disease with non-STEMI status post PCI to the LAD Bradycardia Hypertension Borderline diabetes with diet control, hemoglobin A1c 6.7% Left renal lesion in need of partial nephrectomy in the future Questionable sleep apnea (patient never tested but exhibits symptoms) Lifelong non-smoker, preoperative FEV1 103% of predicted Premature coronary artery disease in his father Plan: Continue to maximize medical therapy with aspirin, statin, Plavix, beta-lizbeth. Will increase beta-lizbeth therapy as tolerated, increased to 25 mg twice daily today Continue oral amiodarone today, will give additional 150 mg IV bolus. No anticoagulation necessary at this time Encourage incentive spirometry use 10 times every hour while awake. Bronchodilators per pulmonology Increase activity, ambulate as tolerated. PT/OT/cardiac rehab consulted Will monitor daily labs and x-rays, electrolyte replacement per protocol GI/DVT prophylaxis Pain control per current medication regimen Insulin management per internal medicine Daily weights Will discontinue pleural chest tubes Continue to monitor strict accurate intake and output Transfer orders placed yesterday for 3 S. cardiac stepdown unit, may transfer when bed available More recommendations to follow
[2025-02-21] MEDS: METOPROLOL TARTRATE 25 MG TAB PO SCH (08:05)
--- NOTE | 2025-02-21 08:16 | XR ---
EXAMINATION TYPE: XR chest 1V portable DATE OF EXAM: 02/21/2025 4:52 AM COMPARISON: 02/20/2025 CLINICAL INDICATION: Male, 69 years old with history of Post aortic valve replacement, TECHNIQUE: XR chest 1V portable view(s) obtained. FINDINGS: The heart size is mildly prominent. The pulmonary vasculature is normal. The left lower lobe infiltrate is present. Left-sided chest tube is present. Previous apical pneumoth orax may have resolved. IMPRESSION: 1. Previous left apical pneumothorax not identified. Left-sided chest tube remains present. 2. Cardiomegaly. 3. Mild left lower lobe infiltrate. Follow-up recommended [facility], , 02/21/2025 8:13 AM
--- NOTE | 2025-02-21 09:48 | P.PN ---
Subjective Progress Note Date: 02/21/25 PROGRESS NOTE The patient is a 69-year-old male with known history of aortic insufficiency, CAD status post stenting of the LAD in the setting of non-STEMI in July 2020 for who underwent aortic valve replacement with Inspiris valve, atrial fibrillation ablation and ligation of the left atrial appendage. He is extubated, sitting up in the chair, complaining of chest wall tenderness. He is in sinus mechanism and hemodynamically stable on no vasopressors. By echocardiogram in the past he had an ejection fraction of 50% with severe aortic regurgitation with a tricuspid aortic valve by FARA. According to him he has been complaining of continuous dyspnea on exertion. On repeat cardiac catheteri zation the LAD stent was patent. He has a reported history of paroxysmal atrial fibrillation. He has a history of hypertension and hyperlipidemia, he is nondiabetic, non-smoker. February 20: The patient feels better today, he continues to have some soreness but improving. He continues to be in sinus mechanism, hemodynamically stable. His Mulhall-Migue catheter has been removed as well as mediastinal tube. He has ambulated yesterday. He continues to be in sinus mechanism. February 21: The patient had shoulder discomfort earlier that resolved after removing the chest tube. He is in atrial fibrillation and has been started on amiodarone. His breathing is stable. His blood pressure stable. He denies any dizziness or palpitations. He denies any nausea. Medications: Aspirin, Lipitor 40 mg daily, Plavix 75 mg daily, metoprolol 25 mg twice a day, IV amiodarone PHYSICAL EXAMINATION: Blood pressure 108/70 heart rate 105 LUNGS: Few crackles at the bases HEART: Irregular rate and rhythm, S1, S2. No S3. Systolic ejection murmur, rub noted ABDOMEN: Soft, nontender, no organomegaly EXTREMETIES: No edema LAB: Hemoglobin 8.8, BUN 38, creatinine 1.17 IMPRESSION: 1. Status post aortic valve replacement for severe aortic regurgitation, with closure of the left atrial appendage and atrial fibrillation ablation 2. History of CAD status post stenting of the LAD 3. Hyperlipidemia 4. History of hypertension 5. Atrial fibrillation PLAN: 1. Continue present therapy 2. Increase physical activity 3. Adjust dose of beta-lizbeth depending on the blood pressure 4. Continue oral amiodarone Objective - Vital Signs Vital signs: Vital Signs Temp 98.5 F 02/21/25 08:00 Pulse 110 H 02/21/25 08:47 Resp 19 02/21/25 08:00 BP 108/74 02/21/25 08:00 Pulse Ox 95 02/21/25 08:00 FiO2 40 02/18/25 16:10 Intake & Output 02/20/25 02/21/25 02/21/25 18:59 06:59 18:59 Intake Total 137.164 200 Output Total 280 740 20 Balance -142.836 -740 180 Weight 105.6 kg Intake: IV 108 Pressure Bag 18 Sodium Chloride 0.9% 1, 90 000 ml @ 30 mls/hr IV . Q24H [facility] Rx#:[id number] Intake, IV Titration 29.164 Amount Insulin Regular 100 unit 29.164 In Sodium Chloride 0.9% 100 ml @ Per Protocol IV .Q0M [facility] Rx#:[id number] Oral 200 Output: Chest Tube Drainage 130 140 20 Left Pleural 70 80 10 Mediastinal 0 Right Pleural 60 60 10 Urine 150 600 Other: Voiding Method Indwelling Catheter Urinal Urinal ABP, PAP, CO, CI - Last Documented Arterial Blood Pressure 105/51 Pulmonary Artery Pressure 26/7 Cardiac Output 6.3 Cardiac Index 2.8 - Labs CBC & Chem 7: 02/21/25 02:54 02/21/25 02:54 Labs: Abnormal Lab Results - Last 24 Hours (Table) 02/20/25 02/20/25 02/20/25 Range/Units 10:00 11:09 16:16 WBC (4.50-10.00) 10*3/uL RBC (4.40-5.60) 10*6/uL Hgb (13.0-17.0) g/dL Hct (39.6-50.0) % Plt Count (140-440) 10*3/uL Immature Gran # (0.00-0.04) 10*3/uL Neutrophils # (1.80-7.70) 10*3/uL Monocytes # (0.20-1.00) 10*3/uL Eosinophils # (0.04-0.35) 10*3/uL Immature Plt Fraction (1.1-6.1) % Sodium (137-145) mmol/L BUN (9-20) mg/dL Glucose (74-99) mg/dL POC Glucose (mg/dL) 135 H 113 H 159 H (70-110) mg/dL Total Protein (6.3-8.2) g/dL Albumin (3.5-5.0) g/dL 02/20/25 02/21/25 02/21/25 Range/Units 20:04 02:54 02:54 WBC 14.53 H (4.50-10.00) 10*3/uL RBC 3.25 L (4.40-5.60) 10*6/uL Hgb 8.8 L (13.0-17.0) g/dL Hct 26.7 L (39.6-50.0) % Plt Count 112 L (140-440) 10*3/uL Immature Gran # 0.11 H (0.00-0.04) 10*3/uL Neutrophils # 11.88 H (1.80-7.70) 10*3/uL Monocytes # 1.29 H (0.20-1.00) 10*3/uL Eosinophils # 0.03 L (0.04-0.35) 10*3/uL Immature Plt Fraction 6.3 H (1.1-6.1) % Sodium 133 L (137-145) mmol/L BUN 38 H (9-20) mg/dL Glucose 129 H (74-99) mg/dL POC Glucose (mg/dL) 158 H (70-110) mg/dL Total Protein 5.1 L (6.3-8.2) g/dL Albumin 3.1 L (3.5-5.0) g/dL 02/21/25 Range/Units 07:02 WBC (4.50-10.00) 10*3/uL RBC (4.40-5.60) 10*6/uL Hgb (13.0-17.0) g/dL Hct (39.6-50.0) % Plt Count (140-440) 10*3/uL Immature Gran # (0.00-0.04) 10*3/uL Neutrophils # (1.80-7.70) 10*3/uL Monocytes # (0.20-1.00) 10*3/uL Eosinophils # (0.04-0.35) 10*3/uL Immature Plt Fraction (1.1-6.1) % Sodium (137-145) mmol/L BUN (9-20) mg/dL Glucose (74-99) mg/dL POC Glucose (mg/dL) 155 H (70-110) mg/dL Total Protein (6.3-8.2) g/dL Albumin (3.5-5.0) g/dL
--- NOTE | 2025-02-21 10:05 | P.PN ---
Subjective Progress Note Date: 02/21/25 Subjective: Patient seen and examined at bedside. No acute events overnight. Pertinent positives and negatives as discussed above, a complete review of systems was performed and all other systems are negative. Vitals Signs Reviewed. General: Nontoxic, no distress, appears at stated age Derm: Warm, dry heart hugger in place Head: Atraumatic, normocephalic, symmetric Eyes: EOMI, no lid lag, anicteric sclera Mouth: No lip lesion, mucus membranes moist Cardiovascular: S1S2 reg, no murmur Lungs: CTA bilateral, no rhonchi, no rales, no accessory muscle use Abdominal: Soft, nontender to palpation, no guarding, no appreciable organomegaly Ext: No gross muscle atrophy, no edema, no contractures Neuro: CN II-XI grossly intact, no focal neuro deficits Psych: Alert, oriented, appropriate affect Data Reviewed Today: Pertinent Labs: WBC 14.53, hemoglobin 8.8, platelet 112, sodium 133, creatinine 1.17, blood sugars range between 129-158 Imaging: Chest x-ray independently interpreted, shows postoperative changes Assessment and Plan: Aortic valve insufficiency status post aortic valve replacement Acute blood loss anemia, anticipated outcome of surgery Thrombocytopenia, anticipated outcome of surgery Leukocytosis, anticipated, surgery Small left apical pneumothorax, resolved Paroxysmal atrial fibrillation Hypertension Dyslipidemia CAD - On aspirin 325 mg, atorvastatin 40 mg, Plavix 75 mg, metoprolol 25 twice daily, amiodarone 400 twice daily - Cardiothoracic surgery note reviewed, downgrade to 3 S., increased metoprolol - Pulmonology and cardiology following - Pain control, DVT prophylaxis, GI prophylaxis per cardiothoracic surgery Type 2 diabetes, A1c 6.7 - Continue sliding scale insulin, monitor for hypoglycemia Thank you for allowing us to participate in the care of this pleasant patient. Do not hesitate to contact us with questions. Someone can be reached from the [facility] hospitalist group all hours of the day at [phone] or via [employer]. Objective - Vital Signs Vital signs: Vital Signs Temp 98.5 F 02/21/25 08:00 Pulse 110 H 02/21/25 08:47 Resp 19 02/21/25 08:00 BP 108/74 02/21/25 08:00 Pulse Ox 95 02/21/25 08:00 FiO2 40 02/18/25 16:10 Intake & Output 02/20/25 02/21/25 02/21/25 18:59 06:59 18:59 Intake Total 137.164 200 Output Total 280 740 20 Balance -142.836 -740 180 Weight 105.6 kg Intake: IV 108 Pressure Bag 18 Sodium Chloride 0.9% 1, 90 000 ml @ 30 mls/hr IV . Q24H [facility] Rx#:[id number] Intake, IV Titration 29.164 Amount Insulin Regular 100 unit 29.164 In Sodium Chloride 0.9% 100 ml @ Per Protocol IV .Q0M [facility] Rx#:[id number] Oral 200 Output: Chest Tube Drainage 130 140 20 Left Pleural 70 80 10 Mediastinal 0 Right Pleural 60 60 10 Urine 150 600 Other: Voiding Method Indwelling Catheter Urinal Urinal ABP, PAP, CO, CI - Last Documented Arterial Blood Pressure 105/51 Pulmonary Artery Pressure 26/7 Cardiac Output 6.3 Cardiac Index 2.8 - Labs CBC & Chem 7: 02/21/25 02:54 02/21/25 02:54 Labs: Abnormal Lab Results - Last 24 Hours (Table) 02/20/25 02/20/25 02/20/25 Range/Units 11:09 16:16 20:04 WBC (4.50-10.00) 10*3/uL RBC (4.40-5.60) 10*6/uL Hgb (13.0-17.0) g/dL Hct (39.6-50.0) % Plt Count (140-440) 10*3/uL Immature Gran # (0.00-0.04) 10*3/uL Neutrophils # (1.80-7.70) 10*3/uL Monocytes # (0.20-1.00) 10*3/uL Eosinophils # (0.04-0.35) 10*3/uL Immature Plt Fraction (1.1-6.1) % Sodium (137-145) mmol/L BUN (9-20) mg/dL Glucose (74-99) mg/dL POC Glucose (mg/dL) 113 H 159 H 158 H (70-110) mg/dL Total Protein (6.3-8.2) g/dL Albumin (3.5-5.0) g/dL 02/21/25 02/21/25 02/21/25 Range/Units 02:54 02:54 07:02 WBC 14.53 H (4.50-10.00) 10*3/uL RBC 3.25 L (4.40-5.60) 10*6/uL Hgb 8.8 L (13.0-17.0) g/dL Hct 26.7 L (39.6-50.0) % Plt Count 112 L (140-440) 10*3/uL Immature Gran # 0.11 H (0.00-0.04) 10*3/uL Neutrophils # 11.88 H (1.80-7.70) 10*3/uL Monocytes # 1.29 H (0.20-1.00) 10*3/uL Eosinophils # 0.03 L (0.04-0.35) 10*3/uL Immature Plt Fraction 6.3 H (1.1-6.1) % Sodium 133 L (137-145) mmol/L BUN 38 H (9-20) mg/dL Glucose 129 H (74-99) mg/dL POC Glucose (mg/dL) 155 H (70-110) mg/dL Total Protein 5.1 L (6.3-8.2) g/dL Albumin 3.1 L (3.5-5.0) g/dL
[2025-02-21 11:14] LABS: Glucose,Whole Blood 161 mg/dL (70-110)
--- NOTE | 2025-02-21 11:36 | P.PN ---
Subjective Progress Note Date: 02/21/25 Principal diagnosis: POD #3 aortic valve replacement with 25 mm García Inspiris bioprosthetic valve, ligation of the left atrial appendage using a 35mm AtriClip, bilateral pulmonary vein isolation, epiaortic ultrasound, intraoperative transesophageal echocardiogram This is a 69-year-old white male, primarily patient with Dr. Munoz, patient was recently evaluated for aortic valve insufficiency, seen back previously by cardiothoracic surgery in July of 2024. Since then the patient had extensive cardiac workup, today the patient underwent aortic valve replacement b jennifer Shafer, postoperatively patient was admitted to the ICU, and we were asked to see him in consultation. Patient is intubated, mechanically ventilated, he is on assist-control rate of 12, tidal volume of 600, FiO2 brought down to 40% from 100% initially after his ABG, and PEEP was 5. Patient is not requiring any pressors, not requiring any inotropes, is mostly on IV fluid, and on propofol at 25 mcg/kg/min. Cardiac output is 4.6, cardiac index is 2.0, chest x-ray showed no evidence of active disease, postoperative changes mostly. Patient was seen today on 02/19/2025, patient is sitting in the recliner, does not seem to be in any distress, he was extubated at 1705 last night, not requiri ng any pressors or any inotropes, he is on IV amiodarone for atrial fibrillation prophylaxis. Complaining of postsurgical pain, chest x-ray showed small left apical pneumothorax, expected, patient does have some minimal atelectasis at the bases. Continues to have mediastinal right and left pleural chest tubes in place, overall the patient is asymptomatic except for pain. WBC count is 12.8 hemoglobin 9.5 electrolytes are normal bicarb is normal renal profile is normal Patient was seen today on 02/20/2025, postoperative day #2aortic valve replacement with 25 mm García Inspiris bioprosthetic valve, ligation of the left atrial appendage using a 35mm AtriClip, bilateral pulmonary vein isolation, epiaortic ultrasound, intraoperative transesophageal echocardiogram patient is doing fairly well not in any distress, sitting at the bedside recliner, in sinus rhythm, hemodynamically stable, on 2 L nasal cannula, achieving 1500 mL with his incentive spirometry chest x-ray showed minimal basilar atelectasis and small tiny left apical left-sided pneumothorax. Patient has been ambulating in the hallway with assistance. WBC count is 14.8 hemoglobin 8.5, basic metabolic profile is normal renal profile is normal Seen today on 02/21/2025, patient is now postoperative day #3 aortic valve replac ement with 25 mm García Inspiris bioprosthetic valve, ligation of the left atrial appendage using a 35mm AtriClip, bilateral pulmonary vein isolation, epiaortic ultrasound, intraoperative transesophageal echocardiogram. Patient developed A-fib with RVR this morning, received amiodarone, has been on oral amiodarone since yesterday, patient is hemodynamically stable not requiring any pressors or any inotropes. He is to go to 3 [address]. once a bed is available. Chest tubes have been removed chest x-ray showed mostly minimal left basilar atelectasis, expected, WBC count is 14.5 hemoglobin 8.8 electrolytes are normal BUN is 38 creatinine 1.17, I reviewed chest x-ray, his previous left apical pneumothorax has resolved and again his chest x-ray showed mostly atelectasis at the left base, doubt pneumonia Objective - Vital Signs Vital signs: Vital Signs Temp 98.5 F 02/21/25 08:00 Pulse 110 H 02/21/25 08:47 Resp 19 02/21/25 08:00 BP 108/74 02/21/25 08:00 Pulse Ox 95 02/21/25 08:00 FiO2 40 02/18/25 16:10 Intake & Output 02/20/25 02/21/25 02/21/25 18:59 06:59 18:59 Intake Total 137.164 200 Output Total 280 740 20 Balance -142.836 -740 180 Weight 105.6 kg Intake: IV 108 Pressure Bag 18 Sodium Chloride 0.9% 1, 90 000 ml @ 30 mls/hr IV . Q24H LING Rx#:[id number] Intake, IV Titration 29.164 Amount Insulin Regular 100 unit 29.164 In Sodium Chloride 0.9% 100 ml @ Per Protocol IV .Q0M LING Rx#:[id number] Oral 200 Output: Chest Tube Drainage 130 140 20 Left Pleural 70 80 10 Mediastinal 0 Right Pleural 60 60 10 Urine 150 600 Other: Voiding Method Indwelling Catheter Urinal Urinal ABP, PAP, CO, CI - Last Documented Arterial Blood Pressure 105/51 Pulmonary Artery Pressure 26/7 Cardiac Output 6.3 Cardiac Index 2.8 - Exam CONSTITUTIONAL: Revealed 69-year-old white male in no distress, on room air RESPIRATORY: Diminished breath sounds at the bases no crackles rhonchi or wheezes CARDIOVASCULAR: Distant S1-S2, no S3 gallop, 2/6 systolic murmur GASTROINTESTINAL: Soft nontender no masses no rebound no guarding INTEGUMENTARY: No rashes NEUROLOGIC: Alert oriented x 3 no gross focal deficit MUSKULOSKELETAL: No deformities and no limitation range of motion PSYCHIATRIC: Normal mood affect and no mental status examination INVASIVE LINES AND TUBES: None this morning - Labs CBC & Chem 7: 02/21/25 02:54 02/21/25 02:54 Labs: Abnormal Lab Results - Last 24 Hours (Table) 02/20/25 02/20/25 02/21/25 Range/Units 16:16 20:04 02:54 WBC 14.53 H (4.50-10.00) 10*3/uL RBC 3.25 L (4.40-5.60) 10*6/uL Hgb 8.8 L (13.0-17.0) g/dL Hct 26.7 L (39.6-50.0) % Plt Count 112 L (140-440) 10*3/uL Immature Gran # 0.11 H (0.00-0.04) 10*3/uL Neutrophils # 11.88 H (1.80-7.70) 10*3/uL Monocytes # 1.29 H (0.20-1.00) 10*3/uL Eosinophils # 0.03 L (0.04-0.35) 10*3/uL Immature Plt Fraction 6.3 H (1.1-6.1) % Sodium (137-145) mmol/L BUN (9-20) mg/dL Glucose (74-99) mg/dL POC Glucose (mg/dL) 159 H 158 H (70-110) mg/dL Total Protein (6.3-8.2) g/dL Albumin (3.5-5.0) g/dL 02/21/25 02/21/25 02/21/25 Range/Units 02:54 07:02 11:12 WBC (4.50-10.00) 10*3/uL RBC (4.40-5.60) 10*6/uL Hgb (13.0-17.0) g/dL Hct (39.6-50.0) % Plt Count (140-440) 10*3/uL Immature Gran # (0.00-0.04) 10*3/uL Neutrophils # (1.80-7.70) 10*3/uL Monocytes # (0.20-1.00) 10*3/uL Eosinophils # (0.04-0.35) 10*3/uL Immature Plt Fraction (1.1-6.1) % Sodium 133 L (137-145) mmol/L BUN 38 H (9-20) mg/dL Glucose 129 H (74-99) mg/dL POC Glucose (mg/dL) 155 H 161 H (70-110) mg/dL Total Protein 5.1 L (6.3-8.2) g/dL Albumin 3.1 L (3.5-5.0) g/dL Assessment and Plan Assessment: Impression: Status post aortic valve replacement, patient is on mechanical ventilation as expected postoperative day #3 History of coronary artery disease, critical LAD disease status post PCI, patient had previous history of non-ST elevation myocardial infarction History of aortic stenosis, severe aortic valve insufficiency, trileaflet aortic valve History of paroxysmal atrial fibrillation Lifetime non-smoker History of COVID-19 infection Benign essential hypertension Left apical pneumothorax, expected Recommendation: Continue incentive spirometry Continue Plavix beta-blockers aspirin and statins Chest x-ray was reviewed, as noted earlier left lower lobe atelectasis and resolution of his left-sided pneumothorax Continue to ambulate Continue incentive spirometry Transfer to 3 S. today Will continue to follow Time with Patient: Less than 30
[2025-02-21] MEDS: ALBUMIN HUMAN 5% 250 ML in EMPTY BAG 1 BAG IVPB ONE (11:41)
[2025-02-21] MEDS: HYDROcodone/APAP 5-325MG 1 EACH TAB PO PRN (13:12)
[2025-02-21 15:54] LABS: Glucose,Whole Blood 153 mg/dL (70-110)
[2025-02-21] MEDS: DIGOXIN 250 MCG/ML 2 ML AMP IVP STA (17:29)
[2025-02-21 20:09] LABS: Glucose,Whole Blood 187 mg/dL (70-110)
[2025-02-21] MEDS: DIGOXIN 250 MCG/ML 2 ML AMP IVP SCH (21:54)
[2025-02-22 06:02] LABS: HCT 27.5 % (39.6-50.0); HGB 9.1 g/dL (13.0-17.0); MCH 27.1 pg (27.0-32.0); MCHC 33.1 g/dL (32.0-37.0); MCV 81.8 fL (80.0-97.0); Mean Platelet Volume 11.6 fL (9.5-12.2); Platelet Count 164 10*3/uL (140-440); RBC 3.36 10*6/uL (4.40-5.60); RDW 15.1 % (11.5-14.5); WBC 13.95 10*3/uL (4.50-10.00)
[2025-02-22 06:24] LABS: Glucose,Whole Blood 158 mg/dL (70-110)
[2025-02-22 06:28] LABS: African American GFR (CKD) >90 (>60 ml/min/1.73 sqM); Anion Gap 9 mmol/L; Blood Urea Nitrogen 35 mg/dL (9-20); Calcium 8.6 mg/dL (8.4-10.2); Carbon Dioxide 24 mmol/L (22-30); Chloride 102 mmol/L (98-107); Glucose 135 mg/dL (74-99); Magnesium 2.4 mg/dL (1.6-2.3); Non-African American GFR(CKD) 83 (>60 ml/min/1.73 sqM); Potassium 4.3 mmol/L (3.5-5.1); Sodium 135 mmol/L (137-145)
--- NOTE | 2025-02-22 07:41 | P.PN ---
Subjective Progress Note Date: 02/22/25 Principal diagnosis: Severe aortic insufficiency, paroxysmal atrial fibrillation. History of coronary artery disease with non-STEMI status post PCI to the LAD, bradycardia, hypertension, borderline diabetes with diet control, left renal lesion in need of partial nephrectomy in the future, questionable sleep apnea (patient never tested but exhibits symptoms), lifelong non-smoker, premature coronary artery disease in his father POD #4 aortic valve replacement with 25 mm García Inspiris bioprosthetic valve, ligation of the left atrial appendage using a 35mm AtriClip, bilateral pulmonary vein isolation, epiaortic ultrasound, intraoperative transesophageal echocardiogram Postoperative acute blood loss anemia, expected given hemodilution and cardiopulmonary bypass pump The patient was seen and examined this morning sitting up in recliner on the cardiac stepdown unit in no acute distress. Patient was in atrial fibrillation yesterday and received 4 IV boluses along with oral amnio and Lopressor, this morning he is in sinus rhythm, hemodynamically stable. States pain controlled with current medication regimen. Was placed back on 2 L nasal cannula by nursing due to oxygen saturation in the low 90s, able to achieve 1500 mL on incentive spirometry. Chest x-ray, labs reviewed. All lines and tubes have been discontinued except epicardial pacemaker wires which are grounded. Patient did require straight catheterization x 1 last night but has been able to void since. States he is not eating very much, the smell of food is making him very sick to his stomach. Objective - Vital Signs Vital signs: Vital Signs Temp 97.7 F 02/22/25 04:59 Pulse 100 02/22/25 04:59 Resp 18 02/22/25 05:20 BP 121/77 02/22/25 04:59 Pulse Ox 94 L 02/22/25 05:20 FiO2 40 02/18/25 16:10 Intake & Output 02/21/25 02/22/25 02/22/25 18:59 06:59 18:59 Intake Total 850 20 Output Total 570 475 Balance 280 -455 Weight 104.3 kg Intake: IV 250 20 Albumin Human 5% 250 ml 250 In Empty Bag 1 bag @ 250 mls/hr IVPB ONCE ONE Rx#: [id number] Invasive Line 1 10 Invasive Line 6 10 Oral 600 Output: Chest Tube Drainage 20 Left Pleural 10 Right Pleural 10 Urine 550 475 Other: Voiding Method Urinal Urinal # Voids 1 # Bowel Movements 1 ABP, PAP, CO, CI - Last Documented Arterial Blood Pressure 105/51 Pulmonary Artery Pressure 26/7 Cardiac Output 6.3 Cardiac Index 2.8 - Exam CONSTITUTIONAL: Appears comfortable, cooperative, no acute distress RESPIRATORY: Lungs sounds diminished in the bases bilaterally. Respirations even, nonlabored. Currently on 2 L nasal cannula with oxygen saturation 94%. Able to achieve 1500 mL on incentive spirometry. Strong cough. CARDIOVASCULAR: S1, S2 present. Regular rate and rhythm, sinus rhythm on telemetry. Sternum stable. Palpable peripheral pulses bilaterally. No edema present. No calf pain or tenderness noted. Heart hugger in place with patient demonstrating appropriate use. Antiembolism stockings, SCDs present. GASTROINTESTINAL: Abdomen soft, nontender, nondistended. Active bowel sounds present 4 quadrants. Tolerating minimal diet due to taste/smell. Positive bowel movement this morning GENITOURINARY: Continues to void, output 1025 mL in the last 24 hours. INTEGUMENTARY: Skin is warm and dry with evidence of good perfusion. Anterior chest incision well approximated and covered with dry intact dressing NEUROLOGIC: Cranial nerves II through XII intact MUSKULOSKELETAL: Able to move all extremities, strength equal bilaterally, gait normal PSYCHIATRIC: Alert and oriented to person place and time, appropriate affect, intact judgment and insight INVASIVE LINES AND TUBES: A/V epicardial pacemaker wires present, grounded - Allied health notes Allied health notes reviewed: nursing - Labs CBC & Chem 7: 02/22/25 05:27 02/22/25 05:27 Labs: Abnormal Lab Results - Last 24 Hours (Table) 02/21/25 02/21/25 02/21/25 Range/Units 11:12 15:51 20:07 WBC (4.50-10.00) 10*3/uL RBC (4.40-5.60) 10*6/uL Hgb (13.0-17.0) g/dL Hct (39.6-50.0) % Sodium (137-145) mmol/L BUN (9-20) mg/dL Glucose (74-99) mg/dL POC Glucose (mg/dL) 161 H 153 H 187 H (70-110) mg/dL Magnesium (1.6-2.3) mg/dL 02/22/25 02/22/25 02/22/25 Range/Units 05:27 05:27 06:22 WBC 13.95 H (4.50-10.00) 10*3/uL RBC 3.36 L (4.40-5.60) 10*6/uL Hgb 9.1 L (13.0-17.0) g/dL Hct 27.5 L (39.6-50.0) % Sodium 135 L (137-145) mmol/L BUN 35 H (9-20) mg/dL Glucose 135 H (74-99) mg/dL POC Glucose (mg/dL) 158 H (70-110) mg/dL Magnesium 2.4 H (1.6-2.3) mg/dL - Imaging and Cardiology Chest x-ray: image reviewed Assessment and Plan Assessment: Severe aortic insufficiency, status post aortic valve replacement Paroxysmal atrial fibrillation, status post ligation of the left atrial appendage, bilateral pulmonary vein isolation Postoperative acute blood loss anemia, expected given hemodilution and cardiopulmonary bypass pump History of coronary artery disease with non-STEMI status post PCI to the LAD Bradycardia Hypertension Borderline diabetes with diet control, hemoglobin A1c 6.7% Left renal lesion in need of partial nephrectomy in the future Questionable sleep apnea (patient never tested but exhibits symptoms) Lifelong non-smoker, preoperative FEV1 103% of predicted Premature coronary artery disease in his father Plan: Continue to maximize medical therapy with aspirin, statin, Plavix, beta-lizbeth. Will increase beta-lizbeth therapy as tolerated Continue oral amiodarone. No anticoagulation necessary at this time Encourage incentive spirometry use 10 times every hour while awake. Bronchodilators per pulmonology Increase activity, ambulate as tolerated. PT/OT/cardiac rehab consulted Will monitor daily labs and x-rays, electrolyte replacement per protocol GI/DVT prophylaxis Pain control per current medication regimen Insulin management per internal medicine Daily weights Continue to monitor strict accurate intake and output Nutritional supplements ordered, patient encouraged to have family bring food from home, encouraged oral nutrition Shower daily starting today More recommendations to follow
--- NOTE | 2025-02-22 07:43 | XR ---
EXAMINATION TYPE: XR chest 2V DATE OF EXAM: 02/22/2025 6:20 AM COMPARISON: 02/21/2025 CLINICAL INDICATION: Male, 69 years old with history of post open heart, , TECHNIQUE: Frontal and lateral views FINDINGS: Median sternotomy wires are present with prosthetic aortic valve. Heart mildly enlarged. Interstitial densities are improving. Trace bilateral pleural effusions remain. Interval removal left-sided chest tube. IMPRESSION: Interstitial densities are improving. Trace pleural effusions remain. [facility], Workstation: [email or web address], 02/22/2025 7:41 AM
--- NOTE | 2025-02-22 10:30 | P.PN ---
Subjective HISTORY OF PRESENT ILLNESS: The patient is a 69-year-old male with known history of aortic insufficiency, CAD status post stenting of the LAD in the setting of non-STEMI in July 2020 for who underwent aortic valve replacement with Inspiris valve, atrial fibrillation ablation and ligation of the left atrial appendage. He is extubated, sitting up in the chair, complaining of chest wall tenderness. He is in sinus mechanism and hemodynamically stable on no vasopressors. By echocardiogram in the past he had an ejection fraction of 50% with severe aortic regurgitation with a tricuspid aortic valve by FARA. According to him he has been complaining of continuous dyspnea on exertion. On repeat cardiac catheterization the LAD stent was patent. He has a reported history of paroxysmal atrial fibrillation. He has a history of hypertension and hyperlipidemia, he is nondiabetic, non-smoker. February 20: The patient feels better today, he continues to have some soreness but improving. He continues to be in sinus mechanism, hemodynamically stable. His Sperry-Migue catheter has been removed as well as mediastinal tube. He has ambulated yesterday. He continues to be in sinus mechanism. February 21: The patient had shoulder discomfort earlier that resolved after removing the chest tube. He is in atrial fibrillation and has been started on amiodarone. His breathing is stable. His blood pressure stable. He denies any dizziness or palpitations. He denies any nausea. 02/22/2025 Patient examined this morning at the bedside. Patient currently denies chest pain or pressure. He denies shortness of breath. He reports that yesterday he felt very weak. He reports decreased appetite this morning. He reports having chills this morning as well. Telemetry reveals sinus mechanism with episodes of atrial fibrillation overnight. The patient is not anticoagulated. He does have a history of atrial fibrillation. The patient states that he has never been on anticoagulation in the past. Reason unknown. PHYSICAL EXAM: VITAL SIGNS: Reviewed. GENERAL: Well-developed in no acute distress. NECK: Supple. No JVD or thyromegaly LUNGS: Respirations even and unlabored. Lungs essentially clear to auscultation bilaterally. HEART: Irregular rate and rhythm. S1 and S2 heard. Systolic murmur noted. EXTREMITIES: Normal range of motion. No clubbing or cyanosis. Peripheral pulses intact. No lower extremity edema ASSESSMENT: 1. Status post aortic valve replacement for severe aortic regurgitation, with closure of the left atrial appendage and atrial fibrillation ablation 2. History of CAD status post stenting of the LAD 3. Hyperlipidemia 4. History of hypertension 5. Paroxysmal atrial fibrillation not anticoagulated on an outpatient basis, reason unknown PLAN: Continue postoperative management per CT surgery Continue current cardiac medications including amiodarone, aspirin, Lipitor, Plavix, metoprolol Continue telemetry monitoring Further recommendations pending patient course Patient to follow-up postdischarge with Dr. Gunn Nurse practitioner note has been reviewed by physician. Signing provider agrees with the documented findings, assessment, and plan of care documented by BLADE WORKER as a scribe. Objective - Vital Signs Vital signs: Vital Signs Temp 98.4 F 02/22/25 08:00 Pulse 74 02/22/25 09:01 Resp 17 02/22/25 08:00 BP 134/81 02/22/25 08:00 Pulse Ox 95 02/22/25 08:00 FiO2 40 02/18/25 16:10 Intake & Output 02/21/25 02/22/25 02/22/25 18:59 06:59 18:59 Intake Total 850 20 Output Total 570 475 250 Balance 280 -455 -250 Weight 104.3 kg Intake: IV 250 20 Albumin Human 5% 250 ml 250 In Empty Bag 1 bag @ 250 mls/hr IVPB ONCE ONE Rx#: [id number] Invasive Line 1 10 Invasive Line 6 10 Oral 600 Output: Chest Tube Drainage 20 Left Pleural 10 Right Pleural 10 Urine 550 475 250 Other: Voiding Method Urinal Urinal Urinal # Voids 1 # Bowel Movements 1 ABP, PAP, CO, CI - Last Documented Arterial Blood Pressure 105/51 Pulmonary Artery Pressure 26/7 Cardiac Output 6.3 Cardiac Index 2.8 - Labs CBC & Chem 7: 02/22/25 05:27 02/22/25 05:27 Labs: Abnormal Lab Results - Last 24 Hours (Table) 02/21/25 02/21/25 02/21/25 Range/Units 11:12 15:51 20:07 WBC (4.50-10.00) 10*3/uL RBC (4.40-5.60) 10*6/uL Hgb (13.0-17.0) g/dL Hct (39.6-50.0) % Sodium (137-145) mmol/L BUN (9-20) mg/dL Glucose (74-99) mg/dL POC Glucose (mg/dL) 161 H 153 H 187 H (70-110) mg/dL Magnesium (1.6-2.3) mg/dL 02/22/25 02/22/25 02/22/25 Range/Units 05:27 05:27 06:22 WBC 13.95 H (4.50-10.00) 10*3/uL RBC 3.36 L (4.40-5.60) 10*6/uL Hgb 9.1 L (13.0-17.0) g/dL Hct 27.5 L (39.6-50.0) % Sodium 135 L (137-145) mmol/L BUN 35 H (9-20) mg/dL Glucose 135 H (74-99) mg/dL POC Glucose (mg/dL) 158 H (70-110) mg/dL Magnesium 2.4 H (1.6-2.3) mg/dL
[2025-02-22 11:55] LABS: Glucose,Whole Blood 147 mg/dL (70-110)
--- NOTE | 2025-02-22 12:13 | P.PN ---
Subjective Progress Note Date: 02/22/25 Subjective: Patient seen and examined at bedside. No acute events overnight. Pertinent positives and negatives as discussed above, a complete review of systems was performed and all other systems are negative. Vitals Signs Reviewed. General: Nontoxic, no distress, appears at stated age Derm: Warm, dry heart hugger in place Head: Atraumatic, normocephalic, symmetric Eyes: EOMI, no lid lag, anicteric sclera Mouth: No lip lesion, mucus membranes moist Cardiovascular: S1S2 reg, no murmur Lungs: CTA bilateral, no rhonchi, no rales, no accessory muscle use Abdominal: Soft, nontender to palpation, no guarding, no appreciable organomegaly Ext: No gross muscle atrophy, no edema, no contractures Neuro: CN II-XI grossly intact, no focal neuro deficits Psych: Alert, oriented, appropriate affect Data Reviewed Today: Pertinent Labs: WBC 13.95, hemoglobin 9.1, platelet 164, creatinine 0.93, magnesium 2.4, blood sugars range between 135-187 Imaging: Chest x-ray independently interpreted, shows postoperative changes Assessment and Plan: Aortic valve insufficiency status post aortic valve replacement Acute blood loss anemia, anticipated outcome of surgery Thrombocytopenia, anticipated outcome of surgery Leukocytosis, anticipated, surgery Small left apical pneumothorax, resolved Paroxysmal atrial fibrillation Hypertension Dyslipidemia CAD - On aspirin 325 mg, atorvastatin 40 mg, Plavix 75 mg, metoprolol 25 twice daily, amiodarone 400 twice daily - Cardiothoracic surgery note reviewed, management as above - Pulmonology and cardiology following - Pain control, DVT prophylaxis, GI prophylaxis per cardiothoracic surgery Type 2 diabetes, A1c 6.7 - Continue sliding scale insulin, monitor for hypoglycemia Thank you for allowing us to participate in the care of this pleasant patient. Do not hesitate to contact us with questions. Someone can be reached from the [facility] hospitalist group all hours of the day at [phone] or via [employer]. Objective - Vital Signs Vital signs: Vital Signs Temp 98.3 F 02/22/25 11:32 Pulse 75 02/22/25 11:32 Resp 16 02/22/25 11:32 BP 130/73 02/22/25 11:32 Pulse Ox 94 L 02/22/25 11:32 FiO2 40 02/18/25 16:10 Intake & Output 02/21/25 02/22/25 02/22/25 18:59 06:59 18:59 Intake Total 850 20 240 Output Total 570 475 250 Balance 280 -455 -10 Weight 104.3 kg Intake: IV 250 20 Albumin Human 5% 250 ml 250 In Empty Bag 1 bag @ 250 mls/hr IVPB ONCE ONE Rx#: [id number] Invasive Line 1 10 Invasive Line 6 10 Oral 600 240 Output: Chest Tube Drainage 20 Left Pleural 10 Right Pleural 10 Urine 550 475 250 Other: Voiding Method Urinal Urinal Urinal # Voids 1 # Bowel Movements 1 ABP, PAP, CO, CI - Last Documented Arterial Blood Pressure 105/51 Pulmonary Artery Pressure 26/7 Cardiac Output 6.3 Cardiac Index 2.8 - Labs CBC & Chem 7: 02/22/25 05:27 02/22/25 05:27 Labs: Abnormal Lab Results - Last 24 Hours (Table) 02/21/25 02/21/25 02/22/25 Range/Units 15:51 20:07 05:27 WBC 13.95 H (4.50-10.00) 10*3/uL RBC 3.36 L (4.40-5.60) 10*6/uL Hgb 9.1 L (13.0-17.0) g/dL Hct 27.5 L (39.6-50.0) % Sodium (137-145) mmol/L BUN (9-20) mg/dL Glucose (74-99) mg/dL POC Glucose (mg/dL) 153 H 187 H (70-110) mg/dL Magnesium (1.6-2.3) mg/dL 02/22/25 02/22/25 02/22/25 Range/Units 05:27 06:22 11:54 WBC (4.50-10.00) 10*3/uL RBC (4.40-5.60) 10*6/uL Hgb (13.0-17.0) g/dL Hct (39.6-50.0) % Sodium 135 L (137-145) mmol/L BUN 35 H (9-20) mg/dL Glucose 135 H (74-99) mg/dL POC Glucose (mg/dL) 158 H 147 H (70-110) mg/dL Magnesium 2.4 H (1.6-2.3) mg/dL
--- NOTE | 2025-02-22 13:55 | P.PN ---
Subjective Progress Note Date: 02/22/25 Principal diagnosis: Status post aortic valve replacement. This is a 69-year-old white male, primarily patient with Dr. Munoz, patient was recently evaluated for aortic valve insufficiency, seen back previously by cardiothoracic surgery in July of 2024. Since then the patient had extensive cardiac workup, today the patient underwent aortic valve replacement by Dr. Shafer, postoperatively patient was admitted to the ICU, and we were asked to see him in consultation. Patient is intubated, mechanically ventilated, he is on assist-control rate of 12, tidal volume of 600, FiO2 brought down to 40% from 100% initially after his ABG, and PEEP was 5. Patient is not requiring any pressors, not requiring any inotropes, is mostly on IV fluid, and on propofol at 25 mcg/kg/min. Cardiac output is 4.6, cardiac index is 2.0, chest x-ray showed no evidence of active disease, postoperative changes mostly. Patient was seen today on 02/19/2025, patient is sitting in the recliner, does not seem to be in any distress, he was extubated at 1705 last night, not requiring any pressors or any inotropes, he is on IV amiodarone for atrial fibrillation prophylaxis. Complaining of postsurgical pain, chest x-ray showed small left apical pneumothorax, expected, patient does have some minimal atelectasis at the bases. Continues to have mediastinal right and left pleural chest tubes in place, overall the patient is asymptomatic except for pain. WBC count is 12.8 hemoglobin 9.5 electrolytes are normal bicarb is normal renal profile is normal Patient was seen today on 02/20/2025, postoperative day #2aortic valve replacement with 25 mm García Inspiris bioprosthetic valve, ligation of the left atrial appendage using a 35mm AtriClip, bilateral pulmonary vein isolation, epiaortic ultrasound, intraoperative transesophageal echocardiogram patient is doing fairly well not in any distress, sitting at the bedside recliner, in sinus rhythm, hemodynamically stable, on 2 L nasal cannula, achieving 1500 mL with his incentive spirometry chest x-ray showed minimal basilar atelectasis and small tiny left apical left-sided pneumothorax. Patient has been ambulating in the hallway with assistance. WBC count is 14.8 hemoglobin 8.5, basic metabolic profile is normal renal profile is normal Seen today on 02/21/2025, patient is now postoperative day #3 aortic valve replacement with 25 mm García Inspiris bioprosthetic valve, ligation of the left atrial appendage using a 35mm AtriClip, bilateral pulmonary vein isolation, epiaortic ultrasound, intraoperative transesophageal echocardiogram. Patient developed A-fib with RVR this morning, received amiodarone, has been on oral ami odarone since yesterday, patient is hemodynamically stable not requiring any pressors or any inotropes. He is to go to 3 . once a bed is available. Chest tubes have been removed chest x-ray showed mostly minimal left basilar atelectasis, expected, WBC count is 14.5 hemoglobin 8.8 electrolytes are normal BUN is 38 creatinine 1.17, I reviewed chest x-ray, his previous left apical pneumothorax has resolved and again his chest x-ray showed mostly atelectasis at the left base, doubt pneumonia Progress note dated February 22, 2025. This is a 69-year-old male who is postoperative day #4, aortic valve replacement. The patient is doing well. He is currently on room air. He is not receiving any IV fluids. He is resting comfortably in bed. He has no particular complaints. He is awake and alert. Laboratory data includes a white count of 13.95, hemoglobin 9.1, hematocrit 27.5, platelet count 264,000. Sodium 135, potassium 4.3, chlorides 102, CO2 24, BUN 35, creatinine 0.93. Glucose was 147. Calcium 8.6, and magnesium is 2.4. Chest x-ray shows improving bilateral interstitial infiltrates. Objective - Vital Signs Vital signs: Vital Signs Temp 98.3 F 02/22/25 11:32 Pulse 75 02/22/25 11:32 Resp 16 02/22/25 11:32 BP 130/73 02/22/25 11:32 Pulse Ox 94 L 02/22/25 11:32 FiO2 40 02/18/25 16:10 Intake & Output 02/21/25 02/22/25 02/22/25 18:59 06:59 18:59 Intake Total 850 20 240 Output Total 570 475 250 Balance 280 -455 -10 Weight 104.3 kg Intake: IV 250 20 Albumin Human 5% 250 ml 250 In Empty Bag 1 bag @ 250 mls/hr IVPB ONCE ONE Rx#: [id number] Invasive Line 1 10 Invasive Line 6 10 Oral 600 240 Output: Chest Tube Drainage 20 Left Pleural 10 Right Pleural 10 Urine 550 475 250 Other: Voiding Method Urinal Urinal Urinal # Voids 1 # Bowel Movements 1 ABP, PAP, CO, CI - Last Documented Arterial Blood Pressure 105/51 Pulmonary Artery Pressure 26/7 Cardiac Output 6.3 Cardiac Index 2.8 - Exam No acute distress, oriented 3. No respiratory distress. Currently on room air. HEENT examination is grossly unremarkable. Mucous membranes are moist. No oral lesions. Neck supple. Full range of motion. No adenopathy thyromegaly or neck vein distention. Cardiovascular examination reveals regular rhythm rate. S1-S2 normal. No S3 or S4. Lungs reveal clear breath sounds. Breath sounds are equal bilaterally. No adventitious lung sounds including wheezes rhonchi or crackles. Abdomen soft bowel sounds are heard. No masses or tenderness. Extremities are intact. No cyanosis clubbing or edema. Skin is without rash or lesion. Neurologic examination is brief but nonfocal. - Labs CBC & Chem 7: 02/22/25 05:27 02/22/25 05:27 Labs: Abnormal Lab Results - Last 24 Hours (Table) 02/21/25 02/21/25 02/22/25 Range/Units 15:51 20:07 05:27 WBC 13.95 H (4.50-10.00) 10*3/uL RBC 3.36 L (4.40-5.60) 10*6/uL Hgb 9.1 L (13.0-17.0) g/dL Hct 27.5 L (39.6-50.0) % Sodium (137-145) mmol/L BUN (9-20) mg/dL Glucose (74-99) mg/dL POC Glucose (mg/dL) 153 H 187 H (70-110) mg/dL Magnesium (1.6-2.3) mg/dL 02/22/25 02/22/25 02/22/25 Range/Units 05:27 06:22 11:54 WBC (4.50-10.00) 10*3/uL RBC (4.40-5.60) 10*6/uL Hgb (13.0-17.0) g/dL Hct (39.6-50.0) % Sodium 135 L (137-145) mmol/L BUN 35 H (9-20) mg/dL Glucose 135 H (74-99) mg/dL POC Glucose (mg/dL) 158 H 147 H (70-110) mg/dL Magnesium 2.4 H (1.6-2.3) mg/dL Assessment and Plan Assessment: Postoperative day #4, S/P aortic valve replacement, for aortic stenosis, and aortic insufficiency. Routine postoperative ventilator management. History of paroxysmal atrial fibrillation. Lifetime non-smoker. History of coronavirus infection. Benign essential hypertension. Left apical pneumothorax, resolved. Plan: Plan dated February 22, 2025. The patient is postoperative day #4, aortic valve replacement for aortic stenosis and aortic insufficiency. The patient is currently on room air. The patient is not receiving any IV fluids. Clinically, the patient appears relatively stable. He is awake and alert. He denies any significant complaints at this time. Labs, x-rays, and medications are reviewed. We will continue to follow make recommendations. Prognosis is thought to be generally good. Dictation was produced using [employer] software. Please excuse any grammatical, word or spelling errors. Time with Patient: Less than 30
[2025-02-22 16:41] LABS: Glucose,Whole Blood 145 mg/dL (70-110)
[2025-02-22 19:52] LABS: Glucose,Whole Blood 135 mg/dL (70-110)
[2025-02-23 06:13] LABS: Glucose,Whole Blood 135 mg/dL (70-110)
[2025-02-23 06:34] LABS: HCT 28.4 % (39.6-50.0); HGB 9.3 g/dL (13.0-17.0); MCH 26.6 pg (27.0-32.0); MCHC 32.7 g/dL (32.0-37.0); MCV 81.1 fL (80.0-97.0); Mean Platelet Volume 10.6 fL (9.5-12.2); Platelet Count 186 10*3/uL (140-440); RDW 15.1 % (11.5-14.5); WBC 10.76 10*3/uL (4.50-10.00)
[2025-02-23 06:46] LABS: African American GFR (CKD) >90 (>60 ml/min/1.73 sqM); Anion Gap 6 mmol/L; Blood Urea Nitrogen 36 mg/dL (9-20); Calcium 8.4 mg/dL (8.4-10.2); Carbon Dioxide 26 mmol/L (22-30); Chloride 104 mmol/L (98-107); Glucose 129 mg/dL (74-99); Non-African American GFR(CKD) 83 (>60 ml/min/1.73 sqM); Potassium 4.1 mmol/L (3.5-5.1); Sodium 136 mmol/L (137-145)
[2025-02-23] MEDS ORDERED: METOCLOPRAMIDE 5 MG/ML 2 ML VIAL IVP SCH (07:15)
--- NOTE | 2025-02-23 07:15 | XR ---
EXAMINATION TYPE: XR chest 2V DATE OF EXAM: 02/23/2025 6:27 AM COMPARISON: 02/22/2025 CLINICAL INDICATION: Male, 69 years old with history of post AVR, , TECHNIQUE: PA and lateral views FINDINGS: Median sternotomy wires with prosthetic aortic valve. Heart is borderline enlarged. Interstitial dens ities are similar to yesterday's exam. Trace bilateral pleural effusions persist. IMPRESSION: Similar mild pulmonary vascular congestion and trace bilateral pleural effusions. [facility], Workstation: [id number], 02/23/2025 7:13 AM
[2025-02-23] MEDS ORDERED: SENNOSIDES-DOCUSATE SODIUM 1 EACH TAB PO PRN (07:16)
[2025-02-23] MEDS: METOCLOPRAMIDE 5 MG/ML 2 ML VIAL IVP SCH (07:55)
[2025-02-23] MEDS: METOPROLOL TARTRATE 25 MG TAB PO SCH (07:55)
[2025-02-23 08:20] LABS: Amylase 36 U/L (30-110); Lipase 337 U/L (23-300)
--- NOTE | 2025-02-23 08:51 | P.PN ---
Subjective Progress Note Date: 02/23/25 Principal diagnosis: Severe aortic insufficiency, paroxysmal atrial fibrillation. History of coronary artery disease with non-STEMI status post PCI to the LAD, bradycardia, hypertension, borderline diabetes with diet control, left renal lesion in need of partial nephrectomy in the future, questionable sleep apnea (patient never tested but exhibits symptoms), lifelong non-smoker, premature coronary artery disease in his father POD #5 aortic valve replacement with 25 mm García Inspiris bioprosthetic valve, ligation of the left atrial appendage using a 35mm AtriClip, bilateral pulmonary vein isolation, epiaortic ultrasound, intraoperative transesophageal echocardiogram Postoperative acute blood loss anemia, expected given hemodilution and cardiopulmonary bypass pump The patient was seen and examined this morning sitting up in recliner on the cardiac stepdown unit in no acute distress. Currently in sinus rhythm, hemodynamically stable. States pain controlled with current medication regimen. Currently on room air with oxygen saturation in the mid 90s. Able to achieve 1500 mL on incentive spirometry. Chest x-ray, labs reviewed. States he is not eating very much, the smell of food is making him very sick to his stomach, denies any abdominal pain, does state liquid bowel movements yesterday. Was only ambulatory in the hallway once yesterday, did receive first postoperative shower. Objective - Vital Signs Vital signs: Vital Signs Temp 97.4 F L 02/23/25 04:00 Pulse 72 02/23/25 04:00 Resp 16 02/23/25 04:00 BP 131/73 02/23/25 04:00 Pulse Ox 94 L 02/23/25 04:00 FiO2 40 02/18/25 16:10 Intake & Output 02/22/25 02/23/25 02/23/25 18:59 06:59 18:59 Intake Total 720 10 480 Output Total 950 650 Balance -230 -640 480 Weight 103.3 kg Intake: IV 10 Invasive Line 1 10 Oral 720 480 Output: Urine 950 650 Other: Voiding Method Urinal Urinal # Voids 1 # Bowel Movements 1 1 ABP, PAP, CO, CI - Last Documented Arterial Blood Pressure 105/51 Pulmonary Artery Pressure 26/7 Cardiac Output 6.3 Cardiac Index 2.8 - Exam CONSTITUTIONAL: Appears comfortable, cooperative, no acute distress RESPIRATORY: Lungs sounds diminished in the bases bilaterally. Respirations even, nonlabored. Currently on room air with oxygen saturation 94%. Able to achieve 1500 mL on incentive spirometry. Strong cough. CARDIOVASCULAR: S1, S2 present. Regular rate and rhythm, sinus rhythm on telemetry. Sternum stable. Palpable peripheral pulses bilaterally. No edema present. No calf pain or tenderness noted. Heart hugger in place with patient demonstrating appropriate use. Antiembolism stockings, SCDs present. GASTROINTESTINAL: Abdomen soft, nontender, nondistended. Active bowel sounds present 4 quadrants. Tolerating minimal diet due to taste/smell. Positive bowel movement yesterday GENITOURINARY: Continues to void, output 1600 mL in the last 24 hours. INTEGUMENTARY: Skin is warm and dry with evidence of good perfusion. Anterior chest incision well approximated NEUROLOGIC: Cranial nerves II through XII intact MUSKULOSKELETAL: Able to move all extremities, strength equal bilaterally, gait normal PSYCHIATRIC: Alert and oriented to person place and time, appropriate affect, intact judgment and insight INVASIVE LINES AND TUBES: A/V epicardial pacemaker wires present, grounded - Allied health notes Allied health notes reviewed: nursing - Labs CBC & Chem 7: 02/23/25 05:52 02/23/25 05:52 Labs: Abnormal Lab Results - Last 24 Hours (Table) 02/22/25 02/22/25 02/22/25 Range/Units 11:54 16:39 19:51 WBC (4.50-10.00) 10*3/uL RBC (4.40-5.60) 10*6/uL Hgb (13.0-17.0) g/dL Hct (39.6-50.0) % MCH (27.0-32.0) pg Sodium (137-145) mmol/L BUN (9-20) mg/dL Glucose (74-99) mg/dL POC Glucose (mg/dL) 147 H 145 H 135 H (70-110) mg/dL 02/23/25 02/23/25 02/23/25 Range/Units 05:52 05:52 06:10 WBC 10.76 H (4.50-10.00) 10*3/uL RBC 3.50 L (4.40-5.60) 10*6/uL Hgb 9.3 L (13.0-17.0) g/dL Hct 28.4 L (39.6-50.0) % MCH 26.6 L (27.0-32.0) pg Sodium 136 L (137-145) mmol/L BUN 36 H (9-20) mg/dL Glucose 129 H (74-99) mg/dL POC Glucose (mg/dL) 135 H (70-110) mg/dL - Imaging and Cardiology Chest x-ray: report reviewed, image reviewed Assessment and Plan Assessment: Severe aortic insufficiency, status post aortic valve replacement Paroxysmal atrial fibrillation, status post ligation of the left atrial a ppendage, bilateral pulmonary vein isolation Postoperative acute blood loss anemia, expected given hemodilution and cardiopulmonary bypass pump Anorexia related to smell of food History of coronary artery disease with non-STEMI status post PCI to the LAD Bradycardia Hypertension Borderline diabetes with diet control, hemoglobin A1c 6.7% Left renal lesion in need of partial nephrectomy in the future Questionable sleep apnea (patient never tested but exhibits symptoms) Lifelong non-smoker, preoperative FEV1 103% of predicted Premature coronary artery disease in his father Plan: Continue to maximize medical therapy with aspirin, statin, Plavix, beta-lizbeth. Will increase beta-lizbeth therapy as tolerated, increased to 25 mg 3 times daily today Amiodarone held today to determine if contributing to significant nausea. No anticoagulation necessary at this time Encourage incentive spirometry use 10 times every hour while awake. Bronchodilators per pulmonology Increase activity, ambulate as tolerated. PT/OT/cardiac rehab following Will monitor daily labs and x-rays, electrolyte replacement per protocol GI/DVT prophylaxis Pain control per current medication regimen Insulin management per internal medicine Daily weights Continue to monitor strict accurate intake and output Nutritional supplements ordered, patient encouraged to have family bring food from home, encouraged oral nutrition Lipase elevated, abdominal ultrasound ordered Shower daily More recommendations to follow
--- NOTE | 2025-02-23 10:20 | US ---
EXAMINATION TYPE: US abdomen limited DATE OF EXAM: 02/23/2025 COMPARISON: NONE CLINICAL INDICATION: Male, 69 years old with history of assess pancreas/gallbladder for pancreatitis; TECHNIQUE: Grayscale and color Doppler imaging of the right upper quadrant was performed. FINDINGS: EXAM MEASUREMENTS: Liver Length: 15.4 cm Gallbladder Wall: Obscured by bowel gas. CBD: Obscured Right Kidney: 10.3 x 5.5 x 3.5 cm CREDIT AND COLLECTIONS REPRESENTATIVE NOTES: Pancreatitis limited due to bowel gas. Patient just had open heart, unable to roll and bandages in area of mid abdomen. Pancreas: Obscured by bowel gas Liver: Limited due to bowel gas. Slightly echogenic appearance. Gallbladder: Obscured by overlying bowel gas Evidence for sonographic Liao's sign: No CBD: Obscured by overlying bowel gas Right Kidney: Limited due to bowel gas. IMPRESSION: 1. The pancreas, gallbladder, and bile duct are entirely obscured due to combination of bowel gas and midline bandages. 2. There may be some underlying fatty infiltration of the liver. [facility], , 02/23/2025 10:17 AM
[2025-02-23 11:23] LABS: Glucose,Whole Blood 148 mg/dL (70-110)
--- NOTE | 2025-02-23 12:19 | P.PN ---
Subjective Progress Note Date: 02/23/25 Principal diagnosis: Status post aortic valve replacement. This is a 69-year-old white male, primarily patient with Dr. Munoz, patient was recently evaluated for aortic valve insufficiency, seen back previously by cardiothoracic surgery in July of 2024. Since then the patient had extensive cardiac workup, today the patient underwent aortic valve replacement by Dr. Shafer, postoperatively patient was admitted to the ICU, and we were asked to see him in consultation. Patient is intubated, mechanically ventilated, he is on assist-control rate of 12, tidal volume of 600, FiO2 brought down to 40% from 100% initially after his ABG, and PEEP was 5. Patient is not requiring any pressors, not requiring any inotropes, is mostly on IV fluid, and on propofol at 25 mcg/kg/min. Cardiac output is 4.6, cardiac index is 2.0, chest x-ray showed no evidence of active disease, postoperative changes mostly. Patient was seen today on 02/19/2025, patient is sitting in the recliner, does not seem to be in any distress, he was extubated at 1705 last night, not requiring any pressors or any inotropes, he is on IV amiodarone for atrial fibrillation prophylaxis. Complaining of postsurgical pain, chest x-ray showed small left apical pneumothorax, expected, patient does have some minimal atelectasis at the bases. Continues to have mediastinal right and left pleural chest tubes in place, overall the patient is asymptomatic except for pain. WBC count is 12.8 hemoglobin 9.5 electrolytes are normal bicarb is normal renal profile is normal Patient was seen today on 02/20/2025, postoperative day #2aortic valve replacement with 25 mm García Inspiris bioprosthetic valve, ligation of the left atrial appendage using a 35mm AtriClip, bilateral pulmonary vein isolation, epiaortic ultrasound, intraoperative transesophageal echocardiogram patient is doing fairly well not in any distress, sitting at the bedside recliner, in sinus rhythm, hemodynamically stable, on 2 L nasal cannula, achieving 1500 mL with his incentive spirometry chest x-ray showed minimal basilar atelectasis and small tiny left apical left-sided pneumothorax. Patient has been ambulating in the hallway with assistance. WBC count is 14.8 hemoglobin 8.5, basic metabolic profile is normal renal profile is normal Seen today on 02/21/2025, patient is now postoperative day #3 aortic valve replacement with 25 mm García Inspiris bioprosthetic valve, ligation of the left atrial appendage using a 35mm AtriClip, bilateral pulmonary vein isolation, epiaortic ultrasound, intraoperative transesophageal echocardiogram. Patient developed A-fib with RVR this morning, received amiodarone, has been on oral ami odarone since yesterday, patient is hemodynamically stable not requiring any pressors or any inotropes. He is to go to 3 . once a bed is available. Chest tubes have been removed chest x-ray showed mostly minimal left basilar atelectasis, expected, WBC count is 14.5 hemoglobin 8.8 electrolytes are normal BUN is 38 creatinine 1.17, I reviewed chest x-ray, his previous left apical pneumothorax has resolved and again his chest x-ray showed mostly atelectasis at the left base, doubt pneumonia Progress note dated February 22, 2025. This is a 69-year-old male who is postoperative day #4, aortic valve replacement. The patient is doing well. He is currently on room air. He is not receiving any IV fluids. He is resting comfortably in bed. He has no particular complaints. He is awake and alert. Laboratory data includes a white count of 13.95, hemoglobin 9.1, hematocrit 27.5, platelet count 264,000. Sodium 135, potassium 4.3, chlorides 102, CO2 24, BUN 35, creatinine 0.93. Glucose was 147. Calcium 8.6, and magnesium is 2.4. Chest x-ray shows improving bilateral interstitial infiltrates. Progress note dated February 23, 2025. 69-year-old male who is postoperative day #5, aortic valve replacement. The patient is doing very well. He is on room air. No IV fluids. He is sitting in chair next to the hospital bed. He is awake and alert, without any particular complaints. Current labs include a white count 10.8, hemoglobin 9.3, hematocrit 28.4, and a platelet count of 106,000. Sodium 136, potassium 4.1, chlorides 104, CO2 26, BUN 36, and creatinine 0.93. Glucose is 148. Lipase is 337. Chest x-ray shows mild pulmonary vascular congestion. Postoperative changes are also noted. Objective - Vital Signs Vital signs: Vital Signs Temp 98.1 F 02/23/25 11:30 Pulse 60 02/23/25 11:44 Resp 18 02/23/25 11:44 BP 129/78 02/23/25 11:44 Pulse Ox 99 02/23/25 11:44 FiO2 40 02/18/25 16:10 Intake & Output 02/22/25 02/23/25 02/23/25 18:59 06:59 18:59 Intake Total 720 10 480 Output Total 950 650 225 Balance -230 -640 255 Weight 103.3 kg Intake: IV 10 Invasive Line 1 10 Oral 720 480 Output: Urine 950 650 225 Other: Voiding Method Urinal Urinal Urinal # Voids 1 1 # Bowel Movements 1 1 ABP, PAP, CO, CI - Last Documented Arterial Blood Pressure 105/51 Pulmonary Artery Pressure 26/7 Cardiac Output 6.3 Cardiac Index 2.8 - Exam No acute distress, oriented 3. No respiratory distress. Currently on room air. HEENT examination is grossly unremarkable. Mucous membranes are moist. No oral lesions. Neck supple. Full range of motion. No adenopathy thyromegaly or neck vein distention. Cardiovascular examination reveals regular rhythm rate. S1-S2 normal. No S3 or S4. Lungs reveal clear breath sounds. Breath sounds are equal bilaterally. No adventitious lung sounds including wheezes rhonchi or crackles. Abdomen soft bowel sounds are heard. No masses or tenderness. Extremities are intact. No cyanosis clubbing or edema. Skin is without rash or lesion. Neurologic examination is brief but nonfocal. - Labs CBC & Chem 7: 02/23/25 05:52 02/23/25 05:52 Labs: Abnormal Lab Results - Last 24 Hours (Table) 02/22/25 02/22/25 02/23/25 Range/Units 16:39 19:51 05:52 WBC 10.76 H (4.50-10.00) 10*3/uL RBC 3.50 L (4.40-5.60) 10*6/uL Hgb 9.3 L (13.0-17.0) g/dL Hct 28.4 L (39.6-50.0) % MCH 26.6 L (27.0-32.0) pg Sodium (137-145) mmol/L BUN (9-20) mg/dL Glucose (74-99) mg/dL POC Glucose (mg/dL) 145 H 135 H (70-110) mg/dL Lipase (23-300) U/L 02/23/25 02/23/25 02/23/25 Range/Units 05:52 05:52 06:10 WBC (4.50-10.00) 10*3/uL RBC (4.40-5.60) 10*6/uL Hgb (13.0-17.0) g/dL Hct (39.6-50.0) % MCH (27.0-32.0) pg Sodium 136 L (137-145) mmol/L BUN 36 H (9-20) mg/dL Glucose 129 H (74-99) mg/dL POC Glucose (mg/dL) 135 H (70-110) mg/dL Lipase 337 H (23-300) U/L 02/23/25 Range/Units 11:22 WBC (4.50-10.00) 10*3/uL RBC (4.40-5.60) 10*6/uL Hgb (13.0-17.0) g/dL Hct (39.6-50.0) % MCH (27.0-32.0) pg Sodium (137-145) mmol/L BUN (9-20) mg/dL Glucose (74-99) mg/dL POC Glucose (mg/dL) 148 H (70-110) mg/dL Lipase (23-300) U/L Assessment and Plan Assessment: Postoperative day #5, S/P aortic valve replacement, for aortic stenosis, and aortic insufficiency. Routine postoperative ventilator management. History of paroxysmal atrial fibrillation. Lifetime non-smoker. History of coronavirus infection. Benign essential hypertension. Left apical pneumothorax, resolved. Plan: Plan dated February 22, 2025. The patient is postoperative day #4, aortic valve replacement for aortic stenosis and aortic insufficiency. The patient is currently on room air. The patient is not receiving any IV fluids. Clinically, the patient appears relatively stable. He is awake and alert. He denies any significant complaints at this time. Labs, x-rays, and medications are reviewed. We will continue to follow make recommendations. Prognosis is thought to be generally good. Dictation was produced using [employer] software. Please excuse any grammatical, word or spelling errors. Plan dated February 23, 2025. The patient was seen today in room 363. He is postop day #5. Clinically, he is doing well. He is awake and alert. He is sitting in the chair next to the hospital bed. Labs, x-rays, and all medications are reviewed. The patient continues to use the incentive spirometer, every hour. We will continue to follow make recommendations along the way. Prognosis is thought to be generally good. Dictation was produced using [employer] dictation software. Please excuse a ny grammatical, word or spelling errors. Time with Patient: Less than 30
--- NOTE | 2025-02-23 12:21 | P.PN ---
Subjective Progress Note Date: 02/23/25 Subjective: Patient seen and examined at bedside. No acute events overnight. Pertinent positives and negatives as discussed above, a complete review of systems was performed and all other systems are negative. Vitals Signs Reviewed. General: Nontoxic, no distress, appears at stated age Derm: Warm, dry heart hugger in place Head: Atraumatic, normocephalic, symmetric Eyes: EOMI, no lid lag, anicteric sclera Mouth: No lip lesion, mucus membranes moist Cardiovascular: S1S2 reg, no murmur Lungs: CTA bilateral, no rhonchi, no rales, no accessory muscle use Abdominal: Soft, nontender to palpation, no guarding, no appreciable organomegaly Ext: No gross muscle atrophy, no edema, no contractures Neuro: CN II-XI grossly intact, no focal neuro deficits Psych: Alert, oriented, appropriate affect Data Reviewed Today: Pertinent Labs: WBC 10.76, hemoglobin 9.3, platelet 186, creatinine 0.93, blood sugars range between 129-148, lipase mildly elevated at 337 Imaging: Chest x-ray independently interpreted, shows postoperative changes Assessment and Plan: Aortic valve insufficiency status post aortic valve replacement Acute blood loss anemia, anticipated outcome of surgery Thrombocytopenia, anticipated outcome of surgery Leukocytosis, anticipated, surgery Small left apical pneumothorax, resolved Paroxysmal atrial fibrillation Hypertension Dyslipidemia CAD - On aspirin 325 mg, atorvastatin 40 mg, Plavix 75 mg, metoprolol 25 twice daily, amiodarone 400 twice daily - Cardiothoracic surgery note reviewed, management as above, investigating elevated lipase - Pulmonology and cardiology following - Pain control, DVT prophylaxis, GI prophylaxis per cardiothoracic surgery Type 2 diabetes, A1c 6.7 - Continue sliding scale insulin, monitor for hypoglycemia Thank you for allowing us to participate in the care of this pleasant patient. Do not hesitate to contact us with questions. Someone can be reached from the [facility] hospitalist group all hours of the day at [phone] or via [employer]. Objective - Vital Signs Vital signs: Vital Signs Temp 98.1 F 02/23/25 11:30 Pulse 60 02/23/25 11:44 Resp 18 02/23/25 11:44 BP 129/78 02/23/25 11:44 Pulse Ox 99 02/23/25 11:44 FiO2 40 02/18/25 16:10 Intake & Output 0402/23/25 02/23/25 18:59 06:59 18:59 Intake Total 720 10 480 Output Total 950 650 225 Balance -230 -640 255 Weight 103.3 kg Intake: IV 10 Invasive Line 1 10 Oral 720 480 Output: Urine 950 650 225 Other: Voiding Method Urinal Urinal Urinal # Voids 1 1 # Bowel Movements 1 1 ABP, PAP, CO, CI - Last Documented Arterial Blood Pressure 105/51 Pulmonary Artery Pressure 26/7 Cardiac Output 6.3 Cardiac Index 2.8 - Labs CBC & Chem 7: 02/23/25 05:52 02/23/25 05:52 Labs: Abnormal Lab Results - Last 24 Hours (Table) 02/22/25 02/22/25 02/23/25 Range/Units 16:39 19:51 05:52 WBC 10.76 H (4.50-10.00) 10*3/uL RBC 3.50 L (4.40-5.60) 10*6/uL Hgb 9.3 L (13.0-17.0) g/dL Hct 28.4 L (39.6-50.0) % MCH 26.6 L (27.0-32.0) pg Sodium (137-145) mmol/L BUN (9-20) mg/dL Glucose (74-99) mg/dL POC Glucose (mg/dL) 145 H 135 H (70-110) mg/dL Lipase (23-300) U/L 02/23/25 02/23/25 02/23/25 Range/Units 05:52 05:52 06:10 WBC (4.50-10.00) 10*3/uL RBC (4.40-5.60) 10*6/uL Hgb (13.0-17.0) g/dL Hct (39.6-50.0) % MCH (27.0-32.0) pg Sodium 136 L (137-145) mmol/L BUN 36 H (9-20) mg/dL Glucose 129 H (74-99) mg/dL POC Glucose (mg/dL) 135 H (70-110) mg/dL Lipase 337 H (23-300) U/L 02/23/25 Range/Units 11:22 WBC (4.50-10.00) 10*3/uL RBC (4.40-5.60) 10*6/uL Hgb (13.0-17.0) g/dL Hct (39.6-50.0) % MCH (27.0-32.0) pg Sodium (137-145) mmol/L BUN (9-20) mg/dL Glucose (74-99) mg/dL POC Glucose (mg/dL) 148 H (70-110) mg/dL Lipase (23-300) U/L
--- NOTE | 2025-02-23 13:38 | P.PN ---
Subjective HISTORY OF PRESENT ILLNESS: The patient is a 69-year-old male with known history of aortic insufficiency, CAD status post stenting of the LAD in the setting of non-STEMI in July 2020 for who underwent aortic valve replacement with Inspiris valve, atrial fibrillation ablation and ligation of the left atrial appendage. He is extubated, sitting up in the chair, complaining of chest wall tenderness. He is in sinus mechanism and hemodynamically stable on no vasopressors. By echocardiogram in the past he had an ejection fraction of 50% with severe aortic regurgitation with a tricuspid aortic valve by FARA. According to him he has been complaining of continuous dyspnea on exertion. On repeat cardiac catheterization the LAD stent was patent. He has a reported history of paroxysmal atrial fibrillation. He has a history of hypertension and hyperlipidemia, he is nondiabetic, non-smoker. February 20: The patient feels better today, he continues to have some soreness but improving. He continues to be in sinus mechanism, hemodynamically stable. His Johnson-Migue catheter has been removed as well as mediastinal tube. He has ambulated yesterday. He continues to be in sinus mechanism. February 21: The patient had shoulder discomfort earlier that resolved after removing the chest tube. He is in atrial fibrillation and has been started on amiodarone. His breathing is stable. His blood pressure stable. He denies any dizziness or palpitations. He denies any nausea. 02/22/2025 Patient examined this morning at the bedside. Patient currently denies chest pain or pressure. He denies shortness of breath. He reports that yesterday he felt very weak. He reports decreased appetite this morning. He reports having chills this morning as well. Telemetry reveals sinus mechanism with episodes of atrial fibrillation overnight. The patient is not anticoagulated. He does have a history of atrial fibrillation. The patient states that he has never been on anticoagulation in the past. Reason unknown. 02/23/2025 Patient examined this morning. Patient is sitting up in the chair. Patient currently denies chest pain or pressure. He denies shortness of breath. He continues to report nausea. Telemetry reveals sinus mechanism. PHYSICAL EXAM: VITAL SIGNS: Reviewed. GENERAL: Well-developed in no acute distress. NECK: Supple. No JVD or thyromegaly LUNGS: Respirations even and unlabored. Lungs essentially clear to auscultation bilaterally. HEART: Regular rate and rhythm. S1 and S2 heard. Systolic murmur noted. EXTREMITIES: Normal range of motion. No clubbing or cyanosis. Peripheral pulses intact. No lower extremity edema ASSESSMENT: 1. Status post aortic valve replacement for severe aortic regurgitation, with closure of the left atrial appendage and atrial fibrillation ablation 2. History of CAD status post stenting of the LAD 3. Hyperlipidemia 4. History of hypertension 5. Paroxysmal atrial fibrillation, first diagnosed in 2018, not anticoagulated on an outpatient basis, reason unknown PLAN: Continue postoperative management per CT surgery Continue current cardiac medications including aspirin, Lipitor, Plavix, metoprolol Amiodarone pain held today secondary to significant nausea Will begin anticoagulation when cleared by CT surgery. Prescriptions for Xarelto, Eliquis, and Pradaxa sent to pharmacy. Case management on consult and will verify copay. Continue telemetry monitoring Further recommendations pending patient course Patient to follow-up postdischarge with Dr. Gunn Nurse practitioner note has been reviewed by physician. Signing provider agrees with the documented findings, assessment, and plan of care documented by FRANCHISE MANAGER as a scribe. Objective - Vital Signs Vital signs: Vital Signs Temp 98.1 F 02/23/25 11:30 Pulse 60 02/23/25 11:44 Resp 18 02/23/25 11:44 BP 129/78 02/23/25 11:44 Pulse Ox 99 02/23/25 11:44 FiO2 40 02/18/25 16:10 Intake & Output 02/22/25 02/23/25 02/23/25 18:59 06:59 18:59 Intake Total 720 10 480 Output Total 950 650 225 Balance -230 -640 255 Weight 103.3 kg Intake: IV 10 Invasive Line 1 10 Oral 720 480 Output: Urine 950 650 225 Other: Voiding Method Urinal Urinal Urinal # Voids 1 1 # Bowel Movements 1 1 ABP, PAP, CO, CI - Last Documented Arterial Blood Pressure 105/51 Pulmonary Artery Pressure 26/7 Cardiac Output 6.3 Cardiac Index 2.8 - Labs CBC & Chem 7: 02/23/25 05:52 02/23/25 05:52 Labs: Abnormal Lab Results - Last 24 Hours (Table) 02/22/25 02/22/25 02/23/25 Range/Units 16:39 19:51 05:52 WBC 10.76 H (4.50-10.00) 10*3/uL RBC 3.50 L (4.40-5.60) 10*6/uL Hgb 9.3 L (13.0-17.0) g/dL Hct 28.4 L (39.6-50.0) % MCH 26.6 L (27.0-32.0) pg Sodium (137-145) mmol/L BUN (9-20) mg/dL Glucose (74-99) mg/dL POC Glucose (mg/dL) 145 H 135 H (70-110) mg/dL Lipase (23-300) U/L 02/23/25 02/23/25 02/23/25 Range/Units 05:52 05:52 06:10 WBC (4.50-10.00) 10*3/uL RBC (4.40-5.60) 10*6/uL Hgb (13.0-17.0) g/dL Hct (39.6-50.0) % MCH (27.0-32.0) pg Sodium 136 L (137-145) mmol/L BUN 36 H (9-20) mg/dL Glucose 129 H (74-99) mg/dL POC Glucose (mg/dL) 135 H (70-110) mg/dL Lipase 337 H (23-300) U/L 02/23/25 Range/Units 11:22 WBC (4.50-10.00) 10*3/uL RBC (4.40-5.60) 10*6/uL Hgb (13.0-17.0) g/dL Hct (39.6-50.0) % MCH (27.0-32.0) pg Sodium (137-145) mmol/L BUN (9-20) mg/dL Glucose (74-99) mg/dL POC Glucose (mg/dL) 148 H (70-110) mg/dL Lipase (23-300) U/L
[2025-02-23 16:23] LABS: Glucose,Whole Blood 128 mg/dL (70-110)
[2025-02-23 20:16] LABS: Glucose,Whole Blood 144 mg/dL (70-110)
[2025-02-24 06:02] LABS: Glucose,Whole Blood 142 mg/dL (70-110)
[2025-02-24 06:50] LABS: HCT 27.1 % (39.6-50.0); HGB 8.8 g/dL (13.0-17.0); MCH 26.1 pg (27.0-32.0); MCHC 32.5 g/dL (32.0-37.0); MCV 80.4 fL (80.0-97.0); Mean Platelet Volume 10.6 fL (9.5-12.2); Platelet Count 212 10*3/uL (140-440); RBC 3.37 10*6/uL (4.40-5.60); RDW 15.1 % (11.5-14.5); WBC 8.89 10*3/uL (4.50-10.00)
[2025-02-24 07:10] LABS: ALT 54 U/L (4-49); AST 42 U/L (17-59); African American GFR (CKD) >90 (>60 ml/min/1.73 sqM); Albumin 2.9 g/dL (3.5-5.0); Alkaline Phosphatase 63 U/L (38-126); Amylase 36 U/L (30-110); Anion Gap 5 mmol/L; Blood Urea Nitrogen 29 mg/dL (9-20); Calcium 8.5 mg/dL (8.4-10.2); Carbon Dioxide 27 mmol/L (22-30); Chloride 106 mmol/L (98-107); Glucose 134 mg/dL (74-99); Lipase 453 U/L (23-300); Non-African American GFR(CKD) 88 (>60 ml/min/1.73 sqM); Potassium 3.8 mmol/L (3.5-5.1); Sodium 138 mmol/L (137-145); Total Bilirubin 1.5 mg/dL (0.2-1.3)
--- NOTE | 2025-02-24 07:33 | XR ---
EXAMINATION TYPE: XR chest 2V DATE OF EXAM: 02/24/2025 6:19 AM COMPARISON: 02/23/2025 CLINICAL INDICATION: Male, 69 years old with history of Post aortic valve replacement, , TECHNIQUE: PA and lateral views FINDINGS: Median sternotomy wires with prosthetic aortic valve. Heart remains borderline enlarged. Interstitial densities are similar to yesterday's exam. Trace bilateral pleural effusions remain. IMPRESSION: Overall stable findings, suspect some residual mild pulmonary vascular congestion and ongoing trace b ilateral pleural effusions. [facility], Workstation: [facility], 02/24/2025 7:30 AM
[2025-02-24] MEDS: METOPROLOL TARTRATE 50 MG TAB PO SCH (08:16)
--- NOTE | 2025-02-24 08:39 | P.PN ---
Subjective Progress Note Date: 02/24/25 Principal diagnosis: Severe aortic insufficiency, and paroxysmal atrial fibrillation. Medical history significant for coronary artery disease with non-STEMI status post PCI to the left anterior descending coronary artery, bradycardia, hypertension, borderline diabetes with diet control, left renal lesion in need of partial nephrectomy in the future, questionable sleep apnea (patient never tested but exhibits symptoms), lifelong non-smoker, premature coronary artery disease in his father POD #6 aortic valve replacement with 25 mm García Inspiris bioprosthetic valve, ligation of the left atrial appendage using a 35mm AtriClip, bilateral pulmonary vein isolation, epiaortic ultrasound, and intraoperative transesophageal echocardiogram performed by anesthesia. Postoperative acute blood loss anemia, expected given hemodilution and cardiopulmonary bypass pump. Patient was seen and examined in follow-up today February 24, 2025 at his bedside on the third floor cardiac stepdown unit. He is currently sitting up to the bedside chair, is awake, alert, oriented x 3 and is in no acute apparent distress. Denies any complaints of pain or shortness of breath at this time, a lthough is complaining of some bouts of nausea. He denies any emesis. He reports his bowels have been moving but has had episodes of diarrhea and has continued complaints of gas. His last bowel movement was yesterday morning February 23, 2025. Bedside telemetry is showing atrial fibrillation heart rate 95 bpm, and he did receive 2 amiodarone 150 mg boluses last evening. Oxygen saturations are 97% on room air and he is achieving 2000 mL on his incentive spirometry. He reports he has been up ambulating in the hallway with standby assistance from nursing and therapy staff and tolerating well, he reports he walked 4 times yesterday. Lipase was drawn yesterday which showed a value of 337 and repeat lipase today was 453. Chest x-ray and laboratory results were reviewed. Objective - Vital Signs Vital signs: Vital Signs Temp 97.7 F 02/24/25 04:18 Pulse 83 02/24/25 04:18 Resp 16 02/24/25 04:18 BP 117/80 02/24/25 04:18 Pulse Ox 97 02/24/25 04:18 FiO2 40 02/18/25 16:10 Intake & Output 02/23/25 02/24/25 02/24/25 18:59 06:59 18:59 Intake Total 1260 Output Total 825 975 Balance 435 -975 Weight 102.1 kg Intake: Oral 1260 Output: Urine 825 975 Other: Voiding Method Urinal Urinal # Voids 2 ABP, PAP, CO, CI - Last Documented Arterial Blood Pressure 105/51 Pulmonary Artery Pressure 26/7 Cardiac Output 6.3 Cardiac Index 2.8 - Exam CONSTITUTIONAL: Appears comfortable, cooperative, no acute distress. RESPIRATORY: Lungs sounds diminished in the bases bilaterally. Respirations symmetrical, nonlabored. Currently on room air with oxygen saturation 97%. Able to achieve 2000 mL on his incentive spirometry. Strong cough. CARDIOVASCULAR: S1, S2 present. Regular rate and rhythm, sinus rhythm on telemetry. Sternum stable. Palpable peripheral pulses bilaterally. No edema present. No calf pain or tenderness noted. Heart hugger in place with patient demonstrating appropriate use. Antiembolism stockings, SCDs present. GASTROINTESTINAL: Abdomen soft, nontender, nondistended. Active bowel sounds present 4 quadrants. Tolerating minimal diet due to nausea, taste/smell. Passing flatus. Bowel movement yesterday 02/23/25. GENITOURINARY: Continues to void, output 975 mL in the last 24 hours. INTEGUMENTARY: Skin is warm and dry with evidence of good perfusion. Anterior chest incision well approximated. NEUROLOGIC: Cranial nerves II through XII intact. No focal deficits. MUSKULOSKELETAL: Able to move all extremities, strength equal bilaterally, gait normal. PSYCHIATRIC: Alert and oriented to person place and time, appropriate affect, intact judgment and insight. INVASIVE LINES AND TUBES: A/V epicardial pacemaker wires present, grounded. - Allied health notes Allied health notes reviewed: nursing - Labs CBC & Chem 7: 02/24/25 06:07 02/24/25 06:07 Labs: Abnormal Lab Results - Last 24 Hours (Table) 02/23/25 02/23/25 02/23/25 Range/Units 05:52 11:22 16:22 RBC (4.40-5.60) 10*6/uL Hgb (13.0-17.0) g/dL Hct (39.6-50.0) % MCH (27.0-32.0) pg BUN (9-20) mg/dL Glucose (74-99) mg/dL POC Glucose (mg/dL) 148 H 128 H (70-110) mg/dL Total Bilirubin (0.2-1.3) mg/dL ALT (4-49) U/L Total Protein (6.3-8.2) g/dL Albumin (3.5-5.0) g/dL Lipase 337 H (23-300) U/L 02/23/25 02/24/25 02/24/25 Range/Units 20:15 06:00 06:07 RBC 3.37 L (4.40-5.60) 10*6/uL Hgb 8.8 L (13.0-17.0) g/dL Hct 27.1 L (39.6-50.0) % MCH 26.1 L (27.0-32.0) pg BUN (9-20) mg/dL Glucose (74-99) mg/dL POC Glucose (mg/dL) 144 H 142 H (70-110) mg/dL Total Bilirubin (0.2-1.3) mg/dL ALT (4-49) U/L Total Protein (6.3-8.2) g/dL Albumin (3.5-5.0) g/dL Lipase (23-300) U/L 02/24/25 Range/Units 06:07 RBC (4.40-5.60) 10*6/uL Hgb (13.0-17.0) g/dL Hct (39.6-50.0) % MCH (27.0-32.0) pg BUN 29 H (9-20) mg/dL Glucose 134 H (74-99) mg/dL POC Glucose (mg/dL) (70-110) mg/dL Total Bilirubin 1.5 H (0.2-1.3) mg/dL ALT 54 H (4-49) U/L Total Protein 5.0 L (6.3-8.2) g/dL Albumin 2.9 L (3.5-5.0) g/dL Lipase 453 H (23-300) U/L - Imaging and Cardiology Chest x-ray: report reviewed, image reviewed Assessment and Plan Assessment: Severe aortic insufficiency, status post aortic valve replacement Paroxysmal atrial fibrillation, status post ligation of the left atrial appendage, bilateral pulmonary vein isolation Postoperative acute blood loss anemia, expected given hemodilution and cardiopulmonary bypass pump Anorexia related to nausea and smell of food History of coronary artery disease with non-STEMI status post PCI to the LAD Bradycardia Hypertension Borderline diabetes with diet control, hemoglobin A1c 6.7% Left renal lesion in need of partial nephrectomy in the future Questionable sleep apnea (patient never tested but exhibits symptoms) Lifelong non-smoker, preoperative FEV1 103% of predicted Premature coronary artery disease in his father Plan: Continue to maximize medical therapy with aspirin, statin, Plavix, beta-lizbeth. Will increase beta-lizbeth therapy as tolerated, increased to 50 mg twice daily today. Continue to hold amiodarone today to determine if contributing to significant nausea. Once the patient's pacemaker wires are removed today we will start Pradaxa for anticoagulation. Encourage incentive spirometry use 10 times every hour while awake. Bronchodilators per pulmonology. Increase activity, ambulate as tolerated. PT/OT/cardiac rehab following. Will monitor daily labs and chest x-rays, electrolyte replacement per protocol. GI/DVT prophylaxis. Pain control per current medication regimen. Insulin management per internal medicine. Daily weights. Continue to monitor strict accurate intake and output. Nutritional supplements ordered, patient encouraged to have family bring food from home, encouraged oral nutrition. Lipase elevated, abdominal ultrasound results reviewed. Shower daily. Discharge planning is in place, anticipate discharge home within the next 24 hours with home health care. More recommendations to follow based on patient's clinical course. Time with Patient: Greater than 30
[2025-02-24 11:44] LABS: Glucose,Whole Blood 138 mg/dL (70-110)
--- NOTE | 2025-02-24 12:26 | P.PN ---
Subjective Progress Note Date: 02/24/25 Subjective: Seen this morning. He states that his abdominal pain has now resolved. Patient also reports that he was having diarrhea that has also improved. Vitals Signs Reviewed. General examination - Alert and Oriented 3 in NAD Heart - + S1S2 no murmurs Lungs - Clear to auscultation Abdomen soft NT ND +ve BS Extremities - No edema WRITER PRODUCER - Moving all 4 extremities spontaneously Psych - Calm and cooperative Assessment and Plan: Aortic valve insufficiency status post aortic valve replacement Acute blood loss anemia, anticipated outcome of surgery. Hgb is 8.8 Thrombocytopenia, anticipated outcome of surgery Leukocytosis, anticipated, surgery: WBC this morning within normal limits Small left apical pneumothorax, resolved Paroxysmal atrial fibrillation Hypertension Dyslipidemia CAD - On aspirin 325 mg, atorvastatin 40 mg, Plavix 75 mg, metoprolol [address] surgery discontinued the amiodarone due to increasing lipase Elevated lipase - This morning lipase increased to 453. I doubt pancreatitis since patient has no abdominal pain. Could be due to colitis as patient was having diarrhea. Ultrasound abdomen was limited and liver could not be seen. I recommend CT abdomen and pelvis as lipase is continuing to increase. Continue to trend CMP and lipase Pain control, DVT prophylaxis, GI prophylaxis per cardiothoracic surgery Type 2 diabetes, A1c 6.7 - Continue sliding scale insulin, monitor for hypoglycemia Objective - Vital Signs Vital signs: Vital Signs Temp 98.4 F 02/24/25 11:05 Pulse 59 L 02/24/25 11:05 Resp 16 02/24/25 11:05 BP 123/80 02/24/25 11:05 Pulse Ox 99 02/24/25 11:05 FiO2 40 02/18/25 16:10 Intake & Output 02/23/25 02/24/25 02/24/25 18:59 06:59 18:59 Intake Total 1260 480 Output Total 825 975 275 Balance 435 -975 205 Weight 102.1 kg Intake: Oral 1260 480 Output: Urine 825 975 275 Other: Voiding Method Urinal Urinal # Voids 2 ABP, PAP, CO, CI - Last Documented Arterial Blood Pressure 105/51 Pulmonary Artery Pressure 26/7 Cardiac Output 6.3 Cardiac Index 2.8 - Labs CBC & Chem 7: 02/24/25 06:07 02/24/25 06:07 Labs: Abnormal Lab Results - Last 24 Hours (Table) 02/23/25 02/23/2502/24/25 Range/Units 16:22 20:15 06:00 RBC (4.40-5.60) 10*6/uL Hgb (13.0-17.0) g/dL Hct (39.6-50.0) % MCH (27.0-32.0) pg BUN (9-20) mg/dL Glucose (74-99) mg/dL POC Glucose (mg/dL) 128 H 144 H 142 H (70-110) mg/dL Total Bilirubin (0.2-1.3) mg/dL ALT (4-49) U/L Total Protein (6.3-8.2) g/dL Albumin (3.5-5.0) g/dL Lipase (23-300) U/L 02/24/25 02/24/25 02/24/25 Range/Units 06:07 06:07 11:42 RBC 3.37 L (4.40-5.60) 10*6/uL Hgb 8.8 L (13.0-17.0) g/dL Hct 27.1 L (39.6-50.0) % MCH 26.1 L (27.0-32.0) pg BUN 29 H (9-20) mg/dL Glucose 134 H (74-99) mg/dL POC Glucose (mg/dL) 138 H (70-110) mg/dL Total Bilirubin 1.5 H (0.2-1.3) mg/dL ALT 54 H (4-49) U/L Total Protein 5.0 L (6.3-8.2) g/dL Albumin 2.9 L (3.5-5.0) g/dL Lipase 453 H (23-300) U/L
--- NOTE | 2025-02-24 13:37 | P.PN ---
Subjective HISTORY OF PRESENT ILLNESS: The patient is a 69-year-old male with known history of aortic insufficiency, CAD status post stenting of the LAD in the setting of non-STEMI in July 2020 for who underwent aortic valve replacement with Inspiris valve, atrial fibrillation ablation and ligation of the left atrial appendage. He is extubated, sitting up in the chair, complaining of chest wall tenderness. He is in sinus mechanism and hemodynamically stable on no vasopressors. By echocardiogram in the past he had an ejection fraction of 50% with severe aortic regurgitation with a tricuspid aortic valve by FARA. According to him he has been complaining of continuous dyspnea on exertion. On repeat cardiac catheterization the LAD stent was patent. He has a reported history of paroxysmal atrial fibrillation. He has a history of hypertension and hyperlipidemia, he is nondiabetic, non-smoker. February 20: The patient feels better today, he continues to have some soreness but improving. He continues to be in sinus mechanism, hemodynamically stable. His [place] catheter has been removed as well as mediastinal tube. He has ambulated yesterday. He continues to be in sinus mechanism. February 21: The patient had shoulder discomfort earlier that resolved after removing the chest tube. He is in atrial fibrillation and has been started on amiodarone. His breathing is stable. His blood pressure stable. He denies any dizziness or palpitations. He denies any nausea. 02/22/2025 Patient examined this morning at the bedside. Patient currently denies chest pain or pressure. He denies shortness of breath. He reports that yesterday he felt very weak. He reports decreased appetite this morning. He reports having chills this morning as well. Telemetry reveals sinus mechanism with episodes of atrial fibrillation overnight. The patient is not anticoagulated. He does have a history of atrial fibrillation. The patient states that he has never been on anticoagulation in the past. Reason unknown. 02/23/2025 Patient examined this morning. Patient is sitting up in the chair. Patient currently denies chest pain or pressure. He denies shortness of breath. He continues to report nausea. Telemetry reveals sinus mechanism. Addendum entered and electronically signed by Pilar Ziegler NP-C 02/23/25 14:28: Per case management, Xarelto co-pay $556 a month, Eliquis co-pay $141 per month, and Pradaxa co-pay $60.30 a month Will begin Pradaxa when cleared by CT surgery 02/24/2025 Patient examined this morning at the bedside. Patient currently denies chest pain or pressure. He denies shortness of breath. He reports improvement in his nausea. He was able to eat some breakfast this morning. Patient's pacemaker wires were discontinued today. Telemetry reveals atrial fibrillation with contr olled ventricular rate. PHYSICAL EXAM: VITAL SIGNS: Reviewed. GENERAL: Well-developed in no acute distress. NECK: Supple. No JVD or thyromegaly LUNGS: Respirations even and unlabored. Lungs essentially clear to auscultation bilaterally. HEART: Irregular rate and rhythm. S1 and S2 heard. Systolic murmur noted. EXTREMITIES: Normal range of motion. No clubbing or cyanosis. Peripheral pulses intact. No lower extremity edema ASSESSMENT: 1. Status post aortic valve replacement for severe aortic regurgitation, with closure of the left atrial appendage and atrial fibrillation ablation 2. History of CAD status post stenting of the LAD 3. Hyperlipidemia 4. History of hypertension 5. Paroxysmal atrial fibrillation, first diagnosed in 2017, not anticoagulated on an outpatient basis, reason unknown PLAN: Continue postoperative management per CT surgery Continue current cardiac medications including Lipitor, Plavix, metoprolol Discontinue aspirin Begin Pradaxa 150 mg twice a day Continue telemetry monitoring Further recommendations pending patient course Consider more aggressive treatment for atrial fibrillation on an outpatient basis Patient to follow-up postdischarge with Dr. Gunn Nurse practitioner note has been reviewed by physician. Signing provider agrees with the documented findings, assessment, and plan of care documented by ASSISTANT HEAD CASHIER as a scribe. Objective - Vital Signs Vital signs: Vital Signs Temp 98.3 F 02/24/25 07:28 Pulse 105 H 02/24/25 07:28 Resp 16 02/24/25 07:28 BP 112/71 02/24/25 07:28 Pulse Ox 96 02/24/25 07:28 FiO2 40 02/18/25 16:10 Intake & Output 02/23/25 02/24/25 02/24/25 18:59 06:59 18:59 Intake Total 1260 Output Total 825 975 Balance 435 -975 Weight 102.1 kg Intake: Oral 1260 Output: Urine 825 975 Other: Voiding Method Urinal Urinal # Voids 2 ABP, PAP, CO, CI - Last Documented Arterial Blood Pressure 105/51 Pulmonary Artery Pressure 26/7 Cardiac Output 6.3 Cardiac Index 2.8 - Labs CBC & Chem 7: 02/24/25 06:07 02/24/25 06:07 Labs: Abnormal Lab Results - Last 24 Hours (Table) 02/23/25 02/23/25 02/23/25 Range/Units 11:22 16:22 20:15 RBC (4.40-5.60) 10*6/uL Hgb (13.0-17.0) g/dL Hct (39.6-50.0) % MCH (27.0-32.0) pg BUN (9-20) mg/dL Glucose (74-99) mg/dL POC Glucose (mg/dL) 148 H 128 H 144 H (70-110) mg/dL Total Bilirubin (0.2-1.3) mg/dL ALT (4-49) U/L Total Protein (6.3-8.2) g/dL Albumin (3.5-5.0) g/dL Lipase (23-300) U/L 02/24/25 02/24/25 02/24/25 Range/Units 06:00 06:07 06:07 RBC 3.37 L (4.40-5.60) 10*6/uL Hgb 8.8 L (13.0-17.0) g/dL Hct 27.1 L (39.6-50.0) % MCH 26.1 L (27.0-32.0) pg BUN 29 H (9-20) mg/dL Glucose 134 H (74-99) mg/dL POC Glucose (mg/dL) 142 H (70-110) mg/dL Total Bilirubin 1.5 H (0.2-1.3) mg/dL ALT 54 H (4-49) U/L Total Protein 5.0 L (6.3-8.2) g/dL Albumin 2.9 L (3.5-5.0) g/dL Lipase 453 H (23-300) U/L
--- NOTE | 2025-02-24 13:43 | P.PN ---
Subjective Progress Note Date: 02/24/25 Principal diagnosis: Status post aortic valve replacement. This is a 69-year-old white male, primarily patient with Dr. Munoz, patient was recently evaluated for aortic valve insufficiency, seen back previously by cardiothoracic surgery in July of 2024. Since then the patient had extensive cardiac workup, today the patient underwent aortic valve replacement by Dr. Shafer, postoperatively patient was admitted to the ICU, and we were asked to see him in consultation. Patient is intubated, mechanically ventilated, he is on assist-control rate of 12, tidal volume of 600, FiO2 brought down to 40% from 100% initially after his ABG, and PEEP was 5. Patient is not requiring any pressors, not requiring any inotropes, is mostly on IV fluid, and on propofol at 25 mcg/kg/min. Cardiac output is 4.6, cardiac index is 2.0, chest x-ray showed no evidence of active disease, postoperative changes mostly. Patient was seen today on 02/19/2025, patient is sitting in the recliner, does not seem to be in any distress, he was extubated at 1705 last night, not requiring any pressors or any inotropes, he is on IV amiodarone for atrial fibrillation prophylaxis. Complaining of postsurgical pain, chest x-ray showed small left apical pneumothorax, expected, patient does have some minimal atelectasis at the bases. Continues to have mediastinal right and left pleural chest tubes in place, overall the patient is asymptomatic except for pain. WBC count is 12.8 hemoglobin 9.5 electrolytes are normal bicarb is normal renal profile is normal Patient was seen today on 02/20/2025, postoperative day #2aortic valve replacement with 25 mm García Inspiris bioprosthetic valve, ligation of the left atrial appendage using a 35mm AtriClip, bilateral pulmonary vein isolation, epiaortic ultrasound, intraoperative transesophageal echocardiogram patient is doing fairly well not in any distress, sitting at the bedside recliner, in sinus rhythm, hemodynamically stable, on 2 L nasal cannula, achieving 1500 mL with his incentive spirometry chest x-ray showed minimal basilar atelectasis and small tiny left apical left-sided pneumothorax. Patient has been ambulating in the hallway with assistance. WBC count is 14.8 hemoglobin 8.5, basic metabolic profile is normal renal profile is normal Seen today on 02/21/2025, patient is now postoperative day #3 aortic valve replacement with 25 mm García Inspiris bioprosthetic valve, ligation of the left atrial appendage using a 35mm AtriClip, bilateral pulmonary vein isolation, epiaortic ultrasound, intraoperative transesophageal echocardiogram. Patient developed A-fib with RVR this morning, received amiodarone, has been on oral ami odarone since yesterday, patient is hemodynamically stable not requiring any pressors or any inotropes. He is to go to 3 . once a bed is available. Chest tubes have been removed chest x-ray showed mostly minimal left basilar atelectasis, expected, WBC count is 14.5 hemoglobin 8.8 electrolytes are normal BUN is 38 creatinine 1.17, I reviewed chest x-ray, his previous left apical pneumothorax has resolved and again his chest x-ray showed mostly atelectasis at the left base, doubt pneumonia Progress note dated February 22, 2025. This is a 69-year-old male who is postoperative day #4, aortic valve replacement. The patient is doing well. He is currently on room air. He is not receiving any IV fluids. He is resting comfortably in bed. He has no particular complaints. He is awake and alert. Laboratory data includes a white count of 13.95, hemoglobin 9.1, hematocrit 27.5, platelet count 264,000. Sodium 135, potassium 4.3, chlorides 102, CO2 24, BUN 35, creatinine 0.93. Glucose was 147. Calcium 8.6, and magnesium is 2.4. Chest x-ray shows improving bilateral interstitial infiltrates. Progress note dated February 23, 2025. 69-year-old male who is postoperative day #5, aortic valve replacement. The patient is doing very well. He is on room air. No IV fluids. He is sitting in chair next to the hospital bed. He is awake and alert, without any particular complaints. Current labs include a white count 10.8, hemoglobin 9.3, hematocrit 28.4, and a platelet count of 106,000. Sodium 136, potassium 4.1, chlorides 104, CO2 26, BUN 36, and creatinine 0.93. Glucose is 148. Lipase is 337. Chest x-ray shows mild pulmonary vascular congestion. Postoperative changes are also noted. Progress note dated February 24 2025. 69-year-old male postop day number, status post aortic valve replacement. The patient is resting comfortably in bed. He is currently not on any supplemental oxygen, or IV fluids. His only complaint is abdominal pain. The patient is thinking that he may be discharged tomorrow. Current labs include a white count of 8.9, hemoglobin 8.8, hematocrit 27.1, and a platelet count of 212,000. Sodium 138, potassium 3.8, chlorides 106, CO2 27, BUN 29, creatinine 0.85. Glucose is 138. Bilirubin 1.5. AST 42. ALT 54. Lipase was 453. Objective - Vital Signs Vital signs: Vital Signs Temp 98.4 F 02/24/25 11:05 Pulse 59 L 02/24/25 11:05 Resp 16 02/24/25 11:05 BP 123/80 02/24/25 11:05 Pulse Ox 99 02/24/25 11:05 FiO2 40 02/18/25 16:10 Intake & Output 02/23/25 02/24/25 02/24/25 18:59 06:59 18:59 Intake Total 1260 480 Output Total 825 975 275 Balance 435 -975 205 Weight 102.1 kg Intake: Oral 1260 480 Output: Urine 825 975 275 Other: Voiding Method Urinal Urinal # Voids 2 ABP, PAP, CO, CI - Last Documented Arterial Blood Pressure 105/51 Pulmonary Artery Pressure 26/7 Cardiac Output 6.3 Cardiac Index 2.8 - Exam No acute distress, oriented 3. No respiratory distress. Currently on room air. HEENT examination is grossly unremarkable. Mucous membranes are moist. No oral lesions. Neck supple. Full range of motion. No adenopathy thyromegaly or neck vein distention. Cardiovascular examination reveals regular rhythm rate. S1-S2 normal. No S3 or S4. Lungs reveal clear breath sounds. Breath sounds are equal bilaterally. No adventitious lung sounds including wheezes rhonchi or crackles. Abdomen soft bowel sounds are heard. No masses or tenderness. Extremities are intact. No cyanosis clubbing or edema. Skin is without rash or lesion. Neurologic examination is brief but nonfocal. - Labs CBC & Chem 7: 02/24/25 06:07 02/24/25 06:07 Labs: Abnormal Lab Results - Last 24 Hours (Table) 02/23/25 02/23/25 02/24/25 Range/Units 16:22 20:15 06:00 RBC (4.40-5.60) 10*6/uL Hgb (13.0-17.0) g/dL Hct (39.6-50.0) % MCH (27.0-32.0) pg BUN (9-20) mg/dL Glucose (74-99) mg/dL POC Glucose (mg/dL) 128 H 144 H 142 H (70-110) mg/dL Total Bilirubin (0.2-1.3) mg/dL ALT (4-49) U/L Total Protein (6.3-8.2) g/dL Albumin (3.5-5.0) g/dL Lipase (23-300) U/L 02/24/25 02/24/25 02/24/25 Range/Units 06:07 06:07 11:42 RBC 3.37 L (4.40-5.60) 10*6/uL Hgb 8.8 L (13.0-17.0) g/dL Hct 27.1 L (39.6-50.0) % MCH 26.1 L (27.0-32.0) pg BUN 29 H (9-20) mg/dL Glucose 134 H (74-99) mg/dL POC Glucose (mg/dL) 138 H (70-110) mg/dL Total Bilirubin 1.5 H (0.2-1.3) mg/dL ALT 54 H (4-49) U/L Total Protein 5.0 L (6.3-8.2) g/dL Albumin 2.9 L (3.5-5.0) g/dL Lipase 453 H (23-300) U/L Assessment and Plan Assessment: Postoperative day #6, S/P aortic valve replacement, for aortic stenosis, and aortic insufficiency. Routine postoperative ventilator management. Abdominal discomfort. History of paroxysmal atrial fibrillation. Lifetime non-smoker. History of coronavirus infection. Benign essential hypertension. Left apical pneumothorax, resolved. Plan: Plan dated February 22, 2025. The patient is postoperative day #4, aortic valve replacement for aortic stenosis and aortic insufficiency. The patient is currently on room air. The patient is not receiving any IV fluids. Clinically, the patient appears relatively stable. He is awake and alert. He denies any significant complaints at this time. Labs, x-rays, and medications are reviewed. We will continue to follow make recommendations. Prognosis is thought to be generally good. Dictation was produced using [employer] [place] software. Please excuse any grammatical, word or spelling errors. Plan dated February 23, 2025. The patient was seen today in room 363. He is postop day #5. Clinically, he is doing well. He is awake and alert. He is sitting in the chair next to the hospital bed. Labs, x-rays, and all medications are reviewed. The patient continues to use the incentive spirometer, every hour. We will continue to follow make recommendations along the way. Prognosis is thought to be generally good. Dictation was produced using [employer] [place] software. Please excuse any grammatical, word or spelling errors. Plan dated February 24, 2025. The patient was seen today in room 363. He is postoperative day #6. He has no issues with his lungs. He denies any shortness of breath, cough, wheezing, chest tightness, or phlegm production. The patient is complaining of some abdominal discomfort. His lipase level was elevated. He is on room air. He is not requiring any IV fluids. All labs, x-rays, and medications are reviewed. We will continue to follow make recommendations along the way. Prognosis is guarded. Dictation was produced using [employer] [place] software. Please excuse any grammatical, word or spelling errors. Time with Patient: Less than 30
[2025-02-24 16:24] LABS: Glucose,Whole Blood 127 mg/dL (70-110)
[2025-02-24] MEDS: polyethylene glycoL 3350 17 GM POWD.PACK PO SCH (17:19)
[2025-02-24 20:01] LABS: Glucose,Whole Blood 134 mg/dL (70-110)
[2025-02-24] MEDS: DABIGATRAN 150 MG CAP PO SCH (20:10)
[2025-02-25 06:03] LABS: Glucose,Whole Blood 130 mg/dL (70-110)
[2025-02-25 06:50] LABS: HCT 34.2 % (39.6-50.0); HGB 10.9 g/dL (13.0-17.0); MCH 26.3 pg (27.0-32.0); MCHC 31.9 g/dL (32.0-37.0); MCV 82.4 fL (80.0-97.0); Mean Platelet Volume 10.6 fL (9.5-12.2); Platelet Count 311 10*3/uL (140-440); RBC 4.15 10*6/uL (4.40-5.60); RDW 15.5 % (11.5-14.5); WBC 12.21 10*3/uL (4.50-10.00)
[2025-02-25 07:05] LABS: ALT 88 U/L (4-49); AST 61 U/L (17-59); African American GFR (CKD) >90 (>60 ml/min/1.73 sqM); Albumin 3.5 g/dL (3.5-5.0); Alkaline Phosphatase 72 U/L (38-126); Anion Gap 6 mmol/L; Blood Urea Nitrogen 29 mg/dL (9-20); Calcium 9.2 mg/dL (8.4-10.2); Carbon Dioxide 28 mmol/L (22-30); Chloride 105 mmol/L (98-107); Glucose 119 mg/dL (74-99); Lipase 731 U/L (23-300); Magnesium 2.3 mg/dL (1.6-2.3); Non-African American GFR(CKD) 79 (>60 ml/min/1.73 sqM); Potassium 3.8 mmol/L (3.5-5.1); Sodium 139 mmol/L (137-145); Total Bilirubin 1.8 mg/dL (0.2-1.3)
--- NOTE | 2025-02-25 07:49 | XR ---
EXAMINATION TYPE: XR chest 2V DATE OF EXAM: 02/25/2025 6:14 AM COMPARISON: 02/24/2025 CLINICAL INDICATION: Male, 69 years old with history of post op aortic valve replacement, , TECHNIQUE: PA and lateral views FINDINGS: Median sternotomy wires and prosthetic aortic valve. Heart mildly enlarged. Mild interstitial density remains though is improving from prior exam. Trace bilateral pleural effusions remain. IMPRESSION: Improving mild pulmonary vascular congestion. Trace bilateral pleural effusions remain. [facility], Workstation: [email or web address], 02/25/2025 7:46 AM
--- NOTE | 2025-02-25 08:42 | P.PN ---
Subjective Progress Note Date: 02/25/25 Principal diagnosis: Severe aortic insufficiency, and paroxysmal atrial fibrillation. Medical history significant for coronary artery disease with non-STEMI status post PCI to the left anterior descending coronary artery, bradycardia, hypertension, borderline diabetes with diet control, left renal lesion in need of partial nephrectomy in the future, questionable sleep apnea (patient never tested but exhibits symptoms), lifelong non-smoker, premature coronary artery disease in his father POD #7 aortic valve replacement with 25 mm García Inspiris bioprosthetic valve, ligation of the left atrial appendage using a 35mm AtriClip, bilateral pulmonary vein isolation, epiaortic ultrasound, and intraoperative transesophageal echocardiogram performed by anesthesia. Postoperative acute blood loss anemia, expected given hemodilution and cardiopulmonary bypass pump. The patient was seen and examined in follow-up today February 25, 2025 at his bedside on the third floor cardiac stepdown unit. He is currently sitting up to the bedside chair, is awake, alert, oriented x 3 and is in no acute apparent distress. He denies any complaints of pain or shortness of breath at this time, although he continues to complain of bouts of nausea, states his nausea is better today than yesterday. He denies any emesis. He does report 1 episode of diarrhea yesterday morning. His lipase continues to trend up today and is 731, AST and ALT are slightly elevated 61 AST and 88 ALT. He did tolerate his minimal amount of breakfast this morning with eating a bowl of cereal. He has been afebrile in the last 24 hours. Remote telemetry is showing atrial fibrillation heart rate 97 bpm. The nuclear monitoring technician tech reports that the patient has had episodes of a heart rate in the 40s throughout the night. Oxygen saturations are 97% on room air and he is achieving 2250 mL. The patient reports he is passing gas, no bowel movement this a.m. Continues to void with 400 mL of urine output in the last 8 hours. He has been up ambulating in the cardiac stepdown unit hallway with standby assistance from nursing and therapy staff and tolerating well. Chest x-ray and laboratory results reviewed. Objective - Vital Signs Vital signs: Vital Signs Temp 98.5 F 02/24/25 23:51 Pulse 81 02/25/25 03:35 Resp 18 02/25/25 03:35 BP 114/67 02/25/25 03:35 Pulse Ox 96 02/25/25 03:35 FiO2 40 02/18/25 16:10 Intake & Output 02/24/25 02/25/25 02/25/25 18:59 06:59 18:59 Intake Total 1338 Output Total 275 600 Balance 1063 -600 Weight 102.1 kg Intake: Oral 1338 Output: Urine 275 600 Other: Voiding Method Urinal Urinal # Voids 4 ABP, PAP, CO, CI - Last Documented Arterial Blood Pressure 105/51 Pulmonary Artery Pressure 26/7 Cardiac Output 6.3 Cardiac Index 2.8 - Exam CONSTITUTIONAL: Appears comfortable, cooperative, no acute distress. RESPIRATORY: Lungs sounds diminished in the bases bilaterally. Respirations symmetrical, nonlabored. Currently on room air with oxygen saturation 97%. Able to achieve 2250 mL on his incentive spirometry. Strong cough. CARDIOVASCULAR: S1, S2 present. Irregular rhythm and rate, remote telemetry showing atrial fibrillation heart rate 97 bpm. Sternum stable. Palpable peripheral pulses bilaterally. No edema present. No calf pain or tenderness noted. Heart hugger in place with patient demonstrating appropriate use. Antiembolism stockings, SCDs present. GASTROINTESTINAL: Abdomen soft, nontender, nondistended. Active bowel sounds present 4 quadrants. Tolerating minimal diet due to nausea. Passing flatus. Bowel movement yesterday 02/24/25, diarrhea. GENITOURINARY: Continues to void, output 400 mL in the last 24 hours. INTEGUMENTARY: Skin is warm and dry with evidence of good perfusion. Midline sternal incision is clean, dry, and approximated. NEUROLOGIC: Cranial nerves II through XII intact. No focal deficits. MUSKULOSKELETAL: Able to move all extremities, strength equal bilaterally, gait normal. PSYCHIATRIC: Alert and oriented to person place and time, appropriate affect, intact judgment and insight. - Allied health notes Allied health notes reviewed: nursing - Labs CBC & Chem 7: 02/25/25 06:03 02/25/25 06:03 Labs: Abnormal Lab Results - Last 24 Hours (Table) 02/24/25 02/24/25 02/24/25 Range/Units 11:42 16:23 19:59 WBC (4.50-10.00) 10*3/uL RBC (4.40-5.60) 10*6/uL Hgb (13.0-17.0) g/dL Hct (39.6-50.0) % MCH (27.0-32.0) pg MCHC (32.0-37.0) g/dL BUN (9-20) mg/dL Glucose (74-99) mg/dL POC Glucose (mg/dL) 138 H 127 H 134 H (70-110) mg/dL Total Bilirubin (0.2-1.3) mg/dL AST (17-59) U/L ALT (4-49) U/L Total Protein (6.3-8.2) g/dL Lipase (23-300) U/L 02/25/25 02/25/25 02/25/25 Range/Units 06:01 06:03 06:03 WBC 12.21 H (4.50-10.00) 10*3/uL RBC 4.15 L (4.40-5.60) 10*6/uL Hgb 10.9 L (13.0-17.0) g/dL Hct 34.2 L (39.6-50.0) % MCH 26.3 L (27.0-32.0) pg MCHC 31.9 L (32.0-37.0) g/dL BUN 29 H (9-20) mg/dL Glucose 119 H (74-99) mg/dL POC Glucose (mg/dL) 130 H (70-110) mg/dL Total Bilirubin 1.8 H (0.2-1.3) mg/dL AST 61 H (17-59) U/L ALT 88 H (4-49) U/L Total Protein 6.0 L (6.3-8.2) g/dL Lipase 731 H (23-300) U/L - Imaging and Cardiology Chest x-ray: report reviewed, image reviewed Assessment and Plan Assessment: Severe aortic insufficiency, status post aortic valve replacement Paroxysmal atrial fibrillation, status post ligation of the left atrial appendage, bilateral pulmonary vein isolation Postoperative acute blood loss anemia, expected given hemodilution and cardiopulmonary bypass pump Anorexia related to nausea and smell of food Hyperlipasemia, uknown etiology History of coronary artery disease with non-STEMI status post PCI to the LAD Bradycardia Hypertension Borderline diabetes with diet control, hemoglobin A1c 6.7% Left renal lesion in need of partial nephrectomy in the future Questionable sleep apnea (patient never tested but exhibits symptoms) Lifelong non-smoker, preoperative FEV1 103% of predicted Premature coronary artery disease in his father Plan: Continue to maximize medical therapy with statin, Plavix, beta-lizbeth. Will increase beta-lizbeth therapy as tolerated, with hold parameters. Continue to hold amiodarone today to determine if contributing to significant nausea. Continue Pradaxa for anticoagulation. Aspirin has been discontinued and cardiology has recommended to continue Plavix due to the patient's previous PCI. Encourage incentive spirometry use 10 times every hour while awake. Bronchodilators per pulmonology. Increase activity, ambulate as tolerated. PT/OT/cardiac rehab following. Will monitor daily labs and chest x-rays, electrolyte replacement per protocol. GI/DVT prophylaxis. Pain control per current medication regimen. Insulin management per internal medicine. Daily weights. Continue to monitor strict accurate intake and output. Continue nutritional supplements, patient encouraged to have family bring food from home, encouraged oral nutrition. Lipase elevated, KUB x-ray has been ordered. Shower daily. Discharge planning is in place, anticipate discharge home within the next 24 hours with home health care. More recommendations to follow based on patient's clinical course. Time with Patient: Greater than 30
--- NOTE | 2025-02-25 08:54 | XR ---
EXAMINATION TYPE: XR KUB DATE OF EXAM: 02/25/2025 8:47 AM COMPARISON: None CLINICAL INDICATION: Male, 69 years old with history of Nausea/diarrhea; PHH, pain TECHNIQUE: One radiographic view of the abdomen was obtained. FINDINGS: Median sternotomy wires are prosthetic aortic valve. Suggestion of trace bilateral pleural effusions. No evidence for free intraperitoneal air. A few scattered small colonic air-fluid levels. No dilated small bowel loops. There is air present th roughout the colon extending to the rectum with only mild stool. Phlebolith in the left side of the pelvis. IMPRESSION: 1. A few small air-fluid levels throughout the colon could reflect diarrheal state. No evidence for f ree air or bowel obstruction. 2. Trace bilateral pleural effusions. [facility], Workstation: [id number], 02/25/2025 8:51 AM
[2025-02-25] MEDS: POTASSIUM CHLORIDE ER 20 MEQ TAB.ER PO SCH (09:00)
--- NOTE | 2025-02-25 10:51 | P.PN ---
Subjective Progress Note Date: 02/25/25 Principal diagnosis: Status post aortic valve replacement. This is a 69-year-old white male, primarily patient with Dr. Munoz, patient was recently evaluated for aortic valve insufficiency, seen back previously by cardiothoracic surgery in July of 2024. Since then the patient had extensive cardiac workup, today the patient underwent aortic valve replacement by Dr. Shafer, postoperatively patient was admitted to the ICU, and we were asked to see him in consultation. Patient is intubated, mechanically ventilated, he is on assist-control rate of 12, tidal volume of 600, FiO2 brought down to 40% from 100% initially after his ABG, and PEEP was 5. Patient is not requiring any pressors, not requiring any inotropes, is mostly on IV fluid, and on propofol at 25 mcg/kg/min. Cardiac output is 4.6, cardiac index is 2.0, chest x-ray showed no evidence of active disease, postoperative changes mostly. Patient was seen today on 02/19/2025, patient is sitting in the recliner, does not seem to be in any distress, he was extubated at 1705 last night, not requiring any pressors or any inotropes, he is on IV amiodarone for atrial fibrillation prophylaxis. Complaining of postsurgical pain, chest x-ray showed small left apical pneumothorax, expected, patient does have some minimal atelectasis at the bases. Continues to have mediastinal right and left pleural chest tubes in place, overall the patient is asymptomatic except for pain. WBC count is 12.8 hemoglobin 9.5 electrolytes are normal bicarb is normal renal profile is normal Patient was seen today on 02/20/2025, postoperative day #2aortic valve replacement with 25 mm García Inspiris bioprosthetic valve, ligation of the left atrial appendage using a 35mm AtriClip, bilateral pulmonary vein isolation, epiaortic ultrasound, intraoperative transesophageal echocardiogram patient is doing fairly well not in any distress, sitting at the bedside recliner, in sinus rhythm, hemodynamically stable, on 2 L nasal cannula, achieving 1500 mL with his incentive spirometry chest x-ray showed minimal basilar atelectasis and small tiny left apical left-sided pneumothorax. Patient has been ambulating in the hallway with assistance. WBC count is 14.8 hemoglobin 8.5, basic metabolic profile is normal renal profile is normal Seen today on 02/21/2025, patient is now postoperative day #3 aortic valve replacement with 25 mm García Inspiris bioprosthetic valve, ligation of the left atrial appendage using a 35mm AtriClip, bilateral pulmonary vein isolation, epiaortic ultrasound, intraoperative transesophageal echocardiogram. Patient developed A-fib with RVR this morning, received amiodarone, has been on oral ami odarone since yesterday, patient is hemodynamically stable not requiring any pressors or any inotropes. He is to go to 3 . once a bed is available. Chest tubes have been removed chest x-ray showed mostly minimal left basilar atelectasis, expected, WBC count is 14.5 hemoglobin 8.8 electrolytes are normal BUN is 38 creatinine 1.17, I reviewed chest x-ray, his previous left apical pneumothorax has resolved and again his chest x-ray showed mostly atelectasis at the left base, doubt pneumonia Progress note dated February 22, 2025. This is a 69-year-old male who is postoperative day #4, aortic valve replacement. The patient is doing well. He is currently on room air. He is not receiving any IV fluids. He is resting comfortably in bed. He has no particular complaints. He is awake and alert. Laboratory data includes a white count of 13.95, hemoglobin 9.1, hematocrit 27.5, platelet count 264,000. Sodium 135, potassium 4.3, chlorides 102, CO2 24, BUN 35, creatinine 0.93. Glucose was 147. Calcium 8.6, and magnesium is 2.4. Chest x-ray shows improving bilateral interstitial infiltrates. Progress note dated February 23, 2025. 69-year-old male who is postoperative day #5, aortic valve replacement. The patient is doing very well. He is on room air. No IV fluids. He is sitting in chair next to the hospital bed. He is awake and alert, without any particular complaints. Current labs include a white count 10.8, hemoglobin 9.3, hematocrit 28.4, and a platelet count of 106,000. Sodium 136, potassium 4.1, chlorides 104, CO2 26, BUN 36, and creatinine 0.93. Glucose is 148. Lipase is 337. Chest x-ray shows mild pulmonary vascular congestion. Postoperative changes are also noted. Progress note dated February 24 2025. 69-year-old male postop day number, status post aortic valve replacement. The patient is resting comfortably in bed. He is currently not on any supplemental oxygen, or IV fluids. His only complaint is abdominal pain. The patient is thinking that he may be discharged tomorrow. Current labs include a white count of 8.9, hemoglobin 8.8, hematocrit 27.1, and a platelet count of 212,000. Sodium 138, potassium 3.8, chlorides 106, CO2 27, BUN 29, creatinine 0.85. Glucose is 138. Bilirubin 1.5. AST 42. ALT 54. Lipase was 453. Progress note dated February 25, 2025. 69-year-old male seen again in room 363. The patient is postoperative day #7, status post aortic valve replacement. He is on room air. He is not receiving any IV fluids. The patient is complaining of ongoing nausea, with minimal abdominal discomfort. That apparently has helped up his discharge. Other than that he is doing well. He denies any shortness of breath, cough, wheezing, chest tightness, or phlegm production. He also denies any chest pain or pressure. White count was 12.2, hemoglobin 10.9, hematocrit 34.2, platelet count 311,000. Sodium 139, potassium 3.8, chlorides 105, CO2 28, anion gap 6, BUN 29, creatinine 0.97. Glucose is 130. Lipase is 731, which is increased from 453, yesterday. AST is 61 up from 42. ALT is 88 up from 54. Abdominal flatplate, shows trace bilateral pleural effusions, and few small air-fluid level throughout the colon. Objective - Vital Signs Vital signs: Vital Signs Temp 97.5 F L 02/25/25 07:10 Pulse 65 02/25/25 07:10 Resp 14 02/25/25 07:10 BP 131/70 02/25/25 07:10 Pulse Ox 99 02/25/25 07:10 FiO2 40 02/18/25 16:10 Intake & Output 02/24/25 02/25/25 02/25/25 18:59 06:59 18:59 Intake Total 1338 180 Output Total 275 600 Balance 1063 -600 180 Weight 102.1 kg Intake: Oral 1338 180 Output: Urine 275 600 Other: Voiding Method Urinal Urinal Urinal # Voids 4 ABP, PAP, CO, CI - Last Documented Arterial Blood Pressure 105/51 Pulmonary Artery Pressure 26/7 Cardiac Output 6.3 Cardiac Index 2.8 - Exam No acute distress, oriented 3. No respiratory distress. Currently on room air. HEENT examination is grossly unremarkable. Mucous membranes are moist. No oral lesions. Neck supple. Full range of motion. No adenopathy thyromegaly or neck vein distention. Cardiovascular examination reveals regular rhythm rate. S1-S2 normal. No S3 or S4. Lungs reveal clear breath sounds. Breath sounds are equal bilaterally. No adventitious lung sounds including wheezes rhonchi or crackles. Abdomen soft bowel sounds are heard. No masses or tenderness. Extremities are intact. No cyanosis clubbing or edema. Skin is without rash or lesion. Neurologic examination is brief but nonfocal. - Labs CBC & Chem 7: 02/25/25 06:03 02/25/25 06:03 Labs: Abnormal Lab Results - Last 24 Hours (Table) 02/24/25 02/24/25 02/24/25 Range/Units 11:42 16:23 19:59 WBC (4.50-10.00) 10*3/uL RBC (4.40-5.60) 10*6/uL Hgb (13.0-17.0) g/dL Hct (39.6-50.0) % MCH (27.0-32.0) pg MCHC (32.0-37.0) g/dL BUN (9-20) mg/dL Glucose (74-99) mg/dL POC Glucose (mg/dL) 138 H 127 H 134 H (70-110) mg/dL Total Bilirubin (0.2-1.3) mg/dL AST (17-59) U/L ALT (4-49) U/L Total Protein (6.3-8.2) g/dL Lipase (23-300) U/L 02/25/25 02/25/25 02/25/25 Range/Units 06:01 06:03 06:03 WBC 12.21 H (4.50-10.00) 10*3/uL RBC 4.15 L (4.40-5.60) 10*6/uL Hgb 10.9 L (13.0-17.0) g/dL Hct 34.2 L (39.6-50.0) % MCH 26.3 L (27.0-32.0) pg MCHC 31.9 L (32.0-37.0) g/dL BUN 29 H (9-20) mg/dL Glucose 119 H (74-99) mg/dL POC Glucose (mg/dL) 130 H (70-110) mg/dL Total Bilirubin 1.8 H (0.2-1.3) mg/dL AST 61 H (17-59) U/L ALT 88 H (4-49) U/L Total Protein 6.0 L (6.3-8.2) g/dL Lipase 731 H (23-300) U/L Assessment and Plan Assessment: Postoperative day #7, S/P aortic valve replacement, for aortic stenosis, and aortic insufficiency. Routine postoperative ventilator management. Nausea, and abdominal discomfort. History of paroxysmal atrial fibrillation. Lifetime non-smoker. History of coronavirus infection. Benign essential hypertension. Left apical pneumothorax, resolved. Plan: Plan dated February 22, 2025. The patient is postoperative day #4, aortic valve replacement for aortic s tenosis and aortic insufficiency. The patient is currently on room air. The patient is not receiving any IV fluids. Clinically, the patient appears relatively stable. He is awake and alert. He denies any significant complaints at this time. Labs, x-rays, and medications are reviewed. We will continue to follow make recommendations. Prognosis is thought to be generally good. Dictation was produced using OpenEd software. Please excuse any grammatical, word or spelling errors. Plan dated February 23, 2025. The patient was seen today in room 363. He is postop day #5. Clinically, he is doing well. He is awake and alert. He is sitting in the chair next to the hospital bed. Labs, x-rays, and all medications are reviewed. The patient continues to use the incentive spirometer, every hour. We will continue to follow make recommendations along the way. Prognosis is thought to be generally good. Dictation was produced using OpenEd software. Please excuse any grammatical, word or spelling errors. Plan dated February 24, 2025. The patient was seen today in room 363. He is postoperative day #6. He has no issues with his lungs. He denies any shortness of breath, cough, wheezing, chest tightness, or phlegm production. The patient is complaining of some ab dominal discomfort. His lipase level was elevated. He is on room air. He is not requiring any IV fluids. All labs, x-rays, and medications are reviewed. We will continue to follow make recommendations along the way. Prognosis is guarded. Dictation was produced using OpenEd software. Please excuse any grammatical, word or spelling errors. Plan dated February 25, 2025. The patient is again seen in room 363. His pulmonary status is stable. His liver enzymes are a bit elevated. His lipase continues to go up. The patient complains of nausea, with mild abdominal discomfort. We will continue to follow. Prognosis is guarded. All labs, x-rays, and medications are reviewed. Dictation was produced using OpenEd software. Please excuse any grammatical, word or spelling errors. Time with Patient: Less than 30
[2025-02-25 11:32] LABS: Glucose,Whole Blood 112 mg/dL (70-110)
--- NOTE | 2025-02-25 12:19 | P.PN ---
Subjective Progress Note Date: 02/25/25 Subjective: Patient seen this morning. Denying any acute complaints. He denies any abdominal pain. Vitals Signs Reviewed. 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 Hgb is 8.8 Thrombocytopenia, anticipated outcome of surgery Leukocytosis, anticipated, surgery: WBC this morning within normal limits Small left apical pneumothorax, resolved Paroxysmal atrial fibrillation Hypertension Dyslipidemia CAD - On aspirin 325 mg, atorvastatin 40 mg, Plavix 75 mg, metoprolol [address] surgery discontinued the amiodarone due to increasing lipase Elevated lipase -LFTs and bilirubin and lipase are worsening this morning. Will discuss with CT surgery if okay to order CT abdomen and pelvis. Pain control, DVT prophylaxis, GI prophylaxis per cardiothoracic surgery Type 2 diabetes, A1c 6.7 - Continue sliding scale insulin, monitor for hypoglycemia Objective - Vital Signs Vital signs: Vital Signs Temp 97.5 F L 02/25/25 11:06 Pulse 53 L 02/25/25 11:06 Resp 18 02/25/25 11:06 BP 114/68 02/25/25 11:06 Pulse Ox 100 02/25/25 11:06 FiO2 40 02/18/25 16:10 Intake & Output 02/24/25 02/25/25 02/25/25 18:59 06:59 18:59 Intake Total 1338 180 Output Total 275 600 Balance 1063 -600 180 Weight 102.1 kg Intake: Oral 1338 180 Output: Urine 275 600 Other: Voiding Method Urinal Urinal Urinal # Voids 4 ABP, PAP, CO, CI - Last Documented Arterial Blood Pressure 105/51 Pulmonary Artery Pressure 26/7 Cardiac Output 6.3 Cardiac Index 2.8 - Labs CBC & Chem 7: 02/25/25 06:03 02/25/25 06:03 Labs: Abnormal Lab Results - Last 24 Hours (Table) 02/24/25 02/24/25 02/25/25 Range/Units 16:23 19:59 06:01 WBC (4.50-10.00) 10*3/uL RBC (4.40-5.60) 10*6/uL Hgb (13.0-17.0) g/dL Hct (39.6-50.0) % MCH (27.0-32.0) pg MCHC (32.0-37.0) g/dL BUN (9-20) mg/dL Glucose (74-99) mg/dL POC Glucose (mg/dL) 127 H 134 H 130 H (70-110) mg/dL Total Bilirubin (0.2-1.3) mg/dL AST (17-59) U/L ALT (4-49) U/L Total Protein (6.3-8.2) g/dL Lipase (23-300) U/L 02/25/25 02/25/25 02/25/25 Range/Units 06:03 06:03 11:30 WBC 12.21 H (4.50-10.00) 10*3/uL RBC 4.15 L (4.40-5.60) 10*6/uL Hgb 10.9 L (13.0-17.0) g/dL Hct 34.2 L (39.6-50.0) % MCH 26.3 L (27.0-32.0) pg MCHC 31.9 L (32.0-37.0) g/dL BUN 29 H (9-20) mg/dL Glucose 119 H (74-99) mg/dL POC Glucose (mg/dL) 112 H (70-110) mg/dL Total Bilirubin 1.8 H (0.2-1.3) mg/dL AST 61 H (17-59) U/L ALT 88 H (4-49) U/L Total Protein 6.0 L (6.3-8.2) g/dL Lipase 731 H (23-300) U/L
--- NOTE | 2025-02-25 13:11 | P.PN ---
Subjective HISTORY OF PRESENT ILLNESS: The patient is a 69-year-old male with known history of aortic insufficiency, CAD status post stenting of the LAD in the setting of non-STEMI in July 2020 for who underwent aortic valve replacement with Inspiris valve, atrial fibrillation ablation and ligation of the left atrial appendage. He is extubated, sitting up in the chair, complaining of chest wall tenderness. He is in sinus mechanism and hemodynamically stable on no vasopressors. By echocardiogram in the past he had an ejection fraction of 50% with severe aortic regurgitation with a tricuspid aortic valve by FARA. According to him he has been complaining of continuous dyspnea on exertion. On repeat cardiac catheterization the LAD stent was patent. He has a reported history of paroxysmal atrial fibrillation. He has a history of hypertension and hyperlipidemia, he is nondiabetic, non-smoker. February 20: The patient feels better today, he continues to have some soreness but improving. He continues to be in sinus mechanism, hemodynamically stable. His [place] catheter has been removed as well as mediastinal tube. He has ambulated yesterday. He continues to be in sinus mechanism. February 21: The patient had shoulder discomfort earlier that resolved after removing the chest tube. He is in atrial fibrillation and has been started on amiodarone. His breathing is stable. His blood pressure stable. He denies any dizziness or palpitations. He denies any nausea. 02/22/2025 Patient examined this morning at the bedside. Patient currently denies chest pain or pressure. He denies shortness of breath. He reports that yesterday he felt very weak. He reports decreased appetite this morning. He reports having chills this morning as well. Telemetry reveals sinus mechanism with episodes of atrial fibrillation overnight. The patient is not anticoagulated. He does have a history of atrial fibrillation. The patient states that he has never been on anticoagulation in the past. Reason unknown. 02/23/2025 Patient examined this morning. Patient is sitting up in the chair. Patient currently denies chest pain or pressure. He denies shortness of breath. He continues to report nausea. Telemetry reveals sinus mechanism. Addendum entered and electronically signed by Pilar Ziegler NP-C 02/23/25 14:28: Per case management, Xarelto co-pay $556 a month, Eliquis co-pay $141 per month, and Pradaxa co-pay $60.30 a month Will begin Pradaxa when cleared by CT surgery 02/24/2025 Patient examined this morning at the bedside. Patient currently denies chest pain or pressure. He denies shortness of breath. He reports improvement in his nausea. He was able to eat some breakfast this morning. Patient's pacemaker wires were discontinued today. Telemetry reveals atrial fibrillation with contr olled ventricular rate. 02/25/2025 Patient examined this morning at the bedside. Patient currently denies chest pain or pressure. He denies shortness of breath. Telemetry reveals sinus mechanism. Patient's nausea is improved. He was able to tolerate breakfast this morning. Blood pressure 131/70. Lipase increased this AM which patient states is holding his discharge. PHYSICAL EXAM: VITAL SIGNS: Reviewed. GENERAL: Well-developed in no acute distress. NECK: Supple. No JVD or thyromegaly LUNGS: Respirations even and unlabored. Lungs essentially clear to auscultation bilaterally. HEART: Irregular rate and rhythm. S1 and S2 heard. Systolic murmur noted. EXTREMITIES: Normal range of motion. No clubbing or cyanosis. Peripheral pulses intact. No lower extremity edema ASSESSMENT: 1. Status post aortic valve replacement for severe aortic regurgitation, with closure of the left atrial appendage and atrial fibrillation ablation 2. History of CAD status post stenting of the LAD 3. Hyperlipidemia 4. History of hypertension 5. Paroxysmal atrial fibrillation, first diagnosed in 2017, not anticoagulated on an outpatient basis, reason unknown PLAN: Continue postoperative management per CT surgery Continue current cardiac medications including Lipitor, Plavix, metoprolol, P radaxa Aspirin discontinued 02/24/2025 Continue telemetry monitoring Further recommendations pending patient course Consider more aggressive treatment for atrial fibrillation on an outpatient basis Patient is stable for discharge from a cardiac standpoint Patient to follow-up postdischarge with Dr. Gunn Nurse practitioner note has been reviewed by physician. Signing provider agrees with the documented findings, assessment, and plan of care documented by PRINCIPAL RESEARCH ECONOMIST as a scribe. Objective - Vital Signs Vital signs: Vital Signs Temp 97.5 F L 02/25/25 07:10 Pulse 65 02/25/25 07:10 Resp 14 02/25/25 07:10 BP 131/70 02/25/25 07:10 Pulse Ox 99 02/25/25 07:10 FiO2 40 02/18/25 16:10 Intake & Output 02/24/25 02/25/25 02/25/25 18:59 06:59 18:59 Intake Total 1338 180 Output Total 275 600 Balance 1063 -600 180 Weight 102.1 kg Intake: Oral 1338 180 Output: Urine 275 600 Other: Voiding Method Urinal Urinal Urinal # Voids 4 ABP, PAP, CO, CI - Last Documented Arterial Blood Pressure 105/51 Pulmonary Artery Pressure 26/7 Cardiac Output 6.3 Cardiac Index 2.8 - Labs CBC & Chem 7: 02/25/25 06:03 02/25/25 06:03 Labs: Abnormal Lab Results - Last 24 Hours (Table) 02/24/25 02/24/25 02/24/25 Range/Units 11:42 16:23 19:59 WBC (4.50-10.00) 10*3/uL RBC (4.40-5.60) 10*6/uL Hgb (13.0-17.0) g/dL Hct (39.6-50.0) % MCH (27.0-32.0) pg MCHC (32.0-37.0) g/dL BUN (9-20) mg/dL Glucose (74-99) mg/dL POC Glucose (mg/dL) 138 H 127 H 134 H (70-110) mg/dL Total Bilirubin (0.2-1.3) mg/dL AST (17-59) U/L ALT (4-49) U/L Total Protein (6.3-8.2) g/dL Lipase (23-300) U/L 02/25/25 02/25/25 02/25/25 Range/Units 06:01 06:03 06:03 WBC 12.21 H (4.50-10.00) 10*3/uL RBC 4.15 L (4.40-5.60) 10*6/uL Hgb 10.9 L (13.0-17.0) g/dL Hct 34.2 L (39.6-50.0) % MCH 26.3 L (27.0-32.0) pg MCHC 31.9 L (32.0-37.0) g/dL BUN 29 H (9-20) mg/dL Glucose 119 H (74-99) mg/dL POC Glucose (mg/dL) 130 H (70-110) mg/dL Total Bilirubin 1.8 H (0.2-1.3) mg/dL AST 61 H (17-59) U/L ALT 88 H (4-49) U/L Total Protein 6.0 L (6.3-8.2) g/dL Lipase 731 H (23-300) U/L
--- NOTE | 2025-02-25 16:15 | CT ---
EXAMINATION TYPE: CT abdomen pelvis wo/w con DATE OF EXAM: 02/25/2025 COMPARISON: None CLINICAL INDICATION: Male, 69 years old with history of elevated LFTs and lipase; PHH, elevated LFTs and lipase TECHNIQUE: Performed without Oral Contrast and without and with IV Contrast, patient injected with 100ml mL of I sovue 300. CT DLP: 2332.[address] CTDI: mGy Automated exposure control for dose reduction was used. FINDINGS: There are small bilateral pleural effusions and mild adjacent compressive atelectasis. There is mild cardiomegaly and mild pericardial effusion. The gallbladder is normal without distention, wall thickening, pericholecystic fluid or gallstones. T here is no biliary ductal dilatation. There is no focal mass or organomegaly involving the liver, pancreas, spleen or adrenal glands. There is a stable 3.9 cm cyst in the left lobe of the liver. In the liver dome there is a tiny hypodensity which enhances on delayed images and most likely represents a small hemangioma There is a 3.5 cm enhancing left renal mass highly suspicious for renal cell carcinoma. There are 2 n onobstructing punctate right renal calcifications and 3 punctate nonobstructing left renal calcificat ions. The caliber the abdominal aorta is normal is no retroperitoneal adenopathy or hemorrhage. The bowel loops are normal in caliber and there is no evidence of dilatation or obstruction. No infla mmatory changes are identified in the bowel wall or mesentery. There is no free intraperitoneal air or fluid. No pelvic mass, free fluid, abscess or adenopathy. There is mild prostatic hypertrophy There are no focal osseous abnormalities. IMPRESSION: 1. 3.5 cm enhancing left renal mass highly suspicious for renal cell carcinoma and further evaluation is warranted. 2. Small bilateral pleural effusions and compressive atelectasis. 3. Mild cardiomegaly and mild pericardial effusion. 4. Multiple nonobstructing punctate renal calcifications. 5. Stable 3.9 cm simple cyst left lobe of the liver. [facility], , 02/25/2025 4:12 PM
[2025-02-25 16:23] LABS: Glucose,Whole Blood 124 mg/dL (70-110)
[2025-02-25 19:58] LABS: Glucose,Whole Blood 140 mg/dL (70-110)
[2025-02-26 05:59] LABS: Glucose,Whole Blood 134 mg/dL (70-110)
[2025-02-26 06:37] LABS: Basophils # (A) 0.05 10*3/uL (0.00-0.10); Basophils % (A) 0.5 %; Eosinophils # (A) 0.22 10*3/uL (0.04-0.35); Eosinophils % (A) 2.1 %; HGB 9.9 g/dL (13.0-17.0); Lymphocytes # (A) 1.85 10*3/uL (0.90-5.00); Lymphocytes % (A) 17.4 %; MCH 26.5 pg (27.0-32.0); MCHC 31.9 g/dL (32.0-37.0); MCV 82.9 fL (80.0-97.0); Mean Platelet Volume 10.4 fL (9.5-12.2); Monocytes # (A) 0.84 10*3/uL (0.20-1.00); Monocytes % (A) 7.9 %; Neutrophils % (A) 70.6 %; Platelet Count 269 10*3/uL (140-440); RBC 3.74 10*6/uL (4.40-5.60); RDW 15.8 % (11.5-14.5); WBC 10.62 10*3/uL (4.50-10.00)
[2025-02-26 07:10] LABS: ALT 81 U/L (4-49); AST 52 U/L (17-59); African American GFR (CKD) >90 (>60 ml/min/1.73 sqM); Albumin 3.1 g/dL (3.5-5.0); Alkaline Phosphatase 65 U/L (38-126); Amylase 52 U/L (30-110); Anion Gap 8 mmol/L; Blood Urea Nitrogen 27 mg/dL (9-20); Calcium 8.6 mg/dL (8.4-10.2); Carbon Dioxide 26 mmol/L (22-30); Chloride 104 mmol/L (98-107); Glucose 119 mg/dL (74-99); Lipase 884 U/L (23-300); Non-African American GFR(CKD) 78 (>60 ml/min/1.73 sqM); Potassium 3.9 mmol/L (3.5-5.1); Sodium 138 mmol/L (137-145); Total Bilirubin 1.7 mg/dL (0.2-1.3); Total Protein 5.5 g/dL (6.3-8.2)
--- NOTE | 2025-02-26 08:04 | XR ---
EXAMINATION TYPE: XR chest 1V portable DATE OF EXAM: 02/26/2025 6:38 AM COMPARISON: 02/25/2025 CLINICAL INDICATION: Male, 69 years old with history of Postop aortic valve replacement, , FINDINGS: Median sternotomy wires and prosthetic aortic valve. Heart remains mildly enlarged. Mild hyperinflati on. The interstitium has improved. Residual small left pleural effusion. Right pleural effusion shows some improvement. IMPRESSION: COPD with improvement in the pulmonary vascular congestion. A residual small left pleural effusion is similar. Suspected improvement in the trace right pleural effusion. [facility], Workstation: [email or web address], 02/26/2025 8:01 AM
[2025-02-26 08:13] LABS: Glucose,Whole Blood 207 mg/dL (70-110)
--- NOTE | 2025-02-26 09:07 | CT ---
EXAMINATION TYPE: CODE STROKE: CT brain wo contr, CODE STROKE: CTA head neck DATE OF EXAM: 02/26/2025 8:39 AM COMPARISON: PET/CT 08/27/[address] neck 12/17/2024. CLINICAL INDICATION: Male, 69 years old with history of code CVA, code stroke. Abnormal speech, TECHNIQUE: Examination was done in axial plane without intravenous contrast. Coronal and sagittal r econstructions performed. Subsequent CT of both the head and neck after administration of 70 mL Isovu e 370 IV contrast. 3-D reconstructions generated on a dedicated workstation. CT DLP: 1262.9 (accession [id number]), 642.8 (accession [id number]) mGycm, Automated exposure control for dose reduction was used. FINDINGS: NONCONTRAST CT BRAIN: Possible hyperdense M2 left MCA branch, axial image 29. Calcification not clearly appreciated here on the patient's 08/27/[address] or the patient's 02/26/2025 CT. However, otherwise, no evidence for acute intracranial hemorrhage, acute ischemic change, mass, mass effect, midline shift, or extra-axial fluid collection. Whitfield-white matter differential aeration is ma intained. Cerebral sulci and basal subarachnoid cisterns are preserved. No hydrocephalus. Scattered mild mucosal thickening throughout the ethmoid air cells. Bilateral subdural banding. Masto id air cells well pneumatized. Undulating nasal septum. CTA NECK: Postsurgical changes relating to recent median sternotomy with presence of trace effusions. Somewhat suboptimal arterial enhancement due to 22-gauge peripheral line injection. Conventional arch vessel b ranching anatomy. Vertebral arteries appear codominant and patent throughout their course. The bilateral common and internal carotid arteries also appear patent. Only trace atherosclerotic joe cification left carotid bulb. NASCET criteria was utilized. CTA HEAD: Suboptimal arterial enhancement due to 22-gauge peripheral line injection. The bilateral internal carotid arteries appear patent. Hypoplastic A1 segment right anterior cerebral artery. Some narrowing but preserved intraluminal flow is identified along the M2 segment left MCA branch, se sherry 409 axial image 187 with some peripheral high density corresponding to the hyperdensity seen on noncontrast CT. Otherwise, the anterior circulation is patent. Both vertebral and basilar arteries as well as the remainder of the posterior circulation appears pat ent. Dural venous sinuses appear patent. IMPRESSION: NONCONTRAST CT BRAIN: 1. Possible hyperdense M2 segment left MCA branch, axial image 29. Arterial calcification here not id entified on the patient's prior neck CT or PET/CT. Otherwise, no acute intracranial abnormality seen. Follow-up CT head recommended in 24 to 48 hours. Reassuring that this patient's symptoms have resolv ed. CTA BRAIN: 2. There appears to be some luminal narrowing/moderate stenosis at the M2 segment left MCA branch at enhancement is maintained beyond this level. Arterial calcification versus clot that is opening up ar e considerations. 3. Otherwise, no large vessel intracranial arterial occlusion, significant stenosis, or aneurysmal ch anges seen. CTA NECK: 4. Widely patent vertebral and carotid arteries of the neck. Recent median sternotomy changes partial ly seen. Called to Nurse Mathur on [facility]SCARD at 8:54 am. [facility], , 02/26/2025 9:05 AM
--- NOTE | 2025-02-26 11:04 | P.PN ---
Subjective Progress Note Date: 02/26/25 Principal diagnosis: Severe aortic insufficiency, and paroxysmal atrial fibrillation. Medical history significant for coronary artery disease with non-STEMI status post PCI to the left anterior descending coronary artery, bradycardia, hypertension, borderline diabetes with diet control, left renal lesion in need of partial nephrectomy in the future, questionable sleep apnea (patient never tested but exhibits symptoms), lifelong non-smoker, premature coronary artery disease in his father POD #8 aortic valve replacement with 25 mm García Inspiris bioprosthetic valve, ligation of the left atrial appendage using a 35mm AtriClip, bilateral pulmonary vein isolation, epiaortic ultrasound, and intraoperative transesophageal echocardiogram performed by anesthesia. Postoperative acute blood loss anemia, expected given hemodilution and cardiopulmonary bypass pump. Dysphasia, unknown etiology. The patient was seen and examined in follow-up today February 26, 2025. The patie nt is currently sitting up to the bedside chair, is awake, and alert. When started assessing the patient this morning and asking the patient questions the patient was having some abnormal speech, and having difficulty forming his words. He denied any complaints of pain, shortness of breath, headache, nausea, dizziness, pain, weakness in any extremity, or presyncope. He reports he had just finished coming back from a walk in the 3 S. cardiac stepdown unit hallway. Due to his abnormal speech a code stroke was called. His initial NIH score equaled 4. The code stroke team spoke with Dr. Duran who ordered a CT brain and CTA. The noncontrast CT brain showed possible hyperdense M2 segment left MCA branch, axial image 29, arterial calcification here not identified on patient's prior neck CT or PET/CT, otherwise no acute intracranial abnormality seen. The CTA brain results showed that there appeared to be some luminal narrowing/moderate stenosis at the M2 segment left MCA branch at enhancement is maintained beyond this level, arterial calcifications versus clot that is opening up our considerations, and otherwise no large vessel intracranial arterial occlusion, significant stenosis or aneurysmal change seen. Dr. Brady was notified of the results of the CT and CTA brain. The patient's current NIH score is 0. He remains hemodynamically stable, and his oxygen saturations are 97% on room air. He is achieving 2250 mL on his incentive spirometry with encouragement. Remote telemetry is showing atrial fibrillation this morning with a heart rate of 88 bpm. Laboratory and chest x-ray results were reviewed. Objective - Vital Signs Vital signs: Vital Signs Temp 97.5 F L 02/26/25 07:48 Pulse 68 02/26/25 07:48 Resp 16 02/26/25 07:48 BP 113/75 02/26/25 07:48 Pulse Ox 98 02/26/25 07:48 FiO2 40 02/18/25 16:10 Intake & Output 02/25/25 02/26/25 02/26/25 18:59 06:59 18:59 Intake Total 360 180 Output Total 200 700 Balance 160 -700 180 Weight 108.9 kg Intake: Oral 360 180 Output: Urine 200 700 Other: Voiding Method Urinal Urinal # Voids 1 ABP, PAP, CO, CI - Last Documented Arterial Blood Pressure 105/51 Pulmonary Artery Pressure 26/7 Cardiac Output 6.3 Cardiac Index 2.8 - Exam CONSTITUTIONAL: Appears comfortable, cooperative, no acute distress. RESPIRATORY: Lungs sounds diminished in the bases bilaterally. Respirations symmetrical, nonlabored. Currently on room air with oxygen saturation 97%. Able to achieve 2250 mL on his incentive spirometry. Strong cough. CARDIOVASCULAR: S1, S2 present. Irregular rhythm and rate, remote telemetry showing atrial fibrillation heart rate 88 bpm. Sternum stable. Palpable peripheral pulses bilaterally. No edema present. No calf pain or tenderness noted. Heart hugger in place with patient demonstrating appropriate use. Antiembolism stockings, SCDs present. GASTROINTESTINAL: Abdomen soft, nontender, nondistended. Active bowel sounds present 4 quadrants. Tolerating minimal diet due to nausea. Passing flatus. Bowel movement yesterday 02/24/25, diarrhea. GENITOURINARY: Continues to void, output 700 mL in the last 24 hours. INTEGUMENTARY: Skin is warm and dry with evidence of good perfusion. Midline sternal incision is clean, dry, and approximated. NEUROLOGIC: Abnormal speech this morning no difficulty moving his extremities. MUSKULOSKELETAL: Able to move all extremities, strength equal bilaterally, gait normal. PSYCHIATRIC: Alert and oriented to person place and time, appropriate affect, i ntact judgment and insight. - Allied health notes Allied health notes reviewed: nursing - Labs CBC & Chem 7: 02/26/25 05:31 02/26/25 05:31 Labs: Abnormal Lab Results - Last 24 Hours (Table) 02/25/25 02/25/25 02/25/25 Range/Units 11:30 16:22 19:57 WBC (4.50-10.00) 10*3/uL RBC (4.40-5.60) 10*6/uL Hgb (13.0-17.0) g/dL Hct (39.6-50.0) % MCH (27.0-32.0) pg MCHC (32.0-37.0) g/dL Immature Gran # (0.00-0.04) 10*3/uL BUN (9-20) mg/dL Glucose (74-99) mg/dL POC Glucose (mg/dL) 112 H 124 H 140 H (70-110) mg/dL Total Bilirubin (0.2-1.3) mg/dL ALT (4-49) U/L Total Protein (6.3-8.2) g/dL Albumin (3.5-5.0) g/dL Lipase (23-300) U/L 02/26/25 02/26/25 02/26/25 Range/Units 05:31 05:31 05:55 WBC 10.62 H (4.50-10.00) 10*3/uL RBC 3.74 L (4.40-5.60) 10*6/uL Hgb 9.9 L (13.0-17.0) g/dL Hct 31.0 L (39.6-50.0) % MCH 26.5 L (27.0-32.0) pg MCHC 31.9 L (32.0-37.0) g/dL Immature Gran # 0.16 H (0.00-0.04) 10*3/uL BUN 27 H (9-20) mg/dL Glucose 119 H (74-99) mg/dL POC Glucose (mg/dL) 134 H (70-110) mg/dL Total Bilirubin 1.7 H (0.2-1.3) mg/dL ALT 81 H (4-49) U/L Total Protein 5.5 L (6.3-8.2) g/dL Albumin 3.1 L (3.5-5.0) g/dL Lipase 884 H (23-300) U/L 02/26/25 Range/Units 08:11 WBC (4.50-10.00) 10*3/uL RBC (4.40-5.60) 10*6/uL Hgb (13.0-17.0) g/dL Hct (39.6-50.0) % MCH (27.0-32.0) pg MCHC (32.0-37.0) g/dL Immature Gran # (0.00-0.04) 10*3/uL BUN (9-20) mg/dL Glucose (74-99) mg/dL POC Glucose (mg/dL) 207 H (70-110) mg/dL Total Bilirubin (0.2-1.3) mg/dL ALT (4-49) U/L Total Protein (6.3-8.2) g/dL Albumin (3.5-5.0) g/dL Lipase (23-300) U/L - Imaging and Cardiology Chest x-ray: report reviewed, image reviewed Assessment and Plan Assessment: Severe aortic insufficiency, status post aortic valve replacement Paroxysmal atrial fibrillation, status post ligation of the left atrial appendage, bilateral pulmonary vein isolation Postoperative acute blood loss anemia, expected given hemodilution and cardiopulmonary bypass pump Anorexia related to nausea and smell of food Hyperlipasemia, uknown etiology Dysphasia, CTA brain showing some luminal narrowing/moderate stenosis at the M2 segment left MCA branch at enhancement, maintain beyond this level. Arterial calcification versus clot that is opening up our considerations History of coronary artery disease with non-STEMI status post PCI to the LAD Bradycardia Hypertension Borderline diabetes with diet control, hemoglobin A1c 6.7% Left renal mass in need of partial nephrectomy in the future, suspicious for renal cell carcinoma Questionable sleep apnea (patient never tested but exhibits symptoms) Lifelong non-smoker, preoperative FEV1 103% of predicted Premature coronary artery disease in his father Plan: Neurology has been consulted for the patient's abnormal speech and findings on the CTA of the brain. Continue to maximize medical therapy with Plavix, beta-lizbeth. Will increase beta-lizbeth therapy as tolerated, with hold parameters. The statin has been discontinued due to his elevated lipase and trending AST/ALT. Will add aspirin 81 mg p.o. daily. Discontinue Pradaxa and start Eliquis 5 mg p.o. twice daily. Continue to hold amiodarone. Encourage incentive spirometry use 10 times every hour while awake. Bronchodilators per pulmonology. Increase activity, ambulate as tolerated. PT/OT/cardiac rehab following. Will monitor daily labs and chest x-rays, electrolyte replacement per protocol. GI/DVT prophylaxis. Pain control per current medication regimen. Insulin management per internal medicine. Daily weights. Continue to monitor strict accurate intake and output. Continue nutritional supplements, patient encouraged to have family bring food from home, encouraged oral nutrition. Lipase elevated, CT scan completed of the abdomen yesterday which demonstrated bowel loops to be normal in caliber and there was no evidence of dilatation or obstruction. No inflammatory changes were identified in the bowel wall or mesentery. The CT scan also showed a 3.5 cm enhancing left renal mass highly suspicious for renal cell carcinoma (this is being followed by urology as an outpatient). Shower daily. Discharge planning is in place, anticipate discharge home within the next 48-72 hours with home health care. More recommendations to follow based on patient's clinical course. Time with Patient: Greater than 30
--- NOTE | 2025-02-26 11:11 | P.PN ---
Subjective Progress Note Date: 02/26/25 Principal diagnosis: Status post aortic valve replacement. This is a 69-year-old white male, primarily patient with Dr. Munoz, patient was recently evaluated for aortic valve insufficiency, seen back previously by cardiothoracic surgery in July of 2024. Since then the patient had extensive cardiac workup, today the patient underwent aortic valve replacement by Dr. Shafer, postoperatively patient was admitted to the ICU, and we were asked to see him in consultation. Patient is intubated, mechanically ventilated, he is on assist-control rate of 12, tidal volume of 600, FiO2 brought down to 40% from 100% initially after his ABG, and PEEP was 5. Patient is not requiring any pressors, not requiring any inotropes, is mostly on IV fluid, and on propofol at 25 mcg/kg/min. Cardiac output is 4.6, cardiac index is 2.0, chest x-ray showed no evidence of active disease, postoperative changes mostly. Patient was seen today on 02/19/2025, patient is sitting in the recliner, does not seem to be in any distress, he was extubated at 1705 last night, not requiring any pressors or any inotropes, he is on IV amiodarone for atrial fibrillation prophylaxis. Complaining of postsurgical pain, chest x-ray showed small left apical pneumothorax, expected, patient does have some minimal atelectasis at the bases. Continues to have mediastinal right and left pleural chest tubes in place, overall the patient is asymptomatic except for pain. WBC count is 12.8 hemoglobin 9.5 electrolytes are normal bicarb is normal renal profile is normal Patient was seen today on 02/20/2025, postoperative day #2aortic valve replacement with 25 mm García Inspiris bioprosthetic valve, ligation of the left atrial appendage using a 35mm AtriClip, bilateral pulmonary vein isolation, epiaortic ultrasound, intraoperative transesophageal echocardiogram patient is doing fairly well not in any distress, sitting at the bedside recliner, in sinus rhythm, hemodynamically stable, on 2 L nasal cannula, achieving 1500 mL with his incentive spirometry chest x-ray showed minimal basilar atelectasis and small tiny left apical left-sided pneumothorax. Patient has been ambulating in the hallway with assistance. WBC count is 14.8 hemoglobin 8.5, basic metabolic profile is normal renal profile is normal Seen today on 02/21/2025, patient is now postoperative day #3 aortic valve replacement with 25 mm García Inspiris bioprosthetic valve, ligation of the left atrial appendage using a 35mm AtriClip, bilateral pulmonary vein isolation, epiaortic ultrasound, intraoperative transesophageal echocardiogram. Patient developed A-fib with RVR this morning, received amiodarone, has been on oral ami odarone since yesterday, patient is hemodynamically stable not requiring any pressors or any inotropes. He is to go to 3 . once a bed is available. Chest tubes have been removed chest x-ray showed mostly minimal left basilar atelectasis, expected, WBC count is 14.5 hemoglobin 8.8 electrolytes are normal BUN is 38 creatinine 1.17, I reviewed chest x-ray, his previous left apical pneumothorax has resolved and again his chest x-ray showed mostly atelectasis at the left base, doubt pneumonia Progress note dated February 22, 2025. This is a 69-year-old male who is postoperative day #4, aortic valve replacement. The patient is doing well. He is currently on room air. He is not receiving any IV fluids. He is resting comfortably in bed. He has no particular complaints. He is awake and alert. Laboratory data includes a white count of 13.95, hemoglobin 9.1, hematocrit 27.5, platelet count 264,000. Sodium 135, potassium 4.3, chlorides 102, CO2 24, BUN 35, creatinine 0.93. Glucose was 147. Calcium 8.6, and magnesium is 2.4. Chest x-ray shows improving bilateral interstitial infiltrates. Progress note dated February 23, 2025. 69-year-old male who is postoperative day #5, aortic valve replacement. The patient is doing very well. He is on room air. No IV fluids. He is sitting in chair next to the hospital bed. He is awake and alert, without any particular complaints. Current labs include a white count 10.8, hemoglobin 9.3, hematocrit 28.4, and a platelet count of 106,000. Sodium 136, potassium 4.1, chlorides 104, CO2 26, BUN 36, and creatinine 0.93. Glucose is 148. Lipase is 337. Chest x-ray shows mild pulmonary vascular congestion. Postoperative changes are also noted. Progress note dated February 24 2025. 69-year-old male postop day number, status post aortic valve replacement. The patient is resting comfortably in bed. He is currently not on any supplemental oxygen, or IV fluids. His only complaint is abdominal pain. The patient is thinking that he may be discharged tomorrow. Current labs include a white count of 8.9, hemoglobin 8.8, hematocrit 27.1, and a platelet count of 212,000. Sodium 138, potassium 3.8, chlorides 106, CO2 27, BUN 29, creatinine 0.85. Glucose is 138. Bilirubin 1.5. AST 42. ALT 54. Lipase was 453. Progress note dated February 25, 2025. 69-year-old male seen again in room 363. The patient is postoperative day #7, status post aortic valve replacement. He is on room air. He is not receiving any IV fluids. The patient is complaining of ongoing nausea, with minimal abdominal discomfort. That apparently has helped up his discharge. Other than that he is doing well. He denies any shortness of breath, cough, wheezing, chest tightness, or phlegm production. He also denies any chest pain or pressure. White count was 12.2, hemoglobin 10.9, hematocrit 34.2, platelet count 311,000. Sodium 139, potassium 3.8, chlorides 105, CO2 28, anion gap 6, BUN 29, creatinine 0.97. Glucose is 130. Lipase is 731, which is increased from 453, yesterday. AST is 61 up from 42. ALT is 88 up from 54. Abdominal flatplate, shows trace bilateral pleural effusions, and few small air-fluid level throughout the colon. Progress note dated February 26, 2025. 69-year-old male seen again in room 363. The patient is postop day #8, status post aortic valve replacement. He is on room air. He is not receiving any fluids. Apparently this morning, he developed some weakness, as well as confusion, difficulty speaking/dysarthria. For that reason, a rapid response was called on this patient, because the patient was thought to possibly be having a stroke. His symptoms apparently resolved. He is currently feeling back to normal now. His labs are reviewed. White count 10.6, hemoglobin 9.9, hematocrit 31.0, platelet count 3 or 69,000. Sodium 138, potassium 3.9, chlorides 104, CO2 26, BUN 27, and creatinine 0.98. Glucose is 207. Calcium 8.6. Lipase was 884. Albumin was 3.1. X-ray showed changes of COPD, with mild pulmonary vascular congestion. Brain CT, and angiography CT, are reviewed. Objective - Vital Signs Vital signs: Vital Signs Temp 97.5 F L 02/26/25 07:48 Pulse 96 02/26/25 09:23 Resp 16 02/26/25 08:05 BP 117/74 02/26/25 09:23 Pulse Ox 97 02/26/25 08:00 FiO2 40 02/18/25 16:10 Intake & Output 02/25/25 02/26/25 02/26/25 18:59 06:59 18:59 Intake Total 360 180 Output Total 200 700 Balance 160 -700 180 Weight 108.9 kg Intake: Oral 360 180 Output: Urine 200 700 Other: Voiding Method Urinal Urinal Urinal # Voids 1 0 ABP, PAP, CO, CI - Last Documented Arterial Blood Pressure 105/51 Pulmonary Artery Pressure 26/7 Cardiac Output 6.3 Cardiac Index 2.8 - Exam No acute distress, oriented 3. No respiratory distress. Currently on room air. HEENT examination is grossly unremarkable. Mucous membranes are moist. No oral lesions. Neck supple. Full range of motion. No adenopathy thyromegaly or neck vein distention. Cardiovascular examination reveals regular rhythm rate. S1-S2 normal. No S3 or S4. Lungs reveal clear breath sounds. Breath sounds are equal bilaterally. No adventitious lung sounds including wheezes rhonchi or crackles. Abdomen soft bowel sounds are heard. No masses or tenderness. Extremities are intact. No cyanosis clubbing or edema. Skin is without rash or lesion. Neurologic examination is brief but nonfocal. - Labs CBC & Chem 7: 02/26/25 05:31 02/26/25 05:31 Labs: Abnormal Lab Results - Last 24 Hours (Table) 02/25/25 02/25/25 02/25/25 Range/Units 11:30 16:22 19:57 WBC (4.50-10.00) 10*3/uL RBC (4.40-5.60) 10*6/uL Hgb (13.0-17.0) g/dL Hct (39.6-50.0) % MCH (27.0-32.0) pg MCHC (32.0-37.0) g/dL Immature Gran # (0.00-0.04) 10*3/uL BUN (9-20) mg/dL Glucose (74-99) mg/dL POC Glucose (mg/dL) 112 H 124 H 140 H (70-110) mg/dL Total Bilirubin (0.2-1.3) mg/dL ALT (4-49) U/L Total Protein (6.3-8.2) g/dL Albumin (3.5-5.0) g/dL Lipase (23-300) U/L 02/26/25 02/26/25 02/26/25 Range/Units 05:31 05:31 05:55 WBC 10.62 H (4.50-10.00) 10*3/uL RBC 3.74 L (4.40-5.60) 10*6/uL Hgb 9.9 L (13.0-17.0) g/dL Hct 31.0 L (39.6-50.0) % MCH 26.5 L (27.0-32.0) pg MCHC 31.9 L (32.0-37.0) g/dL Immature Gran # 0.16 H (0.00-0.04) 10*3/uL BUN 27 H (9-20) mg/dL Glucose 119 H (74-99) mg/dL POC Glucose (mg/dL) 134 H (70-110) mg/dL Total Bilirubin 1.7 H (0.2-1.3) mg/dL ALT 81 H (4-49) U/L Total Protein 5.5 L (6.3-8.2) g/dL Albumin 3.1 L (3.5-5.0) g/dL Lipase 884 H (23-300) U/L 02/26/25 Range/Units 08:11 WBC (4.50-10.00) 10*3/uL RBC (4.40-5.60) 10*6/uL Hgb (13.0-17.0) g/dL Hct (39.6-50.0) % MCH (27.0-32.0) pg MCHC (32.0-37.0) g/dL Immature Gran # (0.00-0.04) 10*3/uL BUN (9-20) mg/dL Glucose (74-99) mg/dL POC Glucose (mg/dL) 207 H (70-110) mg/dL Total Bilirubin (0.2-1.3) mg/dL ALT (4-49) U/L Total Protein (6.3-8.2) g/dL Albumin (3.5-5.0) g/dL Lipase (23-300) U/L Assessment and Plan Assessment: Postoperative day #8, S/P aortic valve replacement, for aortic stenosis, and aortic insufficiency. Transient confusion, and dysarthria, resolved. Routine postoperative ventilator management. Nausea, and abdominal discomfort. History of paroxysmal atrial fibrillation. Lifetime non-smoker. History of coronavirus infection. Benign essential hypertension. Left apical pneumothorax, resolved. Plan: Plan dated February 22, 2025. The patient is postoperative day #4, aortic valve replacement for aortic stenosis and aortic insufficiency. The patient is currently on room air. The patient is not receiving any IV fluids. Clinically, the patient appears relatively stable. He is awake and alert. He denies any significant complaints at this time. Labs, x-rays, and medications are reviewed. We will continue to follow make recommendations. Prognosis is thought to be generally good. Di ctation was produced using [employer] software. Please excuse any grammatical, word or spelling errors. Plan dated February 23, 2025. The patient was seen today in room 363. He is postop day #5. Clinically, he is doing well. He is awake and alert. He is sitting in the chair next to the [facility]. Labs, x-rays, and all medications are reviewed. The patient continues to use the incentive spirometer, every hour. We will continue to follow make recommendations along the way. Prognosis is thought to be generally good. Dictation was produced using [employer] software. Please excuse any grammatical, word or spelling errors. Plan dated February 24, 2025. The patient was seen today in room 363. He is postoperative day #6. He has no issues with his lungs. He denies any shortness of breath, cough, wheezing, chest tightness, or phlegm production. The patient is complaining of some abdominal discomfort. His lipase level was elevated. He is on room air. He is not requiring any IV fluids. All labs, x-rays, and medications are reviewed. We will continue to follow make recommendations along the way. Prognosis is guarded. Dictation was produced using [employer] software. Please excuse any grammatical, word or spelling errors. Plan dated February 25, 2025. The patient is again seen in room 363. His pulmonary status is stable. His liver enzymes are a bit elevated. His lipase continues to go up. The patient complains of nausea, with mild abdominal discomfort. We will continue to follow. Prognosis is guarded. All labs, x-rays, and medications are reviewed. Dictation was produced using [employer] software. Please excuse any grammatical, word or spelling errors. Plan dated February 26, 2025. 69-year-old male postop day #8, status post aortic valve replacement. The patient has been having some issues with nausea, and mild abdominal discomfort. In addition, the patient has been having an elevated lipase level. This morning, a rapid response was called on this patient, as he develops a weakness, confusion, and dysarthria. Brain CT and CT angiography were negative. The patient feels like he is back to baseline. We will continue to follow. Prognosis is guarded. Labs, x-rays, and medications are reviewed. Prognosis is guarded. Dictation was produced using [employer] software. Please excuse any grammatical, word or spelling errors. Time with Patient: Less than 30
[2025-02-26] MEDS: ASPIRIN 81 MG PO SCH (11:15)
[2025-02-26 11:29] LABS: Glucose,Whole Blood 148 mg/dL (70-110)
[2025-02-26] MEDS: POTASSIUM CHLORIDE ER 20 MEQ TAB.ER PO SCH (11:29)
[2025-02-26] MEDS: SODIUM CHLORIDE 0.9% 1,000 ML IV SCH (11:30)
[2025-02-26 11:54] VITALS: TEMP 97.1
[2025-02-26 12:12] VITALS: RESP 17
[2025-02-26] MEDS: TICAGRELOR 90 MG TAB PO STA (12:55)
--- NOTE | 2025-02-26 13:20 | P.CNNES ---
History of Present Illness Consult date: 02/26/25 Requesting physician: Chung Duran Reason for Consult: Code CVA History of Present Illness: Patient is a 69-year-old right-handed male with history of mild diabetes, hypertension, paroxysmal atrial fibrillation, coronary artery disease, who came to [facility] for elective Aortic valve replacement on 02/18/2025. Patient does have a history of severe aortic insufficiency, paroxysmal atrial fibrillation. He underwent surgery without any complications. Patient states that he has not had any appetite since surgery, but today he was doing better, ate cereal, foods, toast with jelly and then went for a walk. He then sat down and felt tired. He dozed off. When he woke up, the cardiothoracic surgery team was there at 8:30 AM and patient was aphasic, confused, could not answer any questions. His last known well was 8 AM. Stroke code was activated at 8:07 AM and patient's NIH stroke scale was 4. He was aphasic, unable to find words. Patient when came back from CTs, CTA, all his symptoms have resolved, and he was able to speak without any difficulty. CT head revealed possible hyperdense M2 segment left MCA branch. Arterial calcification here not identified on the patient's prior neck CT or PET/CT. Otherwise no acute intracranial abnormality seen. CTA brain reviewed. There was luminal narrowing/moderate stenosis of the M2 segment left MCA branch and enhancement is maintained beyond this level. Arterial calcification versus clot that is opening up are considerations. Otherwise no large vessel occlusion seen. Widely patent vertebral arteries and carotid arteries. Recent median sternotomy changes partially seen. Patient apparently wanted to take shower. Once he came back from shower, at 11:10 AM, patient had another episode of aphasia. His NIH stroke scale was 3. I came to see patient, and his symptoms were improving. Patient's NIH stroke scale at this time is 2, with right visual field neglect and mild expressive aphasia. With all the symptoms, patient denies any focal weakness, facial droop, numbness or tingling, headache any visual disturbance or dizziness. At baseline, he does not use any assistive device, and his cognitive functions are fine. Patient has history of paroxysmal atrial fibrillation diagnosed in 2018. He used to be on aspirin 325 mg daily. Patient was admitted on 02/18/2025 for surgery. He was started on Pradaxa 150 mg twice daily on 02/25/2024, at 8 PM. Patient's blood tests shows WBC 10.62, hemoglobin 9.9, platelets are 269. Basic metabolic panel is normal. AST 52, ALT 81. Patient's last hemoglobin A1c 6.7 on 02/15/2025. Patient has history of hypertension since 2018. He has been on amlodipine and metoprolol. Also on Lipitor. He has history of AMI, status post stent. Patient is a non-smoker. Review of Systems All pertinent positive and negative review of systems mentioned in the HPI, otherwise unremarkable. Past Medical History Past Medical History: Atrial Fibrillation, Coronary Artery Disease (CAD), Cancer, Chest Pain / Angina, GERD/Reflux, Hyperlipidemia, Hypertension, Myocardial Infarction (AL) Additional Past Medical History / Comment(s): . Kidney tumor that is being removed after heart procedure. A1C 6.5, will be considering sleep apnea testing Last Myocardial Infarction Date:: 07/24/2024 History of Any Multi-Drug Resistant Organisms: None Reported Past Surgical History: Heart Catheterization With Stent, Hernia Repair, Tonsillectomy Additional Past Surgical History / Comment(s): Bilateral DETACHED RETINAS, RIGHT EYE WORSE. VASECTOMY. Past Anesthesia/Blood Transfusion Reactions: No Reported Reaction Date of Last Stent Placement:: 07/24/2024 Smoking Status: Never smoker - Past Family History Mother Family Medical History: Cancer, Congestive Heart Failure (CHF) Additional Family Medical History / Comment(s): BREAST Father Family Medical History: Congestive Heart Failure (CHF) Medications and Allergies Home Medications Medication Instructions Recorded Confirmed Type Acetaminophen Tab [Tylenol] 650 mg PO Q4HR PRN tab 02/26/25 Rx Apixaban [Eliquis] 5 mg PO BID tab 02/26/25 Rx Aspirin 81 mg PO DAILY tab 02/26/25 Rx INSULIN LISPRO (HumaLOG) [HumaLOG] 0 unit SQ ACHS each 02/26/25 Rx Ipratropium-Albuterol Nebulize 3 ml INHALATION RT-Q2H PRN each 02/26/25 Rx [Duoneb 0.5 mg-3 mg/3 ml Soln] Ipratropium-Albuterol Nebulize 3 ml INHALATION RT-QID each 02/26/25 Rx [Duoneb 0.5 mg-3 mg/3 ml Soln] Magnesium Hydroxide [Milk of 2,400 mg PO BID PRN ml 02/26/25 Rx Magnesia] Metoprolol Tartrate [Lopressor] 50 mg PO BID tab 02/26/25 Rx Pantoprazole [Protonix] 40 mg PO AC-BRKFST tab 02/26/25 Rx Sennosides-Docusate Sodium 2 each PO HS PRN tab 02/26/25 Rx [Senokot-S] Ticagrelor [Brilinta] 90 mg PO BID tab 02/26/25 Rx bisacodyL [Dulcolax] 10 mg RECTAL DAILY PRN suppositor 02/26/25 Rx polyethylene glycoL 3350 [Miralax] 17 gm PO DAILY packet 02/26/25 Rx Allergies Allergy/AdvReac Type Severity Reaction Status Date / Time No Known Allergies Allergy Verified 02/18/25 05:48 Physical Examination - Vital Signs Vital Signs: Vital Signs Temp Pulse Pulse Resp BP Pulse Ox 02/26/25 11:00 75 16 108/69 92 L 02/26/25 09:23 96 117/74 02/26/25 08:05 68 68 16 02/26/25 08:00 97 18 106/60 97 02/26/25 07:48 97.5 F L 68 16 113/75 98 02/26/25 03:25 98.5 F 88 16 133/77 98 02/25/25 23:23 98.3 F 70 18 118/71 95 02/25/25 19:26 98.0 F 68 18 123/76 98 02/25/25 15:10 98 F 55 L 17 113/72 99 Intake and Output 02/25/25 02/26/25 02/26/25 22:59 06:59 14:59 Intake Total 180 180 Output Total 700 Balance 180 -700 180 Intake: Oral 180 180 Output: Urine 700 Other: Voiding Method Urinal Urinal Urinal # Voids 1 1 0 Weight 108.9 kg Patient is an elderly male, very pleasant, in no acute distress. Patient is alert awake oriented to time place and person. Speech is fluent, with some paraphasic errors noticed with conversation. There is no dysarthria. Patient has some difficulty with naming objects. Patient was able to name button, but not the buttonhole. He was able to name caller, watch, knuckles, earlobe. Patient cannot repeat very well, with a lot of paraphasic errors. He is otherwise fluent and able to express himself and give me whole history as above. Attention, concentration and fund of knowledge is adequate. On cranial nerve examination, pupils are equal, round and reacting to light, visual [place] are full on confrontation, but he neglects right side on double simultaneous stimulation. Extraocular muscles are intact with no nystagmus. Face is symmetric, tongue protrudes to the midline. Palatal elevation and sensation normal, hearing and shoulder shrug normal, facial sensation normal. On muscle strength testing, there is no pronator drift and the strength is normal in arms and legs distally and proximally. Deep tendon reflexes are symmetric 2 at the biceps, 2 brachioradialis, 2 at the knees, ankles are 1 and plantars downgoing bilaterally. Sensory to touch is equal with no neglect on double simultaneous stimulation. Cerebellar function showed no ataxia for [id number] testing. No dysdiadochokinesia. No ataxia for [id number] testing on either side. Tone and bulk of muscles normal. Gait deferred.. On general examination, there is no carotid bruit or murmur, S1-S2 audible. Chest is clear on consultation. Abdomen is soft nontender. No organomegaly, bowel sounds present. Peripheral pulses are present. No peripheral edema. Results - Laboratory Findings CBC and BMP: 02/26/25 05:31 02/26/25 05:31 Abnormal Lab Findings: Abnormal Labs 02/15/25 02/18/25 02/18/25 10:27 06:17 08:37 WBC RBC Hgb Hct MCV MCH MCHC Plt Count Immature Gran # Neutrophils # Lymphocytes # Monocytes # Eosinophils # Immature Plt Fraction PT INR ABG pO2 204 H ABG Total CO2 ABG O2 Saturation 98.8 H ABG Hematocrit ABG Potassium ABG Ionized Calcium ABG Glucose 122 H ABG Lactic Acid Hemoglobin 11.7 L Sodium Chloride BUN Glucose POC Glucose (mg/dL) 125 H Calcium Magnesium Total Bilirubin AST ALT Total Protein Albumin Lipase Arterial Blood Potassium Arterial Blood Glucose 122 H Crossmatch See Detail 02/18/25 02/18/25 02/18/25 08:37 09:12 10:03 WBC RBC Hgb Hct MCV MCH MCHC Plt Count Immature Gran # Neutrophils # Lymphocytes # Monocytes # Eosinophils # Immature Plt Fraction PT INR ABG pO2 211 H 228 H 402 H ABG Total CO2 ABG O2 Saturation 99.0 H 99.0 H 99.2 H ABG Hematocrit 30 L 31 L ABG Potassium 4.7 H ABG Ionized Calcium 4.2 L 4.3 L ABG Glucose 154 H 131 H 136 H ABG Lactic Acid Hemoglobin 9.7 L 11.5 L 10.2 L Sodium Chloride BUN Glucose POC Glucose (mg/dL) Calcium Magnesium Total Bilirubin AST ALT Total Protein Albumin Lipase Arterial Blood Potassium 4.7 H Arterial Blood Glucose 154 H 131 H 136 H Crossmatch 02/18/25 02/18/25 02/18/25 10:33 11:15 12:54 WBC RBC Hgb Hct MCV MCH MCHC Plt Count Immature Gran # Neutrophils # Lymphocytes # Monocytes # Eosinophils # Immature Plt Fraction PT INR ABG pO2 399 H 310 H ABG Total CO2 ABG O2 Saturation 99.2 H 99.1 H ABG Hematocrit 29 L 28 L ABG Potassium 4.7 H 4.7 H ABG Ionized Calcium 4.3 L 4.4 L ABG Glucose 158 H 150 H ABG Lactic Acid 1.9 H Hemoglobin 9.5 L 9.2 L Sodium Chloride BUN Glucose POC Glucose (mg/dL) 128 H Calcium Magnesium Total Bilirubin AST ALT Total Protein Albumin Lipase Arterial Blood Potassium 4.7 H 4.7 H Arterial Blood Glucose 158 H 150 H Crossmatch 02/18/25 02/18/25 02/18/25 12:56 12:56 12:56 WBC 16.27 H RBC Hgb 12.0 L Hct 35.8 L MCV 79.2 L MCH 26.5 L MCHC Plt Count 112 L Immature Gran # 0.09 H Neutrophils # 13.84 H Lymphocytes # Monocytes # 1.06 H Eosinophils # Immature Plt Fraction PT 12.6 H INR 1.2 H ABG pO2 ABG Total CO2 ABG O2 Saturation ABG Hematocrit ABG Potassium ABG Ionized Calcium ABG Glucose ABG Lactic Acid Hemoglobin Sodium Chloride 108 H BUN 22 H Glucose 119 H POC Glucose (mg/dL) Calcium Magnesium 2.6 H Total Bilirubin AST ALT Total Protein 4.8 L Albumin 2.8 L Lipase Arterial Blood Potassium Arterial Blood Glucose Crossmatch 02/18/25 02/18/25 02/18/25 13:18 15:00 15:56 WBC RBC Hgb Hct MCV MCH MCHC Plt Count Immature Gran # Neutrophils # Lymphocytes # Monocytes # Eosinophils # Immature Plt Fraction PT INR ABG pO2 401 H ABG Total CO2 26 H ABG O2 Saturation >100.0 H ABG Hematocrit ABG Potassium ABG Ionized Calcium ABG Glucose ABG Lactic Acid Hemoglobin 11.9 L Sodium Chloride BUN Glucose POC Glucose (mg/dL) 111 H 159 H Calcium Magnesium Total Bilirubin AST ALT Total Protein Albumin Lipase Arterial Blood Potassium Arterial Blood Glucose Crossmatch 02/18/25 02/18/25 02/18/25 16:01 16:49 17:04 WBC 14.97 H RBC 3.82 L Hgb 10.1 L Hct 30.5 L MCV 79.8 L MCH 26.4 L MCHC Plt Count 110 L Immature Gran # 0.06 H Neutrophils # 12.59 H Lymphocytes # Monocytes # 1.23 H Eosinophils # 0.02 L Immature Plt Fraction PT INR ABG pO2 126 H ABG Total CO2 ABG O2 Saturation 99.0 H ABG Hematocrit ABG Potassium ABG Ionized Calcium ABG Glucose ABG Lactic Acid Hemoglobin 10.6 L Sodium Chloride BUN Glucose POC Glucose (mg/dL) 179 H Calcium Magnesium Total Bilirubin AST ALT Total Protein Albumin Lipase Arterial Blood Potassium Arterial Blood Glucose Crossmatch 02/18/25 02/18/25 02/18/25 17:59 19:00 19:08 WBC 11.51 H RBC 3.52 L Hgb 9.4 L Hct 27.9 L MCV 79.3 L MCH 26.7 L MCHC Plt Count 92 L Immature Gran # Neutrophils # 10.37 H Lymphocytes # 0.45 L Monocytes # Eosinophils # 0.00 L Immature Plt Fraction PT INR ABG pO2 ABG Total CO2 ABG O2 Saturation ABG Hematocrit ABG Potassium ABG Ionized Calcium ABG Glucose ABG Lactic Acid Hemoglobin Sodium Chloride BUN Glucose POC Glucose (mg/dL) 183 H 181 H Calcium Magnesium Total Bilirubin AST ALT Total Protein Albumin Lipase Arterial Blood Potassium Arterial Blood Glucose Crossmatch 02/18/25 02/18/25 02/18/25 20:10 20:46 22:00 WBC RBC Hgb Hct MCV MCH MCHC Plt Count Immature Gran # Neutrophils # Lymphocytes # Monocytes # Eosinophils # Immature Plt Fraction PT INR ABG pO2 ABG Total CO2 ABG O2 Saturation ABG Hematocrit ABG Potassium ABG Ionized Calcium ABG Glucose ABG Lactic Acid Hemoglobin Sodium Chloride BUN 21 H Glucose 124 H POC Glucose (mg/dL) 162 H 154 H Calcium Magnesium Total Bilirubin AST ALT Total Protein Albumin Lipase Arterial Blood Potassium Arterial Blood Glucose Crossmatch 02/18/25 02/18/25 02/19/25 22:03 23:05 00:04 WBC RBC Hgb Hct MCV MCH MCHC Plt Count Immature Gran # Neutrophils # Lymphocytes # Monocytes # Eosinophils # Immature Plt Fraction PT INR ABG pO2 ABG Total CO2 ABG O2 Saturation ABG Hematocrit ABG Potassium ABG Ionized Calcium ABG Glucose ABG Lactic Acid Hemoglobin Sodium Chloride BUN Glucose POC Glucose (mg/dL) 139 H 133 H 127 H Calcium Magnesium Total Bilirubin AST ALT Total Protein Albumin Lipase Arterial Blood Potassium Arterial Blood Glucose Crossmatch 02/19/25 02/19/25 02/19/25 01:02 01:50 02:53 WBC RBC Hgb Hct MCV MCH MCHC Plt Count Immature Gran # Neutrophils # Lymphocytes # Monocytes # Eosinophils # Immature Plt Fraction PT INR ABG pO2 ABG Total CO2 ABG O2 Saturation ABG Hematocrit ABG Potassium ABG Ionized Calcium ABG Glucose ABG Lactic Acid Hemoglobin Sodium Chloride BUN Glucose POC Glucose (mg/dL) 127 H 124 H 168 H Calcium Magnesium Total Bilirubin AST ALT Total Protein Albumin Lipase Arterial Blood Potassium Arterial Blood Glucose Crossmatch 02/19/25 02/19/25 02/19/25 04:14 04:15 04:15 WBC 12.80 H RBC 3.55 L Hgb 9.5 L Hct 28.1 L MCV 79.2 L MCH 26.8 L MCHC Plt Count 99 L Immature Gran # 0.07 H Neutrophils # 11.36 H Lymphocytes # 0.44 L Monocytes # Eosinophils # 0.00 L Immature Plt Fraction PT INR ABG pO2 ABG Total CO2 ABG O2 Saturation ABG Hematocrit ABG Potassium ABG Ionized Calcium ABG Glucose ABG Lactic Acid Hemoglobin Sodium Chloride BUN 21 H Glucose 130 H POC Glucose (mg/dL) 149 H Calcium 8.1 L Magnesium Total Bilirubin AST ALT Total Protein 5.0 L Albumin 3.3 L Lipase Arterial Blood Potassium Arterial Blood Glucose Crossmatch 02/19/25 02/19/25 02/19/25 08:01 09:13 11:44 WBC RBC Hgb Hct MCV MCH MCHC Plt Count Immature Gran # Neutrophils # Lymphocytes # Monocytes # Eosinophils # Immature Plt Fraction PT INR ABG pO2 ABG Total CO2 ABG O2 Saturation ABG Hematocrit ABG Potassium ABG Ionized Calcium ABG Glucose ABG Lactic Acid Hemoglobin Sodium Chloride BUN Glucose POC Glucose (mg/dL) 144 H 160 H 132 H Calcium Magnesium Total Bilirubin AST ALT Total Protein Albumin Lipase Arterial Blood Potassium Arterial Blood Glucose Crossmatch 02/19/25 02/19/25 02/19/25 13:20 14:14 15:57 WBC RBC Hgb Hct MCV MCH MCHC Plt Count Immature Gran # Neutrophils # Lymphocytes # Monocytes # Eosinophils # Immature Plt Fraction PT INR ABG pO2 ABG Total CO2 ABG O2 Saturation ABG Hematocrit ABG Potassium ABG Ionized Calcium ABG Glucose ABG Lactic Acid Hemoglobin Sodium Chloride BUN Glucose POC Glucose (mg/dL) 127 H 128 H 126 H Calcium Magnesium Total Bilirubin AST ALT Total Protein Albumin Lipase Arterial Blood Potassium Arterial Blood Glucose Crossmatch 02/19/25 02/19/25 02/19/25 18:02 19:01 20:07 WBC RBC Hgb Hct MCV MCH MCHC Plt Count Immature Gran # Neutrophils # Lymphocytes # Monocytes # Eosinophils # Immature Plt Fraction PT INR ABG pO2 ABG Total CO2 ABG O2 Saturation ABG Hematocrit ABG Potassium ABG Ionized Calcium ABG Glucose ABG Lactic Acid Hemoglobin Sodium Chloride BUN Glucose POC Glucose (mg/dL) 144 H 144 H 147 H Calcium Magnesium Total Bilirubin AST ALT Total Protein Albumin Lipase Arterial Blood Potassium Arterial Blood Glucose Crossmatch 02/20/25 02/20/25 02/20/25 00:10 01:57 03:56 WBC 14.82 H RBC 3.16 L Hgb 8.5 L Hct 25.5 L MCV MCH 26.9 L MCHC Plt Count 90 L Immature Gran # 0.07 H Neutrophils # 12.35 H Lymphocytes # Monocytes # 1.26 H Eosinophils # 0.01 L Immature Plt Fraction PT INR ABG pO2 ABG Total CO2 ABG O2 Saturation ABG Hematocrit ABG Potassium ABG Ionized Calcium ABG Glucose ABG Lactic Acid Hemoglobin Sodium Chloride BUN Glucose POC Glucose (mg/dL) 142 H 128 H Calcium Magnesium Total Bilirubin AST ALT Total Protein Albumin Lipase Arterial Blood Potassium Arterial Blood Glucose Crossmatch 02/20/25 02/20/25 02/20/25 03:56 06:12 08:01 WBC RBC Hgb Hct MCV MCH MCHC Plt Count Immature Gran # Neutrophils # Lymphocytes # Monocytes # Eosinophils # Immature Plt Fraction PT INR ABG pO2 ABG Total CO2 ABG O2 Saturation ABG Hematocrit ABG Potassium ABG Ionized Calcium ABG Glucose ABG Lactic Acid Hemoglobin Sodium 135 L Chloride BUN 29 H Glucose POC Glucose (mg/dL) 148 H 165 H Calcium Magnesium Total Bilirubin AST ALT Total Protein 4.9 L Albumin 3.1 L Lipase Arterial Blood Potassium Arterial Blood Glucose Crossmatch 02/20/25 02/20/25 02/20/25 09:01 10:00 11:09 WBC RBC Hgb Hct MCV MCH MCHC Plt Count Immature Gran # Neutrophils # Lymphocytes # Monocytes # Eosinophils # Immature Plt Fraction PT INR ABG pO2 ABG Total CO2 ABG O2 Saturation ABG Hematocrit ABG Potassium ABG Ionized Calcium ABG Glucose ABG Lactic Acid Hemoglobin Sodium Chloride BUN Glucose POC Glucose (mg/dL) 167 H 135 H 113 H Calcium Magnesium Total Bilirubin AST ALT Total Protein Albumin Lipase Arterial Blood Potassium Arterial Blood Glucose Crossmatch 02/20/25 02/20/25 02/21/25 16:16 20:04 02:54 WBC 14.53 H RBC 3.25 L Hgb 8.8 L Hct 26.7 L MCV MCH MCHC Plt Count 112 L Immature Gran # 0.11 H Neutrophils # 11.88 H Lymphocytes # Monocytes # 1.29 H Eosinophils # 0.03 L Immature Plt Fraction 6.3 H PT INR ABG pO2 ABG Total CO2 ABG O2 Saturation ABG Hematocrit ABG Potassium ABG Ionized Calcium ABG Glucose ABG Lactic Acid Hemoglobin Sodium Chloride BUN Glucose POC Glucose (mg/dL) 159 H 158 H Calcium Magnesium Total Bilirubin AST ALT Total Protein Albumin Lipase Arterial Blood Potassium Arterial Blood Glucose Crossmatch 02/21/25 02/21/25 02/21/25 02:54 07:02 11:12 WBC RBC Hgb Hct MCV MCH MCHC Plt Count Immature Gran # Neutrophils # Lymphocytes # Monocytes # Eosinophils # Immature Plt Fraction PT INR ABG pO2 ABG Total CO2 ABG O2 Saturation ABG Hematocrit ABG Potassium ABG Ionized Calcium ABG Glucose ABG Lactic Acid Hemoglobin Sodium 133 L Chloride BUN 38 H Glucose 129 H POC Glucose (mg/dL) 155 H 161 H Calcium Magnesium Total Bilirubin AST ALT Total Protein 5.1 L Albumin 3.1 L Lipase Arterial Blood Potassium Arterial Blood Glucose Crossmatch 02/21/25 02/21/25 02/22/25 15:51 20:07 05:27 WBC 13.95 H RBC 3.36 L Hgb 9.1 L Hct 27.5 L MCV MCH MCHC Plt Count Immature Gran # Neutrophils # Lymphocytes # Monocytes # Eosinophils # Immature Plt Fraction PT INR ABG pO2 ABG Total CO2 ABG O2 Saturation ABG Hematocrit ABG Potassium ABG Ionized Calcium ABG Glucose ABG Lactic Acid Hemoglobin Sodium Chloride BUN Glucose POC Glucose (mg/dL) 153 H 187 H Calcium Magnesium Total Bilirubin AST ALT Total Protein Albumin Lipase Arterial Blood Potassium Arterial Blood Glucose Crossmatch 02/22/25 02/22/25 02/22/25 05:27 06:22 11:54 WBC RBC Hgb Hct MCV MCH MCHC Plt Count Immature Gran # Neutrophils # Lymphocytes # Monocytes # Eosinophils # Immature Plt Fraction PT INR ABG pO2 ABG Total CO2 ABG O2 Saturation ABG Hematocrit ABG Potassium ABG Ionized Calcium ABG Glucose ABG Lactic Acid Hemoglobin Sodium 135 L Chloride BUN 35 H Glucose 135 H POC Glucose (mg/dL) 158 H 147 H Calcium Magnesium 2.4 H Total Bilirubin AST ALT Total Protein Albumin Lipase Arterial Blood Potassium Arterial Blood Glucose Crossmatch 02/22/25 02/22/25 02/23/25 16:39 19:51 05:52 WBC 10.76 H RBC 3.50 L Hgb 9.3 L Hct 28.4 L MCV MCH 26.6 L MCHC Plt Count Immature Gran # Neutrophils # Lymphocytes # Monocytes # Eosinophils # Immature Plt Fraction PT INR ABG pO2 ABG Total CO2 ABG O2 Saturation ABG Hematocrit ABG Potassium ABG Ionized Calcium ABG Glucose ABG Lactic Acid Hemoglobin Sodium Chloride BUN Glucose POC Glucose (mg/dL) 145 H 135 H Calcium Magnesium Total Bilirubin AST ALT Total Protein Albumin Lipase Arterial Blood Potassium Arterial Blood Glucose Crossmatch 02/23/25 02/23/25 02/23/25 05:52 05:52 06:10 WBC RBC Hgb Hct MCV MCH MCHC Plt Count Immature Gran # Neutrophils # Lymphocytes # Monocytes # Eosinophils # Immature Plt Fraction PT INR ABG pO2 ABG Total CO2 ABG O2 Saturation ABG Hematocrit ABG Potassium ABG Ionized Calcium ABG Glucose ABG Lactic Acid Hemoglobin Sodium 136 L Chloride BUN 36 H Glucose 129 H POC Glucose (mg/dL) 135 H Calcium Magnesium Total Bilirubin AST ALT Total Protein Albumin Lipase 337 H Arterial Blood Potassium Arterial Blood Glucose Crossmatch 02/23/25 02/23/25 02/23/25 11:22 16:22 20:15 WBC RBC Hgb Hct MCV MCH MCHC Plt Count Immature Gran # Neutrophils # Lymphocytes # Monocytes # Eosinophils # Immature Plt Fraction PT INR ABG pO2 ABG Total CO2 ABG O2 Saturation ABG Hematocrit ABG Potassium ABG Ionized Calcium ABG Glucose ABG Lactic Acid Hemoglobin Sodium Chloride BUN Glucose POC Glucose (mg/dL) 148 H 128 H 144 H Calcium Magnesium Total Bilirubin AST ALT Total Protein Albumin Lipase Arterial Blood Potassium Arterial Blood Glucose Crossmatch 02/24/25 02/24/25 02/24/25 06:00 06:07 06:07 WBC RBC 3.37 L Hgb 8.8 L Hct 27.1 L MCV MCH 26.1 L MCHC Plt Count Immature Gran # Neutrophils # Lymphocytes # Monocytes # Eosinophils # Immature Plt Fraction PT INR ABG pO2 ABG Total CO2 ABG O2 Saturation ABG Hematocrit ABG Potassium ABG Ionized Calcium ABG Glucose ABG Lactic Acid Hemoglobin Sodium Chloride BUN 29 H Glucose 134 H POC Glucose (mg/dL) 142 H Calcium Magnesium Total Bilirubin 1.5 H AST ALT 54 H Total Protein 5.0 L Albumin 2.9 L Lipase 453 H Arterial Blood Potassium Arterial Blood Glucose Crossmatch 02/24/25 02/24/25 02/24/25 11:42 16:23 19:59 WBC RBC Hgb Hct MCV MCH MCHC Plt Count Immature Gran # Neutrophils # Lymphocytes # Monocytes # Eosinophils # Immature Plt Fraction PT INR ABG pO2 ABG Total CO2 ABG O2 Saturation ABG Hematocrit ABG Potassium ABG Ionized Calcium ABG Glucose ABG Lactic Acid Hemoglobin Sodium Chloride BUN Glucose POC Glucose (mg/dL) 138 H 127 H 134 H Calcium Magnesium Total Bilirubin AST ALT Total Protein Albumin Lipase Arterial Blood Potassium Arterial Blood Glucose Crossmatch 02/25/25 02/25/25 02/25/25 06:01 06:03 06:03 WBC 12.21 H RBC 4.15 L Hgb 10.9 L Hct 34.2 L MCV MCH 26.3 L MCHC 31.9 L Plt Count Immature Gran # Neutrophils # Lymphocytes # Monocytes # Eosinophils # Immature Plt Fraction PT INR ABG pO2 ABG Total CO2 ABG O2 Saturation ABG Hematocrit ABG Potassium ABG Ionized Calcium ABG Glucose ABG Lactic Acid Hemoglobin Sodium Chloride BUN 29 H Glucose 119 H POC Glucose (mg/dL) 130 H Calcium Magnesium Total Bilirubin 1.8 H AST 61 H ALT 88 H Total Protein 6.0 L Albumin Lipase 731 H Arterial Blood Potassium Arterial Blood Glucose Crossmatch 02/25/25 02/25/25 02/25/25 11:30 16:22 19:57 WBC RBC Hgb Hct MCV MCH MCHC Plt Count Immature Gran # Neutrophils # Lymphocytes # Monocytes # Eosinophils # Immature Plt Fraction PT INR ABG pO2 ABG Total CO2 ABG O2 Saturation ABG Hematocrit ABG Potassium ABG Ionized Calcium ABG Glucose ABG Lactic Acid Hemoglobin Sodium Chloride BUN Glucose POC Glucose (mg/dL) 112 H 124 H 140 H Calcium Magnesium Total Bilirubin AST ALT Total Protein Albumin Lipase Arterial Blood Potassium Arterial Blood Glucose Crossmatch 02/26/25 02/26/25 02/26/25 05:31 05:31 05:55 WBC 10.62 H RBC 3.74 L Hgb 9.9 L Hct 31.0 L MCV MCH 26.5 L MCHC 31.9 L Plt Count Immature Gran # 0.16 H Neutrophils # Lymphocytes # Monocytes # Eosinophils # Immature Plt Fraction PT INR ABG pO2 ABG Total CO2 ABG O2 Saturation ABG Hematocrit ABG Potassium ABG Ionized Calcium ABG Glucose ABG Lactic Acid Hemoglobin Sodium Chloride BUN 27 H Glucose 119 H POC Glucose (mg/dL) 134 H Calcium Magnesium Total Bilirubin 1.7 H AST ALT 81 H Total Protein 5.5 L Albumin 3.1 L Lipase 884 H Arterial Blood Potassium Arterial Blood Glucose Crossmatch 02/26/25 02/26/25 08:11 11:27 WBC RBC Hgb Hct MCV MCH MCHC Plt Count Immature Gran # Neutrophils # Lymphocytes # Monocytes # Eosinophils # Immature Plt Fraction PT INR ABG pO2 ABG Total CO2 ABG O2 Saturation ABG Hematocrit ABG Potassium ABG Ionized Calcium ABG Glucose ABG Lactic Acid Hemoglobin Sodium Chloride BUN Glucose POC Glucose (mg/dL) 207 H 148 H Calcium Magnesium Total Bilirubin AST ALT Total Protein Albumin Lipase Arterial Blood Potassium Arterial Blood Glucose Crossmatch Assessment and Plan Assessment: * 69-year-old male, status post aortic valve replacement on 02/18/2025, developed recurrent (x 2) episodes of expressive aphasia. At present patient's NIH stroke scale is 2. Symptoms suggestive of small stroke in the left MCA te rritory. * Possible left M2 stenosis versus thrombus * Paroxysmal atrial fibrillation * Hypertension * Diabetes * Hyperlipidemia * Coronary artery disease Plan: * Patient is not a candidate for TNK, as patient is on oral anticoagulants. No large vessel occlusion noted on the CTA. * Patient to undergo stat MRI of the brain and MRA of the brain without contrast, evaluate for acute CVA, follow-up on left M2 occlusion. * Stat 2-D echo with bubble study to rule out PFO * CTA head and neck showed: There appears to be some luminal narrowing/moderate stenosis at the M2 segment left MCA branch at enhancement is maintained beyond this level. Arterial calcification versus clot that is opening up are considerations. Otherwise no large vessel intracranial arterial occlusion, stenosis or aneurysmal changes seen. Widely patent vertebral and carotid arteries of the neck. * We will review CTA results with neurointervention about possible thrombectomy. * Fasting a.m. lipid panel cholesterol 109, LDL 53, HDL 35, triglycerides 102.. Continue Lipitor 80 mg daily. Recommended bedrest. * Hemoglobin A1c 6.7 * Patient started on normal saline at 125 cc/h. Permissive hypertension for next 24 to 48 hours. * Patient currently on Plavix 75 mg and aspirin. Patient also has been on Pradaxa 150 mg twice daily since 02/24/2025. Patient switched to Eliquis 5 mg twice daily, and will be receiving first dose tonight. * Neuro checks as per protocol. * Telemetry monitoring rule out any arrhythmia * PT, OT, speech therapy * DVT prophylaxis: Patient on Eliquis. * Neurology will continue to follow. Thank you for the consult. Addendum: Discussed case with neurointervention Dr. Duran. Informed him about the second episode of worsening, although getting better at this time. After discussing the pros and cons, he agreed for patient to be transferred to higher level of care, in case his symptoms get worse, and requires thrombectomy. Patient will be transferred to [facility] where neurointervention and current cardiothoracic team will follow. Patient to be switched from Plavix to Brilinta. Patient received loading dose of Brilinta 180 mg, as per recommendation from neurointervention. MRI/MRA brain is scheduled at 2 PM. If any delays in transfer, we will do the MRI here. Patient may need repeat CTA of head and neck, as per Dr. Brady, was not a good quality. Patient appears stable at this time. Discussed with cardiothoracic surgery team in detail. Update: MRI of the brain revealed several foci of acute/subacute ischemia involving the acevedo-white junction of the left temporal occipital region. Nonspecific mild white matter changes, likely related to small vessel ischemic disease. Several scattered foci of blooming artifact consistent with prior hemosiderin deposition. I personally reviewed MRI, agree with the findings. MRA of the brain revealed focal high-grade stenosis of the branch of the left MCA distal M2 segment. [facility] accepted to [facility], and the bed is available. Time with Patient: Greater than 30
--- NOTE | 2025-02-26 15:02 | P.DS ---
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 Consult: post cardiac surgery Do you want consulting provider notified?: Yes 02/26/25 09:08 Consult Physician Routine Consulting Provider: Delon Villar Consult Reason/Comments: code CVA Do you want consulting provider notified?: Yes Primary care physician: Karthikeyan Iglesias [facility] Course: FINAL DIAGNOSIS: Severe aortic insufficiency, status post aortic valve replacement Paroxysmal atrial fibrillation, status post ligation of the left atrial appendage, bilateral pulmonary vein isolation Postoperative acute blood loss anemia, expected given hemodilution and cardiopulmonary bypass pump Anorexia related to nausea and smell of food Hyperlipasemia, uknown etiology Transient confusion and expressive aphasia, CTA brain showed possible left M2 stenosis versus thrombosis History of coronary artery disease with non-STEMI status post PCI to the LAD Bradycardia Hypertension Borderline diabetes with diet control, hemoglobin A1c 6.7% Left renal mass in need of partial nephrectomy in the future, suspicious for renal cell carcinoma Questionable sleep apnea (patient never tested but exhibits symptoms) Lifelong non-smoker, preoperative FEV1 103% of predicted Premature coronary artery disease in his father PRINCIPAL PROCEDURE: 1. Aortic valve replacement with 25 mm García Inspiris bioprosthetic valve 2. Ligation of the left atrial appendage using a 35mm AtriClip 3. Bilateral pulmonary vein isolation 4. Epiaortic ultrasound 5. Intraoperative transesophageal echocardiogram performed by anesthesia HISTORY OF PRESENT ILLNESS: This is a 69-year-old gentleman who follows on an outpatient basis with Dr. Karthikeyan Iglesias for his primary care and with Dr. Frederic Gunn for his cardiology care. In June 2024 the patient had episodes of shortness of breath with activity, feeling dizzy, complaints of slow heart rate in the 30s to 50s and episodes of chest discomfort. Due to the symptoms of shortness of breath, the patient underwent a Lexiscan Cardiolite myocardial p erfusion scan and rest study on June 01, 2024, it showed a negative stress test by EKG criteria normal myocardial perfusion and function. For further evaluation the patient underwent a transthoracic 2D echocardiogram on June 29, 2024 which demonstrated a left ventricular ejection fraction of 50 to 55%, mild concentric left ventricular hypertrophy, mild mitral valve regurgitation, mild mitral jose c ular calcification, a trileaflet aortic valve with severe aortic valve regurgitation, mild tricuspid valve regurgitation and pulmonic valve regurgitation. Subsequently, due to the patient's symptoms and findings on the transthoracic 2D echocardiogram he was recommended to undergo a transesophageal echocardiogram and cardiac catheterization which was completed on 07/07/[address] Gunn. The cardiac catheterization revealed a 90% stenosis to his proximal left anterior descending coronary artery and aortic valve regurgitation. The transesophageal echocardiogram revealed severe aortic valve regurgitation involving a 3 leaflet aortic valve, and a dilated aortic root measuring 3.9 cm. It also demonstrated mild mitral valve regurgitation, mild tricuspid valve regurgitation and mild global hypokinesis with an ejection fraction of 50%. Subsequently in July 2024 the patient presented back to the emergency department here at [facility] with complaints of chest pressure which was relieved with nitroglycerin x 2 and he also had some complaints of nausea during the chest pressure. During his visit in July 2024 he also tested positive for COVID-19. Also in July 2024 the patient did have some elevated troponins and his EKG showed normal sinus rhythm with no STT wave changes. Due to the patient's cardiac catheterization findings and findings on his transesophageal echocardiogram a consult has been placed to Dr. Art Shafer at that time. Due to the patient's persistent symptoms of chest pressure, and due to the patient's COVID-19 infection, it was discussed at that time to proceed with PCI to his LAD and once the patient had recovered from his COVID-19 infection he would obtain dental clearance and undergo elective surgical aortic valve replacement. Risks and benefits for surgical aortic valve replacement was discussed with the patient by Dr. Art Shafer including the STS risk score. Knowing and understanding the risks the patient wished to proceed with the surgical option. HOSPITAL COURSE: The patient was brought to the preoperative area 02/18/25, prepared in the usual fashion, and subsequently taken to the operating room where Dr. Art Shafer performed an aortic valve replacement with 25 mm García Inspiris bioprosthetic valve. Upon completion of surgery the patient was transferred to the cardiovascular intensive care unit where he was recovered and monitored hemodynamically. He was extubated, all lines, tubes, and drips were discontinued when appropriate, and he was transferred to 3 S. cardiac stepdown unit for further monitoring and rehabilitation. He did have some paroxysmal atrial fibrillation and was started on Pradaxa for anticoagulation. His oxygen was titrated down, he continued to work with physical and occupational therapy, he was tolerating an oral diet, and his pain was controlled. On February 23, 2025 the patient developed symptoms of nausea without emesis. It was noted his lipase was elevated and over the last 3 days has trended up to 884. A CT scan of the abdomen pelvis with and without contrast was completed and read demonstrated a 3.5 cm enhancing left renal mass highly suspicious for renal cell carcinoma, no focal mass or organomegaly involving the liver, pancreas, spleen or adrenal glands, a stable 3.9 cm cyst in the left lobe of the liver, and bowel loops were normal in caliber with no evidence of dilatation or obstruction. Upon examination this morning February 26, 2025 the patient was having some transient confusion and expressive aphasia with an initial NIH score of 4. A code stroke was initiated and the patient underwent a CT/CTA brain for further evaluation. The CTA of the brain showed possible left M2 stenosis versus thrombosis. Neurology was consulted for further evaluation, a discussion between neurology and interventional neurology was had with recommendations to transfer to [facility] for further evaluation from interventional neurology. The findings on the CT/CT of the brain were discussed with the patient and the family, recommendations to transfer to [facility] were also discussed with the family and the patient and they are agreeable to transfer. Plan - Discharge Summary Discharge Rx Participant: No New Discharge Prescriptions: New Ticagrelor [Brilinta] 90 mg PO BID tab bisacodyL [Dulcolax] 10 mg RECTAL DAILY PRN suppositor PRN Reason: Constipation Ipratropium-Albuterol Nebulize [Duoneb 0.5 mg-3 mg/3 ml Soln] 3 ml INHALATION RT-Q2H PRN each PRN Reason: Shortness Of Breath Or Wheezing Magnesium Hydroxide [Milk of Magnesia] 2,400 mg PO BID PRN ml PRN Reason: Constipation Sennosides-Docusate Sodium [Senokot-S] 2 each PO HS PRN tab PRN Reason: Constipation Acetaminophen Tab [Tylenol] 650 mg PO Q4HR PRN tab PRN Reason: Fever And/ Or Mild Pain (1-3) Aspirin 81 mg PO DAILY tab Ipratropium-Albuterol Nebulize [Duoneb 0.5 mg-3 mg/3 ml Soln] 3 ml INHALATION RT-QID each Apixaban [Eliquis] 5 mg PO BID tab INSULIN LISPRO (HumaLOG) [HumaLOG] 0 unit SQ ACHS each Metoprolol Tartrate [Lopressor] 50 mg PO BID tab polyethylene glycoL 3350 [Miralax] 17 gm PO DAILY packet Pantoprazole [Protonix] 40 mg PO AC-BRKFST tab Discontinued Atorvastatin [Lipitor] 80 mg PO HS 60 Days #60 tab Clopidogrel [Plavix] 75 mg PO DAILY Nitroglycerin Sl Tabs [Nitrostat] 0.4 mg SUBLINGUAL Q5M PRN #25 tab PRN Reason: Chest Pain amLODIPine [Norvasc] 10 mg PO DAILY 60 Days #60 tab Isosorbide Mononitrate ER [Imdur] 30 mg PO QAM Aspirin EC [Ecotrin Low Dose] 81 mg PO QAM Discharge Medication List Acetaminophen Tab [Tylenol] 650 mg PO Q4HR PRN tab 02/26/25 [Rx] Apixaban [Eliquis] 5 mg PO BID tab 02/26/25 [Rx] Aspirin 81 mg PO DAILY tab 02/26/25 [Rx] INSULIN LISPRO (HumaLOG) [HumaLOG] 0 unit SQ ACHS each 02/26/25 [Rx] Ipratropium-Albuterol Nebulize [Duoneb 0.5 mg-3 mg/3 ml Soln] 3 ml INHALATION RT-Q2H PRN each 02/26/25 [Rx] Ipratropium-Albuterol Nebulize [Duoneb 0.5 mg-3 mg/3 ml Soln] 3 ml INHALATION RT-QID each 02/26/25 [Rx] Magnesium Hydroxide [Milk of Magnesia] 2,400 mg PO BID PRN ml 02/26/25 [Rx] Metoprolol Tartrate [Lopressor] 50 mg PO BID tab 02/26/25 [Rx] Pantoprazole [Protonix] 40 mg PO AC-BRKFST tab 02/26/25 [Rx] Sennosides-Docusate Sodium [Senokot-S] 2 each PO HS PRN tab 02/26/25 [Rx] Ticagrelor [Brilinta] 90 mg PO BID tab 02/26/25 [Rx] bisacodyL [Dulcolax] 10 mg RECTAL DAILY PRN suppositor 02/26/25 [Rx] polyethylene glycoL 3350 [Miralax] 17 gm PO DAILY packet 02/26/25 [Rx] Follow up Appointment(s)/Referral(s): Jerry Santiago MD [STAFF PHYSICIAN] - 03/17/25 9:30 am Rehab [facility],Cardiac [NON-STAFF] - 4 Weeks (You will receive a phone call in approximately 4-6 weeks for evaluation for cardiac rehab) Jonny Iglesias MD [Primary Care Provider] - 03/04/25 2:20 pm [facility],Equipment [NON-STAFF] - As Needed (Diabetic supplies) Allan Hugo NPC [Nurse Practitioner] - 03/02/25 10:30 am (Please follow-up in the office located at [address] [place] [address], [facility]. Office number is [phone].) Art Shafer MD [STAFF PHYSICIAN] - 03/26/25 9:30 am [facility],Health [NON-STAFF] - 1-2 Days Speedy Gunn MD [STAFF PHYSICIAN] - 03/09/25 2:30 pm Activity/Diet/Wound Care/Special Instructions: DISCHARGE INSTRUCTIONS: 1. No driving for 4 weeks, or until physician gives their ok. 2. The patient should sleep in their own bed, no medical bed needed. 3. Stairs are not an issue. If the bedroom is upstairs, it is advised that the patient go up at night and down in the morning for the first week. Go slowly, using handrail and take 1 step at a time. 4. ASHER hose are to be worn for 30 days post surgery or until physician discontinues. 5. Heart hugger is to be worn 100% of the time until physician discontinues.(except when showering) 6. No lifting, pushing, or pulling more than 10 pounds for 12 weeks. The physician will advise of any restriction changes. 7. The patient is expected to continue the prescribed walking program. 8. Continue pain control per as needed orders. 9. Continue with incentive spirometry and splinting/heart hugger until otherwise directed by the physician. 10. Must shower daily using liquid antibacterial soap 11. Routine sternal incision care. No powders, lotions, ointments on incisions. No dressings are necessary on incisions unless they are draining. Dermabond tape is to remain on sternal incision until surgeon follow-up. 12. Please call surgeon/WAREHOUSE CHECKER for temp greater than 101 F or purulent drainage from incisions. 13. You should weigh yourself daily, record and bring log with you to follow up appointments. 14. All prescriptions given by surgeon for 30 days. Refills need to be filled through coal mine inspector/primary care physician. 15. A Red armband has been placed on the patient. It should be worn for 30 days post discharge from surgery and will be removed by the cardiac surgeons. If an ER visit is necessary, please make sure the number on the Red armband is called before going to ER. 16. You have been referred to and are expected to begin Cardiac Rehab in approximately 4-6 weeks. 17. Quitting smoking is the most important step you can take to improve your health. For additional information and assistance to quit smoking, please call the [place] tobacco quit line (3-195-RMNJ-NOW/ ) or online: [email or web address] HEALTH SERVICES TO PROVIDE: RN SKILLED HOME CARE SERVICES FOR POST-OP SURGICAL PATIENTS WITH THE FOLLOWING: Coronary Artery Bypass Surgery (CABG), Mitral Valve Replacement/Repair ( MVR), Aortic Valve Replacement/Repair (AVR) RN TO CONTINUE EDUCATION FROM ``ROAD TO A HEALTH HEART PATIENT EDUCATION MANUAL (GIVEN TO PATIENT IN THE HOSPITAL) MEDICATION RECONCILIATION WITH EDUCATION NEEDED ON FIRST HOME VISIT EMPHASIZE IMPORTANCE OF WEARING BREAST SUPPORT/HEART HUGGER ENCOURAGE USE OF INCENTIVE SPIROMETER 10 X EVERY HOUR WHILE AWAKE ENCOURAGE UTILIZATION OF LOWER EXTREMITY COMPRESSION STOCKINGS/ASHER HOSE and ELEVATE LEGS ABOVE LEVEL OF HEART WHILE AT REST. ENCOURAGE AMBULATION 3-5x/day INCREASING TOLERATES, WHILE AVOIDING EXTREMES IN TEMPERATURE FREQUENCY: RN TO OPEN THE PATIENT WITHIN 24 HOURS OF DISCHARGE FROM THE HOSPITAL WITH TELEHEALTH INSTALLED AT [facility], RN TO VISIT 2-3 X A WEEK FOR 4 WEEKS ESTABLISHED BY PATIENT NEEDS. LABORATORY: CBC, CMP TO BE DRAWN ON THE THIRD DAY HOME, (RAN STAT) FAX RESULTS TO [phone]. TELEHEALTH PARAMETERS: WEIGHT: NOTIFY MD OF WEIGHT GAIN OF 2 LBS IN 24 HOURS OR 5 LBS IN ONE WEEK HR: NOTIFY MD OF HR <55 BPM OR HR>100 BPM BP: NOTIFY MD IF BP <90/55 OR BP>140/100 O2 SAT: NOTIFY MD IF PO2<93% ON ROOM AIR SEND TELEHEALTH REPORT TO DIRECTOR SKILLS AND CARDIOVASCULAR SURGEON THE FIRST WEEK OF CARE AND THEN BI-WEEKLY. PLEASE ADDITIONALLY COMMUNICATE ANY ABNORMALS AND NEW FINDINGS TO THE SURGEONS OFFICE. Discharge Disposition: OTHER INSTITUTION NOT DEFINED
--- NOTE | 2025-02-26 15:22 | P.PN ---
Subjective HISTORY OF PRESENT ILLNESS: The patient is a 69-year-old male with known history of aortic insufficiency, CAD status post stenting of the LAD in the setting of non-STEMI in July 2020 for who underwent aortic valve replacement with Inspiris valve, atrial fibrillation ablation and ligation of the left atrial appendage. He is extubated, sitting up in the chair, complaining of chest wall tenderness. He is in sinus mechanism and hemodynamically stable on no vasopressors. By echocardiogram in the past he had an ejection fraction of 50% with severe aortic regurgitation with a tricuspid aortic valve by FARA. According to him he has been complaining of continuous dyspnea on exertion. On repeat cardiac catheterization the LAD stent was patent. He has a reported history of paroxysmal atrial fibrillation. He has a history of hypertension and hyperlipidemia, he is nondiabetic, non-smoker. February 20: The patient feels better today, he continues to have some soreness but improving. He continues to be in sinus mechanism, hemodynamically stable. His Hugoton-Migue catheter has been removed as well as mediastinal tube. He has ambulated yesterday. He continues to be in sinus mechanism. February 21: The patient had shoulder discomfort earlier that resolved after removing the chest tube. He is in atrial fibrillation and has been started on amiodarone. His breathing is stable. His blood pressure stable. He denies any dizziness or palpitations. He denies any nausea. 02/22/2025 Patient examined this morning at the bedside. Patient currently denies chest pain or pressure. He denies shortness of breath. He reports that yesterday he felt very weak. He reports decreased appetite this morning. He reports having chills this morning as well. Telemetry reveals sinus mechanism with episodes of atrial fibrillation overnight. The patient is not anticoagulated. He does have a history of atrial fibrillation. The patient states that he has never been on anticoagulation in the past. Reason unknown. 02/23/2025 Patient examined this morning. Patient is sitting up in the chair. Patient currently denies chest pain or pressure. He denies shortness of breath. He continues to report nausea. Telemetry reveals sinus mechanism. Addendum entered and electronically signed by Pilar Ziegler NP-C 02/23/25 14:28: Per case management, Xarelto co-pay $556 a month, Eliquis co-pay $141 per month, and Pradaxa co-pay $60.30 a month Will begin Pradaxa when cleared by CT surgery 02/24/2025 Patient examined this morning at the bedside. Patient currently denies chest pain or pressure. He denies shortness of breath. He reports improvement in his nausea. He was able to eat some breakfast this morning. Patient's pacemaker wires were discontinued today. Telemetry reveals atrial fibrillation with contr olled ventricular rate. 02/25/2025 Patient examined this morning at the bedside. Patient currently denies chest pain or pressure. He denies shortness of breath. Telemetry reveals sinus mechanism. Patient's nausea is improved. He was able to tolerate breakfast this morning. Blood pressure 131/70. Lipase increased this AM which patient states is holding his discharge. 02/26 Patient had 2 separate events this morning with abnormal speech difficulty forming words. He denied any chest pain or pressure. Code stroke was called with NIH score of 4 and stroke team discussed with Dr. Brady. MRI brain pending. Patient scheduled for transfer to [facility]. Medications adjusted including Eliquis and Brilinta. PHYSICAL EXAM: VITAL SIGNS: Reviewed. GENERAL: Well-developed in no acute distress. NECK: Supple. No JVD or thyromegaly LUNGS: Respirations even and unlabored. Lungs essentially clear to auscultation bilaterally. HEART: Irregular rate and rhythm. S1 and S2 heard. Systolic murmur noted. EXTREMITIES: Normal range of motion. No clubbing or cyanosis. Peripheral pulses intact. No lower extremity edema ASSESSMENT: 1. Status post aortic valve replacement for severe aortic regurgitation, with closure of the left atrial appendage and atrial fibrillation ablation 2. History of CAD status post stenting of the LAD 3. Hyperlipidemia 4. History of hypertension 5. Paroxysmal atrial fibrillation, first diagnosed in 2018, not anticoagulated on an outpatient basis, reason unknown 6. Dysphasia consistent with stroke/ TIA PLAN: Continue with current regimen. Agree with adjustments of medications and agree with transfer to [facility] for neurointerventional monitoring. Anticoagulation with Eliquis and Brilinta. Otherwise continue current regimen. Further recommendations to follow. Objective - Vital Signs Vital signs: Vital Signs Temp 97.1 F L 02/26/25 11:00 Pulse 68 02/26/25 14:00 Resp 17 02/26/25 14:00 BP 103/68 02/26/25 12:00 Pulse Ox 92 L 02/26/25 12:00 FiO2 40 02/18/25 16:10 Intake & Output 02/25/25 02/26/25 02/26/25 18:59 06:59 18:59 Intake Total 360 180 Output Total 200 700 Balance 160 -700 180 Weight 108.9 kg Intake: Oral 360 180 Output: Urine 200 700 Other: Voiding Method Urinal Urinal Urinal # Voids 1 1 ABP, PAP, CO, CI - Last Documented Arterial Blood Pressure 105/51 Pulmonary Artery Pressure 26/7 Cardiac Output 6.3 Cardiac Index 2.8 - Labs CBC & Chem 7: 02/26/25 05:31 02/26/25 05:31 Labs: Abnormal Lab Results - Last 24 Hours (Table) 02/25/25 02/25/25 02/26/25 Range/Units 16:22 19:57 05:31 WBC 10.62 H (4.50-10.00) 10*3/uL RBC 3.74 L (4.40-5.60) 10*6/uL Hgb 9.9 L (13.0-17.0) g/dL Hct 31.0 L (39.6-50.0) % MCH 26.5 L (27.0-32.0) pg MCHC 31.9 L (32.0-37.0) g/dL Immature Gran # 0.16 H (0.00-0.04) 10*3/uL BUN (9-20) mg/dL Glucose (74-99) mg/dL POC Glucose (mg/dL) 124 H 140 H (70-110) mg/dL Total Bilirubin (0.2-1.3) mg/dL ALT (4-49) U/L Total Protein (6.3-8.2) g/dL Albumin (3.5-5.0) g/dL Lipase (23-300) U/L 02/26/25 02/26/25 02/26/25 Range/Units 05:31 05:55 08:11 WBC (4.50-10.00) 10*3/uL RBC (4.40-5.60) 10*6/uL Hgb (13.0-17.0) g/dL Hct (39.6-50.0) % MCH (27.0-32.0) pg MCHC (32.0-37.0) g/dL Immature Gran # (0.00-0.04) 10*3/uL BUN 27 H (9-20) mg/dL Glucose 119 H (74-99) mg/dL POC Glucose (mg/dL) 134 H 207 H (70-110) mg/dL Total Bilirubin 1.7 H (0.2-1.3) mg/dL ALT 81 H (4-49) U/L Total Protein 5.5 L (6.3-8.2) g/dL Albumin 3.1 L (3.5-5.0) g/dL Lipase 884 H (23-300) U/L 02/26/25 Range/Units 11:27 WBC (4.50-10.00) 10*3/uL RBC (4.40-5.60) 10*6/uL Hgb (13.0-17.0) g/dL Hct (39.6-50.0) % MCH (27.0-32.0) pg MCHC (32.0-37.0) g/dL Immature Gran # (0.00-0.04) 10*3/uL BUN (9-20) mg/dL Glucose (74-99) mg/dL POC Glucose (mg/dL) 148 H (70-110) mg/dL Total Bilirubin (0.2-1.3) mg/dL ALT (4-49) U/L Total Protein (6.3-8.2) g/dL Albumin (3.5-5.0) g/dL Lipase (23-300) U/L
--- NOTE | 2025-02-26 15:40 | MR ---
INDICATION: Patient age:Male; 69 years old; Reason for study: Acute CVA; PHH. COMPARISON: CT brain 02/26/2025, CTA head and neck 02/26/2025. TECHNIQUE: Multi planar, multi sequence imaging was performed through the brain without the administr ation of intravenous contrast. FINDINGS: The acevedo-white junctions, ventricular system, basal cisterns appear unremarkable. Age-appropriate cer ebral parenchymal volume. Few foci of restricted diffusion identified within the left temporal occipi hugh acevedo-white junction interface. Intracranial arterial flow voids are maintained. Midline structure s show no abnormality. Several foci of high T2/FLAIR signal intensity are seen within the supratentor ial subcortical white matter. The susceptibility weighted images several scattered foci of blooming a rtifact throughout the cerebral hemispheres and cerebellum consistent with prior hemosiderin depositi on. The bone marrow signal is within normal limits. Mucosal thickening in the ethmoid sinuses. Bilateral aphakia. Right-sided scleral buckle with additional possible left sided scleral buckle. IMPRESSION: 1. Several foci of acute/subacute ischemia involving the acevedo-white junction of the left temporal occ ipital region. 2. Nonspecific mild white matter changes, likely related to small vessel ischemic disease. 3. Several scattered foci of blooming artifact consistent with prior hemosiderin deposition. [facility], , 02/26/2025 3:37 PM
--- NOTE | 2025-02-26 15:49 | MR ---
CLINICAL INDICATION: CVA COMPARISON: MRI brain 02/26/2025, CT brain 02/26/2025, CTA head and neck 02/26/2025 TECHNIQUE: MR angiography of the head was performed utilizing 3-D noncontrast time of flight images. 3-D reformatted MIP images were generated on a separate workstation for review. Vascular assessment was performed utilizing NASCET criteria. FINDINGS: Vertebral arteries: The vertebral arteries are patent and codominant. Basilar artery: The basilar artery is intact. The basilar artery bifurcation is normal. Internal Carotid arteries: The cervical, petrous, cavernous and supraclinoid segments are normal. DAWIT: Patent with no evidence of aneurysm. ACOM: Present without evidence of aneurysm. MCA: Right MCA is patent without evidence aneurysm. No evidence of aneurysm involving the left MCA. T here is focal caliber change with loss of signal within a branch of the left MCA distal M2 segment (s eries 301, image 12). This corresponds to CT. There appears to be distal reconstitution. [employer]ER: Patent with no evidence of aneurysm. PCOM: Hypoplastic bilaterally. IMPRESSION: Focal high-grade stenosis of a branch of the left MCA distal M2 segment. [facility], , 02/26/2025 3:47 PM
[2025-02-26 16:28] LABS: Glucose,Whole Blood 138 mg/dL (70-110)
[2025-02-26 17:13] VITALS: BP 124/82; PULSE 93
[2025-02-26] MEDS ORDERED: APIXABAN 5 MG TAB PO SCH (21:00)
[2025-02-26] MEDS ORDERED: TICAGRELOR 90 MG TAB PO SCH (21:00)
== END 2025-02-26 18:04 | disposition short-term general hospital (02) | DRG 219 ==
LOC: 2ORMAIN 05:34 → 2SICU 11:38 → 3SCARD 02-21 21:31
PROVIDERS: ADMIT Surgery; ATTEND Surgery
PROC: B24BZZ4 Ultrasonography of Heart with Aorta, Transesophageal (ICD-10-PCS; principal; 2025-02-18 08:00)
PROC: 02L70CK Occlusion of Left Atrial Appendage with Extraluminal Device, Open Approach (ICD-10-PCS; principal; 2025-02-18 08:00)
PROC: 02RF08Z Replacement of Aortic Valve with Zooplastic Tissue, Open Approach (ICD-10-PCS; principal; 2025-02-18 08:00)
PROC: 5A1221Z Performance of Cardiac Output, Continuous (ICD-10-PCS; principal; 2025-02-18 08:00)
PROC: 02HV33Z Insertion of Infusion Device into Superior Vena Cava, Percutaneous Approach (ICD-10-PCS; 2025-02-19)
DX: I35.2 Nonrheumatic aortic (valve) stenosis with insufficiency (principal); I63.9 Cerebral infarction, unspecified; J93.83 Other pneumothorax; D69.6 Thrombocytopenia, unspecified; D62 Acute posthemorrhagic anemia; R47.01 Aphasia; D49.519 Neoplasm of unspecified behavior of unspecified kidney; D72.829 Elevated white blood cell count, unspecified; I48.0 Paroxysmal atrial fibrillation; E11.9 Type 2 diabetes mellitus without complications; J44.9 Chronic obstructive pulmonary disease, unspecified; I10 Essential (primary) hypertension; I77.810 Thoracic aortic ectasia; I37.1 Nonrheumatic pulmonary valve insufficiency; J98.11 Atelectasis; Z79.4 Long term (current) use of insulin; E78.5 Hyperlipidemia, unspecified; G47.33 Obstructive sleep apnea (adult) (pediatric); R63.0 Anorexia; R19.7 Diarrhea, unspecified; I25.10 Atherosclerotic heart disease of native coronary artery without angina pectoris; I25.2 Old myocardial infarction; K21.9 Gastro-esophageal reflux disease without esophagitis; R29.704 NIHSS score 4; R47.02 Dysphasia; Z79.01 Long term (current) use of anticoagulants; Z79.02 Long term (current) use of antithrombotics/antiplatelets; Z79.82 Long term (current) use of aspirin; Z79.899 Other long term (current) drug therapy; Z86.16 Personal history of COVID-19; Z95.1 Presence of aortocoronary bypass graft; Z95.5 Presence of coronary angioplasty implant and graft
CPT/HCPCS: 70450; 70496; 70498; 70544; 70551; 71045; 71046; 74018; 74178; 76705; 80048; 80053; 82150; 82330; 82805; 83690; 83735; 85025; 85027; 85610; 85730; 86850; 86891; 86900; 86901; 86920; 88305; 94002; 94640

== ENCOUNTER → 2025-03-26 | Outpatient (CLI) | payer MEDICARE, OTHER ==
[2025-03-26 15:43] LABS: African American GFR (CKD) >90 (>60 ml/min/1.73 sqM); Blood Urea Nitrogen 17 mg/dL (9-20); Non-African American GFR(CKD) 88 (>60 ml/min/1.73 sqM)
--- NOTE | 2025-03-29 11:23 | CT ---
EXAMINATION TYPE: CT chest w con DATE OF EXAM: 03/26/2025 4:15 PM COMPARISON: 07/07/2024 . CLINICAL INDICATION: Male, 69 years old with history of R91.1 SOLITARY PULMONARY NODULE; PHH, PULMONA RY NODULE TECHNIQUE: Multiple axial images were obtained through the chest. Sagittal and coronal reformats were created for review. MIP was performed on a separate workstation. Contrast used:100ml mL of Isovue [address] DLP: 587 mGycm, Automated exposure control for dose reduction was used. FINDINGS: Patient status post median sternotomy and placement of prostatic aortic valve. Recent postoperative c hanges with residual stranding overlying the sternotomy and some additional strandy fluid and edema w ithin the anterior mediastinum. There is a small, 1.6 cm basilar pericardial effusion. Mild pericardial enhancement is suggested. Suspect a proximal left coronary artery stent. The graft aorta normal caliber with conventional arch vessel branching anatomy. Prominent but nonenlarged right paratracheal lymph node measuring 7 mm. Mildly enlarged subcarinal lymph node measuring 1.7 cm versus 1.4 cm, previously. Right hilar lymph node is mildly enlarged at 1.5 cm. Moderate bilateral pleural effusions with adjacent atelectasis. Some punctate hyperdensities within t he atelectatic lung may reflect the previous tree-in-bud opacities, possible sequela of chronic aspir ation. 4 mm lateral right lower lobe pulmonary nodule is unchanged suggesting a benign etiology. Visualized upper abdomen shows a left hepatic dome cyst measuring 2.8 cm. Redemonstrated complex solid cystic mass lateral left kidney measuring 4.2 cm versus 3.1 cm on 024. Partially visualized exophytic cyst medial right kidney measuring 1.6 cm. Hilar splenule. Bones: DISH mid and lower thoracic spine. IMPRESSION: 1. Evidence of fairly recent surgery with healing median sternotomy and placement of prosthetic aorti c valve. There is a small 1.6 cm thick basilar pericardial effusion which may relate to recent surger y. However, given mild pericardial enhancement, correlate to exclude pericarditis. 2. Myyry-vm-prlgwdad bilateral pleural effusions with adjacent atelectasis. 3. Mildly enlarged right hilar and subcarinal lymph nodes measuring 1.5 and 1.7 cm, respectively, lik anamika reactive. Consider precautionary follow up in 3-6 months to ensure stability/resolution. 4. Gradually enlarging suspicious left renal mass currently 4.2 cm versus 3.1 cm, previously. Appropr iate urology follow-up. RCC not excluded. 5. A 4 mm right lower lobe pulmonary nodule remains unchanged suggesting a benign etiology. [facility], , 03/29/2025 11:21 AM
== END | disposition home or self-care (01) ==
LOC: RADCTMAIN 15:08
PROVIDERS: ATTEND Internal Medicine
DX: R91.1 Solitary pulmonary nodule (principal); I31.39 Other pericardial effusion (noninflammatory); J90 Pleural effusion, not elsewhere classified; R59.9 Enlarged lymph nodes, unspecified; J98.11 Atelectasis; Z95.2 Presence of prosthetic heart valve
CPT/HCPCS: 82565; 84520; 71260; 36415; Q9967

== ENCOUNTER → 2025-05-31 | Outpatient (CLI) | payer MEDICARE, OTHER ==
[2025-05-31 15:32] LABS: African American GFR (CKD) >90 (>60 ml/min/1.73 sqM); Blood Urea Nitrogen 18 mg/dL (9-20); Non-African American GFR(CKD) 80 (>60 ml/min/1.73 sqM)
--- NOTE | 2025-05-31 19:04 | CT ---
EXAMINATION TYPE: CT urogram wo/w con CT DLP: 3261 mGycm, Automated exposure control for dose reduction was used. 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 Delayed imaging was performed. Coronal and sagittal reformats were perfo rmed. One or more CT dose reduction strategies were utilized during this examination. 2D and 3D recon structions are performed to assist visualization of the urinary tract on a separate workstation. FINDINGS: GENITOURINARY: RIGHT KIDNEY AND URETER: There are 2 punctate 3 mm nonobstructing calculi. No hydronephrosis or hydro ureter. No suspicious enhancing renal lesion. Medial exophytic left superior pole kidney 1.8 cm simpl e cyst. Several additional subcentimeter nonenhancing subcentimeter cysts. No urothelial lesions: no filling defect, dilation, stricture or wall thickening. LEFT KIDNEY AND URETER: There are 6 nonobstructing left renal calculi measuring up to 4 mm No hydrone phrosis or hydroureter. Superior pole partially exophytic heterogenous enhancing 4.1 x 3.4 cm renal l esion (series 6, image 30). Previously measured 3.[address] No extension into the IVC or chrissie l vein. Adjacent 1.9 cm simple appearing cyst. No urothelial lesions: no filling defect, dilation, st ricture or wall thickening. URINARY BLADDER: Moderately distended. Normal, no calculi, mass or other lesions. REPRODUCTIVE: Central prostate calcification.. ABDOMEN LIVER: Stable nonenhancing left hepatic lobe 4.3 cm cyst. GALLBLADDER AND BILE DUCTS: Unremarkable PANCREAS: Unremarkable. SPLEEN: Mildly enlarged measuring up to 14.2 cm. ADRENAL GLANDS: Unremarkable. STOMACH AND BOWEL: Small hiatal hernia. No focal bowel wall thickening or surrounding inflammatory ch anges. The appendix is within normal limits.. No evidence of bowel obstruction. PERITONEUM: No evidence of pneumoperitoneum, free fluid, or adenopathy. VASCULATURE: No aortic aneurysm. Mild atherosclerotic calcification of the abdominal aorta. MUSCULOSKELETAL: No acute osseous abnormalities. No aggressive osseous lesion. Moderate degenerative disc disease L5-S1. SOFT TISSUE/ABDOMINAL WALL: Unremarkable. LOWER CHEST: Moderate cardiomegaly. Minimal linear atelectasis within the left lower lobe. Partial vi sualization of sternotomy changes. IMPRESSION: 1. Redemonstration of left renal superior pole heterogenous enhancing 4.1 cm mass. This is concerning for renal cell carcinoma until proven otherwise. No other evidence for metastasis. No suspicious les ions within the ureters or urinary bladder. 2. Several small bilateral nonenhancing renal cysts. 3. Nonobstructing bilateral renal calculi. 4. Mild splenomegaly. [facility], , 05/31/2025 7:01 PM
== END | disposition home or self-care (01) ==
LOC: RADCTMAIN 14:38
PROVIDERS: ATTEND Urology
DX: D41.02 Neoplasm of uncertain behavior of left kidney (principal); N28.1 Cyst of kidney, acquired; N20.0 Calculus of kidney; R16.1 Splenomegaly, not elsewhere classified; N28.89 Other specified disorders of kidney and ureter
CPT/HCPCS: 82565; 84520; 74178; 36415; 74400; Q9967